=== PATIENT | male | born 1985 | race Caucasian/White ===

== ENCOUNTER 2021-03-20 16:18 | Emergency (ER) | payer BC, SELFPAY ==
[2021-03-20 16:20] VITALS: BP 151/97; PULSE 119; RESP 18; TEMP 36.7; O2SAT 99; BMI 30.1
--- NOTE | 2021-03-20 16:31 | ED_ITS ---
HPI - Back Pain/Injury General Chief Complaint: Back Pain/Injury Stated Complaint: BACK PAIN Time Seen by Provider: 03/20/21 16:25 Source: patient Mode of arrival: ambulatory Limitations: no limitations History of Present Illness HPI Narrative: 35-year-old male with a past medical history of chronic back pain presenting to the ED with complaints of acute on chronic back pain for the past few days worse today. Reports that he has has a scheduled cortisone shot in March 31 although he cannot wait that longer. Reports that he is getting 15 mg oxycodone from his doctor and that is not providing any symptomatic relief. Reports this is similar when compared to his prior back pains denies any other symptoms complaints or concerns at this time. He is requesting a Toradol shot IM. he reports he is currently prescribed 15 mg oxycodone and is not providing any symptomatic relief. Really want to Toradol IM shot. MD elicited complaint: back pain Pertinent past history: prior back pain Onset (ago): day(s) ( acute on chronic has been painful for a few days worse today) Timing: constant and progressively worsening Severity: similar to previous episodes Pain scale (0-10): 10 Similar Symptoms Previously: Yes Quality: aching and throbbing Location: lumbar spine Radiation: none Exacerbating factors: movement Relieving factors: walking Associated symptoms: denies other symptoms Work related injury: No Related Data Previous Rx's Medication Instructions Recorded acetaminophen [Tylenol Extra 1,000 mg PO QID PRN #14 tab 03/20/21 Strength] diazepam [Valium] 10 mg PO TID PRN #15 tab 03/20/21 ketorolac 10 mg PO Q8H PRN #15 tab 03/20/21 lidocaine HCl [Aspercreme 1 appl TOPICAL BID PRN #120 g 03/20/21 (lidocaine HCl)] ondansetron HCl [Zofran] 4 mg PO Q8H PRN #14 tab 03/20/21 oxycodone 15 mg PO BID PRN #14 tab 03/20/21 prednisone 40 mg PO DAILY 5 Days #10 tab 03/20/21 Allergies Allergy/AdvReac Type Severity Reaction Status Date / Time No Known Allergies Allergy Unverified 06/11/20 17:30 [No Known Allergies*] Review of Systems Review of Systems: Constitutional : No trauma, No Weight loss, No Fever, No Chills, ENT/Mouth : No Hearing loss, No Ear Pain, No Nasal Congestion, No Sinus Pain, No Hoarseness, No sore throat, No Rhinorrhea, No Swallowing Difficulty Cardiovascular : No Chest Pain, No SOB Respiratory : No Cough, No Dyspnea Gastrointestinal : No Nausea, No Vomiting, No Diarrhea, No abdominal Pain, No Hematochezia, No Melena Genitourinary : No Dysuria, No Urinary Frequency, No Hematuria, No Urinary or Bowel Incontinence/retention Musculoskeletal : + Back pain, No neck pain, No joint stiffness, No joint swelling Skin : No Skin Lesions, No rash or signs of infection Neuro : No Weakness, No radiation, No Numbness, No Paresthesias, No headache, no loss of bowel or bladder incontinence, no saddle anesthesia, Focal weakness, No radiation Denies history of IV drug usage. Yes all other systems are reviewed and are negative ON LICENSE OF [facility] Past Medical History Attestation statement: The following information was validated with the patient. Medical History Glaucoma Rheumatoid arthritis Social History Social History Advance Directives: No Advance Directives Information Provided: No Physical Exam Vital Signs: Vital Signs: Last Vital Signs Temp 98.0 F 03/20/21 16:20 Pulse 119 H 03/20/21 16:20 Resp 18 03/20/21 16:20 BP 151/97 H 03/20/21 16:20 Pulse Ox 99 03/20/21 16:20 Body Mass Index 30.1 vital signs have been reviewed as normal and appeared to be correct. Blood pressure normal. Heart rate normal. Respiration rate normal. Temperature normal. Oxygen saturation normal. Appearance: Alert. Oriented X3. No acute distress. Head: Normal external exam. Normocephalic. Atraumatic. No Lyons signs noted. No raccoon eyes noted Eyes: PERRLA. EOMI. Conjunctiva and sclera normal. Eyelids normal. ENT: EAC normal. TM's Normal. Pharynx normal. Uvula midline. Moist mucous membranes. No trismus noted. No drooling noted. No muffled voice noted. Neck: Normal inspection. Neck supple. FROM. No adenopathy. Thyroid Normal. No meningeal signs. No neck mass noted. CVS: Normal heart rate and rhythm. Heart sound normal. No murmurs noted. Pulses normal throughout. Respiratory: No respiratory distress. Painless inspiration. Breath sounds normal. No wheezes/rales/rhonchi noted. Chest nontender. No accessory muscle usage noted or decreased air movement noted. Abdomen: Soft and nontender. Bowel sounds normal in all 4 quadrants. No distention noted. No organomegaly noted. No visible injury noted. Back: No CVA tenderness. Full range of motion noted. No obvious deformities, or edema. Mild para-spinal muscular tenderness from lumbar region to coccyx. Full ROM in back and lower extremities. 5/5 strength hip extension/flexion, abduction, adduction. Mild Lumbar pain with hip flexion against resistance. Straight leg raise test negative on right; Straight leg raise test negative on left; Reflexes normal ankle and knee bilaterally; EHL motor strength normal bilaterally. No rashes/lesion/induration/fluctuance or signs infection noted. Skin: Skin warm and dry. Normal skin color. Normal skin turgor. No rashes/lesions/lacerations noted. Extremities: No lower extremity edema. Extremities exhibit normal range of motion. Extremities nontender. Neuro: Oriented X 3. No motor deficit. No sensory deficit. Reflexes normal. Patient has a normal steady gait. Course Course Course Narrative: Pt c likely muscular pain, but could be herniated disc. Neuro exam shows no deficits. Not c/w AAA/epidural abscess/dissection.No high risk Hx (Incont, fever, immunosupp, recent surgery/LP, coag, signif trauma, wt loss, puls mass, hx/o Ca, TB, or IVDU) to warrant MRI/CT today. Not c/w P yelo/UTI/kidney stone/spinal fx. Not cauda equina syndrome. Imaging not currently indicated. DC c meds and f/u. MDM - Back Pain/Injury Medical Records Attestation: I reviewed the patient's medical records. Discharge Plan Discharge Clinical Impression: Back pain Patient Disposition: Home, Self-Care Instructions: Chronic Back Pain (DC), Lower Back Exercises (ED) Prescriptions: New ondansetron HCl [Zofran] 4 mg tablet 4 mg PO Q8H PRN (Reason: nausea and vomiting) Qty: 14 RF: 0 diazepam [Valium] 10 mg tablet 10 mg PO TID PRN (Reason: muscle spasm) Qty: 15 RF: 0 lidocaine HCl [Aspercreme (lidocaine HCl)] 4 % cream 1 appl topical BID PRN (Reason: pain) Qty: 120 RF: 0 ketorolac 10 mg tablet 10 mg PO Q8H PRN (Reason: pain) Qty: 15 RF: 0 prednisone 20 mg tablet 40 mg PO DAILY 5 Days Qty: 10 RF: 0 acetaminophen [Tylenol Extra Strength] 500 mg tablet 1,000 mg PO QID PRN (Reason: fever or pain) Qty: 14 RF: 0 oxycodone 15 mg tablet 15 mg PO BID PRN (Reason: pain) Qty: 14 RF: 0 Referrals: Ba Zuñiga PA [Primary Care Provider] - 2 days Print Language: Mongolian
[2021-03-20] MEDS: Ketorolac Tromethamine 30 MG/ML VIAL IM (16:32)
--- NOTE | 2021-03-20 16:36 | PC.NURSE ---
NO BLADDER OR BOWEL ISSUES.
== END 2021-03-20 16:45 | disposition home or self-care (01) ==
PROVIDERS: Emergency Provider Emergency Medicine; PCP Physician Assistant Medical
DX: M54.9 Dorsalgia, unspecified (principal); Z79.891 Long term (current) use of opiate analgesic
CPT/HCPCS: 96372; 99284; J1885

== ENCOUNTER 2021-09-15 15:16 | Outpatient (REF) | payer BC, SELFPAY | END 2021-09-15 15:17 | disposition home or self-care (01) | LOC: HO.BBR 15:16 | PROVIDERS: PCP Physician Assistant Medical; Visit Provider Internal Medicine Hematology & Oncology | DX: E83.110 Hereditary hemochromatosis (principal); D75.1 Secondary polycythemia | CPT/HCPCS: 85018; 99195 ==

== ENCOUNTER 2021-09-29 11:35 | Outpatient (REF) | payer BC, SELFPAY | END 2021-09-29 11:36 | disposition home or self-care (01) | LOC: HO.BBR 11:35 | PROVIDERS: Visit Provider Internal Medicine Hematology & Oncology | DX: E83.110 Hereditary hemochromatosis (principal) | CPT/HCPCS: 85014; 85018; 99195 ==

== ENCOUNTER 2021-10-14 13:52 | Outpatient (REF) | payer BC, SELFPAY | END 2021-10-14 13:53 | disposition home or self-care (01) | LOC: HO.BBR 13:52 | PROVIDERS: Visit Provider Internal Medicine Hematology & Oncology | DX: D75.1 Secondary polycythemia (principal) | CPT/HCPCS: 85018; 99195 ==

== ENCOUNTER 2021-10-27 12:53 | Outpatient (REF) | payer BC, SELFPAY | END 2021-10-27 12:54 | disposition home or self-care (01) | LOC: HO.BBR 12:53 | PROVIDERS: Visit Provider Internal Medicine Hematology & Oncology | DX: E83.110 Hereditary hemochromatosis (principal); D75.1 Secondary polycythemia | CPT/HCPCS: 85014; 85018; 99195 ==

== ENCOUNTER 2021-11-12 09:44 | Outpatient (REF) | payer BC, SELFPAY | END 2021-11-12 09:45 | disposition home or self-care (01) | LOC: HO.BBR 09:44 | PROVIDERS: Visit Provider Internal Medicine Hematology & Oncology | DX: D75.1 Secondary polycythemia (principal) | CPT/HCPCS: 85018; 99195 ==

== ENCOUNTER 2021-11-30 14:51 | Outpatient (REF) | payer BC, SELFPAY | END 2021-11-30 14:52 | disposition home or self-care (01) | LOC: HO.BBR 14:51 | PROVIDERS: Visit Provider Internal Medicine Hematology & Oncology | DX: E83.110 Hereditary hemochromatosis (principal); D75.1 Secondary polycythemia | CPT/HCPCS: 85014; 85018; 99195 ==

== ENCOUNTER 2022-02-08 14:02 | Emergency (ER) | payer BC, SELFPAY | END 2022-02-08 17:53 | disposition left against medical advice (07) | PROVIDERS: Emergency Provider Emergency Medicine; PCP Physician Assistant Medical | DX: R05.9 Cough, unspecified (principal) ==

== ENCOUNTER 2022-02-08 15:27 | Outpatient (REF) | payer BC, SELFPAY ==
[2022-02-08 16:16] LABS: COVID-19 Test Negative (Negative); IDNOW Serial# 9DB6401D
== END 2022-02-08 15:28 | disposition home or self-care (01) ==
LOC: HO.LAB 15:27
PROVIDERS: PCP Physician Assistant Medical; Visit Provider Internal Medicine
DX: Z20.822 Contact with and (suspected) exposure to COVID-19 (principal)
CPT/HCPCS: 87635; C9803

== ENCOUNTER 2022-02-15 01:45 | Inpatient (IN) | payer BC, SELFPAY ==
[2022-02-15] VITALS (7 sets, daily range): BP systolic 105–161; BP diastolic 59–109; PULSE 74–115; RESP 12–22; TEMP 36.4–37.6; O2SAT 92–98; BMI 27.9
--- NOTE | ~2022-02-15 | XR_ITS ---
EXAMINATION: XR CHEST CLINICAL INFORMATION: Fevers COMPARISON: 01/12/2020 TECHNIQUE: Frontal view of the chest was obtained. FINDINGS: Lung volumes are symmetric. No focal consolidation is seen. Linear atelectasis at the left base. No evidence of pneumothorax, pleural effusion, or pulmonary edema. The cardiomediastinal contour is unremarkable. No acute osseous findings are seen. Redemonstrated small round metallic densities overlying the lower chest wall. XR/XR chest 1V IMPRESSION: No acute cardiopulmonary findings.
--- NOTE | ~2022-02-15 | US_ITS ---
EXAMINATION: US ABDOMEN LIMITED CLINICAL INFORMATION: Fever, elevated liver enzymes.. COMPARISON: CT abdomen and pelvis noncontrast 02/15/2022. TECHNIQUE: Real-time imaging of the right upper quadrant abdominal viscera. FINDINGS: PANCREAS: Normal in size and contour and echogenicity. No pancreatic ductal distention or retroperitoneal effusion. LIVER: The liver is enlarged measuring 26 cm in length. The liver surface is smooth. The parenchymal echogenicity is within normal. There is no focal hepatic parenchymal lesion or intrahepatic ductal dilatation. Color Doppler shows portal flow towards the liver. GALLBLADDER: The gallbladder wall is mildly thickened measuring 4-5 mm. There is no pericholecystic fluid. There is no calculus or sludge seen in the lumen. COMMON BILE DUCT: Normal in caliber measuring 0.3 cm in diameter. No visible ductal calculus. RIGHT KIDNEY: Right kidney measures 14.4 cm in length. There is inhomogeneous mildly increased renal parenchymal echogenicity. There is no hydronephrosis. Punctate renal sinus calculi noted on CT are not appreciated by ultrasound. There is no perinephric fluid. FREE FLUID: None. US/US abdomen limited IMPRESSION: -Hepatomegaly, 26 cm. Parenchyma normal in echogenicity. No focal parenchymal lesion. -Mild gallbladder wall thickening, 4-5 mm. No stone or sludge. No ductal dilatation. -Nonspecific heterogeneous increased renal parenchymal echogenicity. Finding could be related to medical renal disease or pyelonephritis. No hydronephrosis. No perinephric fluid.
--- NOTE | ~2022-02-15 | MR_ITS ---
EXAMINATION: MR LUMBAR SPINE WITHOUT AND WITH CONTRAST CLINICAL INFORMATION: Back pain. Sepsis. COMPARISON: CT abdomen and pelvis from 02/15/2022. TECHNIQUE: MRI of the lumbar spine was obtained using routine sequences without and following the administration of 9 mL of Gadavist intravenous contrast. FINDINGS: Mild reversal the normal lumbar lordosis. Mild degenerative retrolisthesis of L5 on S1. Otherwise, normal anatomic alignment. Diffuse mildly decreased marrow signal throughout. Moderate degenerative disc disease at T11-T12, L1-L2, L2-L3, and L5-S1. Mild degenerative disc disease at all additional levels. Mild mixed Modic type discogenic endplate changes. No demonstrated suspicious marrow edema or enhancement. Small Schmorl's nodes from L1-L4. Otherwise, the vertebral body heights are largely maintained. No epidural collection. The conus medullaris terminates at the level of L1. The distal spinal cord is normal in appearance. No abnormal contrast enhancement. Moderate subcutaneous edema within the soft tissues of the back from L1-S1. No demonstrated discrete drainable fluid collection. No additional significant abnormalities of the paraspinal musculature. Multiple wedge-shaped enhancement defects throughout the visualized portions of the bilateral kidneys. Mild perinephric fat stranding without demonstrated discrete collection. Otherwise, limited evaluation of the intra-abdominal structures without significant abnormalities. The abdominal aorta is of normal contour and caliber. AXIAL SPINAL LEVELS: L1-L2: Shallow diffuse disc bulge. There is no facet joint arthropathy. There is no neural foraminal stenosis. There is no spinal canal stenosis. L2-L3: Mild diffuse disc bulge. There is mild right and no left facet joint arthropathy. There is no neural foraminal stenosis. There is no spinal canal stenosis. L3-L4: Shallow diffuse disc bulge. There is mild bilateral facet joint arthropathy. There is no neural foraminal stenosis. There is no spinal canal stenosis. L4-L5: Shallow diffuse disc bulge. There is moderate bilateral facet joint arthropathy. There is mild bilateral neural foraminal stenosis. There is no spinal canal stenosis. L5-S1: Moderate diffuse disc bulge with superimposed central disc extrusion with slight inferior migration. There is moderate bilateral facet joint arthropathy. There is moderate to severe bilateral neural foraminal stenosis. There is stenosis of the subarticular zones with mild spinal canal stenosis centrally. MR/MR lumbar spine wo/w con IMPRESSION: 1. Moderate multilevel degenerative spondyloarthropathy of the lumbar spine as described in detail above. Most notably, there are stenoses of the subarticular zones with mild spinal canal stenosis centrally at L5-S1. Moderate to severe neural foraminal stenoses at L5-S1.. 2. Nonspecific diffuse mildly decreased marrow signal throughout the osseous structures. This may be seen with nonspecific underlying metabolic derangement or hematopoietic/lymphoproliferative disorders (including anemia or marrow activation in the setting of systemic infectious/inflammatory processes). No demonstrated suspicious focal regions of enhancement. 3. Bilateral striated nephrograms suggestive of underlying nonspecific nephritis.
--- NOTE | ~2022-02-15 | CT_ITS ---
EXAMINATION: CT ABDOMEN AND PELVIS WITHOUT CONTRAST CLINICAL INFORMATION: Fevers COMPARISON: None TECHNIQUE: Multidetector volumetric imaging was performed from the superior aspect of the liver through the pubic symphysis. Sagittal and coronal reformatted images were obtained on the technologist's workstation. This CT examination was performed using dose optimization techniques as appropriate, variously including the following: *Automated exposure control *Adjustment of mA and/or kV according to patient size (this includes techniques or standardized protocols for targeted exams where dose is matched to indication/reason for exam; i.e. extremities or head) *Use of iterative reconstruction technique DLP: 642 mGy-cm FINDINGS: LUNG BASES: Subsegmental bibasilar atelectasis. LIVER, GALLBLADDER, AND BILIARY TREE: The liver is enlarged, measuring approximately 27 cm in length. No biliary ductal dilatation is present. The gallbladder is unremarkable with no evidence of radiopaque gallstones, gallbladder wall thickening, or obvious pericholecystic inflammatory changes. PANCREAS: Unremarkable. SPLEEN: Unremarkable. ADRENAL GLANDS: Unremarkable. KIDNEYS AND URETERS: No hydronephrosis or obstructing calculus identified. Punctate bilateral renal calculi are noted. Nonspecific bilateral perinephric stranding is noted. BLADDER: Partially distended without significant wall thickening. GASTROINTESTINAL TRACT: No evidence of bowel obstruction or significant wall thickening. Mild diverticulosis is noted. The appendix is unremarkable. No free fluid or free air is seen. ABDOMINAL WALL: No significant hernia is appreciated. LYMPH NODES: Normal. VASCULAR: Unremarkable. PELVIC VISCERA: Unremarkable. OSSEOUS STRUCTURES: Unremarkable. CT/CT abdomen pelvis wo con IMPRESSION: 1. Nonspecific bilateral perinephric stranding, of uncertain clinical significance without intravenous contrast. Pyelonephritis is a possibility in the proper clinical setting, and correlation with urinalysis is recommended. 2. Tiny bilateral renal calculi. No hydronephrosis bilaterally. 3. Hepatomegaly.
[2022-02-15 02:19] LABS: Influenza A Negative (Negative); Influenza B2 Negative (Negative)
[2022-02-15 02:20] LABS: COVID-19 Test Negative (Negative); IDNOW Serial# 08D9AD1C
--- NOTE | 2022-02-15 04:00 | ED.FEVER ---
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 and never noticed a rash no IVDA< no hardwarde, this has never happened before, no sick contacts, taking tylenol, motrin and theraflu around the clock without improvement MD elicited complaint: fever, malaise and weakness Pertinent past history: immunosuppression (on enbrel and leflunomide for RA) Onset (ago): day(s) (11) Context: on immunosuppressant(s) and other (PCP via phone call started on tamiflu but no confirmed testing completed course does not feel better) Exacerbating factors: nothing Relieving factors: acetaminophen, ibuprofen, aspirin and cold medicine Associated symptoms: chills, myalgias, headache, abdominal pain, nausea, night sweats and extremity pain Treatments prior to arrival fever: acetaminophen and ibuprofen Related Data Previous Rx's Medication Instructions Recorded acetaminophen 500 mg tablet 1,000 mg PO QID PRN #14 tab 03/20/21 (Tylenol Extra Strength) diazepam 10 mg tablet (Valium) 10 mg PO TID PRN #15 tab 03/20/21 ketorolac 10 mg tablet 10 mg PO Q8H PRN #15 tab 03/20/21 lidocaine HCl 4 % topical cream 1 appl TOPICAL BID PRN #120 g 03/20/21 (Aspercreme (lidocaine HCl)) ondansetron HCl 4 mg tablet 4 mg PO Q8H PRN #14 tab 03/20/21 (Zofran) oxycodone 15 mg tablet 15 mg PO BID PRN #14 tab 03/20/21 prednisone 20 mg tablet 40 mg PO DAILY 5 Days #10 tab 03/20/21 Allergies Allergy/AdvReac Type Severity Reaction Status Date / Time No Known Allergies Allergy Unverified 06/11/20 17:30 [No Known Allergies*] Review of Systems Review of Systems: Constitutional : pos Fever, pos Chills, pos Fatigue, pos Malaise ENT/Mouth : No sore throat, No Rhinorrhea Eyes: No Eye Pain, No Swelling, No Redness Cardiovascular : No Chest Pain, No SOB Respiratory : No Cough, No Sputum, No Wheezing Gastrointestinal : pos Nausea, No Vomiting, No Diarrhea, No Constipation, No abdominal Pain Genitourinary : No Dysuria, No Urinary Frequency, No Hematuria, Musculoskeletal : No joint pain, pos Myalgias, No Joint Swelling Skin : No Skin Lesions, No rash Neuro : pos Weakness, No Numbness, No Dizziness, pos Headache Psych : No Anxiety/Panic, No Depression Heme/Lymph: No Bruising, No Bleeding,No Lymphadenopathy Endocrine : No Polyuria, No Polydipsia All other systems reviewed and are negative [facility] Past Medical History Attestation statement: The following information was validated with the patient. Medical History Glaucoma Rheumatoid arthritis Social History Social History Alcohol intake: current Alcohol intake frequency: a few times a week Alcohol type: beer and hard liquor Patient Tobacco Use Status: Former Tobacco user Smoked in Last 30 Days: No Use of substances other than those prescribed or required for medical reasons: No Advance Directives: No Physical Exam Vital Signs: Vital Signs: Last Vital Signs Temp 98.0 F 02/15/22 04:21 Pulse 85 02/15/22 04:21 Resp 12 02/15/22 04:21 BP 105/59 L 02/15/22 04:21 Pulse Ox 95 02/15/22 04:21 BMI result Body Mass Index 27.9 Appearance: Alert. Oriented X3. No acute distress. Eyes: Pupils equal, round and reactive to light. ENT: Pharynx normal. Neck: Normal inspection. Neck supple. no meningeal signs - neg kernig's neg brudzinksi's CVS: Normal heart rate and rhythm. Pulses normal. Respiratory: No respiratory distress. Breath sounds normal. Abdomen: Soft and nontender. Skin: Skin warm and diaphoretic on forehad. Normal skin color. Normal skin turgor. Extremities: No lower extremity edema. No calf ttp Neuro: Oriented X 3. No motor deficit. No sensory deficit. Course Course Course Narrative: given bandemia and immunosuppression will start on antibiotics - infections suspected 520am IV ceftriaxone 2G and IV doxy possible lyme plan to get US of liver though suspect this is related to illness has no RUQ pain on exam day team hospitalist to be notified by overnight covering doctor US pending antibiotics infusing MDM - Fever MDM Narrative Medical decision making narrative: 36 yo male with hx of RA on immunosuppressants comes in with c/o 11 days of viral like illness no travel hx no sick contacts unknown tick bite but does have risk factors - he completed a tamiflu course but it did not improve his symptoms and he never had a confirmed test. At this time labs, cultures, CXR, IVF, tick panel sent off. no IVDA no hardware in body has no meningeal signs - dispo per results and findings. Lab Data Result diagrams: 02/15/22 04:21 02/15/22 04:45 Labs: Lab Results 02/15/22 02/15/22 02/15/22 Range/Units 01:55 01:55 04:21 WBC 12.8 H (4.8-10.8) X10*3/uL RBC 4.04 L (4.60-5.80) X10*6/uL Hgb 12.1 L (14.0-18.0) g/dl Hct 35.1 L (42.0-52.0) % MCV 86.9 (80.0-98.0) fL MCH 30.0 (27.0-33.0) pg MCHC 34.5 (31.0-36.0) g/dl RDW 15.0 (11.0-16.0) % Plt Count 290 (160-400) X10*3/uL MPV 12.9 H (9.4-12.4) fL Immature Gran % (Auto) Cancelled Neut % (Auto) Cancelled Lymph % (Auto) Cancelled Washburn % (Auto) Cancelled Eos % (Auto) Cancelled Baso % (Auto) Cancelled Lymph # (Auto) Cancelled [place] # (Auto) Cancelled Eos # (Auto) Cancelled Baso # (Auto) Cancelled Abs Immat Gran (auto) Cancelled Absolute Neuts (auto) Cancelled Absolute Nucleated RBC 0.000 (0.0-0.012) X10*3/uL Nucleated RBC % (auto) 0.0 (0.0-0.2) /100WBC Neutrophils % (Manual) 63 (45-73) % Band Neutrophils % 25 H (3-5) % Lymphocytes % (Manual) 2 L (20-40) % Monocytes % (Manual) 7 (2-11) % Metamyelocytes % 2 % Myelocytes % 1 % Abs Neuts (Manual) 11.3 H (2.0-8.3) X10*3/uL Lymphocytes # (Manual) 0.3 L (1.2-4.9) X10*3/uL Monocytes # (Manual) 0.9 (0.1-1.2) X10*3/uL Metamyelocytes # 0.3 X10*3/uL Myelocytes # 0.1 X10*/uL Toxic Granulation PRESENT Toxic Vacuolation PRESENT Dohle Bodies PRESENT Platelet Estimate NORMAL (NORMAL) Plt Morphology Comment NORMAL RBC Morphology NOTED Macclenny Cells 1+ (0-2) /OIF PT (9.9-13.0) SEC INR (0.9-1.1) Sodium (135-145) mmol/L Potassium (3.3-5.1) mmol/L Chloride (96-108) mmol/L Carbon Dioxide (22-29) mmol/L Anion Gap (12-20) BUN (9-16) mg/dL Creatinine (0.5-1.4) mg/dL Estim Creat Clear Calc Estimated GFR Random Glucose (60-115) mg/dL Lactic Acid (0.5-2.0) mmol/L Calcium (8.4-10.2) mg/dL Magnesium (1.6-2.6) mg/dL Total Bilirubin (0.0-1.0) mg/dL Direct Bilirubin (0.0-0.5) mg/dL AST (5-37) U/L ALT (0-40) U/L Alkaline Phosphatase (39-117) U/L C-Reactive Protein (< or = 0.50) mg/dL Total Protein (6.5-8.0) g/dL Albumin (3.5-5.0) g/dL Lipase (8-78) U/L Procalcitonin ng/mL Urine Color Urine Appearance Urine pH (5.0-8.0) Ur Specific Beaumont (1.005-1.025) Urine Protein (NEG-TRACE) MG/DL Urine Glucose (UA) (NEG) MG/DL Urine Ketones (NEG) MG/DL Urine Blood (NEG) Urine Nitrite (NEG) Ur Leukocyte Esterase (NEG) Urine RBC (0) /HPF Urine WBC (0-4) /HPF Ur Squamous Epith Cells /LPF Urine Bacteria /LPF Urine Mucus /LPF COVID-19 (JOLLY) Negative (Negative) COVID-19 Clin Com See Note Influenza Type A (RONAL) Negative (Negative) Influenza Type B (RONAL) Negative (Negative) Influenza A & B Note See Note 02/15/22 02/15/22 02/15/22 Range/Units 04:21 04:45 04:45 WBC (4.8-10.8) X10*3/uL RBC (4.60-5.80) X10*6/uL Hgb (14.0-18.0) g/dl Hct (42.0-52.0) % MCV (80.0-98.0) fL MCH (27.0-33.0) pg MCHC (31.0-36.0) g/dl RDW (11.0-16.0) % Plt Count (160-400) X10*3/uL MPV (9.4-12.4) fL Immature Gran % (Auto) Neut % (Auto) Lymph % (Auto) Washburn % (Auto) Eos % (Auto) Baso % (Auto) Lymph # (Auto) Washburn # (Auto) Eos # (Auto) Baso # (Auto) Abs Immat Gran (auto) Absolute Neuts (auto) Absolute Nucleated RBC (0.0-0.012) X10*3/uL Nucleated RBC % (auto) (0.0-0.2) /100WBC Neutrophils % (Manual) (45-73) % Band Neutrophils % (3-5) % Lymphocytes % (Manual) (20-40) % Monocytes % (Manual) (2-11) % Metamyelocytes % % Myelocytes % % Abs Neuts (Manual) (2.0-8.3) X10*3/uL Lymphocytes # (Manual) (1.2-4.9) X10*3/uL Monocytes # (Manual) (0.1-1.2) X10*3/uL Metamyelocytes # X10*3/uL Myelocytes # X10*/uL Toxic Granulation Toxic Vacuolation Dohle Bodies Platelet Estimate (NORMAL) Plt Morphology Comment RBC Morphology Macclenny Cells /OIF PT (9.9-13.0) SEC INR (0.9-1.1) Sodium 130 L (135-145) mmol/L Potassium 4.3 (3.3-5.1) mmol/L Chloride 98 (96-108) mmol/L Carbon Dioxide 20 L (22-29) mmol/L Anion Gap 16 (12-20) BUN 33 H (9-16) mg/dL Creatinine 1.60 H (0.5-1.4) mg/dL Estim Creat Clear Calc 71.4 Estimated GFR 49 Random Glucose 102 (60-115) mg/dL Lactic Acid 1.1 (0.5-2.0) mmol/L Calcium 8.3 L (8.4-10.2) mg/dL Magnesium 1.9 (1.6-2.6) mg/dL Total Bilirubin 0.8 (0.0-1.0) mg/dL Direct Bilirubin 0.7 H (0.0-0.5) mg/dL AST 79 H (5-37) U/L ALT 117 H (0-40) U/L Alkaline Phosphatase 240 H (39-117) U/L C-Reactive Protein 30.36 H (< or = 0.50) mg/dL Total Protein 5.1 L (6.5-8.0) g/dL Albumin 2.4 L (3.5-5.0) g/dL Lipase 25 (8-78) U/L Procalcitonin 9.76 ng/mL Urine Color Urine Appearance Urine pH (5.0-8.0) Ur Specific Bea[place] (1.005-1.025) Urine Protein (NEG-TRACE) MG/DL Urine Glucose (UA) (NEG) MG/DL Urine Ketones (NEG) MG/DL Urine Blood (NEG) Urine Nitrite (NEG) Ur Leukocyte Esterase (NEG) Urine RBC (0) /HPF Urine WBC (0-4) /HPF Ur Squamous Epith Cells /LPF Urine Bacteria /LPF Urine Mucus /LPF COVID-19 (JOLLY) (Negative) COVID-19 Clin Com Influenza Type A (RONAL) (Negative) Influenza Type B (RONAL) (Negative) Influenza A & B Note 02/15/22 02/15/22 Range/Units 04:47 05:22 WBC (4.8-10.8) X10*3/uL RBC (4.60-5.80) X10*6/uL Hgb (14.0-18.0) g/dl Hct (42.0-52.0) % MCV (80.0-98.0) fL MCH (27.0-33.0) pg MCHC (31.0-36.0) g/dl RDW (11.0-16.0) % Plt Count (160-400) X10*3/uL MPV (9.4-12.4) fL Immature Gran % (Auto) Neut % (Auto) Lymph % (Auto) [place] % (Auto) Eos % (Auto) Baso % (Auto) Lymph # (Auto) [place] # (Auto) Eos # (Auto) Baso # (Auto) Abs Immat Gran (auto) Absolute Neuts (auto) Absolute Nucleated RBC (0.0-0.012) X10*3/uL Nucleated RBC % (auto) (0.0-0.2) /100WBC Neutrophils % (Manual) (45-73) % Band Neutrophils % (3-5) % Lymphocytes % (Manual) (20-40) % Monocytes % (Manual) (2-11) % Metamyelocytes % % Myelocytes % % Abs Neuts (Manual) (2.0-8.3) X10*3/uL Lymphocytes # (Manual) (1.2-4.9) X10*3/uL Monocytes # (Manual) (0.1-1.2) X10*3/uL Metamyelocytes # X10*3/uL Myelocytes # X10*/uL Toxic Granulation Toxic Vacuolation Dohle Bodies Platelet Estimate (NORMAL) Plt Morphology Comment RBC Morphology Margo Cells /OIF PT 19.6 H (9.9-13.0) SEC INR 1.7 H (0.9-1.1) Sodium (135-145) mmol/L Potassium (3.3-5.1) mmol/L Chloride (96-108) mmol/L Carbon Dioxide (22-29) mmol/L Anion Gap (12-20) BUN (9-16) mg/dL Creatinine (0.5-1.4) mg/dL Estim Creat Clear Calc Estimated GFR Random Glucose (60-115) mg/dL Lactic Acid (0.5-2.0) mmol/L Calcium (8.4-10.2) mg/dL Magnesium (1.6-2.6) mg/dL Total Bilirubin (0.0-1.0) mg/dL Direct Bilirubin (0.0-0.5) mg/dL AST (5-37) U/L ALT (0-40) U/L Alkaline Phosphatase (39-117) U/L C-Reactive Protein (< or = 0.50) mg/dL Total Protein (6.5-8.0) g/dL Albumin (3.5-5.0) g/dL Lipase (8-78) U/L Procalcitonin ng/mL Urine Color YELLOW Urine Appearance HAZY Urine pH 6.0 (5.0-8.0) Ur Specific [place] 1.025 (1.005-1.025) Urine Protein 2+ H (NEG-TRACE) MG/DL Urine Glucose (UA) NEG (NEG) MG/DL Urine Ketones NEG (NEG) MG/DL Urine Blood 3+ H (NEG) Urine Nitrite NEG (NEG) Ur Leukocyte Esterase 1+ H (NEG) Urine RBC 30-49 H (0) /HPF Urine WBC 10-14 H (0-4) /HPF Ur Squamous Epith Cells 1+ /LPF Urine Bacteria 4+ /LPF Urine Mucus 2+ /LPF COVID-19 (JOLLY) (Negative) COVID-19 Clin Com Influenza Type A (RONAL) (Negative) Influenza Type B (RONAL) (Negative) Influenza A & B Note Discharge Plan Discharge Clinical Impression: Bandemia, MICHAELA (acute kidney injury), Elevated LFTs Fever Qualifiers: Fever type: unspecified Qualified Code(s): R50.9 - Fever, unspecified Patient Disposition: Admitted As Inpatient
[2022-02-15 04:34] LABS: Hematocrit 35.1 % (42.0-52.0); Hemoglobin 12.1 g/dl (14.0-18.0); Mean Corpuscular HGB Conc 34.5 g/dl (31.0-36.0); Mean Corpuscular Volume 86.9 fL (80.0-98.0); Mean Platelet Volume 12.9 fL (9.4-12.4); Platelet Count 290 X10*3/uL (160-400); Red Blood Count 4.04 X10*6/uL (4.60-5.80); White Blood Count 12.8 X10*3/uL (4.8-10.8)
[2022-02-15 04:37] LABS: Lactic Acid 1.1 mmol/L (0.5-2.0)
[2022-02-15] MEDS: Lactated Ringers 1,000 ML 999 ML IV (04:50)
[2022-02-15 05:01] LABS: INTERNATIONAL NORM RATIO 1.7 (0.9-1.1); Prothrombin Time 19.6 SEC (9.9-13.0)
[2022-02-15 05:09] LABS: Band Neutrophils Percent 25 % (3-5); Lymphocytes Absolute Manual 0.3 X10*3/uL (1.2-4.9); Lymphocytes Percent Manual 2 % (20-40); Monocytes Absolute Manual 0.9 X10*3/uL (0.1-1.2); Monocytes Percent Manual 7 % (2-11); Neutrophils Absolute Manual 11.3 X10*3/uL (2.0-8.3); Neutrophils Percent Manual 63 % (45-73)
[2022-02-15 05:10] LABS: Metamyelocytes Absolute 0.3 X10*3/uL; Metamyelocytes Percent 2 %; Myelocytes Absolute 0.1 X10*/uL; Myelocytes Percent 1 %
[2022-02-15 05:11] LABS: Platelet Estimate NORMAL (NORMAL); Platelet Morphology Comment NORMAL
[2022-02-15 05:13] LABS: Toxic Granulation PRESENT; Toxic Vacuolation PRESENT
[2022-02-15 05:14] LABS: Dohle Bodies PRESENT
[2022-02-15 05:15] LABS: RBC Morphology NOTED
[2022-02-15 05:16] LABS: Burr Cells 1+ (0-2) /OIF
[2022-02-15 05:23] LABS: Alanine Aminotransferase 117 U/L (0-40); Albumin Level 2.4 g/dL (3.5-5.0); Alkaline Phosphatase 240 U/L (39-117); Anion Gap 16 (12-20); Aspartate Amino Transferase 79 U/L (5-37); Bilirubin Direct 0.7 mg/dL (0.0-0.5); Bilirubin Total 0.8 mg/dL (0.0-1.0); Blood Urea Nitrogen 33 mg/dL (9-16); C Reactive Protein 30.36 mg/dL (< or = 0.50); Calcium 8.3 mg/dL (8.4-10.2); Carbon Dioxide 20 mmol/L (22-29); Chloride 98 mmol/L (96-108); Creatinine Clr Calc Pharmacy 71.4; Estimated Glomerular Filt Rate 49; Glucose Random 102 mg/dL (60-115); Lipase 25 U/L (8-78); Magnesium 1.9 mg/dL (1.6-2.6); Potassium 4.3 mmol/L (3.3-5.1); Sodium 130 mmol/L (135-145); Total Protein 5.1 g/dL (6.5-8.0)
[2022-02-15 05:29] LABS: Appearance Urine HAZY; Color Urine YELLOW; Glucose Urine UA NEG (NEG); Leukocyte Esterase Urine 1+ (NEG); Nitrite Urine NEG (NEG); Specific Gravity - Urine 1.025 (1.005-1.025); UACC Culture Trigger YES; Urine Blood 3+ (NEG); Urine Ketones NEG (NEG); Urine Protein 2+ MG/DL (NEG-TRACE)
[2022-02-15 05:32] LABS: Procalcitonin 9.76 ng/mL
[2022-02-15 05:36] LABS: Bacteria Urine 4+ /LPF; Mucus Urine 2+ /LPF; RBC Urine 30-49 /HPF (0); Squamous Epithelial Cell Urine 1+ /LPF
[2022-02-15] MEDS: cefTRIAXone sodium 2 GM in 0.9 % Sodium Chloride 50 ML IV (05:39)
[2022-02-15] MEDS: 0.9 % Sodium Chloride 1,000 ML 999 ML IV ×2 (06:25→07:48)
[2022-02-15] MEDS: Doxycycline Hyclate 100 MG in 0.9 % Sodium Chloride 250 ML 166.67 MG IV ×2 (06:29→17:32)
--- NOTE | 2022-02-15 08:36 | PHA.MEDREC ---
Pharmacy Consult ? Medication Reconciliation Pharmacy has completed the medication reconciliation. Pt stated that he has been taking tylenol 5 times a day. Also noted that he has skipped his last few Enbrel injections and has not been taking his leflunomide.
[2022-02-15] MEDS: ondansetron HCL 4 MG/2 ML VIAL IVPUSH (09:46)
[2022-02-15] MEDS: Morphine Sulfate 4 MG/ML CARTRIDGE IVPUSH (09:46)
--- NOTE | 2022-02-15 10:14 | P.HPHOSP_ITS ---
History of Present Illness Date of Service: 02/15/22 Chief Complaint: Fever body ache. 36-year-old male with a history of rheumatoid arthritis on Enbrel and leflunomide, history of depression on Wellbutrin. And he presents to the emergency room with a flu-like syndrome that have been ongoing for nearly 2 weeks has been tested for COVID twice negative, and was empirically started on Tamiflu for presume flu but in spite of this has not failure any better. He continued to have diffuse body aches and however no joint aches and has been having fevers subjectively at home. He recalled by 2 weeks ago he was cutting his grass that is very very tall at his house and the next day worse when he started having these aches. [place] [address]. INR is elevated at 1.7 sodium 130, creatinine 1.6, LFTs I elevated with AST 79 and ALT 117 alk-phos 240., C reactive protein is markedly elevated at 30.36 total protein 5.1 urinalysis showed proteinuria and hematuria. Baby CS serology is pending, he is given ceftriaxone and doxycycline for tick-borne illness. Checks x-ray is unremarkable. CT show nonspecific perinephric stranding of unclear significance, hip thyromegaly is noted on the CT scan as well as on ultrasound. Of note he drinks 6 beers a day at time with hard liquor also. He is fully vaccinated with COVID including 1 blister Review of Systems Review of Systems: Gen: + fever Resp: no sob, no cough CV: no chest, no JAMES, no leg edema GI: + n/v, + abd pain Neuro: No confusion Yes all other systems are reviewed and are negative [facility] Medical History Glaucoma Rheumatoid arthritis Social History Alcohol intake: current Alcohol intake frequency: a few times a week Alcohol type: beer and hard liquor Patient Tobacco Use Status: Former Tobacco user Smoked in Last 30 Days: No Use of substances other than those prescribed or required for medical reasons: No Advance Directives: No Meds Allergies Allergy/AdvReac Type Severity Reaction Status Date / Time No Known Allergies Allergy Unverified 06/11/20 17:30 [No Known Allergies*] Active Medications: Current Medications Acetaminophen (Acetaminophen 325 Mg Tablet) 650 mg PO Q6H PRN PRN Reason: Pain, Mild (Pain Scale 1-3) Al Hydroxide/Mg Hydroxide (Magnesium Hydrox/Alum Hydrox 30 Ml Oral.Susp) 30 ml PO Q4H PRN PRN Reason: Heartburn/Nausea Dextrose/Sodium Chloride (D51/2ns) 1,000 mls @ 100 mls/hr IVCONT .Q10H [facility] Melatonin (Melatonin 3 Mg Tablet) 6 mg PO BEDTIME PRN PRN Reason: Insomnia Methylphenidate HCl (Methylphenidate Hcl 5 Mg Tablet) 20 mg PO BID [facility] Morphine Sulfate (Morphine Sulfate 4 Mg/Ml Cartridge) 2 mg IVPUSH Q4H PRN; Protocol PRN Reason: Pain, Severe (Pain Scale 7-10) Multivitamins/Vitamin C (Multivitamin Tablet) 1 tab PO DAILY [facility] Non-Formulary Medication (Bupropion Hcl) 1 tab PO BID [facility] Ondansetron HCl (Ondansetron Hcl 4 Mg/2 Ml Vial) 4 mg IVPUSH Q8H PRN PRN Reason: Nausea and Vomiting Sodium Chloride (0.9 % Sodium Chloride Flush 3 Ml Syringe) 3 ml IVFLUSH QSHIFT [facility] Timolol Maleate (Timolol Maleate 0.5 % Oph Tejal 5 Ml Drbtl) 1 drop EYE-BOTH BID [facility] Home Medications Medication Instructions Recorded Confirmed Last Taken Type bupropion HCl 100 mg tablet,12 hr 1 tab PO BID 02/15/22 02/15/22 Unknown History sustained-release etanercept 50 mg/mL (1 mL) 1 syringe SUBCUT DELEON 02/15/22 02/15/22 Unknown History subcutaneous pen injector (Enbrel Alphonse) leflunomide 10 mg tablet 1 tab PO DAILY 02/15/22 02/15/22 Unknown History methylphenidate HCl 20 mg tablet 1 tab PO BID 02/15/22 02/15/22 02/14/22 History multivitamin 1 tab PO DAILY 02/15/22 02/15/22 02/14/22 History timolol maleate 0.5 % eye drops 1 drp OPHTHALMIC (EYE) BID 02/15/22 02/15/22 History valacyclovir 500 mg tablet 1 tab PO DAILY 02/15/22 02/15/22 02/14/22 History Physical Exam Vital Signs and Narrative: Vital Signs: Last Vital Signs Temp 97.6 F 02/15/22 09:13 Pulse 74 02/15/22 09:13 Resp 14 02/15/22 09:13 BP 140/90 H 02/15/22 09:13 Pulse Ox 97 02/15/22 09:13 BMI result Body Mass Index 27.9 Const: Other: Constitutional: Alert, in no distress, overweight. Mental Status: Oriented to person, place and time. Eyes: Pupils are equal, round and reactive to light. No scleral icterus Ear, Nose and Throat: Oropharynx clear, mucous membranes moist. Ears and nose without eformities. Respiratory: Clear to auscultation. No wheezing, rales or rhonchi. Cardiovascular: S1 S2 regular. No murmurs, rubs or gallops. Gastrointestinal: Abdomen soft, non-tender, non-distended. Normal bowel sounds.? Neurologic: Cranial nerves II-XII grossly intact. No focal neurological deficit s. Moves all extremities spontaneously.? Skin: No rashes or lesions.? Musculoskeletal: No cyanosis or clubbing. Psychiatric: Normal mood and affect? Results Labs CBC and Chem 7: 02/15/22 04:21 02/15/22 04:45 Labs: Laboratory Results - last 24 hr 02/15/22 02/15/22 02/15/22 01:55 01:55 04:21 MCV 86.9 MCH 30.0 MCHC 34.5 RDW 15.0 Plt Count 290 MPV 12.9 H Immature Gran % (Auto) Cancelled Neut % (Auto) Cancelled Lymph % (Auto) Cancelled [place] % (Auto) Cancelled Eos % (Auto) Cancelled Baso % (Auto) Cancelled Lymph # (Auto) Cancelled [place] # (Auto) Cancelled Eos # (Auto) Cancelled Baso # (Auto) Cancelled Abs Immat Gran (auto) Cancelled Absolute Neuts (auto) Cancelled Absolute Nucleated RBC 0.000 Nucleated RBC % (auto) 0.0 Neutrophils % (Manual) 63 Band Neutrophils % 25 H Lymphocytes % (Manual) 2 L Monocytes % (Manual) 7 Metamyelocytes % 2 Myelocytes % 1 Abs Neuts (Manual) 11.3 H Lymphocytes # (Manual) 0.3 L Monocytes # (Manual) 0.9 Metamyelocytes # 0.3 Myelocytes # 0.1 Toxic Granulation PRESENT Toxic Vacuolation PRESENT Dohle Bodies PRESENT Platelet Estimate NORMAL Plt Morphology Comment NORMAL RBC Morphology NOTED Margo Cells 1+ (0-2) PT INR Anion Gap Estim Creat Clear Calc Estimated GFR Random Glucose Lactic Acid Calcium Magnesium Total Bilirubin Direct Bilirubin AST ALT Alkaline Phosphatase C-Reactive Protein Total Protein Albumin Lipase Procalcitonin Urine Color Urine Appearance Urine pH Ur Specific [place] Urine Protein Urine Glucose (UA) Urine Ketones Urine Blood Urine Nitrite Ur Leukocyte Esterase Urine RBC Urine WBC Ur Squamous Epith Cells Urine Bacteria Urine Mucus COVID-19 (JOLLY) Negative COVID-19 Clin Com See Note Influenza Type A (RONAL) Negative Influenza Type B (RONAL) Negative Influenza A & B Note See Note 02/15/22 02/15/22 02/15/22 04:21 04:45 04:45 MCV MCH MCHC RDW Plt Count MPV Immature Gran % (Auto) Neut % (Auto) Lymph % (Auto) [place] % (Auto) Eos % (Auto) Baso % (Auto) Lymph # (Auto) [place] # (Auto) Eos # (Auto) Baso # (Auto) Abs Immat Gran (auto) Absolute Neuts (auto) Absolute Nucleated RBC Nucleated RBC % (auto) Neutrophils % (Manual) Band Neutrophils % Lymphocytes % (Manual) Monocytes % (Manual) Metamyelocytes % Myelocytes % Abs Neuts (Manual) Lymphocytes # (Manual) Monocytes # (Manual) Metamyelocytes # Myelocytes # Toxic Granulation Toxic Vacuolation Dohle Bodies Platelet Estimate Plt Morphology Comment RBC Morphology Margo Cells PT INR Anion Gap 16 Estim Creat Clear Calc 71.4 Estimated GFR 49 Random Glucose 102 Lactic Acid 1.1 Calcium 8.3 L Magnesium 1.9 Total Bilirubin 0.8 Direct Bilirubin 0.7 H AST 79 H ALT 117 H Alkaline Phosphatase 240 H C-Reactive Protein 30.36 H Total Protein 5.1 L Albumin 2.4 L Lipase 25 Procalcitonin 9.76 Urine Color Urine Appearance Urine pH Ur Specific [place] Urine Protein Urine Glucose (UA) Urine Ketones Urine Blood Urine Nitrite Ur Leukocyte Esterase Urine RBC Urine WBC Ur Squamous Epith Cells Urine Bacteria Urine Mucus COVID-19 (JOLLY) COVID-19 Clin Com Influenza Type A (RONAL) Influenza Type B (RONAL) Influenza A & B Note 02/15/22 02/15/22 04:47 05:22 MCV MCH MCHC RDW Plt Count MPV Immature Gran % (Auto) Neut % (Auto) Lymph % (Auto) [place] % (Auto) Eos % (Auto) Baso % (Auto) Lymph # (Auto) [place] # (Auto) Eos # (Auto) Baso # (Auto) Abs Immat Gran (auto) Absolute Neuts (auto) Absolute Nucleated RBC Nucleated RBC % (auto) Neutrophils % (Manual) Band Neutrophils % Lymphocytes % (Manual) Monocytes % (Manual) Metamyelocytes % Myelocytes % Abs Neuts (Manual) Lymphocytes # (Manual) Monocytes # (Manual) Metamyelocytes # Myelocytes # Toxic Granulation Toxic Vacuolation Dohle Bodies Platelet Estimate Plt Morphology Comment RBC Morphology [place] Cells PT 19.6 H INR 1.7 H Anion Gap Estim Creat Clear Calc Estimated GFR Random Glucose Lactic Acid Calcium Magnesium Total Bilirubin Direct Bilirubin AST ALT Alkaline Phosphatase C-Reactive Protein Total Protein Albumin Lipase Procalcitonin Urine Color YELLOW Urine Appearance HAZY Urine pH 6.0 Ur Specific [place] 1.025 Urine Protein 2+ H Urine Glucose (UA) NEG Urine Ketones NEG Urine Blood 3+ H Urine Nitrite NEG Ur Leukocyte Esterase 1+ H Urine RBC 30-49 H Urine WBC 10-14 H Ur Squamous Epith Cells 1+ Urine Bacteria 4+ Urine Mucus 2+ COVID-19 (JOLLY) COVID-19 Clin Com Influenza Type A (RONAL) Influenza Type B (RONAL) Influenza A & B Note Imaging Radiologist's Impressions: Impressions Chest X-Ray 02/15/22 04:35 IMPRESSION: No acute cardiopulmonary findings. Abdomen/Pelvis CT 02/15/22 06:23 IMPRESSION: 1. Nonspecific bilateral perinephric stranding, of uncertain clinical significance without intravenous contrast. Pyelonephritis is a possibility in the proper clinical setting, and correlation with urinalysis is recommended. 2. Tiny bilateral renal calculi. No hydronephrosis bilaterally. 3. Hepatomegaly. Abdomen Ultrasound 02/15/22 08:00 IMPRESSION: -Hepatomegaly, 26 cm. Parenchyma normal in echogenicity. No focal parenchymal lesion. -Mild gallbladder wall thickening, 4-5 mm. No stone or sludge. No ductal dilatation. -Nonspecific heterogeneous increased renal parenchymal echogenicity. Finding could be related to medical renal disease or pyelonephritis. No hydronephrosis. No perinephric fluid. Assessment and Plan (1) MICHAELA (acute kidney injury): Status: Acute (2) Fever: Qualifiers: Fever type: unspecified Qualified Code(s): R50.9 - Fever, unspecified Status: Acute (3) Elevated LFTs: Status: Acute Plan 36 year old male with RA, drinks 6 beer a day here with 2 weeks of viral symptoms of fever, body ache and found to have #Viral syndrome--Tick borne work up in progress, given Doxy and Ceftriaxone, ID consult for more direction #MICHAELA--likely pre renal azotemia -Hydate and reassess tomorrow -Nephrology consult #Hyponatremia--likely beer potomania, fuid restrictiona and recheck lab tomorrow, nephro eval as above #Acute hepatitis, Hepatomegally--likely alcoholic, check virla hepaiti, avoid APAP, GI eval #Rheumatoid arthtitis--Hold embrel and leflunomide #Coagulopathy--likely related to alcoholic liver disease,monitor if worse or sings of bleeding give vitamin K DVT prophy: low risk due to high INR Admission will span at least 2 midnight for tretment of MICHAELA that need IVF, fruther work up for proteinuria and and viral sepsis treatment Quality Stroke Does the patient have a stroke diagnosis?: No VTE Prior VTE?: No VTE Risk Level:: Medical - low VTE Device Contraindication: Treatment Not Indicated VTE Drug Contraindication: Treatment Not Indicated
[2022-02-15] MEDS: HYDROmorphone HCl 1 MG/ML SYRINGE IVPUSH ×4 (10:25→22:47)
[2022-02-15] MEDS: Multivitamin TABLET 1 TAB PO (10:58)
[2022-02-15] MEDS: timoloL maleate 0.5 % Oph Sol 5 ML DRBTL 1 DROP EYE-BOTH ×2 (10:58→20:50)
[2022-02-15] MEDS: buPROPion HCl XL 150 MG TAB.ER.24H PO (10:58)
[2022-02-15] MEDS: Dextrose 5 % and 0.45 % NaCl 1,000 ML 100 ML IVCONT ×3 (10:58→20:46)
[2022-02-15] MEDS: Morphine Sulfate 4 MG/ML CARTRIDGE 2 MG IVPUSH (11:08)
--- NOTE | 2022-02-15 11:43 | P.CNGI_ITS ---
History of Present Illness Data of Consult Service Date: 02/15/22 [facility] Care Provider: SANAZ Goel HPI Reason for consult: abn LFT 36-year-old male with a history of rheumatoid arthritis on Enbrel and leflunomide, depression and daily alcohol use who I am seeing for assessment of abn LFT in setting of flu like sx? Patient has been feeling sick for about 11 days. he noted fevers with chills, and sweats. He has back pain, headaches, and neck stiffness with some mild photophobia. The headaches are episodic and 10/10 in severity. He has some mild diarrhea and nausea with non bloody emessis. he also has 10# weight loss with poor appetite. He had been treated with tamiflu but no better also tested neg for covid x 2. he denies sick contacts, no travel, n herbal drug use, remote hx of cocaine, daily alcohol with several beers for years. [place]: [place] [id number].? INR is elevated at 1.7 sodium 130, creatinine 1.6, LFT: AST 79 and ALT 117 alk-phos 240., CRP- 30.36, total protein 5.1 UA: pos protein and RBC IMAGING: CXR- neg CT perinephric stranding US: medical renal disease, possible pyelonephritis r Review of Systems Review of Systems: Constitutional : + Weight loss, ENT/Mouth : + sore throat, No Rhinorrhea Eyes: No Swelling, No Redness Cardiovascular : No Chest Pain, No SOB, No Edema Respiratory : No Cough, No Sputum, No Wheezing Gastrointestinal : see HPI Genitourinary : NO Dysuria, No Urinary Frequency, No Hematuria, No Urgency Musculoskeletal : No joint pain, No Myalgias, No Joint Swelling Skin : No Skin Lesions, No rash Neuro : +Weakness, No Numbness, No Dizziness, + Headache Psych : No Anxiety/Panic, No Depression Heme/Lymph: No Bruising, No Lymphadenopathy Endocrine : No Polyuria, No Polydipsia All other systems reviewed and are negative. Yes all other systems are reviewed and are negative [facility] Past Medical History Medical History Glaucoma Rheumatoid arthritis Family History Pertinent family history: No FH of liver disease, cancer Social History Social History Alcohol intake: current Alcohol intake frequency: a few times a week Alcohol type: beer and hard liquor Patient Tobacco Use Status: Former Tobacco user Smoked in Last 30 Days: No Use of substances other than those prescribed or required for medical reasons: No Advance Directives: No service: No Current occupational status: employed Meds Allergies Allergy/AdvReac Type Severity Reaction Status Date / Time No Known Allergies Allergy Unverified 06/11/20 17:30 [No Known Allergies*] Active Medications: Current Medications Acetaminophen (Acetaminophen 325 Mg Tablet) 650 mg PO Q6H PRN PRN Reason: Pain, Mild (Pain Scale 1-3) Al Hydroxide/Mg Hydroxide (Magnesium Hydrox/Alum Hydrox 30 Ml Oral.Susp) 30 ml PO Q4H PRN PRN Reason: Heartburn/Nausea Bupropion HCl (Bupropion Hcl Xl 150 Mg Tab.Er.24h) 150 mg PO DAILY [facility] Last Admin: 02/15/22 10:58 Dose: 150 mg Documented by: Dextrose/Sodium Chloride (D51/2ns) 1,000 mls @ 100 mls/hr IVCONT .Q10H [facility] Last Admin: 02/15/22 10:58 Dose: 100 mls/hr Documented by: Melatonin (Melatonin 3 Mg Tablet) 6 mg PO BEDTIME PRN PRN Reason: Insomnia Methylphenidate HCl (Methylphenidate Hcl 10 Mg Tablet) 20 mg PO BID [facility] Last Admin: 02/15/22 10:59 Dose: Not Given Documented by: Morphine Sulfate (Morphine Sulfate 4 Mg/Ml Cartridge) 2 mg IVPUSH Q4H PRN; Protocol PRN Reason: Pain, Severe (Pain Scale 7-10) Last Admin: 02/15/22 11:08 Dose: 2 mg Documented by: Multivitamins/Vitamin C (Multivitamin Tablet) 1 tab PO DAILY [facility] Last Admin: 02/15/22 10:58 Dose: 1 tab Documented by: Ondansetron HCl (Ondansetron Hcl 4 Mg/2 Ml Vial) 4 mg IVPUSH Q8H PRN PRN Reason: Nausea and Vomiting Sodium Chloride (0.9 % Sodium Chloride Flush 3 Ml Syringe) 3 ml IVFLUSH QSHIFT [facility] Timolol Maleate (Timolol Maleate 0.5 % Oph Tejal 5 Ml Drbtl) 1 drop EYE-BOTH BID [facility] Last Admin: 02/15/22 10:58 Dose: 1 drop Documented by: Home Medications Medication Instructions Recorded Confirmed Last Taken Type bupropion HCl 100 mg tablet,12 hr 1 tab PO BID 02/15/22 02/15/22 Unknown History sustained-release etanercept 50 mg/mL (1 mL) 1 syringe SUBCUT DELEON 02/15/22 02/15/22 Unknown History subcutaneous pen injector (Enbrel SureClick) leflunomide 10 mg tablet 1 tab PO DAILY 02/15/22 02/15/22 Unknown History methylphenidate HCl 20 mg tablet 1 tab PO BID 02/15/22 02/15/22 02/14/22 History multivitamin 1 tab PO DAILY 02/15/22 02/15/22 02/14/22 History timolol maleate 0.5 % eye drops 1 drp OPHTHALMIC (EYE) BID 02/15/22 02/15/22 02/14/22 History valacyclovir 500 mg tablet 1 tab PO DAILY 02/15/22 02/15/22 02/14/22 History Physical Exam Vital Signs: Vital Signs: Last Vital Signs Temp 98.2 F 02/15/22 11:41 Pulse 98 02/15/22 11:41 Resp 20 02/15/22 11:41 BP 161/109 H 02/15/22 11:41 Pulse Ox 92 02/15/22 11:41 BMI result Body Mass Index 27.9 EXAM: GENERAL: The patient is ill appearing VITAL SIGNS:see workflow HEENT: Nonicteric sclerae, PERRLA, EOMI. Oropharynx clear. Moist mucous membranes. Conjunctivae appear well perfused. No thyroid mass. CHEST: Chest wall is nontender. HEART: Regular rate and rhythm without murmurs. LUNGS: Clear to auscultation bilaterally. ABDOMEN: Soft, positive bowel sounds, tender lower back and flanks, no organomegaly. SKIN: No rash, no excessive bruising, petechiae, or purpura. NEUROLOGIC: Cranial nerves II-XII intact without motor/sensory deficit. MS; nml range of movtm Const: Other: Constitutional: Alert, in no distress, overweight. Mental Status: Oriented to person, place and time. Eyes: Pupils are equal, round and reactive to light. No scleral icterus Ear, Nose and Throat: Oropharynx clear, mucous membranes moist. Ears and nose without eformities. Respiratory: Clear to auscultation. No wheezing, rales or rhonchi. Cardiovascular: S1 S2 regular. No murmurs, rubs or gallops. Gastrointestinal: Abdomen soft, non-tender, non-distended. Normal bowel sounds.? Neurologic: Cranial nerves II-XII grossly intact. No focal neurological deficits. Moves all extremities spontaneously.? Skin: No rashes or lesions.? Musculoskeletal: No cyanosis or clubbing. Psychiatric: Normal mood and affect? Extrem: General: Yes normal to inspection Psych: Appearance: grossly normal Results Labs CBC & Chem 7: 02/15/22 04:21 02/15/22 04:45 Labs: Short CBC 02/15/22 Range/Units 04:21 WBC 12.8 H (4.8-10.8) X10*3/uL Hgb 12.1 L (14.0-18.0) g/dl Hct 35.1 L (42.0-52.0) % Plt Count 290 (160-400) X10*3/uL BMP 02/15/22 04:45 Sodium 130 L Potassium 4.3 Chloride 98 Carbon Dioxide 20 L BUN 33 H Creatinine 1.60 H Calcium 8.3 L Liver Function 02/15/22 Range/Units 04:45 Total Bilirubin 0.8 (0.0-1.0) mg/dL Direct Bilirubin 0.7 H (0.0-0.5) mg/dL AST 79 H (5-37) U/L ALT 117 H (0-40) U/L Alkaline Phosphatase 240 H (39-117) U/L Albumin 2.4 L (3.5-5.0) g/dL Urine 02/15/22 Range/Units 05:22 Urine Color YELLOW Urine Appearance HAZY Urine pH 6.0 (5.0-8.0) Ur Specific [place] 1.025 (1.005-1.025) Urine Protein 2+ H (NEG-TRACE) MG/DL Urine Glucose (UA) NEG (NEG) MG/DL Assessment and Plan (1) Bandemia: Status: Acute (2) Elevated LFTs: Status: Acute (3) Fever: Qualifiers: Fever type: unspecified Qualified Code(s): R50.9 - Fever, unspecified Status: Acute (4) MICHAELA (acute kidney injury): Status: Acute Plan 1/ 36 yr old m with fevers, chills, headaches, pains, bandemia, abn UA on background of immune suppresion -wide differential incl infectious etiology e.g HIV, other viral syndrome, TB, meningitis, neoplasia e.g lymphoma, drug fever and reaction to enbrel, glomerulonephritis, interstitial nephritis, paraneoplastic syndrome, sarcoid, amyloidosis 2/ mild abn LFT< may be related to underlying process as above vs alcohol related, hepatomegaly may be due to alcohol use or above processes PLAN: 1/ Await urine, blood cultures, might need LP and spinal fluid analysis, cultures for TB 2/ consider renal consult, may need w/u for goodpastures, and other vasculitic conditions, renal bx 3/ viral hep serologies incl HSV, CMV< EBV, Hep A,B,C, LEXI, ANCA, anti GBM, anti hu ab 4/ would hold Enbrel for the meantime 5/ check for strep throat 6/ check dopplers to r/o PVT, renal vein thrombosis Procedures Date of Service Date of Service: 02/15/22
--- NOTE | 2022-02-15 12:55 | P.CNID_ITS ---
History of Present Illness Data of Consult Service Date: 02/15/22 Requesting physician: Jose Nava Primary Care Provider: SANAZ Goel HPI Reason for consult: rigors, fever of unknown origin He presents with weakness and fever for 11 days ,worsening last three days. He mowed lawn day before fell ill and had two foot high grass he says. He is COVID negative and no one around him ill. He was given Tamiflu and didnt help. Flu swab is negative. He has rheumatoid arthritis and stopped enbrel and fluonimide 11 days ago when fell ill. He denies any grafts or implanted material. He has two dogs and a cat which are healthy. He has no foreign travel or exposure to illness or rash. He has no dysuria or hematuria but has LS spine and perineal pain with no scrotal complaints. He has CT scan possible left pyelonephritis. Review of Systems Review of Systems: Yes all other systems are reviewed and are negative [facility] Past Medical History Medical History Glaucoma Rheumatoid arthritis Family History Family history: reviewed and not pertinent Social History Social History Alcohol intake: current Alcohol intake frequency: a few times a week Alcohol type: beer and hard liquor Patient Tobacco Use Status: Former Tobacco user Smoked in Last 30 Days: No Use of substances other than those prescribed or required for medical reasons: No Advance Directives: No Meds Allergies Allergy/AdvReac Type Severity Reaction Status Date / Time No Known Allergies Allergy Unverified 06/11/20 17:30 [No Known Allergies*] Active Medications: Current Medications Acetaminophen (Acetaminophen 325 Mg Tablet) 650 mg PO Q6H PRN PRN Reason: Pain, Mild (Pain Scale 1-3) Al Hydroxide/Mg Hydroxide (Magnesium Hydrox/Alum Hydrox 30 Ml Oral.Susp) 30 ml PO Q4H PRN PRN Reason: Heartburn/Nausea Bupropion HCl (Bupropion Hcl Xl 150 Mg Tab.Er.24h) 150 mg PO DAILY ON LICENSE OF [facility] Last Admin: 02/15/22 10:58 Dose: 150 mg Documented by: Dextrose/Sodium Chloride (D51/2ns) 1,000 mls @ 100 mls/hr IVCONT .Q10H ABHIJIT Last Admin: 02/15/22 10:58 Dose: 100 mls/hr Documented by: Doxycycline Hyclate 100 mg/ (Sodium Chloride) 250 mls @ 166.67 mls/hr IV Q12H ON LICENSE OF [facility] Vancomycin HCl 1,000 mg/ (Sodium Chloride) 270 mls @ 270 mls/hr IV Q12H ON LICENSE OF [facility] Ceftriaxone Sodium 2 gm/ (Sodium Chloride) 50 mls @ 100 mls/hr IV Q24H ON LICENSE OF [facility] Melatonin (Melatonin 3 Mg Tablet) 6 mg PO BEDTIME PRN PRN Reason: Insomnia Methylphenidate HCl (Methylphenidate Hcl 10 Mg Tablet) 20 mg PO BID ON LICENSE OF [facility] Last Admin: 02/15/22 10:59 Dose: Not Given Documented by: Morphine Sulfate (Morphine Sulfate 4 Mg/Ml Cartridge) 2 mg IVPUSH Q4H PRN; Protocol PRN Reason: Pain, Severe (Pain Scale 7-10) Last Admin: 02/15/22 11:08 Dose: 2 mg Documented by: Multivitamins/Vitamin C (Multivitamin Tablet) 1 tab PO DAILY ON LICENSE OF [facility] Last Admin: 02/15/22 10:58 Dose: 1 tab Documented by: Ondansetron HCl (Ondansetron Hcl 4 Mg/2 Ml Vial) 4 mg IVPUSH Q8H PRN PRN Reason: Nausea and Vomiting Pharmacy Consult (Consult Rx Vancomycin Dosing) 1 each MISCELLANE DAILY PRN PRN Reason: Consult order Sodium Chloride (0.9 % Sodium Chloride Flush 3 Ml Syringe) 3 ml IVFLUSH QSHIFT ON LICENSE OF [facility] Last Admin: 02/15/22 11:54 Dose: Not Given Documented by: Timolol Maleate (Timolol Maleate 0.5 % Oph Tejal 5 Ml Drbtl) 1 drop EYE-BOTH BID ON LICENSE OF [facility] Last Admin: 02/15/22 10:58 Dose: 1 drop Documented by: Home Medications Medication Instructions Recorded Confirmed Last Taken Type bupropion HCl 100 mg tablet,12 hr 1 tab PO BID 02/15/22 02/15/22 Unknown History sustained-release etanercept 50 mg/mL (1 mL) 1 syringe SUBCUT DELEON 02/15/22 02/15/22 Unknown History subcutaneous pen injector (Enbrel Aleeick) leflunomide 10 mg tablet 1 tab PO DAILY 02/15/22 02/15/22 Unknown History methylphenidate HCl 20 mg tablet 1 tab PO BID 0502/15/22 02/14/22 History multivitamin 1 tab PO DAILY 02/15/22 02/15/22 02/14/22 History timolol maleate 0.5 % eye drops 1 drp OPHTHALMIC (EYE) BID 02/15/22 02/15/22 02/14/22 History valacyclovir 500 mg tablet 1 tab PO DAILY 02/15/22 02/15/22 02/14/22 History Physical Exam Vital Signs: Vital Signs: Last Vital Signs Temp 98.2 F 02/15/22 11:41 Pulse 98 02/15/22 11:41 Resp 20 02/15/22 11:41 BP 161/109 H 02/15/22 11:41 Pulse Ox 92 02/15/22 11:41 BMI result Body Mass Index 27.9 he has rigors and was shaking uncontrollably when seen Const: General: cooperative HEENT: Head: Yes normal to inspection Mouth: Normal oral and palatal mucosa present Resp: Effort & Inspection: normal respiratory effort Cardio: Rate: regular rate Rhythm: regular rhythm GI: Palpation (GI): Soft to palpation and nontender Skin: General skin exam: no rashes or lesions noted Extrem: General: Yes normal to inspection Results Labs CBC & Chem 7: 02/15/22 04:21 02/15/22 04:45 Labs: Short CBC 02/15/22 Range/Units 04:21 WBC 12.8 H (4.8-10.8) X10*3/uL Hgb 12.1 L (14.0-18.0) g/dl Hct 35.1 L (42.0-52.0) % Plt Count 290 (160-400) X10*3/uL BMP 02/15/22 04:45 Sodium 130 L Potassium 4.3 Chloride 98 Carbon Dioxide 20 L BUN 33 H Creatinine 1.60 H Calcium 8.3 L Liver Function 02/15/22 Range/Units 04:45 Total Bilirubin 0.8 (0.0-1.0) mg/dL Direct Bilirubin 0.7 H (0.0-0.5) mg/dL AST 79 H (5-37) U/L ALT 117 H (0-40) U/L Alkaline Phosphatase 240 H (39-117) U/L Albumin 2.4 L (3.5-5.0) g/dL Urine 02/15/22 Range/Units 05:22 Urine Color YELLOW Urine Appearance HAZY Urine pH 6.0 (5.0-8.0) Ur Specific [place] 1.025 (1.005-1.025) Urine Protein 2+ H (NEG-TRACE) MG/DL Urine Glucose (UA) NEG (NEG) MG/DL Assessment and Plan (1) Fever: Qualifiers: Fever type: unspecified Qualified Code(s): R50.9 - Fever, unspecified Status: Acute He has rigors so concern over gram positive such as MRSA possible idiopathic or through small break in skin. There also is high concern over zoonoses such as anaplasmosis or Lyme disease as had outdoor exposure. He also may have urinary infection with back pain,pyuria and suggestive CT scan of abdomen/pelvis He also may have [place] or other tick borne or viral infection (adenovirus) (2) Elevated LFTs: Status: Acute (3) MICHAELA (acute kidney injury): Status: Acute Plan Ceftriaxone cover likely urinary pathogens such as E coli (particularly common to have shaking chills with this) Daptomycin cover possible idiopathic gram positive bacteremia (creatinine elevated so wont give Vancomycin) and will stop tomorrow if no gram positive bacteremia. Doxycycline IV for now 100 mg bid cover anaplasma and Lyme (so far no babesia seen on blood smear). Agree with patient to continue holding immunosuppressants for now Check Lyme babesia and ehrlichiosis serologies. Erhlichiosis can cause elevated LFTs. Consider MRI of LS spine if back pain continues and no other source evident or have gram positive bacteremia.
[2022-02-15] MEDS: DAPTOmycin 500 MG in 0.9 % Sodium Chloride 50 ML 120 MG IV (13:51)
--- NOTE | 2022-02-15 17:43 | MHC.CM.PN ---
CM met with admitted patient with bed assignment pending. A&Ox4. Declines HCP. Vax/boosted Pfizer (01/08/21, 02/18/21, 10/14/21). Lives w S.O. Willow Brewer ([phone]). No DME/Services. D/C plan: home w/o services. S.O. will transport home. CM to follow for d/c needs.
[2022-02-15] MEDS: Acetaminophen 325 MG TABLET 650 MG PO (20:46)
--- NOTE | 2022-02-15 23:26 | PC.NURSE ---
Addendum entered by Sinai Lacey 02/16/22 02:22: Report given to SASHA Chino aware that pt is c/o pain 07/04 Addendum entered by Sinai Lacey 02/16/22 01:05: per Dr. Chino to given dose of dilaudid early Original Note: report received from SASHA Hdez. pt is alert and oriented. c/o pain, med per nov. no signs of acute distress notice. breathing equally unlabored. resting in bed comfortably
[2022-02-16] VITALS (7 sets, daily range): BP systolic 151–173; BP diastolic 73–93; PULSE 91–113; RESP 18–20; TEMP 36.8–39.4; O2SAT 92–97
[2022-02-16] MEDS: HYDROmorphone HCl 1 MG/ML SYRINGE IVPUSH ×5 (00:48→23:31)
[2022-02-16] MEDS: Dicyclomine HCl 10 MG CAPSULE PO (02:47)
[2022-02-16] MEDS: Morphine Sulfate 2 MG/ML CARTRIDGE IVPUSH (02:47)
[2022-02-16] MEDS: cefTRIAXone sodium 2 GM in 0.9 % Sodium Chloride 50 ML IV (05:42)
[2022-02-16] MEDS: Dextrose 5 % and 0.45 % NaCl 1,000 ML 100 ML IVCONT (06:21)
[2022-02-16] MEDS: Doxycycline Hyclate 100 MG in 0.9 % Sodium Chloride 250 ML 166.67 MG IV ×2 (06:22→17:59)
[2022-02-16 07:28] LABS: HIV AB/AG Nonreactive (Nonreactive); HIV Num 1 0.04 S/CO (0.00-0.99)
[2022-02-16 07:33] LABS: HBS Num1 > 1000.00 mIU/mL (0-7.99); HBc Num1 0.04 S/CO (0.00-0.79); HBsAGNum1 0.17 S/CO (0.00-0.99); Hepatitis A Antibody IgM 0.18 Index (0-0.79); Hepatitis B Core Antibody Nonreactive (Nonreactive); Hepatitis B Surface Antigen Negative (Negative); ~HepC Num1 0.04 S/CO (0.00-0.79); ~Hepatitis A Antibody IgM Nonreactive (Nonreactive); ~Hepatitis B Surface Antibody REACTIVE (Nonreactive); ~Hepatitis C Antibody Nonreactive (Nonreactive)
[2022-02-16] MEDS: Acetaminophen 325 MG TABLET 650 MG PO ×3 (07:38→23:41)
[2022-02-16] MEDS: Multivitamin TABLET 1 TAB PO (07:38)
[2022-02-16] MEDS: buPROPion HCl XL 150 MG TAB.ER.24H PO (07:38)
[2022-02-16 08:13] LABS: Hematocrit 34.8 % (42.0-52.0); Hemoglobin 11.7 g/dl (14.0-18.0); Mean Corpuscular HGB Conc 33.6 g/dl (31.0-36.0); Mean Corpuscular Hemoglobin 29.3 pg (27.0-33.0); Mean Corpuscular Volume 87.2 fL (80.0-98.0); Mean Platelet Volume 12.2 fL (9.4-12.4); Platelet Count 249 X10*3/uL (160-400); Red Blood Count 3.99 X10*6/uL (4.60-5.80); Red Cell Distribution Width 15.2 % (11.0-16.0); White Blood Count 12.9 X10*3/uL (4.8-10.8)
[2022-02-16 12:46] LABS: Alanine Aminotransferase 130 U/L (0-40); Albumin Level 2.2 g/dL (3.5-5.0); Alkaline Phosphatase 268 U/L (39-117); Anion Gap 12 (12-20); Aspartate Amino Transferase 76 U/L (5-37); Bilirubin Direct 0.6 mg/dL (0.0-0.5); Bilirubin Total 0.7 mg/dL (0.0-1.0); Blood Urea Nitrogen 18 mg/dL (9-16); Calcium 7.8 mg/dL (8.4-10.2); Carbon Dioxide 23 mmol/L (22-29); Chloride 98 mmol/L (96-108); Creatinine Clr Calc Pharmacy 87.3; Estimated Glomerular Filt Rate > 60; Glucose Random 93 mg/dL (60-115); Potassium 4.4 mmol/L (3.3-5.1); Sodium 129 mmol/L (135-145); Total Protein 4.7 g/dL (6.5-8.0)
--- NOTE | 2022-02-16 13:30 | P.PNIM_ITS ---
Subjective Subjective Date of Service: 02/16/22 Interval History: cc: fevers, flank pain interval history:unchnaged Cardiovascular Cardiovascular: Reports no additional cardiovascular complaints Respiratory Respiratory: Reports no additional respiratory complaints Physical Exam Vital Signs: Vital Signs: Last Vital Signs Temp 98.9 F 02/16/22 11:11 Pulse 91 02/16/22 11:11 Resp 20 02/16/22 11:11 BP 151/73 H 02/16/22 11:11 Pulse Ox 96 02/16/22 11:11 BMI result Body Mass Index 27.9 General: AO X 3, diaphoretic, in pain Resp: CTA bilateral, no accessory muscles used CVS: S1,S2,RRR GI: soft, non tender, biulateral flank tenderness Neuro: motor grossly intact, alert Psych: appropriate affect, appropriate insight Objective Data Active Medications Acetaminophen (Acetaminophen 325 Mg Tablet) 650 mg PO Q6H PRN PRN Reason: Pain, Mild (Pain Scale 1-3) Last Admin: 02/16/22 07:38 Dose: 650 mg Documented by: MAURA Al Hydroxide/Mg Hydroxide (Magnesium Hydrox/Alum Hydrox 30 Ml Oral.Susp) 30 ml PO Q4H PRN PRN Reason: Heartburn/Nausea Bupropion HCl (Bupropion Hcl Xl 150 Mg Tab.Er.24h) 150 mg PO DAILY [facility] [place] Last Admin: 02/16/22 07:38 Dose: 150 mg Documented by: MAURA Hydromorphone HCl (Hydromorphone Hcl 1 Mg/Ml Syringe) 1 mg IVPUSH Q2H PRN; Protocol PRN Reason: Pain, Severe (Pain Scale 7-10) Last Admin: 02/16/22 13:04 Dose: 1 mg Documented by: MAURA Doxycycline Hyclate 100 mg/ (Sodium Chloride) 250 mls @ 166.67 mls/hr IV Q12H [facility] Last Infusion: 02/16/22 08:13 Dose: 0 mls/hr Documented by: MAURA Ceftriaxone Sodium 2 gm/ (Sodium Chloride) 50 mls @ 100 mls/hr IV Q24H [facility] [place] Last Infusion: 02/16/22 06:36 Dose: 0 mls/hr Documented by: EMILY Methylphenidate HCl (Methylphenidate Hcl 10 Mg Tablet) 20 mg PO BID [facility] Last Admin: 02/16/22 07:38 Dose: Not Given Documented by: MAURA Non-Admin Reason: Patient Refused Multivitamins/Vitamin C (Multivitamin Tablet) 1 tab PO DAILY [facility] Last Admin: 02/16/22 07:38 Dose: 1 tab Documented by: MAURA Ondansetron HCl (Ondansetron Hcl 4 Mg/2 Ml Vial) 4 mg IVPUSH Q8H PRN PRN Reason: Nausea and Vomiting Pharmacy Consult (Consult Rx Vancomycin Dosing) 1 each MISCELLANE DAILY PRN PRN Reason: Consult order Sodium Chloride (0.9 % Sodium Chloride Flush 3 Ml Syringe) 3 ml IVFLUSH QSHIFT [facility] Last Admin: 02/16/22 07:11 Dose: Not Given Documented by: MAURA Non-Admin Reason: IV Running Timolol Maleate (Timolol Maleate 0.5 % Oph Etjal 5 Ml Drbtl) 1 drop EYE-BOTH BID [facility] Last Admin: 02/16/22 10:40 Dose: Not Given Documented by: MAURA Non-Admin Reason: Patient Refused Labs CBC & Chem 7: 02/16/22 06:10 02/16/22 11:52 Labs: Laboratory Results - last 24 hr 02/16/22 02/16/22 02/16/22 06:10 06:10 06:11 MCV 87.2 MCH 29.3 MCHC 33.6 RDW 15.2 Plt Count 249 MPV 12.2 Absolute Nucleated RBC 0.000 Nucleated RBC % (auto) 0.0 Anion Gap Estim Creat Clear Calc Estimated GFR Random Glucose Calcium Total Bilirubin Direct Bilirubin AST ALT Alkaline Phosphatase Total Protein Albumin Hepatitis A IgM Ab Nonreactive Hep Bs Antigen Negative Hep Bs Antibody REACTIVE Hep B Core Total Ab Nonreactive Hepatitis C Ab (EIA) Nonreactive HIV 1&2 Ab/P24 Ag 4thGn Nonreactive 02/16/22 11:52 MCV MCH MCHC RDW Plt Count MPV Absolute Nucleated RBC Nucleated RBC % (auto) Anion Gap 12 Estim Creat Clear Calc 87.3 Estimated GFR > 60 Random Glucose 93 Calcium 7.8 L D Total Bilirubin 0.7 Direct Bilirubin 0.6 H AST 76 H ALT 130 H Alkaline Phosphatase 268 H Total Protein 4.7 L Albumin 2.2 L Hepatitis A IgM Ab Hep Bs Antigen Hep Bs Antibody Hep B Core Total Ab Hepatitis C Ab (EIA) HIV 1&2 Ab/P24 Ag 4thGn Microbiology Microbiology Results: Microbiology 02/15/22 05:21 Urine Culture - Preliminary Urine clean catch - Urine osorio top Gram negative wesley 02/15/22 04:45 Blood Culture - Preliminary Blood - Venous No growth after 24 hours. 02/15/22 04:45 Blood Culture - Preliminary Blood - Venous No growth after 24 hours. Assessment and Plan (1) Fever: Status: Acute Plan 36M presented with fevers fevers in immunocompromised patient differential broad, includes viral sepsis tick borne disease - empiric rocephin, doxy, follow up panel bilateral acute pyelonephritis - GNR in urine, follow up , continue rocephin rule out verterbral OM - MR lumbar spine holding enbrel MICHAELA resolved hyponatremia monitor, likely multifactorial alcoholic fatty liver etoh absitenence outpatient follow up low risk for dvt reason for continued hospitalization: continuing close monitoring and empiric abx while ongoing work up for fever in high risk patient due to immunocompromised state Quality Stroke Does the patient have a stroke diagnosis?: No VTE Prior VTE?: No VTE Risk Level:: Medical - low VTE Device Contraindication: Treatment Not Indicated VTE Drug Contraindication: Treatment Not Indicated
--- NOTE | 2022-02-16 14:40 | PM.IDPN ---
Subjective Subjective Date of Service: 02/16/22 Critical Care Time (minutes): 15 Comment: he has 9/10 LS spine and flank pain,asking for pain meds,getting every 2 hours Objective Data Labs CBC & Chem 7: 02/16/22 06:10 02/16/22 11:52 Labs: Laboratory Results - last 24 hr 02/16/22 02/16/22 02/16/22 06:10 06:10 06:11 WBC 12.9 H RBC 3.99 L Hgb 11.7 L Hct 34.8 L MCV 87.2 MCH 29.3 MCHC 33.6 RDW 15.2 Plt Count 249 MPV 12.2 Absolute Nucleated RBC 0.000 Nucleated RBC % (auto) 0.0 Sodium Potassium Chloride Carbon Dioxide Anion Gap BUN Creatinine Estim Creat Clear Calc Estimated GFR Random Glucose Calcium Total Bilirubin Direct Bilirubin AST ALT Alkaline Phosphatase Total Protein Albumin Hepatitis A IgM Ab Nonreactive Hep Bs Antigen Negative Hep Bs Antibody REACTIVE Hep B Core Total Ab Nonreactive Hepatitis C Ab (EIA) Nonreactive HIV 1&2 Ab/P24 Ag 4thGn Nonreactive 02/16/22 11:52 WBC RBC Hgb Hct MCV MCH MCHC RDW Plt Count MPV Absolute Nucleated RBC Nucleated RBC % (auto) Sodium 129 L Potassium 4.4 Chloride 98 Carbon Dioxide 23 Anion Gap 12 BUN 18 H Creatinine 1.31 Estim Creat Clear Calc 87.3 Estimated GFR > 60 Random Glucose 93 Calcium 7.8 L D Total Bilirubin 0.7 Direct Bilirubin 0.6 H AST 76 H ALT 130 H Alkaline Phosphatase 268 H Total Protein 4.7 L Albumin 2.2 L Hepatitis A IgM Ab Hep Bs Antigen Hep Bs Antibody Hep B Core Total Ab Hepatitis C Ab (EIA) HIV 1&2 Ab/P24 Ag 4thGn Microbiology Microbiology Results: Microbiology 02/15/22 05:21 Urine clean catch - Urine osorio top Urine Culture - Preliminary Gram negative wesley 02/15/22 04:45 Blood - Venous Blood Culture - Preliminary No growth after 24 hours. 02/15/22 04:45 Blood - Venous Blood Culture - Preliminary No growth after 24 hours. Physical Exam Vital Signs: Vital Signs: Last Vital Signs Temp 98.9 F 02/16/22 11:11 Pulse 91 02/16/22 11:11 Resp 20 02/16/22 11:11 BP 151/73 H 02/16/22 11:11 Pulse Ox 96 02/16/22 11:11 BMI result Body Mass Index 27.9 Const: General: cooperative Eyes: General: appearance normal, both eyes and all related structures Pupils: Equal, round and reactive pupils present Resp: Effort & Inspection: normal respiratory effort Cardio: Rate: regular rate Rhythm: regular rhythm GI: Palpation (GI): Soft to palpation and nontender Back/Spine/Pelvis: Other: LS spine and right flank pain Neuro: Cranial nerves: Yes Equal, round and reactive pupils present Assessment and Plan Assessment and plan (1) Fever: Problem details: He has gram negative rods in urine?nephrolithiasis or other abnormality Status: Acute Plan Would continue gram negative coverage Await urine culture. Check MRI evaluate for osteomyelitis LS spine with and without contrast No more Daptomycin Also continue Doxycycline for now ?tickborne,but more likely urinary infection. Time Spent With Patient Time: Total time spent is greater than 50% in coordination of care (as documented) at patient's floor/unit and/or counseling patient:
[2022-02-16] MEDS: 0.9 % Sodium Chloride Flush 3 ML SYRINGE IVFLUSH (16:00)
[2022-02-16 17:22] LABS: Lyme Abs Screen <0.90 index
--- NOTE | 2022-02-16 18:25 | PM.CNNEP ---
History of Present Illness Reason for Consult Consult date: 02/16/22 Reason for consult: MICHAELA Chief Complaint Chief complaint: Viral sepsis, MICHAELA History of Present Illness Narrative: 36-year-old male with a history of rheumatoid arthritis on Enbrel and leflunomide, history of depression on Wellbutrin who presented to ED with flu-like syndrome that have been ongoing for nearly 2 weeks. Tested for COVID twice negative, and was empirically started on Tamiflu for presume flu but in spite of this has not feltany better. [place] [address]. INR is elevated at 1.7 sodium 130, creatinine 1.6, LFTs I elevated with AST 79 and ALT 117 alk-phos 240., C reactive protein is markedly elevated at 30.36 total protein 5.1 urinalysis showed proteinuria and hematuria. He was given ceftriaxone and doxycycline for tick-borne illness. Checks x-ray is unremarkable. Of note he drinks 6 beers a day at time with hard liquor also. He is fully vaccinated with COVID with one booster. CT abdomen with non-obstructing b/l renal calculi as well as b/l perinephric stranding concerning for possible pyelonephritis. He has BL S-Cr ~ 0.7-0.8 mg/dL in 2020 however no new available Cr. Noted MICHAELA on presentation and in speaking with the patient he reports taking ?a lot of ibuprofen? prior to presentation. When asked to quantify, he stated he was taking about 800 mg tablets, sometimes two at a time, three times a day for 11 days straight. Denies dysuria, hematuria. Review of Systems Constitutional: Reports as per [facility] Past Medical History Medical History (Updated 02/16/22 @ 17:01 by Joaquin Lai MD) Glaucoma Hemochromatosis Rheumatoid arthritis Family History Family History (Updated 02/16/22 @ 17:04 by Joaquin Lai MD) Brother Substance abuse Family history: reviewed and not pertinent Social History Social History (Updated 02/16/22 @ 17:04 by Joaquin Lai MD) Household Members: Spouse and Children Housing: House Alcohol intake: current Alcohol intake frequency: a few times a week Alcohol type: beer and hard liquor Patient Tobacco Use Status: Former Tobacco user Second Hand Smoke Exposure: No Substance Use Type: Heroin service: No Current occupational status: employed Meds Allergies Allergy/AdvReac Type Severity Reaction Status Date / Time No Known Allergies Allergy Unverified 06/11/20 17:30 [No Known Allergies*] Active Medications: Current Medications Acetaminophen (Acetaminophen 325 Mg Tablet) 650 mg PO Q6H PRN PRN Reason: Pain, Mild (Pain Scale 1-3) Last Admin: 02/16/22 17:59 Dose: 650 mg Documented by: Al Hydroxide/Mg Hydroxide (Magnesium Hydrox/Alum Hydrox 30 Ml Oral.Susp) 30 ml PO Q4H PRN PRN Reason: Heartburn/Nausea Bupropion HCl (Bupropion Hcl Xl 150 Mg Tab.Er.24h) 150 mg PO DAILY [facility] Last Admin: 02/16/22 07:38 Dose: 150 mg Documented by: Hydromorphone HCl (Hydromorphone Hcl 1 Mg/Ml Syringe) 1 mg IVPUSH Q2H PRN; Protocol PRN Reason: Pain, Severe (Pain Scale 7-10) Last Admin: 02/16/22 16:00 Dose: 1 mg Documented by: Doxycycline Hyclate 100 mg/ (Sodium Chloride) 250 mls @ 166.67 mls/hr IV Q12H [facility] Last Admin: 02/16/22 17:59 Dose: 166.67 mls/hr Documented by: Ceftriaxone Sodium 2 gm/ (Sodium Chloride) 50 mls @ 100 mls/hr IV Q24H [facility] Last Infusion: 02/16/22 06:36 Dose: Infused Documented by: Methylphenidate HCl (Methylphenidate Hcl 10 Mg Tablet) 20 mg PO BID [facility] Last Admin: 02/16/22 07:38 Dose: Not Given Documented by: Multivitamins/Vitamin C (Multivitamin Tablet) 1 tab PO DAILY [facility] Last Admin: 02/16/22 07:38 Dose: 1 tab Documented by: Ondansetron HCl (Ondansetron Hcl 4 Mg/2 Ml Vial) 4 mg IVPUSH Q8H PRN PRN Reason: Nausea and Vomiting Pharmacy Consult (Consult Rx Vancomycin Dosing) 1 each MISCELLANE DAILY PRN PRN Reason: Consult order Sodium Chloride (0.9 % Sodium Chloride Flush 3 Ml Syringe) 3 ml IVFLUSH QSHIFT [facility] Last Admin: 02/16/22 16:00 Dose: 3 ml Documented by: Timolol Maleate (Timolol Maleate 0.5 % Oph Tejal 5 Ml Drbtl) 1 drop EYE-BOTH BID [facility] Last Admin: 02/16/22 10:40 Dose: Not Given Documented by: Home Medications Medication Instructions Recorded Confirmed Last Taken Type bupropion HCl 100 mg tablet,12 hr 1 tab PO BID 02/15/22 02/15/22 Unknown History sustained-release etanercept 50 mg/mL (1 mL) 1 syringe SUBCUT DELEON 02/15/22 02/15/22 Unknown History subcutaneous pen injector (Enbrel SureClick) leflunomide 10 mg tablet 1 tab PO DAILY 02/15/22 02/15/22 Unknown History methylphenidate HCl 20 mg tablet 1 tab PO BID 02/15/22 02/15/22 02/14/22 History multivitamin 1 tab PO DAILY 02/15/22 02/15/22 02/14/22 History timolol maleate 0.5 % eye drops 1 drp OPHTHALMIC (EYE) BID 02/15/22 02/15/22 02/14/22 History valacyclovir 500 mg tablet 1 tab PO DAILY 02/15/22 02/15/22 02/14/22 History Physical Exam Vital Signs: Last Vital Signs Temp 103.0 F H 02/16/22 15:55 Pulse 106 H 02/16/22 15:55 Resp 18 02/16/22 15:55 BP 161/84 H 02/16/22 15:55 Pulse Ox 92 02/16/22 15:55 BMI result Body Mass Index 27.9 Const General: comfortable and no acute distress Orientation/consciousness: patient oriented x3 HEENT Head: Yes normocephalic Neck Neck: Yes no JVD Resp Auscultation: clear to auscultation bilaterally Cardio Jugular venous distension: no JVD Rate: regular rate Rhythm: regular rhythm Heart sounds: S1 normal heart sound present and S2 normal heart sound present GI Auscultation: normal bowel sounds Skin General skin exam: no rashes or lesions noted Neuro General: patient oriented x3 and no focal motor deficits Extrem General: Yes no clubbing, cyanosis or edema Results Lab Results Result Diagrams: 02/16/22 06:10 02/16/22 11:52 Lab results: Chemistry 02/15/22 02/16/22 04:45 11:52 Sodium 130 L 129 L Potassium 4.3 4.4 Carbon Dioxide 20 L 23 BUN 33 H 18 H Creatinine 1.60 H 1.31 Calcium 8.3 L 7.8 L D Hematology 02/15/22 02/16/22 04:21 06:10 WBC 12.8 H 12.9 H Hgb 12.1 L 11.7 L Plt Count 290 249 Urinalysis 02/15/22 05:22 Urine Color YELLOW Urine Appearance HAZY Urine pH 6.0 Ur Specific [place] 1.025 Urine Protein 2+ H Urine Glucose (UA) NEG Urine Ketones NEG Urine Blood 3+ H Urine Nitrite NEG Ur Leukocyte Esterase 1+ H Urine RBC 30-49 H Urine WBC 10-14 H Ur Squamous Epith Cells 1+ Assessment and Plan (1) MICHAELA (acute kidney injury): Status: Acute Plan #) MICHAELA, non-oliguric. -I suspect that patient has michaela secondary to combination of infection (uti), dehydration, and nsaid induced afferent arteriole vasoconstriction. -Patient stated he was taking about 1-2 ibuprofen tablets (800 mg tablets), three times a day for 11 days -Additionally, use of nsaid with valacyclovir will actually up-titrate acyclovir levels which can also lead to renal nephrotoxicity. -We should continue with abx coverage for presumed uti in this IS patient and repeat UA once patient more hemodynamically stable. -He does have hematuria on UA along with wbc?s which could be AIN given nsaid overuse however S-Cr is improving s/p iv abx and ivf?s so we can hold off on in-depth GN workup and renal biopsy. -Continue with supportive care as you are and removal of offending agent such as ibuprofen -Renal panel daily. -Monitor I/O?s -Mg, K levels daily -Lokelma 10 Gm prn K> 5.0 -Rest per primary team Procedures Date of Service Date of Service: 02/16/22
[2022-02-16] MEDS: timoloL maleate 0.5 % Oph Sol 5 ML DRBTL 1 DROP EYE-BOTH (21:45)
[2022-02-16] MEDS: Methylphenidate HCl 10 MG TABLET 20 MG PO (21:45)
[2022-02-17 03:08] VITALS: BP 132/77; PULSE 89; RESP 17; TEMP 36.7; O2SAT 95
[2022-02-17] MEDS: Doxycycline Hyclate 100 MG in 0.9 % Sodium Chloride 250 ML 166.67 MG IV ×2 (05:18→20:04)
[2022-02-17] MEDS: HYDROmorphone HCl 1 MG/ML SYRINGE IVPUSH ×6 (05:24→23:57)
[2022-02-17] MEDS: cefTRIAXone sodium 2 GM in 0.9 % Sodium Chloride 50 ML IV (06:09)
[2022-02-17 07:27] VITALS: BP 168/92; PULSE 109; RESP 22; TEMP 39.7; O2SAT 97
[2022-02-17] MEDS: Multivitamin TABLET 1 TAB PO (07:47)
[2022-02-17] MEDS: Methylphenidate HCl 10 MG TABLET 20 MG PO (07:47)
[2022-02-17] MEDS: Acetaminophen 325 MG TABLET 650 MG PO ×3 (07:48→21:56)
[2022-02-17] MEDS: buPROPion HCl XL 150 MG TAB.ER.24H PO (07:48)
[2022-02-17] MEDS: 0.9 % Sodium Chloride Flush 3 ML SYRINGE IVFLUSH ×5 (07:54→23:57)
[2022-02-17] MEDS: timoloL maleate 0.5 % Oph Sol 5 ML DRBTL 1 DROP EYE-BOTH ×2 (07:59→20:05)
[2022-02-17 08:09] LABS: Hematocrit 36.5 % (42.0-52.0); Hemoglobin 12.7 g/dl (14.0-18.0); Mean Corpuscular HGB Conc 34.8 g/dl (31.0-36.0); Mean Corpuscular Hemoglobin 29.9 pg (27.0-33.0); Mean Corpuscular Volume 85.9 fL (80.0-98.0); Mean Platelet Volume 10.8 fL (9.4-12.4); Platelet Count 277 X10*3/uL (160-400); Red Blood Count 4.25 X10*6/uL (4.60-5.80); Red Cell Distribution Width 14.9 % (11.0-16.0); White Blood Count 12.9 X10*3/uL (4.8-10.8)
[2022-02-17 08:30] LABS: Anion Gap 14 (12-20); Blood Urea Nitrogen 17 mg/dL (9-16); Calcium 8.2 mg/dL (8.4-10.2); Carbon Dioxide 21 mmol/L (22-29); Chloride 96 mmol/L (96-108); Creatinine Clr Calc Pharmacy 106.8; Estimated Glomerular Filt Rate > 60; Glucose Fasting 93 mg/dL (60-99); Potassium 4.4 mmol/L (3.3-5.1); Sodium 127 mmol/L (135-145)
[2022-02-17 11:37] VITALS: BP 148/90; PULSE 80; RESP 18; TEMP 37.1; O2SAT 96
--- NOTE | 2022-02-17 12:11 | HO.PM.IMPN ---
Subjective Subjective Date of Service: 02/17/22 Interval History: cc: fevers interval history:unchanged Cardiovascular Cardiovascular: Reports no additional cardiovascular complaints Respiratory Respiratory: Reports no additional respiratory complaints Physical Exam Vital Signs: Vital Signs: Last Vital Signs Temp 98.7 F 02/17/22 11:37 Pulse 80 02/17/22 11:37 Resp 18 02/17/22 11:37 BP 148/90 H 02/17/22 11:37 Pulse Ox 96 02/17/22 11:37 BMI result Body Mass Index 27.9 General: AO X 3, diaphoretic, in pain Resp:? CTA bilateral, no accessory muscles used CVS: S1,S2,RRR GI: soft, non tender, biulateral flank tenderness Neuro:? motor grossly intact, alert Psych: appropriate affect, appropriate insight? Objective Data Active Medications Acetaminophen (Acetaminophen 325 Mg Tablet) 650 mg PO Q6H PRN PRN Reason: Pain, Mild (Pain Scale 1-3) Last Admin: 02/17/22 07:48 Dose: 650 mg Documented by: DIAZ Al Hydroxide/Mg Hydroxide (Magnesium Hydrox/Alum Hydrox 30 Ml Oral.Susp) 30 ml PO Q4H PRN PRN Reason: Heartburn/Nausea Bupropion HCl (Bupropion Hcl Xl 150 Mg Tab.Er.24h) 150 mg PO DAILY [facility] Last Admin: 02/17/22 07:48 Dose: 150 mg Documented by: DIAZ Hydromorphone HCl (Hydromorphone Hcl 1 Mg/Ml Syringe) 1 mg IVPUSH Q2H PRN; Protocol PRN Reason: Pain, Severe (Pain Scale 7-10) Last Admin: 02/17/22 07:53 Dose: 1 mg Documented by: DIAZ Doxycycline Hyclate 100 mg/ (Sodium Chloride) 250 mls @ 166.67 mls/hr IV Q12H [facility] Last Infusion: 02/17/22 06:40 Dose: 0 mls/hr Documented by: EMILY Ceftriaxone Sodium 2 gm/ (Sodium Chloride) 50 mls @ 100 mls/hr IV Q24H [facility] Last Infusion: 02/17/22 06:40 Dose: 0 mls/hr Documented by: EMILY Methylphenidate HCl (Methylphenidate Hcl 10 Mg Tablet) 20 mg PO BID [facility] Last Admin: 02/17/22 07:47 Dose: 20 mg Documented by: DIAZ Multivitamins/Vitamin C (Multivitamin Tablet) 1 tab PO DAILY [facility] Last Admin: 02/17/22 07:47 Dose: 1 tab Documented by: DIAZ Ondansetron HCl (Ondansetron Hcl 4 Mg/2 Ml Vial) 4 mg IVPUSH Q8H PRN PRN Reason: Nausea and Vomiting Pharmacy Consult (Consult Rx Vancomycin Dosing) 1 each MISCELLANE DAILY PRN PRN Reason: Consult order Sodium Chloride (0.9 % Sodium Chloride Flush 3 Ml Syringe) 3 ml IVFLUSH QSHIFT [facility] Last Admin: 02/17/22 07:54 Dose: 3 ml Documented by: DIAZ Timolol Maleate (Timolol Maleate 0.5 % Oph Tejal 5 Ml Drbtl) 1 drop EYE-BOTH BID [facility] Last Admin: 02/17/22 07:59 Dose: 1 drop Documented by: DIAZ Labs CBC & Chem 7: 02/17/22 08:02 02/17/22 08:02 Labs: Laboratory Results - last 24 hr 02/15/22 02/16/22 02/17/22 04:47 11:52 08:02 MCV 85.9 MCH 29.9 MCHC 34.8 RDW 14.9 Plt Count 277 MPV 10.8 Absolute Nucleated RBC 0.000 Nucleated RBC % (auto) 0.0 Anion Gap 12 Estim Creat Clear Calc 87.3 Estimated GFR > 60 Random Glucose 93 Fasting Glucose Calcium 7.8 L D Total Bilirubin 0.7 Direct Bilirubin 0.6 H AST 76 H ALT 130 H Alkaline Phosphatase 268 H Total Protein 4.7 L Albumin 2.2 L Lyme Screen IgG & IgM <0.90 02/17/22 08:02 MCV MCH MCHC RDW Plt Count MPV Absolute Nucleated RBC Nucleated RBC % (auto) Anion Gap 14 Estim Creat Clear Calc 106.8 Estimated GFR > 60 Random Glucose Fasting Glucose 93 Calcium 8.2 L Total Bilirubin Direct Bilirubin AST ALT Alkaline Phosphatase Total Protein Albumin Lyme Screen IgG & IgM Microbiology Microbiology Results: Microbiology 02/15/22 05:21 Urine Culture - Final Urine clean catch - Urine osorio top Escherichia coli 02/15/22 04:45 Blood Culture - Preliminary Blood - Venous No growth after 48 hours. 02/15/22 04:45 Blood Culture - Preliminary Blood - Venous No growth after 48 hours. Assessment and Plan (1) Fever: Status: Acute Plan 36M presented with fevers fevers in immunocompromised patient differential broad, includes viral sepsis tick borne disease - empiric rocephin, doxy, follow up panel bilateral acute pyelonephritis - ecoli in urine, follow up , continue rocephin MR lumbar spine negative for infection holding enbrel hemochromatosis outpatient follow up MICHAELA resolved hyponatremia check urine studies, fluid restrict, monitor alcoholic fatty liver etoh absitenence outpatient follow up low risk for dvt reason for continued hospitalization: continuing close monitoring and empiric abx while ongoing work up for fever in high risk patient due to immunocompromised state Quality Stroke Does the patient have a stroke diagnosis?: No VTE Prior VTE?: No VTE Risk Level:: Medical - low VTE Device Contraindication: Treatment Not Indicated VTE Drug Contraindication: Treatment Not Indicated
--- NOTE | 2022-02-17 15:00 | MHC.CM.PN ---
nurse corrections caseworker ntoe electronic medical record reviewed along with case discussed with the hosptilsit , staff nurse , met with patient patient was admitted per documentation with viral sepsis and ernesto, (he reported to me that for the last 10 days he has been sick called to pcp reported it was the flu , did not get better called againg and had two covid negative tests admitted on 02/15/22 with fever, flank pain hemochromososis. franco lives at home with girlfriend and henrietta was covid vacinated x2 boosrter ex smoker, etoh a few beers after work denies any problem , denies any street drug usage , he has been seen by gastroenterology, renal and id physicians , he is now complaining of headaches discharge plan home with anticipated no services vna or dme pcp dio lloyd patient to [facility] for follow up post hospitla discharge follow up transportation family care team referraks
[2022-02-17 15:15] VITALS: BP 155/79; PULSE 100; RESP 18; TEMP 39.3; O2SAT 94
--- NOTE | 2022-02-17 15:37 | P.PNNP_ITS ---
Subjective Subjective Date of Service: 02/17/22 Interval history: cc: fevers interval history:unchanged CHart Reviewed. Events noted. Physical Exam Vital Signs: Vital Signs: Last Vital Signs Temp 102.7 F H 02/17/22 15:15 Pulse 100 02/17/22 15:15 Resp 18 02/17/22 15:15 BP 155/79 H 02/17/22 15:15 Pulse Ox 94 02/17/22 15:15 BMI result Body Mass Index 27.9 Const: General: cooperative and no acute distress Orientation/consciousness: patient oriented x3 HEENT: Head: Yes normocephalic Neck: Neck: Yes no JVD Resp: Auscultation: clear to auscultation bilaterally Cardio: Jugular venous distension: no JVD Rate: regular rate Rhythm: regular rhythm Heart sounds: S1 normal heart sound present and S2 normal heart sound present GI: Auscultation: normal bowel sounds Neuro: General: patient oriented x3 and no focal motor deficits Extrem: General: Yes no clubbing, cyanosis or edema Objective Data Labs CBC & Chem 7: 02/17/22 08:02 02/17/22 08:02 Labs: Laboratory Results - last 24 hr 02/15/22 02/17/22 02/17/22 04:47 08:02 08:02 WBC 12.9 H RBC 4.25 L Hgb 12.7 L Hct 36.5 L MCV 85.9 MCH 29.9 MCHC 34.8 RDW 14.9 Plt Count 277 MPV 10.8 Absolute Nucleated RBC 0.000 Nucleated RBC % (auto) 0.0 Sodium 127 L Potassium 4.4 Chloride 96 Carbon Dioxide 21 L Anion Gap 14 BUN 17 H Creatinine 1.07 Estim Creat Clear Calc 106.8 Estimated GFR > 60 Fasting Glucose 93 Calcium 8.2 L Lyme Screen IgG & IgM <0.90 Lyme Progressive Test TNP Microbiology Microbiology Results: Microbiology 02/15/22 05:21 Urine clean catch - Urine osorio top Urine Culture - Final Escherichia coli 02/15/22 04:45 Blood - Venous Blood Culture - Preliminary No growth after 48 hours. 02/15/22 04:45 Blood - Venous Blood Culture - Preliminary No growth after 48 hours. Procedures Date of Service Date of Service: 02/17/22 Assessment & Plan Assessment and plan (1) MICHAELA (acute kidney injury): Status: Acute Plan #) MICHAELA, non-oliguric. -S-Cr improving with ivf?s -I suspect that patient has michaela secondary to combination of infection (uti), dehydration, and nsaid induced afferent arteriole vasoconstriction. -Patient stated he was taking about 1-2 ibuprofen tablets (800 mg tablets), three times a day for 11 days -Additionally, use of nsaid with valacyclovir will actually up-titrate acyclovir levels which can also lead to renal nephrotoxicity. -We should continue with abx coverage for presumed uti in this IS patient and repeat UA once patient more hemodynamically stable. -He does have hematuria on UA along with wbc?s which could be AIN given nsaid overuse however S-Cr is improving s/p iv abx and ivf?s so we can hold off on in- depth GN workup and renal biopsy. -Continue with supportive care as you are and removal of offending agent such as ibuprofen -Renal panel daily. -Monitor I/O?s -Mg, K levels daily -Lokelma 10 Gm prn K> 5.0 #) Hyponatremia: Will add U-Osm, U-Na -Rest per primary team Time Spent With Patient Time: Total time spent is greater than 50% in coordination of care (as documented) at patient's floor/unit and/or counseling patient: Progress Note: Quality Stroke Does the patient have a stroke diagnosis?: No
[2022-02-17 19:15] VITALS: BP 118/58; PULSE 87; RESP 18; TEMP 36.9; O2SAT 94
[2022-02-17 19:21] LABS: Osmolality Urine 327 mosm/kg (373-1093)
[2022-02-17 23:26] VITALS: BP 152/85; PULSE 71; RESP 17; TEMP 38.1; O2SAT 96
[2022-02-18] MEDS: Acetaminophen 325 MG TABLET 650 MG PO ×2 (02:55→09:16)
[2022-02-18 03:35] VITALS: BP 150/89; PULSE 82; RESP 17; TEMP 36.6; O2SAT 98
[2022-02-18] MEDS: HYDROmorphone HCl 1 MG/ML SYRINGE IVPUSH ×7 (03:36→22:15)
[2022-02-18 05:12] LABS: EBV-NA IgG Index <18.00 U/mL; EBV-VCA IgM Ab <36.00 U/mL
[2022-02-18] MEDS: cefTRIAXone sodium 2 GM in 0.9 % Sodium Chloride 50 ML IV (05:47)
[2022-02-18 06:01] LABS: Hematocrit 35.1 % (42.0-52.0); Hemoglobin 11.9 g/dl (14.0-18.0); Mean Corpuscular HGB Conc 33.9 g/dl (31.0-36.0); Mean Corpuscular Hemoglobin 29.2 pg (27.0-33.0); Mean Corpuscular Volume 86.2 fL (80.0-98.0); Mean Platelet Volume 10.9 fL (9.4-12.4); Platelet Count 287 X10*3/uL (160-400); Red Blood Count 4.07 X10*6/uL (4.60-5.80); Red Cell Distribution Width 14.9 % (11.0-16.0)
[2022-02-18 06:34] LABS: Alanine Aminotransferase 110 U/L (0-40); Albumin Level 2.3 g/dL (3.5-5.0); Alkaline Phosphatase 377 U/L (39-117); Anion Gap 13 (12-20); Aspartate Amino Transferase 61 U/L (5-37); Bilirubin Direct 0.6 mg/dL (0.0-0.5); Bilirubin Total 0.8 mg/dL (0.0-1.0); Blood Urea Nitrogen 18 mg/dL (9-16); Calcium 8.3 mg/dL (8.4-10.2); Carbon Dioxide 23 mmol/L (22-29); Chloride 99 mmol/L (96-108); Creatinine Clr Calc Pharmacy 108.9; Estimated Glomerular Filt Rate > 60; Glucose Fasting 94 mg/dL (60-99); Potassium 4.6 mmol/L (3.3-5.1); Sodium 130 mmol/L (135-145); Total Protein 5.1 g/dL (6.5-8.0)
[2022-02-18] MEDS: Doxycycline Hyclate 100 MG in 0.9 % Sodium Chloride 250 ML 166.67 MG IV ×2 (06:38→19:47)
[2022-02-18 07:51] VITALS: BP 156/89; PULSE 92; RESP 18; TEMP 36.9; O2SAT 95
[2022-02-18] MEDS: Multivitamin TABLET 1 TAB PO (08:35)
[2022-02-18] MEDS: buPROPion HCl XL 150 MG TAB.ER.24H PO (08:36)
[2022-02-18] MEDS: timoloL maleate 0.5 % Oph Sol 5 ML DRBTL 1 DROP EYE-BOTH ×2 (08:36→21:39)
[2022-02-18] MEDS: 0.9 % Sodium Chloride Flush 3 ML SYRINGE IVFLUSH ×3 (08:36→19:48)
--- NOTE | 2022-02-18 09:57 | P.PNIM_ITS ---
Subjective Subjective Date of Service: 02/18/22 Interval History: cc: fever, chills interval history:unchanged Cardiovascular Cardiovascular: Reports no additional cardiovascular complaints Respiratory Respiratory: Reports no additional respiratory complaints Physical Exam Vital Signs: Vital Signs: Last Vital Signs Temp 98.5 F 02/18/22 07:51 Pulse 92 02/18/22 07:51 Resp 18 02/18/22 07:51 BP 156/89 H 02/18/22 07:51 Pulse Ox 95 02/18/22 07:51 BMI result Body Mass Index 27.9 General: AO X 3, diaphoretic, in pain Resp:? CTA bilateral, no accessory muscles used CVS: S1,S2,RRR GI: soft, non tender, biulateral flank tenderness Neuro:? motor grossly intact, alert Psych: appropriate affect, appropriate insight? Objective Data Active Medications Acetaminophen (Acetaminophen 325 Mg Tablet) 650 mg PO Q6H PRN PRN Reason: Pain, Mild (Pain Scale 1-3) Last Admin: 02/18/22 09:16 Dose: 650 mg Documented by: CHERIE Al Hydroxide/Mg Hydroxide (Magnesium Hydrox/Alum Hydrox 30 Ml Oral.Susp) 30 ml PO Q4H PRN PRN Reason: Heartburn/Nausea Bupropion HCl (Bupropion Hcl Xl 150 Mg Tab.Er.24h) 150 mg PO DAILY [facility] Last Admin: 02/18/22 08:36 Dose: 150 mg Documented by: CHERIE Hydromorphone HCl (Hydromorphone Hcl 1 Mg/Ml Syringe) 1 mg IVPUSH Q2H PRN; Protocol PRN Reason: Pain, Severe (Pain Scale 7-10) Last Admin: 02/18/22 08:36 Dose: 1 mg Documented by: CHERIE Doxycycline Hyclate 100 mg/ (Sodium Chloride) 250 mls @ 166.67 mls/hr IV Q12H [facility] Last Infusion: 02/18/22 08:37 Dose: 0 mls/hr Documented by: CHERIE Ceftriaxone Sodium 2 gm/ (Sodium Chloride) 50 mls @ 100 mls/hr IV Q24H [facility] Last Infusion: 02/18/22 06:39 Dose: 0 mls/hr Documented by: MARIA FERNANDA Methylphenidate HCl (Methylphenidate Hcl 10 Mg Tablet) 20 mg PO BID [facility] Last Admin: 02/18/22 08:43 Dose: Not Given Documented by: CHERIE Non-Admin Reason: Patient Refused Multivitamins/Vitamin C (Multivitamin Tablet) 1 tab PO DAILY [facility] Last Admin: 02/18/22 08:35 Dose: 1 tab Documented by: CHERIE Ondansetron HCl (Ondansetron Hcl 4 Mg/2 Ml Vial) 4 mg IVPUSH Q8H PRN PRN Reason: Nausea and Vomiting Pharmacy Consult (Consult Rx Vancomycin Dosing) 1 each MISCELLANE DAILY PRN PRN Reason: Consult order Sodium Chloride (0.9 % Sodium Chloride Flush 3 Ml Syringe) 3 ml IVFLUSH QSHIFT [facility] Last Admin: 02/18/22 08:36 Dose: 3 ml Documented by: CHERIE Timolol Maleate (Timolol Maleate 0.5 % Oph Tejal 5 Ml Drbtl) 1 drop EYE-BOTH BID [facility] Last Admin: 02/18/22 08:36 Dose: 1 drop Documented by: CHERIE Labs CBC & Chem 7: 02/18/22 05:54 02/18/22 05:54 Labs: Laboratory Results - last 24 hr 02/15/22 02/16/22 02/17/22 04:47 06:10 18:50 MCV MCH MCHC RDW Plt Count MPV Absolute Nucleated RBC Nucleated RBC % (auto) Anion Gap Estim Creat Clear Calc Estimated GFR Fasting Glucose Calcium Total Bilirubin Direct Bilirubin AST ALT Alkaline Phosphatase Total Protein Albumin Urine Osmolality 327 L Ur Random Sodium Lyme Progressive Test TNP EBV Capsid Ag IgG Ab 58.50 H EBV Capsid Ag IgM Index <36.00 EBV Nuclear Ag IgG Indx <18.00 EBV Antibody Interp SEE NOTE 02/17/22 02/18/22 02/18/22 18:50 05:54 05:54 MCV 86.2 MCH 29.2 MCHC 33.9 RDW 14.9 Plt Count 287 MPV 10.9 Absolute Nucleated RBC 0.000 Nucleated RBC % (auto) 0.0 Anion Gap 13 Estim Creat Clear Calc 108.9 Estimated GFR > 60 Fasting Glucose 94 Calcium 8.3 L Total Bilirubin 0.8 Direct Bilirubin 0.6 H AST 61 H ALT 110 H Alkaline Phosphatase 377 H D Total Protein 5.1 L Albumin 2.3 L Urine Osmolality Ur Random Sodium 89.0 Lyme Progressive Test EBV Capsid Ag IgG Ab EBV Capsid Ag IgM Index EBV Nuclear Ag IgG Indx EBV Antibody Interp Microbiology Microbiology Results: Microbiology 02/15/22 05:21 Urine Culture - Final Urine clean catch - Urine osorio top Escherichia coli 02/15/22 04:45 Blood Culture - Preliminary Blood - Venous No growth after 48 hours. 02/15/22 04:45 Blood Culture - Preliminary Blood - Venous No growth after 48 hours. Assessment and Plan (1) Fever: Status: Acute Plan 36M presented with fevers fevers in immunocompromised patient differential broad, includes viral sepsis tick borne disease - empiric rocephin, doxy, follow up panel (lyme negative) bilateral acute pyelonephritis - ecoli in urine, follow up , continue rocephin MR lumbar spine negative for infection holding enbrel hemochromatosis outpatient follow up MICHAELA resolved hyponatremia urine studies c/w SIADH, fluid restrict, improved to 130 alcoholic fatty liver etoh absitenence outpatient follow up low risk for dvt reason for continued hospitalization: continuing close monitoring and empiric abx while ongoing work up for fever in high risk patient due to immunocompromised state Quality Stroke Does the patient have a stroke diagnosis?: No VTE Prior VTE?: No VTE Risk Level:: Medical - low VTE Device Contraindication: Treatment Not Indicated VTE Drug Contraindication: Treatment Not Indicated
[2022-02-18 12:00] VITALS: BP 129/71; PULSE 73; RESP 18; TEMP 36.1; O2SAT 96
--- NOTE | 2022-02-18 12:32 | MHC.RECOVRN ---
Met with pt in 351 on 02/17 after consult placed to CARE Team for hx of alcohol use and question of opiate use. Upon entering pts room, pt sitting in bed, awake, alert, eating lunch. Introduced self and t/w role to pt. Pt states It honestly upsets me that you're here. I don't know why you would be. Pt hesitant to discuss substances with t/w, very guarded towards engaging in conversation. When asked about alcohol use pt states I have a few beers once in awhile like everybody else. Pt reports hx of chronic pain and states yeah, my doctor has prescribed me a lot of pain meds over the last 10 years. Pt declines to discuss further. Pt provided with t/w contact information if needed.
[2022-02-18 13:36] LABS: Transglutaminase Ab IgG <1.0 U/mL
[2022-02-18 13:48] LABS: Anti Nuclear Antibody Screen NEGATIVE (NEGATIVE)
[2022-02-18 14:21] LABS: IgA 246 mg/dL (47-310); IgG 560 mg/dL (600-1640); IgM 79 mg/dL (50-300)
--- NOTE | 2022-02-18 15:15 | P.CNUR_ITS ---
History of Present Illness Consult details Consult date: 02/18/22 Narrative: Ritchie is a male. Admitted to hospital with flu-like symptoms that have been progressive Baseline takes immunosuppressant with Enbrel Found to have urinary tract infection with pansensitive E coli Enbrel has been associated with urinary tract infections due to his immunosuppressed [place] nature Recommend treatment with antibiotics per sensitivities for minimum of 14 days Addition of alpha-julia to assist with urination Review of Systems Constitutional: Constitutional: Reports as per HPI and Reports no additional constitutional complaints Cardiovascular: Cardiovascular: Reports as per HPI and Reports no additional cardiovascular complaints Respiratory: Respiratory: Reports as per HPI and Reports no additional respiratory complaints Gastrointestinal: Gastrointestinal: Reports as per HPI and Reports no additional gastrointestinal complaints Genitourinary: Genitourinary: Reports as per HPI Musculoskeletal: Musculoskeletal: Reports no additional musculoskeletal complaints and Reports as per HPI Neurologic: Reports system reviewed and no additional complaints, except as documented and Reports as per HPI PMFSH Past Medical History Medical History (Updated 02/18/22 @ 15:19 by Gabe Lion MD) Glaucoma Hemochromatosis Rheumatoid arthritis Family History Family History (Updated 02/16/22 @ 17:04 by Joaquin Lai MD) Brother Substance abuse Family history: reviewed and not pertinent Social History Social History (Updated 02/16/22 @ 17:04 by Joaquin Lai MD) Household Members: Spouse and Children Housing: House Alcohol intake: current Alcohol intake frequency: a few times a week Alcohol type: beer and hard liquor Patient Tobacco Use Status: Former Tobacco user Second Hand Smoke Exposure: No Substance Use Type: Heroin service: No Current occupational status: employed Meds Allergies Allergy/AdvReac Type Severity Reaction Status Date / Time No Known Allergies Allergy Unverified 06/11/20 17:30 [No Known Allergies*] Active Medications: Current Medications Acetaminophen (Acetaminophen 325 Mg Tablet) 650 mg PO Q6H PRN PRN Reason: Pain, Mild (Pain Scale 1-3) Last Admin: 02/18/22 09:16 Dose: 650 mg Documented by: Al Hydroxide/Mg Hydroxide (Magnesium Hydrox/Alum Hydrox 30 Ml Oral.Susp) 30 ml PO Q4H PRN PRN Reason: Heartburn/Nausea Bupropion HCl (Bupropion Hcl Xl 150 Mg Tab.Er.24h) 150 mg PO DAILY ABHIJIT Last Admin: 02/18/22 08:36 Dose: 150 mg Documented by: Hydromorphone HCl (Hydromorphone Hcl 1 Mg/Ml Syringe) 1 mg IVPUSH Q2H PRN; Protocol PRN Reason: Pain, Severe (Pain Scale 7-10) Last Admin: 02/18/22 14:44 Dose: 1 mg Documented by: Doxycycline Hyclate 100 mg/ (Sodium Chloride) 250 mls @ 166.67 mls/hr IV Q12H [facility] Last Infusion: 02/18/22 08:37 Dose: Infused Documented by: Ceftriaxone Sodium 2 gm/ (Sodium Chloride) 50 mls @ 100 mls/hr IV Q24H [facility] Last Infusion: 02/18/22 06:39 Dose: Infused Documented by: Methylphenidate HCl (Methylphenidate Hcl 10 Mg Tablet) 20 mg PO BID [facility] Last Admin: 02/18/22 08:43 Dose: Not Given Documented by: Multivitamins/Vitamin C (Multivitamin Tablet) 1 tab PO DAILY [facility] Last Admin: 02/18/22 08:35 Dose: 1 tab Documented by: Ondansetron HCl (Ondansetron Hcl 4 Mg/2 Ml Vial) 4 mg IVPUSH Q8H PRN PRN Reason: Nausea and Vomiting Pharmacy Consult (Consult Rx Vancomycin Dosing) 1 each MISCELLANE DAILY PRN PRN Reason: Consult order Sodium Chloride (0.9 % Sodium Chloride Flush 3 Ml Syringe) 3 ml IVFLUSH QSHIFT [facility] Last Admin: 02/18/22 08:36 Dose: 3 ml Documented by: Timolol Maleate (Timolol Maleate 0.5 % Oph Tejal 5 Ml Drbtl) 1 drop EYE-BOTH BID [facility] Last Admin: 02/18/22 08:36 Dose: 1 drop Documented by: Home Medications Medication Instructions Recorded Confirmed Last Taken Type bupropion HCl 100 mg tablet,12 hr 1 tab PO BID 02/15/22 02/15/22 Unknown History sustained-release etanercept 50 mg/mL (1 mL) 1 syringe SUBCUT DELEON 02/15/22 02/15/22 Unknown History subcutaneous pen injector (Enbrel Alphonse) leflunomide 10 mg tablet 1 tab PO DAILY 02/15/22 02/15/22 Unknown History methylphenidate HCl 20 mg tablet 1 tab PO BID 02/15/22 02/15/22 02/14/22 History multivitamin 1 tab PO DAILY 02/15/22 02/15/22 02/14/22 History timolol maleate 0.5 % eye drops 1 drp OPHTHALMIC (EYE) BID 02/15/22 02/15/22 02/14/22 History valacyclovir 500 mg tablet 1 tab PO DAILY 02/15/22 02/15/22 02/14/22 History Physical Exam Vital Signs: Vital Signs: Last Vital Signs Temp 96.9 F 02/18/22 12:00 Pulse 73 02/18/22 12:00 Resp 18 02/18/22 12:00 BP 129/71 02/18/22 12:00 Pulse Ox 96 02/18/22 12:00 BMI result Body Mass Index 27.9 Const: General: cooperative, healthy appearing, comfortable and no acute distress Orientation/consciousness: patient oriented x3 HEENT: Face and sinus: Yes normal facial exam Mouth: moist mucous membranes Neck: Neck: Yes normal visual inspection, Yes full ROM and Yes trachea midline Chest: Chest palpation & inspection: normal inspection of the chest Resp: Effort & Inspection: normal respiratory effort, able to speak in complete sentences and no respiratory distress GI: Inspection: Yes normal to inspection Back/Spine/Pelvis: Cervical Spine: normal cervical lordosis Thoracic/Lumbar Spine: thoracic and lumbar spine normal to inspection Skin: General skin exam: no rashes or lesions noted Neuro: General: patient oriented x3, tone normal and moves all extremities Extrem: General: Yes normal to inspection and Yes capillary refill normal Results Labs Result diagrams: 02/18/22 05:54 02/18/22 05:54 Labs: Abnormal lab results 02/16/22 02/16/22 02/17/22 Range/Units 06:10 06:11 18:50 WBC (4.8-10.8) X10*3/uL RBC (4.60-5.80) X10*6/uL Hgb (14.0-18.0) g/dl Hct (42.0-52.0) % Sodium (135-145) mmol/L BUN (9-16) mg/dL Calcium (8.4-10.2) mg/dL Direct Bilirubin (0.0-0.5) mg/dL AST (5-37) U/L ALT (0-40) U/L Alkaline Phosphatase (39-117) U/L Total Protein (6.5-8.0) g/dL Albumin (3.5-5.0) g/dL Urine Osmolality 327 L (373-1093) mosm/kg IgG Total 560 L (600-1640) mg/dL EBV Capsid Ag IgG Ab 58.50 H U/mL 02/18/22 02/18/22 Range/Units 05:54 05:54 WBC 12.0 H (4.8-10.8) X10*3/uL RBC 4.07 L (4.60-5.80) X10*6/uL Hgb 11.9 L (14.0-18.0) g/dl Hct 35.1 L (42.0-52.0) % Sodium 130 L (135-145) mmol/L BUN 18 H (9-16) mg/dL Calcium 8.3 L (8.4-10.2) mg/dL Direct Bilirubin 0.6 H (0.0-0.5) mg/dL AST 61 H (5-37) U/L ALT 110 H (0-40) U/L Alkaline Phosphatase 377 H D (39-117) U/L Total Protein 5.1 L (6.5-8.0) g/dL Albumin 2.3 L (3.5-5.0) g/dL Urine Osmolality (373-1093) mosm/kg IgG Total (600-1640) mg/dL EBV Capsid Ag IgG Ab U/mL Short CBC 02/18/22 Range/Units 05:54 WBC 12.0 H (4.8-10.8) X10*3/uL Hgb 11.9 L (14.0-18.0) g/dl Hct 35.1 L (42.0-52.0) % Plt Count 287 (160-400) X10*3/uL BMP 02/18/22 05:54 Sodium 130 L Potassium 4.6 Chloride 99 Carbon Dioxide 23 BUN 18 H Creatinine 1.05 Calcium 8.3 L Liver Function 02/18/22 Range/Units 05:54 Total Bilirubin 0.8 (0.0-1.0) mg/dL Direct Bilirubin 0.6 H (0.0-0.5) mg/dL AST 61 H (5-37) U/L ALT 110 H (0-40) U/L Alkaline Phosphatase 377 H D (39-117) U/L Albumin 2.3 L (3.5-5.0) g/dL Urine 02/15/22 Range/Units 05:22 Urine Color YELLOW Urine Appearance HAZY Urine pH 6.0 (5.0-8.0) Ur Specific [place] 1.025 (1.005-1.025) Urine Protein 2+ H (NEG-TRACE) MG/DL Urine Glucose (UA) NEG (NEG) MG/DL All other labs normal. Assessment and Plan (1) Pyelonephritis: Status: Acute Plan Pyelonephritis secondary to immunosuppression with Enbrel Follow ID recommendations for therapy Add alpha-julia to encourage bladder emptying Procedures Date of Service Date of Service: 02/18/22
--- NOTE | 2022-02-18 15:16 | MHC.CM.PN ---
N[facility]SE [employer] , PATIENT DENIES ANY USE OF STREET DRUGS AND WAS SEEN BY THE PRIVATE DUTY AIDE AT MY REQUEST HE ONLYU DRINKDS A FEW BEERRS DAILY NAD REPORTED HE HAS NPONLY TAKEN PRESCRIBED MEDICATIONS NBY HIS PHYSICIAN OVER THE PAST YEARS (SEE PRIVATE DUTY AIDE NOTE 02/18/[address] AEROTRIANGULATION SPECIALIST TO CONTINUE TO FOLLWO FOR DISCHARGE NEEDS IF ANY CHANGES
[2022-02-18 15:25] VITALS: BP 142/84; PULSE 80; RESP 18; TEMP 36.9; O2SAT 98
--- NOTE | 2022-02-18 16:01 | P.PNNP_ITS ---
Subjective Subjective Date of Service: 02/18/22 Interval history: Seen and examined, events noted Physical Exam Vital Signs: Vital Signs: Last Vital Signs Temp 98.4 F 02/18/22 15:25 Pulse 80 02/18/22 15:25 Resp 18 02/18/22 15:25 BP 142/84 H 02/18/22 15:25 Pulse Ox 98 02/18/22 15:25 BMI result Body Mass Index 27.9 Const: General: cooperative, comfortable and no acute distress O rientation/consciousness: patient oriented x3 HEENT: Head: Yes normocephalic Neck: Neck: Yes no JVD Resp: Auscultation: clear to auscultation bilaterally Cardio: Jugular venous distension: no JVD Rate: regular rate Rhythm: regular rhythm Heart sounds: S1 normal heart sound present and S2 normal heart sound present GI: Auscultation: normal bowel sounds Skin: General skin exam: no rashes or lesions noted Neuro: General: patient oriented x3 and no focal motor deficits Extrem: General: Yes no clubbing, cyanosis or edema Objective Data Labs CBC & Chem 7: 02/18/22 05:54 02/18/22 05:54 Labs: Laboratory Results - last 24 hr 02/16/22 02/16/22 02/16/22 06:10 06:11 06:11 WBC RBC Hgb Hct MCV MCH MCHC RDW Plt Count MPV Absolute Nucleated RBC Nucleated RBC % (auto) Sodium Potassium Chloride Carbon Dioxide Anion Gap BUN Creatinine Estim Creat Clear Calc Estimated GFR Fasting Glucose Calcium Total Bilirubin Direct Bilirubin AST ALT Alkaline Phosphatase Total Protein Albumin Urine Osmolality Ur Random Sodium IgG Total 560 L IgA Total 246 IgM 79 LEXI Screen Tiss Transglutamin IgG <1.0 EBV Capsid Ag IgG Ab 58.50 H EBV Capsid Ag IgM Index <36.00 EBV Nuclear Ag IgG Indx <18.00 EBV Antibody Interp SEE NOTE 02/16/22 02/17/22 02/17/22 06:16 18:50 18:50 WBC RBC Hgb Hct MCV MCH MCHC RDW Plt Count MPV Absolute Nucleated RBC Nucleated RBC % (auto) Sodium Potassium Chloride Carbon Dioxide Anion Gap BUN Creatinine Estim Creat Clear Calc Estimated GFR Fasting Glucose Calcium Total Bilirubin Direct Bilirubin AST ALT Alkaline Phosphatase Total Protein Albumin Urine Osmolality 327 L Ur Random Sodium 89.0 IgG Total IgA Total IgM LEXI Screen NEGATIVE Tiss Transglutamin IgG EBV Capsid Ag IgG Ab EBV Capsid Ag IgM Index EBV Nuclear Ag IgG Indx EBV Antibody Interp 02/18/22 02/18/22 05:54 05:54 WBC 12.0 H RBC 4.07 L Hgb 11.9 L Hct 35.1 L MCV 86.2 MCH 29.2 MCHC 33.9 RDW 14.9 Plt Count 287 MPV 10.9 Absolute Nucleated RBC 0.000 Nucleated RBC % (auto) 0.0 Sodium 130 L Potassium 4.6 Chloride 99 Carbon Dioxide 23 Anion Gap 13 BUN 18 H Creatinine 1.05 Estim Creat Clear Calc 108.9 Estimated GFR > 60 Fasting Glucose 94 Calcium 8.3 L Total Bilirubin 0.8 Direct Bilirubin 0.6 H AST 61 H ALT 110 H Alkaline Phosphatase 377 H D Total Protein 5.1 L Albumin 2.3 L Urine Osmolality Ur Random Sodium IgG Total IgA Total IgM LEXI Screen Tiss Transglutamin IgG EBV Capsid Ag IgG Ab EBV Capsid Ag IgM Index EBV Nuclear Ag IgG Indx EBV Antibody Interp Microbiology Microbiology Results: Microbiology 02/15/22 05:21 Urine clean catch - Urine osorio top Urine Culture - Final Escherichia coli 02/15/22 04:45 Blood - Venous Blood Culture - Preliminary No growth after 48 hours. 02/15/22 04:45 Blood - Venous Blood Culture - Preliminary No growth after 48 hours. Procedures Date of Service Date of Service: 02/18/22 Assessment & Plan Assessment and plan (1) MICHAELA (acute kidney injury): Status: Acute Plan 1. MICHAELA: resolved 2. Euvolemic HypoNa: w/u c/w SIADH but need to r/o adrenal insuf and hypothy roidism REC: po fluid restriction, am TSH and cortisol, track SNa as may additional w/u for etiol of hypoNa if it persists Time Spent With Patient Time: Total time spent is greater than 50% in coordination of care (as documented) at patient's floor/unit and/or counseling patient: Progress Note: Quality Stroke Does the patient have a stroke diagnosis?: No
[2022-02-18 18:12] LABS: Potassium Urine Random 22.4 mmol/L
[2022-02-18 18:56] LABS: Osmolality Urine 345 mosm/kg (373-1093)
[2022-02-18 19:27] VITALS: BP 137/65; PULSE 93; RESP 18; TEMP 37.4; O2SAT 97
[2022-02-18] MEDS: Doxazosin Mesylate 2 MG TABLET 4 MG PO (19:45)
[2022-02-18 21:32] LABS: Anti Glomerular Basement Memb <1.0 AI; Myeloperoxidase Antibody <1.0 AI; Proteinase 3 PR3 Antibodies <1.0 AI
[2022-02-18 23:27] VITALS: BP 104/58; PULSE 76; RESP 17; TEMP 36.9; O2SAT 96
[2022-02-19 02:57] VITALS: BP 136/73; PULSE 96; RESP 18; TEMP 38.6; O2SAT 94
[2022-02-19] MEDS: Acetaminophen 325 MG TABLET 650 MG PO (03:10)
[2022-02-19] MEDS: HYDROmorphone HCl 1 MG/ML SYRINGE IVPUSH ×8 (03:11→21:45)
[2022-02-19] MEDS: cefTRIAXone sodium 2 GM in 0.9 % Sodium Chloride 50 ML IV (06:24)
[2022-02-19 06:37] LABS: TSH reflex Free T4 0.98 uIU/mL (0.32-4.0)
[2022-02-19 06:42] LABS: Cortisol Random 11.8 ug/dL
[2022-02-19 07:41] LABS: Anion Gap 14 (12-20); Blood Urea Nitrogen 25 mg/dL (9-16); Calcium 8.4 mg/dL (8.4-10.2); Carbon Dioxide 22 mmol/L (22-29); Chloride 98 mmol/L (96-108); Creatinine Clr Calc Pharmacy 87.3; Estimated Glomerular Filt Rate > 60; Glucose Random 84 mg/dL (60-115); Potassium 4.9 mmol/L (3.3-5.1); Sodium 129 mmol/L (135-145)
[2022-02-19 08:00] VITALS: BP 122/57; PULSE 62; RESP 18; TEMP 36.8; O2SAT 97
[2022-02-19] MEDS: Doxycycline Hyclate 100 MG in 0.9 % Sodium Chloride 250 ML 166.67 MG IV ×2 (09:16→20:13)
[2022-02-19] MEDS: 0.9 % Sodium Chloride Flush 3 ML SYRINGE IVFLUSH ×3 (09:16→20:17)
[2022-02-19] MEDS: timoloL maleate 0.5 % Oph Sol 5 ML DRBTL 1 DROP EYE-BOTH ×2 (09:17→20:18)
[2022-02-19] MEDS: Multivitamin TABLET 1 TAB PO (09:17)
[2022-02-19] MEDS: buPROPion HCl XL 150 MG TAB.ER.24H PO (09:17)
[2022-02-19 10:02] LABS: EOS Counted 2 CELLS; EOS QC POS YES; EOS Stain Quality OK YES; WBC, Counted 100 CELLS
[2022-02-19] MEDS: predniSONE 20 MG TABLET 40 MG PO (11:26)
--- NOTE | 2022-02-19 11:31 | HO.PM.IMPN ---
Subjective Subjective Date of Service: 02/19/22 Interval History: cc: fever, chills interval history:unchanged Cardiovascular Cardiovascular: Reports no additional cardiovascular complaints Respiratory Respiratory: Reports no additional respiratory complaints Physical Exam Vital Signs: Vital Signs: Last Vital Signs Temp 98.2 F 02/19/22 08:00 Pulse 62 02/19/22 08:00 Resp 18 02/19/22 08:00 BP 122/57 L 02/19/22 08:00 Pulse Ox 97 02/19/22 08:00 BMI result Body Mass Index 27.9 General: AO X 3, diaphoretic, in pain Resp:? CTA bilateral, no accessory muscles used CVS: S1,S2,RRR GI: soft, non tender, biulateral flank tenderness Neuro:? motor grossly intact, alert Psych: appropriate affect, appropriate insight? Objective Data Active Medications Acetaminophen (Acetaminophen 325 Mg Tablet) 650 mg PO Q6H PRN PRN Reason: Pain, Mild (Pain Scale 1-3) Last Admin: 02/19/22 03:10 Dose: 650 mg Documented by: STEVAN Al Hydroxide/Mg Hydroxide (Magnesium Hydrox/Alum Hydrox 30 Ml Oral.Susp) 30 ml PO Q4H PRN PRN Reason: Heartburn/Nausea Bupropion HCl (Bupropion Hcl Xl 150 Mg Tab.Er.24h) 150 mg PO DAILY [facility] Last Admin: 02/19/22 09:17 Dose: 150 mg Documented by: EUGENE Doxazosin Mesylate (Doxazosin Mesylate 2 Mg Tablet) 4 mg PO BEDTIME [facility]; Protocol Last Admin: 02/18/22 19:45 Dose: 4 mg Documented by: STEVAN Hydromorphone HCl (Hydromorphone Hcl 1 Mg/Ml Syringe) 1 mg IVPUSH Q2H PRN; Protocol PRN Reason: Pain, Severe (Pain Scale 7-10) Last Admin: 02/19/22 11:27 Dose: 1 mg Documented by: EUGENE Ceftriaxone Sodium 2 gm/ (Sodium Chloride) 50 mls @ 100 mls/hr IV Q24H [facility] Last Infusion: 02/19/22 07:00 Dose: 0 mls/hr Documented by: STEVAN Doxycycline Hyclate 100 mg/ (Sodium Chloride) 250 mls @ 166.67 mls/hr IV Q12H [facility] Last Infusion: 02/19/22 11:08 Dose: 0 mls/hr Documented by: EUGENE Methylphenidate HCl (Methylphenidate Hcl 10 Mg Tablet) 20 mg PO BID [facility] Last Admin: 02/19/22 09:17 Dose: Not Given Documented by: EUGENE Non-Admin Reason: Patient Refused Multivitamins/Vitamin C (Multivitamin Tablet) 1 tab PO DAILY [facility] Last Admin: 02/19/22 09:17 Dose: 1 tab Documented by: EUGENE Ondansetron HCl (Ondansetron Hcl 4 Mg/2 Ml Vial) 4 mg IVPUSH Q8H PRN PRN Reason: Nausea and Vomiting Pharmacy Consult (Consult Rx Vancomycin Dosing) 1 each MISCELLANE DAILY PRN PRN Reason: Consult order Prednisone (Prednisone 20 Mg Tablet) 40 mg PO DAILY [facility] Last Admin: 02/19/22 11:26 Dose: 40 mg Documented by: EUGENE Sodium Chloride (0.9 % Sodium Chloride Flush 3 Ml Syringe) 3 ml IVFLUSH QSHIFT [facility] Last Admin: 02/19/22 09:16 Dose: 3 ml Documented by: EUGENE Timolol Maleate (Timolol Maleate 0.5 % Oph Tejal 5 Ml Drbtl) 1 drop EYE-BOTH BID [facility] Last Admin: 02/19/22 09:17 Dose: 1 drop Documented by: EUGENE Labs CBC & Chem 7: 02/18/22 05:54 02/19/22 05:46 Labs: Laboratory Results - last 24 hr 02/16/22 02/16/22 02/16/22 06:11 06:11 06:11 Anion Gap Estim Creat Clear Calc Estimated GFR Random Glucose Uric Acid Calcium TSH Random Cortisol Urine Eosinophils % Urine Osmolality Ur Random Sodium Ur Random Potassium IgG Total 560 L IgA Total 246 IgM 79 LEXI Screen Proteinase 3 (PR3) Ab <1.0 Myeloperoxidase Ab <1.0 Tiss Transglutamin IgG <1.0 Glomerular Base Memb Ab <1.0 02/16/22 02/18/22 02/18/22 06:16 05:54 16:57 Anion Gap Estim Creat Clear Calc Estimated GFR Random Glucose Uric Acid 4.0 Calcium TSH Random Cortisol Urine Eosinophils % Urine Osmolality 345 L Ur Random Sodium Ur Random Potassium IgG Total IgA Total IgM LEXI Screen NEGATIVE Proteinase 3 (PR3) Ab Myeloperoxidase Ab Tiss Transglutamin IgG Glomerular Base Memb Ab 02/18/22 02/18/22 02/18/22 16:57 16:57 16:57 Anion Gap Estim Creat Clear Calc Estimated GFR Random Glucose Uric Acid Calcium TSH Random Cortisol Urine Eosinophils % 2.0 Urine Osmolality Ur Random Sodium 81.0 Ur Random Potassium Cancelled 22.4 IgG Total IgA Total IgM LEXI Screen Proteinase 3 (PR3) Ab Myeloperoxidase Ab Tiss Transglutamin IgG Glomerular Base Memb Ab 02/19/22 02/19/22 05:46 05:46 Anion Gap 14 Estim Creat Clear Calc 87.3 Estimated GFR > 60 Random Glucose 84 Uric Acid Calcium 8.4 TSH 0.98 Random Cortisol 11.8 Urine Eosinophils % Urine Osmolality Ur Random Sodium Ur Random Potassium IgG Total IgA Total IgM LEXI Screen Proteinase 3 (PR3) Ab Myeloperoxidase Ab Tiss Transglutamin IgG Glomerular Base Memb Ab Assessment and Plan (1) Fever: Status: Acute Plan 36M presented with fevers fevers in immunocompromised patient differential broad, includes viral sepsis tick borne disease - empiric rocephin, doxy, follow up panel (lyme negative) bilateral acute pyelonephritis - ecoli in urine, appreciated - started doxazosin, continue rocephin MR lumbar spine negative for infection holding enbrel will empirically start prednisone hemochromatosis outpatient follow up MICHAELA resolved hyponatremia urine studies c/w SIADH, fluid restrict, monitor alcoholic fatty liver etoh abstinence outpatient follow up low risk for dvt reason for continued hospitalization: continuing close monitoring and empiric abx while ongoing work up for fever in high risk patient due to immunocompromised state Quality Stroke Does the patient have a stroke diagnosis?: No VTE Prior VTE?: No VTE Risk Level:: Medical - low VTE Device Contraindication: Treatment Not Indicated VTE Drug Contraindication: Treatment Not Indicated
[2022-02-19 11:56] VITALS: BP 130/57; PULSE 85; RESP 18; TEMP 36.6; O2SAT 95
--- NOTE | 2022-02-19 12:41 | PM.PNNEP ---
Subjective Subjective Date of Service: 02/19/22 Interval history: Seen and examined, events noted Physical Exam Vital Signs: Vital Signs: Last Vital Signs Temp 97.8 F 02/19/22 11:56 Pulse 85 02/19/22 11:56 Resp 18 02/19/22 11:56 BP 130/57 L 02/19/22 11:56 Pulse Ox 95 02/19/22 11:56 BMI result Body Mass Index 27.9 Const: General: cooperative, comfortable and no acute distress Orientation/consciousness: patient oriented x3 HEENT: Head: Yes normocephalic Neck: Neck: Yes no JVD Resp: Auscultation: clear to auscultation bilaterally Cardio: Jugular venous distension: no JVD Rate: regular rate Rhythm: regular rhythm Heart sounds: S1 normal heart sound present and S2 normal heart sound present GI: Auscultation: normal bowel sounds Skin: General skin exam: no rashes or lesions noted Neuro: General: patient oriented x3 and no focal motor deficits Extrem: General: Yes no clubbing, cyanosis or edema Objective Data Labs CBC & Chem 7: 02/18/22 05:54 02/19/22 05:46 Labs: Laboratory Results - last 24 hr 02/16/22 02/16/22 02/16/22 06:11 06:11 06:11 Sodium Potassium Chloride Carbon Dioxide Anion Gap BUN Creatinine Estim Creat Clear Calc Estimated GFR Random Glucose Uric Acid Calcium TSH Random Cortisol Urine Eosinophils % Urine Osmolality Ur Random Sodium Ur Random Potassium IgG Total 560 L IgA Total 246 IgM 79 LEXI Screen Proteinase 3 (PR3) Ab <1.0 Myeloperoxidase Ab <1.0 Tiss Transglutamin IgG <1.0 Glomerular Base Memb Ab <1.0 02/16/22 02/18/22 02/18/22 06:16 05:54 16:57 Sodium Potassium Chloride Carbon Dioxide Anion Gap BUN Creatinine Estim Creat Clear Calc Estimated GFR Random Glucose Uric Acid 4.0 Calcium TSH Random Cortisol Urine Eosinophils % Urine Osmolality 345 L Ur Random Sodium Ur Random Potassium IgG Total IgA Total IgM LEXI Screen NEGATIVE Proteinase 3 (PR3) Ab Myeloperoxidase Ab Tiss Transglutamin IgG Glomerular Base Memb Ab 02/18/22 02/18/22 02/18/22 16:57 16:57 16:57 Sodium Potassium Chloride Carbon Dioxide Anion Gap BUN Creatinine Estim Creat Clear Calc Estimated GFR Random Glucose Uric Acid Calcium TSH Random Cortisol Urine Eosinophils % 2.0 Urine Osmolality Ur Random Sodium 81.0 Ur Random Potassium Cancelled 22.4 IgG Total IgA Total IgM LEXI Screen Proteinase 3 (PR3) Ab Myeloperoxidase Ab Tiss Transglutamin IgG Glomerular Base Memb Ab 02/19/22 02/19/22 05:46 05:46 Sodium 129 L Potassium 4.9 Chloride 98 Carbon Dioxide 22 Anion Gap 14 BUN 25 H Creatinine 1.31 Estim Creat Clear Calc 87.3 Estimated GFR > 60 Random Glucose 84 Uric Acid Calcium 8.4 TSH 0.98 Random Cortisol 11.8 Urine Eosinophils % Urine Osmolality Ur Random Sodium Ur Random Potassium IgG Total IgA Total IgM LEXI Screen Proteinase 3 (PR3) Ab Myeloperoxidase Ab Tiss Transglutamin IgG Glomerular Base Memb Ab Microbiology Microbiology Results: Microbiology 02/15/22 05:21 Urine clean catch - Urine osorio top Urine Culture - Final Escherichia coli 02/15/22 04:45 Blood - Venous Blood Culture - Preliminary No growth after 48 hours. 02/15/22 04:45 Blood - Venous Blood Culture - Preliminary No growth after 48 hours. Procedures Date of Service Date of Service: 02/19/22 Assessment & Plan Assessment and plan (1) MICHAELA (acute kidney injury): Status: Acute Plan 1. MICHAELA: resolved 2. Euvolemic HypoNa: w/u c/w SIADH but need to r/o adrenal insuf and hypothyroidism REC: cont po fluid restriction, cont to track SNa; start urea 15 gm bid Time Spent With Patient Time: Total time spent is greater than 50% in coordination of care (as documented) at patient's floor/unit and/or counseling patient: Progress Note: Quality Stroke Does the patient have a stroke diagnosis?: No
[2022-02-19] MEDS: Urea 15 GM POWDER PO (13:10)
[2022-02-19 15:25] VITALS: BP 130/74; PULSE 81; RESP 16; TEMP 36.8; O2SAT 95
[2022-02-19 19:36] VITALS: BP 128/68; PULSE 66; RESP 17; TEMP 36.3; O2SAT 94
[2022-02-19] MEDS: Doxazosin Mesylate 2 MG TABLET 4 MG PO (21:43)
[2022-02-20] VITALS (7 sets, daily range): BP systolic 108–149; BP diastolic 60–82; PULSE 50–67; RESP 16–18; TEMP 36–36.8; O2SAT 95–97
[2022-02-20] MEDS: cefTRIAXone sodium 2 GM in 0.9 % Sodium Chloride 50 ML IV (04:06)
[2022-02-20] MEDS: HYDROmorphone HCl 1 MG/ML SYRINGE IVPUSH ×4 (04:15→22:54)
[2022-02-20 06:56] LABS: Anion Gap 14 (12-20); Blood Urea Nitrogen 27 mg/dL (9-16); Calcium 8.8 mg/dL (8.4-10.2); Carbon Dioxide 21 mmol/L (22-29); Chloride 102 mmol/L (96-108); Creatinine Clr Calc Pharmacy 132.9; Estimated Glomerular Filt Rate > 60; Glucose Fasting 159 mg/dL (60-99); Sodium 132 mmol/L (135-145)
[2022-02-20 07:03] LABS: Hematocrit 36.1 % (42.0-52.0); Hemoglobin 12.3 g/dl (14.0-18.0); Mean Corpuscular HGB Conc 34.1 g/dl (31.0-36.0); Mean Corpuscular Hemoglobin 29.5 pg (27.0-33.0); Mean Corpuscular Volume 86.6 fL (80.0-98.0); Mean Platelet Volume 11.1 fL (9.4-12.4); Platelet Count 331 X10*3/uL (160-400); Red Blood Count 4.17 X10*6/uL (4.60-5.80); Red Cell Distribution Width 14.9 % (11.0-16.0); White Blood Count 6.9 X10*3/uL (4.8-10.8)
--- NOTE | 2022-02-20 09:12 | HO.PM.IMPN ---
Subjective Subjective Date of Service: 02/20/22 Interval History: cc: fevers, flank pain interval history: finally starting to feel better today, but does have bad headache Respiratory Respiratory: Reports no additional respiratory complaints Gastrointestinal Gastrointestinal: Reports no additional gastrointestinal complaints Physical Exam Vital Signs: Vital Signs: Last Vital Signs Temp 96.8 F 02/20/22 07:33 Pulse 62 02/20/22 07:33 Resp 18 02/20/22 07:33 BP 115/65 02/20/22 07:33 Pulse Ox 96 02/20/22 07:33 BMI result Body Mass Index 27.9 General: AO X 3, no acute distress Resp: CTA bilateral, no accessory muscles used CVS: S1,S2,RRR GI: soft, non tender, non distended Neuro: motor grossly intact, alert Psych: appropriate affect, appropriate insight Objective Data Active Medications Acetaminophen (Acetaminophen 325 Mg Tablet) 650 mg PO Q6H PRN PRN Reason: Pain, Mild (Pain Scale 1-3) Last Admin: 02/19/22 03:10 Dose: 650 mg Documented by: STEVAN Al Hydroxide/Mg Hydroxide (Magnesium Hydrox/Alum Hydrox 30 Ml Oral.Susp) 30 ml PO Q4H PRN PRN Reason: Heartburn/Nausea Bupropion HCl (Bupropion Hcl Xl 150 Mg Tab.Er.24h) 150 mg PO DAILY [facility] Last Admin: 02/19/22 09:17 Dose: 150 mg Documented by: EUGENE Doxazosin Mesylate (Doxazosin Mesylate 2 Mg Tablet) 4 mg PO BEDTIME [facility]; Protocol Last Admin: 02/19/22 21:43 Dose: 4 mg Documented by: STEVAN Hydromorphone HCl (Hydromorphone Hcl 1 Mg/Ml Syringe) 1 mg IVPUSH Q2H PRN; Protocol PRN Reason: Pain, Severe (Pain Scale 7-10) Last Admin: 02/20/22 04:15 Dose: 1 mg Documented by: STEVAN Ceftriaxone Sodium 2 gm/ (Sodium Chloride) 50 mls @ 100 mls/hr IV Q24H [facility] Last Infusion: 02/20/22 04:57 Dose: 0 mls/hr Documented by: STEVAN Doxycycline Hyclate 100 mg/ (Sodium Chloride) 250 mls @ 166.67 mls/hr IV Q12H [facility] Last Infusion: 02/19/22 21:50 Dose: 0 mls/hr Documented by: STEVAN Methylphenidate HCl (Methylphenidate Hcl 10 Mg Tablet) 20 mg PO BID [facility] Last Admin: 02/19/22 21:46 Dose: Not Given Documented by: STEVAN Non-Admin Reason: Patient Refused Multivitamins/Vitamin C (Multivitamin Tablet) 1 tab PO DAILY [facility] Last Admin: 02/19/22 09:17 Dose: 1 tab Documented by: EUGENE Ondansetron HCl (Ondansetron Hcl 4 Mg/2 Ml Vial) 4 mg IVPUSH Q8H PRN PRN Reason: Nausea and Vomiting Pharmacy Consult (Consult Rx Vancomycin Dosing) 1 each MISCELLANE DAILY PRN PRN Reason: Consult order Prednisone (Prednisone 20 Mg Tablet) 40 mg PO DAILY [facility] Last Admin: 02/19/22 11:26 Dose: 40 mg Documented by: EUGENE Sodium Chloride (0.9 % Sodium Chloride Flush 3 Ml Syringe) 3 ml IVFLUSH QSHIFT [facility] Last Admin: 02/19/22 20:17 Dose: 3 ml Documented by: STEVAN Timolol Maleate (Timolol Maleate 0.5 % Oph Tejal 5 Ml Drbtl) 1 drop EYE-BOTH BID [facility] Last Admin: 02/19/22 20:18 Dose: 1 drop Documented by: STEVAN Labs CBC & Chem 7: 02/20/22 05:54 02/20/22 05:54 Labs: Laboratory Results - last 24 hr 02/16/22 02/18/22 02/20/22 06:16 16:57 05:54 MCV 86.6 MCH 29.5 MCHC 34.1 RDW 14.9 Plt Count 331 MPV 11.1 Absolute Nucleated RBC 0.000 Nucleated RBC % (auto) 0.0 Anion Gap Estim Creat Clear Calc Estimated GFR Fasting Glucose Calcium Urine Eosinophils % 2.0 LEXI Titer TNP LEXI Titer 2 TNP LEXI Titer 3 TNP LEXI Pattern TNP LEXI Pattern 2 TNP LEXI Pattern 3 TNP 02/20/22 05:54 MCV MCH MCHC RDW Plt Count MPV Absolute Nucleated RBC Nucleated RBC % (auto) Anion Gap 14 Estim Creat Clear Calc 132.9 Estimated GFR > 60 Fasting Glucose 159 H D Calcium 8.8 Urine Eosinophils % LEXI Titer LEXI Titer 2 LEXI Titer 3 LEXI Pattern LEXI Pattern 2 LEXI Pattern 3 Microbiology Microbiology Results: Microbiology 02/15/22 04:45 Blood Culture - Final Blood - Venous No growth after 5 days. 02/15/22 04:45 Blood Culture - Final Blood - Venous No growth after 5 days. Assessment and Plan (1) Fever: Status: Acute Plan 36M presented with fevers fevers in immunocompromised patient differential broad, includes viral sepsis tick borne disease - empiric rocephin, doxy, follow up panel (lyme negative) sepsis due to bilateral acute pyelonephritis - ecoli in urine, appreciated - started doxazosin, continue rocephin MR lumbar spine negative for infection holding enbrel empirically started prednisone afebrile for about 24hrs now, if continues to be fever free will transition to po tomorrow hemochromatosis outpatient follow up MICHAELA resolved hyponatremia urine studies c/w SIADH, fluid restrict alcoholic fatty liver etoh abstinence outpatient follow up low risk for dvt reason for continued hospitalization: continuing close monitoring and empiric abx while ongoing work up for fever in high risk patient due to immunocompromised state Quality Stroke Does the patient have a stroke diagnosis?: No VTE Prior VTE?: No VTE Risk Level:: Medical - low VTE Device Contraindication: Treatment Not Indicated VTE Drug Contraindication: Treatment Not Indicated
[2022-02-20] MEDS: predniSONE 20 MG TABLET 40 MG PO (09:32)
[2022-02-20] MEDS: Multivitamin TABLET 1 TAB PO (09:32)
[2022-02-20] MEDS: 0.9 % Sodium Chloride Flush 3 ML SYRINGE IVFLUSH ×2 (09:33→20:17)
[2022-02-20] MEDS: Doxycycline Hyclate 100 MG in 0.9 % Sodium Chloride 250 ML 166.67 MG IV (09:33)
[2022-02-20] MEDS: buPROPion HCl XL 150 MG TAB.ER.24H PO (09:33)
[2022-02-20] MEDS: timoloL maleate 0.5 % Oph Sol 5 ML DRBTL 1 DROP EYE-BOTH ×2 (09:34→21:33)
--- NOTE | 2022-02-20 15:07 | P.PNNP_ITS ---
Subjective Subjective Date of Service: 02/20/22 Interval history: Seen and examined, events noted Physical Exam Vital Signs: Vital Signs: Last Vital Signs Temp 96.8 F 02/20/22 11:13 Pulse 55 02/20/22 11:13 Resp 18 02/20/22 11:13 BP 149/75 H 02/20/22 11:13 Pulse Ox 97 02/20/22 11:13 BMI result Body Mass Index 27.9 Const: General: cooperative, comfortable and no acute distress O rientation/consciousness: patient oriented x3 HEENT: Head: Yes normocephalic Neck: Neck: Yes no JVD Resp: Auscultation: clear to auscultation bilaterally Cardio: Jugular venous distension: no JVD Rate: regular rate Rhythm: regular rhythm Heart sounds: S1 normal heart sound present and S2 normal heart sound present GI: Auscultation: normal bowel sounds Skin: General skin exam: no rashes or lesions noted Neuro: General: patient oriented x3 and no focal motor deficits Extrem: General: Yes no clubbing, cyanosis or edema Objective Data Labs CBC & Chem 7: 02/20/22 05:54 02/20/22 05:54 Labs: Laboratory Results - last 24 hr 02/20/22 02/20/22 05:54 05:54 WBC 6.9 RBC 4.17 L Hgb 12.3 L Hct 36.1 L MCV 86.6 MCH 29.5 MCHC 34.1 RDW 14.9 Plt Count 331 MPV 11.1 Absolute Nucleated RBC 0.000 Nucleated RBC % (auto) 0.0 Sodium 132 L Potassium 5.0 Chloride 102 Carbon Dioxide 21 L Anion Gap 14 BUN 27 H Creatinine 0.86 Estim Creat Clear Calc 132.9 Estimated GFR > 60 Fasting Glucose 159 H D Calcium 8.8 Microbiology Microbiology Results: Microbiology 02/15/22 04:45 Blood - Venous Blood Culture - Final No growth after 5 days. 02/15/22 04:45 Blood - Venous Blood Culture - Final No growth after 5 days. 02/15/22 05:21 Urine clean catch - Urine osorio top Urine Culture - Final Escherichia coli Procedures Date of Service Date of Service: 02/20/22 Assessment & Plan Assessment and plan (1) MICHAELA (acute kidney injury): Status: Acute Plan 1. MICHAELA: resolved 2. Euvolemic HypoNa: w/u c/w SIADH REC: cont po fluid restriction, cont to track SNa; cont urea 15 gm bid, goal is to maintain Sna > 130 Time Spent With Patient Time: Total time spent is greater than 50% in coordination of care (as documented) at patient's floor/unit and/or counseling patient: Progress Note: Quality Stroke Does the patient have a stroke diagnosis?: No
[2022-02-20] MEDS: ondansetron HCL 4 MG/2 ML VIAL IVPUSH (18:18)
[2022-02-20] MEDS: Doxycycline Hyclate 100 MG in 0.9 % Sodium Chloride 250 ML 166.6 MG IV (20:16)
[2022-02-20] MEDS: Doxazosin Mesylate 2 MG TABLET 4 MG PO (20:23)
[2022-02-21 03:11] VITALS: BP 111/63; PULSE 91; RESP 17; TEMP 36; O2SAT 96
[2022-02-21] MEDS: cefTRIAXone sodium 2 GM in 0.9 % Sodium Chloride 50 ML IV (05:07)
[2022-02-21] MEDS: ondansetron HCL 4 MG/2 ML VIAL IVPUSH (05:13)
[2022-02-21] MEDS: HYDROmorphone HCl 1 MG/ML SYRINGE IVPUSH ×3 (05:14→12:15)
[2022-02-21 07:31] VITALS: BP 130/74; PULSE 68; RESP 18; TEMP 36.6; O2SAT 99
[2022-02-21] MEDS: Doxycycline Hyclate 100 MG in 0.9 % Sodium Chloride 250 ML 166.67 MG IV (08:52)
[2022-02-21] MEDS: predniSONE 20 MG TABLET 40 MG PO (08:52)
[2022-02-21] MEDS: buPROPion HCl XL 150 MG TAB.ER.24H PO (08:52)
[2022-02-21] MEDS: Multivitamin TABLET 1 TAB PO (08:52)
[2022-02-21] MEDS: timoloL maleate 0.5 % Oph Sol 5 ML DRBTL 1 DROP EYE-BOTH (08:53)
[2022-02-21] MEDS: 0.9 % Sodium Chloride Flush 3 ML SYRINGE IVFLUSH (08:53)
--- NOTE | 2022-02-21 10:35 | P.DS_ITS ---
DS: Providers Provider Date of Service: 02/21/22 Date of admission: 02/15/22 10:11 Primary care physician: SANAZ Goel Consults: 02/15/22 10:23 Consult to Gastroenterology Routine Consulting Provider: Duc Quiñones Reason for consultation: hepatitis Has provider been notified: No Consult to Nephrology Routine Consulting Provider: Austin Alegre Reason for consultation: MICHAELA, hyponatremia, proteinuria Has provider been notified: No 02/15/22 10:46 Consult to Infectious Diseases Routine Consulting Provider: Susana Laughlin Reason for consultation: Viral sepsis Has provider been notified: No 02/15/22 15:38 Consult to Infectious Diseases Routine Consulting Provider: Susana Laughlin Reason for consultation: concern for bacteremia Has provider been notified: Yes 02/16/22 13:03 Consult to Urology Routine Consulting Provider: Gabe Lion Reason for consultation: bilateral pyelo 02/17/22 08:52 Consult to Care Team Routine Comment: Reason for consultation: hx ETOH ( heroin abuse on nsg assessment last use 02/16 no drug screen) 02/18/22 09:55 Consult to Urology Routine Consulting Provider: Gabe Lion Reason for consultation: bilateral pyelonephritis, no obvious obstruction DS: Diagnosis Discharge Diagnosis (1) MICHAELA (acute kidney injury): Status: Acute DS: Summary Hospital Course Hospital Course: from initial hpi: Chief Complaint: Fever body ache. 36-year-old male with a history of rheumatoid arthritis on Enbrel and leflunomide, history of depression on Wellbutrin.? And he presents to the emergency room with a flu-like syndrome that have been ongoing for nearly 2 weeks has been tested for COVID twice negative, and was empirically started on Tamiflu for presume flu but in spite of this has not failure any better.? He continued to have diffuse body aches and however no joint aches and has been having fevers subjectively at home.? He recalled by 2 weeks ago he was cutting his grass that is very very tall at his house and the next day worse when he started having these aches.? [place] [address].? INR is elevated at 1.7 sodium 130, creatinine 1.6, LFTs I elevated with AST 79 and ALT 117 alk-phos 240., C reactive protein is markedly elevated at 30.36 total protein 5.1 urinalysis showed proteinuria and hematuria.? Baby CS serology is pending, he is given ceftriaxone and doxycycline for tick-borne illness.? Checks x-ray is unremarkable.? CT show nonspecific perinephric stranding of unclear significance, hip thyromegaly is noted on the CT scan as well as on ultrasound.? Of note he drinks 6 beers a day at time with hard liquor also.? He is fully vaccinated with COVID including 1 blister hospital course: Patient was admitted for fevers of unknown origin in an immunocompromised patient (due to rheumatoid arthritis, Enbrel, hemochromatosis). Differential was broad including sepsis due to bilateral acute pyelonephritis, patient did have pyelonephritis on imaging. He grew E coli in the urine was treated with ceftriaxone. He was seen by Urology who recommended starting doxazosin for fall emptying (patient did not have hydronephrosis). MRI of lumbar spine was negative for infection. He was given empiric doxycycline for possible tick- borne disease, Lyme was negative, other parasites are pending. Patient took several days to defervesce, eventually prednisone was also started empirically for any inflammatory process. Afterwards patient is fevers began to break and overall felt better. He will be discharged home on 10 more days of cefuroxime and doxycycline, he will be given empiric prednisone taper. He will continue on doxazosin. His pending labs should be followed up outpatient. Course was also complicated by acute kidney injury which resolved, hyponatremia which was found to be secondary to SIADH likely due to ongoing inflammation, this was treated with fluid restriction. Also noted to have a alcoholic fatty liver/hemochromatosis, alcohol abstinence is encouraged. Time Spent with Patient Time attestation: Total time spent providing and/or coordinating discharge services: Discharge coordination time: Greater than 30 minutes Quality: Safe Use of Opioids Does Pt have an Active Cancer Diagnosis on the Problem List?: No Quality: Stroke Does the patient have a stroke diagnosis?: No Physical Exam Vital Signs: Vital Signs: Last Vital Signs Temp 97.8 F 02/21/22 07:31 Pulse 68 02/21/22 07:31 Resp 18 02/21/22 07:31 BP 130/74 02/21/22 07:31 Pulse Ox 99 02/21/22 07:31 BMI result Body Mass Index 27.9 General: AO X 3, no acute distress Resp: CTA bilateral, no accessory muscles used CVS: S1,S2,RRR GI: soft, non tender, non distended Neuro: motor grossly intact, alert Psych: appropriate affect, appropriate insight Discharge Plan Discharge Patient Disposition: Home, Self-Care Discharge Diagnosis: fuo Referrals: Gabe Lion MD [Physician] - 1 Week Ba Zuñiga PA [Primary Care Provider] - 1 Week Discharge Medications: New doxazosin 2 mg Tablet 4 mg PO BEDTIME Qty: 30 0RF Protocol: Hold for SBP< HOLD for SBP < : 90 cefuroxime axetil 500 mg tablet 500 mg PO Q12H Qty: 20 0RF doxycycline hyclate 100 mg capsule 100 mg PO BID Qty: 20 0RF prednisone 20 mg tablet 40 mg PO DAILY Qty: 15 0RF Rx Instructions: 40mg daily for 5 days then 20mg daily for 5 days Continued acetaminophen [Tylenol Extra Strength] 500 mg tablet 1,000 mg PO QID PRN (Reason: fever or pain) Qty: 14 0RF methylphenidate HCl 20 mg tablet 1 tab PO BID 0RF leflunomide 10 mg tablet 1 tab PO DAILY 0RF valacyclovir 500 mg tablet 1 tab PO DAILY 0RF bupropion HCl 100 mg tablet sustained-release 12 hr 1 tab PO BID 0RF timolol maleate 0.5 % drops 1 drp ophthalmic (eye) BID 0RF Enbrel SureClick 50 mg/mL (1 mL) pen injector 1 syringe subcut DELEON 0RF multivitamin Tablet 1 tab PO DAILY 0RF Discharge Orders: Discharge Order (Routine); Ordered 02/21/22 Ordered By: Joaquin Lai Diet: advance to usual diet Activity on Discharge: As tolerated Stand Alone Forms: Patient Portal Discharge page Care Plan Goals: recovery Health Concerns: fever, pyelonephritis Plan of Treatment: 10 more days ceftin and doxy, prednisone taper, start on doxazosin, follow up pending labs, follow up with Assessment: see above
--- NOTE | 2022-02-21 11:49 | MHC.CM.PN ---
PATIENT IS DC HOME - SELF CARE RN AWARE OF PLAN
[2022-02-22 14:46] LABS: A. Phagocytophilum Ab IgG <1:64 (<1:64); A. Phagocytophilum Ab IgM <1:20 (<1:20); E. Chaffeensis Ab IgG <1:64 (<1:64); E. Chaffeensis Ab IgM <1:20 (<1:20)
[2022-02-22 15:21] LABS: Babesia IgG <1:64 titer (<1:64); Babesia IgM <1:20 titer (<1:20)
[2022-02-23 14:41] LABS: Leptospira DNA Source URINE; Leptospira DNA, Qual RT-PCR NOT DETECTED
[2022-02-24 13:12] LABS: HSV 1 IgM IFA Negative (Negative); HSV 2 IgM IFA Negative (Negative)
[2022-02-24 17:37] LABS: Hu Antibody Screen, IFA Serum NEGATIVE (NEGATIVE)
[2022-02-24 22:52] LABS: Soluble Liver Ag Autoantibody <20.1 U (0.0-20.0)
== END 2022-02-21 13:00 | disposition home or self-care (01) | DRG 424 ==
LOC: HO.ED 06:59 → HO.EDOVER 10:20 → HO.S3 02-16 01:27
PROVIDERS: Emergency Medicine; Internal Medicine Gastroenterology; Internal Medicine Nephrology; Admitting Provider Internal Medicine; Emergency Provider Emergency Medicine Emergency Medical Services; PCP Physician Assistant Medical; Visit Provider Internal Medicine
DX: E22.2 Syndrome of inappropriate secretion of antidiuretic hormone (principal); N17.9 Acute kidney failure, unspecified; D84.821 Immunodeficiency due to drugs; N10 Acute pyelonephritis; D68.4 Acquired coagulation factor deficiency; K70.0 Alcoholic fatty liver; B34.9 Viral infection, unspecified; K70.10 Alcoholic hepatitis without ascites; E83.119 Hemochromatosis, unspecified; F32.A Depression, unspecified; M06.9 Rheumatoid arthritis, unspecified; H40.9 Unspecified glaucoma; Z20.822 Contact with and (suspected) exposure to COVID-19; Z87.891 Personal history of nicotine dependence; Z79.52 Long term (current) use of systemic steroids; Z79.899 Other long term (current) drug therapy; B96.20 Unspecified Escherichia coli [E. coli] as the cause of diseases classified elsewhere
CPT/HCPCS: 36415; 71045; 72158; 74176; 76705; 80048; 80076; 81001; 82533; 82784; 83520; 83605; 83690; 83735; 83935; 84133; 84145; 84181; 84300; 84443; 84550; 85007; 85025; 85027; 85610; 86021; 86038; 86039; 86140; 86255; 86256; 86364; 86617; 86618; 86664; 86665; 86666; 86695; 86696; 86704; 86706; 86709; 86753; 86803; 87040; 87086; 87088; 87186; 87340; 87389; 87502; 87635; 87798; 89190; 96361; 96365; 96375; 99284; 99285; A9585; J0696; J0878; J1170; J2270; J2405

== ENCOUNTER 2023-08-15 12:22 | Outpatient (REF) | payer BC, SELFPAY ==
[2023-08-15 13:29] LABS: MANUAL DIFF FLAG NO
[2023-08-15 13:59] LABS: Basophils Absolute Auto 0.1 X10*3/uL (0.0-0.2); Basophils Percent Auto 0.8 % (0-2); Eosinophils Absolute Auto 0.3 X10*3/uL (0.0-0.4); Imm Gran Abs Auto 0.04 X10*3/uL (0.00-0.03); Imm Gran Pct Auto 0.5 % (0.0-0.4); Lymphocytes Absolute Auto 2.3 X10*3/uL (1.2-4.9); Lymphocytes Percent Auto 30.7 % (20-40); Mean Corpuscular HGB Conc 34.1 g/dl (31.0-36.0); Mean Corpuscular Hemoglobin 32.9 pg (27.0-33.0); Mean Corpuscular Volume 96.3 fL (80.0-98.0); Mean Platelet Volume 11.6 fL (9.4-12.4); Monocytes Absolute Auto 1.3 X10*3/uL (0.1-1.2); Monocytes Percent Auto 16.9 % (2-11); Neutrophils Absolute Auto 3.6 x10*3/uL (2.0-8.3); Neutrophils Percent Auto 47.1 % (45-73); Platelet Count 161 X10*3/uL (160-400); Red Blood Count 6.21 X10*6/uL (4.60-5.80); Red Cell Distribution Width 14.2 % (11.0-16.0); White Blood Count 7.6 X10*3/uL (4.8-10.8)
[2023-08-15 14:00] LABS: Hematocrit 59.8 % (42.0-52.0); Hemoglobin 20.4 g/dl (14.0-18.0)
[2023-08-15 14:30] LABS: Alanine Aminotransferase 61 U/L (0-40); Albumin Level 3.7 g/dL (3.5-5.0); Alkaline Phosphatase 81 U/L (39-117); Anion Gap 10 (12-20); Aspartate Amino Transferase 45 U/L (5-37); Bilirubin Total 0.4 mg/dL (0.0-1.0); Blood Urea Nitrogen 18 mg/dL (9-16); C Reactive Protein 0.14 mg/dL (< or = 0.50); Calcium 9.4 mg/dL (8.4-10.2); Carbon Dioxide 25 mmol/L (22-29); Chloride 108 mmol/L (96-108); Estimated Glomerular Filt Rate > 60; Glucose Random 93 mg/dL (60-115); Iron 148 mcg/dL (45-160); Percent Iron Saturation 57 % (15-50); Potassium 3.8 mmol/L (3.3-5.1); Sodium 139 mmol/L (135-145); Total Iron Binding Capacity 259 mcg/dL (228-428); Total Protein 6.9 g/dL (6.5-8.0); Unsaturated Iron Binding 111 ug/dL
[2023-08-15 14:45] LABS: Ferritin 53 ng/mL (20-250); Thyroid Stimulating Hormone 1.28 uIU/mL (0.32-4.0)
[2023-08-15 14:58] LABS: CDiff Gene PCR NEGATIVE (Negative)
[2023-08-15 15:37] LABS: Erythrocyte Sedimentation Rate 1 MM/HR (0-15)
[2023-08-15 16:11] LABS: Adenovirus F 40/41 Not Detected (Not Detect.); Astrovirus Not Detected (Not Detect.); Campylobacter Not Detected (Not Detect.); Cryptosporidium Not Detected (Not Detect.); Cyclospora cayetanensis Not Detected (Not Detect.); E. coli EAEC Not Detected (Not Detect.); E. coli EPEC Not Detected (Not Detect.); E. coli ETEC Not Detected (Not Detect.); E. coli STEC Not Detected (Not Detect.); Entamoeba histolytica Not Detected (Not Detect.); Giardia lamblia Not Detected (Not Detect.); Norovirus GI/GII Not Detected (Not Detect.); Plesiomonas shigelloides Not Detected (Not Detect.); Rotavirus A Not Detected (Not Detect.); Salmonella Not Detected (Not Detect.); Sapovirus Not Detected (Not Detect.); Shigella sp./EIEC Not Detected (Not Detect.); Vibrio Not Detected (Not Detect.); Vibrio Cholerae Not Detected (Not Detect.); Yersinia enterocolitica Not Detected (Not Detect.)
[2023-08-18 12:23] LABS: Endomysial IgA Antibody Negative (Negative); Transglutaminase IgA <1.0 U/mL
[2023-08-21 23:48] LABS: Calprotectin, Fecal 51 mcg/g
== END 2023-08-15 12:23 | disposition home or self-care (01) ==
LOC: HO.LAB 12:22
PROVIDERS: PCP Physician Assistant Medical; Visit Provider Physician Assistant
DX: K52.9 Noninfective gastroenteritis and colitis, unspecified (principal); D64.9 Anemia, unspecified; R19.8 Other specified symptoms and signs involving the digestive system and abdomen; E83.119 Hemochromatosis, unspecified
CPT/HCPCS: 36415; 80053; 82728; 83540; 83993; 84443; 85025; 85652; 86140; 86231; 86364; 87493; 87507

== ENCOUNTER 2023-08-15 12:22 | Outpatient (AMB) | payer BC, SELFPAY ==
--- NOTE | 2023-08-15 12:32 | A.OFFVIS_ITS ---
Intake Vital Signs 08/15/23 12:33 Height 5 ft 10 in Weight 197 lb 1.492 oz BMI 28.3 BP 138/94 H Blood Pressure Location Lt brachial Position Sitting Pulse 83 Intake Visit Reasons: Diarrhea Intake Note: Patient presents to in office visit today as a new patient for chronic diarrhea. CC: Patient reports diarrhea for about a year all the time. He has about 15 bowel movements daily, and reports seeing blood in the stool. Denies other GI symptoms today. Allergies No Known Allergies [No Known Allergies*] Allergy (Verified 08/15/23 12:35) Medication List - Last Reconciled 08/15/23 by Ernestine Rich PA-C acetaminophen (Tylenol Extra Strength) 1,000 mg (2 x 500 mg) PO QID PRN bupropion HCl 1 tab PO BID etanercept (Enbrel SureClick) 1 syringe subcut DELEON leflunomide 1 tab PO DAILY methylphenidate HCl 1 tab PO BID multivitamin 1 tab PO DAILY timolol maleate 0.5% 1 drp ophthalmic (eye) BID valacyclovir 1 tab PO DAILY [zinc gluconate PO DAILY] HPI HPI Comments History of Present Illness Details 37-year-old male hemochromatosis, with c hronic diarrhea- started about 1 year ago-however has increased upto 15-20 liquid small stool QD for the past 3 months. Citrucel and imodium have been helpful Shoulder surgery 3 time this year- multiple antibiotic - Recent uri-however nearly resolved Seen previously by Dr. Quiñones 01/2022 for [id number] liver enzymes He has been reduced his alcohol intake He has been following with his PCP [facility] Medical History Hemochromatosis Glaucoma Rheumatoid arthritis Surgical History H/O shoulder surgery Family History Brother Substance abuse Household Members: Spouse and Children Housing: House Alcohol intake: current Alcohol intake frequency: a few times a week Alcohol type: beer and hard liquor Patient Tobacco Use Status: Former Tobacco user Second Hand Smoke Exposure: No Substance Use Type: Heroin service: No Current occupational status: employed Review of Systems Const All systems reviewed & are unremarkable except as noted in HPI and below Card Denies chest pain and Denies dyspnea Resp Denies dyspnea GI Reports hematochezia, Denies heartburn, Reports diarrhea, Denies nausea and Denies vomiting Psych Reports anxiety Physical Exam Vital Signs: Last Vital Signs Pulse 83 08/15/23 12:33 BP 138/94 H 08/15/23 12:33 BMI result Body Mass Index 28.3 Const General: cooperative, healthy appearing, comfortable, no acute distress, anxious and well groomed Orientation/consciousness: patient oriented x3 Limitations: no limitations Eyes Sclerae: sclerae normal Resp Effort & Inspection: normal respiratory effort and able to speak in complete sentences Auscultation: clear to auscultation bilaterally, no rales, no rhonchi and no wheezes Cardio Rate: regular rate Rhythm: regular rhythm Heart sounds: S1 normal heart sound present and S2 normal heart sound present GI Palpation (GI): Soft to palpation and nontender Auscultation: normal bowel sounds Skin General skin exam: no rashes or lesions noted and other (facial flushing) Neuro General: patient oriented x3 Extrem General: Yes full ROM Assessment & Plan Assessment & Plan (1) Hemochromatosis: Comment: 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 Quiñones-he is established (2) Chronic diarrhea: Comment: past year- increased past 3 months last anti bx 1 month ago Code(s): K52.9 - Noninfective gastroenteritis and colitis, unspecified Plan: Stool studies to include GI panel and C diff Labs Plan EGD/ colon- [facility]- established-please MG prep reviewed, literature given Please give follow up after procedures with Dr. Quiñones or on my schedule a day h e is available in clinic for consult, thank you Orders: Orders CDiff Gene PCR 08/15/23 R19.7 - Diarrhea, unspecified Endomysial IgA rflx Titer 08/15/23 K52.9 - Noninfective gastroenteritis and colitis, unspecified GI Panel 08/15/23 R19.7 - Diarrhea, unspecified EGD/[place] Combo - GI Use Only Today E83.119 - Hemochromatosis, unspecified, K52.9 - Noninfective gastroenteritis and colitis, unspecified C Reactive Protein 08/15/23 K52.9 - Noninfective gastroenteritis and colitis, unspecified Calprotectin, Fecal 08/15/23 R19.7 - Diarrhea, unspecified Complete Blood Count Auto Diff 08/15/23 K52.9 - Noninfective gastroenteritis and colitis, unspecified Comprehensive Met. Panel 08/15/23 K58.9 - Irritable bowel syndrome without diarrhea Erythrocyte Sedimentation Rate 08/15/23 R19.7 - Diarrhea, unspecified Transglutaminase IgA 08/15/23 R19.7 - Diarrhea, unspecified Thyroid Stimulating Hormone 08/15/23 R19.8 - Other specified symptoms and signs involving the digestive system and abdomen IRON PROFILE 08/15/23 K52.9 - Noninfective gastroenteritis and colitis, unspecified Ferritin 08/15/23 D64.9 - Anemia, unspecified Medications: New polyethylene glycol 3350 (Miralax) Take as directed by mouth the day before your procedure. 238 grams PO ONCE PRN 238 grams 0RF laxative effect 1 day bisacodyl (Dulcolax (bisacodyl)) Day before procedure, prep day Take 4 tablets by mouth upon awakening followed by large glass of water 20 mg (4 x 5 mg) PO ONCE 4 tabs 0RF colonoscopy prep 1 day Z12.11 - Encounter for screening for malignant neoplasm of colon Patient Instructions: Labs today and stool studies Plan of care dependent on above He will call for results after submitted. Discussed alcohol risk factor Will schedule EGD colonoscopy with Dr. Quiñones is he has established Coding Level of Care Code New Pt Level 4 (74822) Diagnoses Hemochromatosis E83.119 Chronic diarrhea K52.9 Time Spent (min) 35
[2023-08-15 12:33] VITALS: BP 138/94; PULSE 83; BMI 28.3
== END 2023-08-15 13:13 | disposition home or self-care (01) ==
PROVIDERS: PCP Physician Assistant Medical; Visit Provider Physician Assistant
DX: E83.119 Hemochromatosis, unspecified (principal); K52.9 Noninfective gastroenteritis and colitis, unspecified
CPT/HCPCS: 99204

== ENCOUNTER 2023-08-25 15:18 | Outpatient (REF) | payer BC, SELFPAY | END 2023-08-25 15:19 | disposition home or self-care (01) | LOC: HO.LAB 15:18 | PROVIDERS: PCP Physician Assistant Medical; Visit Provider Physician Assistant | DX: E83.119 Hemochromatosis, unspecified (principal) | CPT/HCPCS: 36415; 81219; 81270; 81279; 81339 ==

== ENCOUNTER → 2023-09-29 13:00 | Outpatient (BNV) | payer BC, SELFPAY | PROVIDERS: PCP Physician Assistant Medical; Referring Provider Internal Medicine Nephrology; Visit Provider Internal Medicine | DX: E83.119 Hemochromatosis, unspecified (principal); D75.1 Secondary polycythemia | CPT/HCPCS: 99204; 99214 ==

== ENCOUNTER 2023-10-06 09:02 | Outpatient (REF) | payer BC, SELFPAY | END 2023-10-06 09:03 | disposition home or self-care (01) | LOC: HO.BBR 09:02 | PROVIDERS: PCP Physician Assistant Medical; Visit Provider Internal Medicine | DX: D75.1 Secondary polycythemia (principal) | CPT/HCPCS: 85018; 99195 ==

== ENCOUNTER 2023-11-03 13:49 | Outpatient (REF) | payer BC, SELFPAY | END 2023-11-03 13:50 | disposition home or self-care (01) | LOC: HO.BBR 13:49 | PROVIDERS: PCP Physician Assistant Medical; Visit Provider Internal Medicine | DX: D75.1 Secondary polycythemia (principal) | CPT/HCPCS: 85018; 99195 ==

== ENCOUNTER 2023-12-01 13:47 | Outpatient (REF) | payer BC, SELFPAY | END 2023-12-01 13:48 | disposition home or self-care (01) | LOC: HO.BBR 13:47 | PROVIDERS: PCP Physician Assistant Medical; Visit Provider Internal Medicine | DX: D75.1 Secondary polycythemia (principal) | CPT/HCPCS: 85018; 99195 ==

== ENCOUNTER 2023-12-29 13:58 | Outpatient (REF) | payer BC, SELFPAY | END 2023-12-29 13:59 | disposition home or self-care (01) | LOC: HO.BBR 13:58 | PROVIDERS: PCP Physician Assistant Medical; Visit Provider Internal Medicine | DX: D75.1 Secondary polycythemia (principal) | CPT/HCPCS: 85014; 85018; 99195 ==

== ENCOUNTER 2024-02-05 15:33 | Outpatient (REF) | payer BC, SELFPAY | END 2024-02-05 15:34 | disposition home or self-care (01) | LOC: HO.BBR 15:33 | PROVIDERS: PCP Physician Assistant Medical; Visit Provider Internal Medicine | DX: D75.1 Secondary polycythemia (principal) | CPT/HCPCS: 85014; 85018; 99195 ==

== ENCOUNTER 2024-03-22 13:51 | Outpatient (REF) | payer BC, SELFPAY | END 2024-03-22 13:52 | disposition home or self-care (01) | LOC: HO.BBR 13:51 | PROVIDERS: PCP Physician Assistant Medical; Visit Provider Internal Medicine | DX: D75.1 Secondary polycythemia (principal) | CPT/HCPCS: 85018; 99195 ==

== ENCOUNTER 2024-10-18 13:59 | Outpatient (REF) | payer BC, SELFPAY ==
--- OUTSIDE RECORDS SUMMARY | 2024-10-18 15:43 | XMS_ITS | Patient Health Record ---
Author Organization [facility] javi Rutland Address [address] [place] [address] Care Team Providers Care Parachute Crown Sewer Name Role Phone Ba Zuñiga PA-C Primary Care Provider Willow Ospina Unavailable [phone] Allergies No Known Allergies Reason For Referral No Information Medications Medication SIG (Take, Route, Frequency, Duration) Notes Start Date End Date Status Leflunomide 20 MG 1 tablet Orally Once a day for 30 day(s) Active valACYclovir HCl 500 MG 1 tablet Orally Once a day for 10 day(s) Not-Taking Timolol Maleate 0.5 % 1 drop into affect ed eye Ophthalmic Once a day Active buPROPion HCl ER (SR) 100 MG 1 tablet in the morning Orally Once a day for 30 day(s) Not-Taking Wellbutrin SR 100 MG 1 tablet in the mor lee Orally Once a day for 30 day(s) Active oxyCODONE HCl 15 MG 1 tablet Orally ever y 6 hrs Not-Taking Enbrel Active rOPINIRole HCl 0.5 MG 1 tablet 1 to 3 ho urs before bedtime Orally Once a day for 30 day(s) Not-Valentin ing Losartan Potassium A ctive Albuterol Sulfate HFA 108 (90 Base) MCG/ACT 1 puff as needed Inhalation every 4 hrs Not-Takin g Naproxen 500 MG 1 tablet with food o r milk as needed Orally every 12 hrs Not-Taking Cialis 10 MG 1 tablet as needed Orally for 30 day(s) Not-Taking Feldene 20 MG 1 capsule with food Orally Once a day for 14 days 10/13/2021 Not-Taking Humira Pen 40 MG/0.4ML as directed Subcutaneous Not-Taking Lamisil 250mg 1 tablet orally Once daily for 30 days Not-Taking Venlafaxine HCl ER 75 MG 1 capsule with food Orally Once a day for 30 day(s) Not-Taking Clobetasol Prop Emollient Base 0.05 % 1 application Externally Twice a day for 10 day(s) Not-Taking Ciclopirox 0.77 % 1 application [facility] ally Twice a day for 365 days Active Immunizations Vaccine Route Administration Date Status Comme nts COVID-19 Pfizer BioNTech Vaccine Unknown 10/14/2021 Administered First Dose:01/2021 Second Dose:01/2021 Social History Tobacco Use: Social History Observation Description Date Details (start date - stop date) Former Smoker NA - NA Tobacco Use/Smoking Question Answer Notes Are you a: former smoker Additional Findings: Tobacco Non-User Current no n-smoker Alcohol Screen Question Answer Notes Did you have a drink contain ing alcohol in the past year? Yes How often did you have a dri nk containing alcohol in the past year? 2 to 3 times a week (3 points) How often did you have 6 or more drinks on one occasion in the past year? Weekly (3 points) Points 6 Interpretation Positive Tobacco use other than smoking: Question Answer Notes Are you an other tobacco user? 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 Vital Signs Blood pressure diastolic 75 mm Hg 11/24/2023 Height 5ft 10in in 11/24/2023 Blood pressure systolic 130 mm Hg 11/24/2023 Weight 205 lbs 11/24/2023 BMI 29.41 kg/m2 11/24/2023 Encounters Encounter Location Date Provider Diagnosis [facility] [address] [address] 10/20/2023 Willow Pericnicholas Fungal infection of nail B35.1 ; Ingrown nail L60.0 and Pain in right toe(s) M79.674 [facility] [address] [address] 11/24/2023 Willow Perica Pain in right foot M79.671 ; Metatarsalgia, right foot M77.41 ; Pain in right ankle and joints of right foot M25.571 ; Bursitis of intermetatarsal bursa of right foot M77.51 and Interdigital neuroma of right foot G57.81 [facility] [address] [address] 11/24/2023 Willow An Assessments Encounter Date Diagnosis (ICD Code) Assessment Notes Treatment Notes Treatment Clinical Notes Section Notes 11/24/2023 Pain in right foot (ICD-10 - M79.671) 10/20/2023 Ingrown nail (ICD-10 - L60.0) 10/20/2023 Fungal infection of nail (ICD-10 - B35.1) 11/24/2023 Metatarsalgia, right foot (ICD-10 - M77.41) 10/20/2023 Pain in right toe(s) (ICD-10 - M79.674) 11/24/2023 Pain in right ankle and joints of right foot (ICD-10 - M25.571) 11/24/2023 Bursitis of intermetatarsal bursa of right foot (ICD-10 - M77.51) Patient Educated with: RICE THERAPY.pdf (RICE THERAPY.pdf) Patient Educated with: INJECTIONTHER APY.pdf (INJECTIONTHE RAPY.pdf) 11/24/2023 Interdigital neuroma of right foot (ICD-10 - G57.81) 11/24/2023 Other Plan Of Treatment Pending Test Test Name Order Date *Liver Function Test (LFT) 10/20/2023 X ray : Foot, right 3V 11/24/2023 X ray : Foot, right 3V 10/13/2021 X ray : Foot, right 3V 01/06/2022 [id number], [id number] Neuroma/Injection 01/07/20 22 Insurance Providers Payer Name Payer Address Payer Phone Subscriber Number Group Number Insured Name Patient Relationship to Insured Coverage Start Date Coverage End Date [facility] [employer] [address] [place] [address] [phone] [id number] Ritchie Abdalla Self - patient is the insured Medical (General) History Medical History History ICD Code Gout hemochromatosis Depression Anxiety Restless leg syndrome Glaucoma Pericarditis Eczema rheumatoid arthritis Spinal stenosis Back pain asthma ADHD Back,Hip,and Knee pain Covid 19 Surgical History Surgery Date(Month/Year) shoulder surgery- right 08/02/2021 shoulder surgery- left 01/15,06/17 Hospitalization History Reason Date(Month/Year) [facility]- Ing toenail 10/2020 - Ing Toenail
--- OUTSIDE RECORDS SUMMARY | 2024-10-18 15:44 | XMS_ITS ---
Author Organization [facility] javi Niobrara Address [address] [place] [address] Care Team Providers Care Line Fixer Name Role Phone Ba Zuñiga PA-C Primary Care Provider Willow Ospina Unavailable [phone] Allergies No Known Allergies REASON FOR VISIT Pcp- 10/18, Foot pain, Foot pain Medications Medication SIG (Take, Route, Frequency, Duration) Notes Start Date End Date Status valACYclovir HCl 500 MG 1 tablet Orally Once a day for 10 day(s) Not-Taking buPROPion HCl ER (SR) 100 MG 1 tablet in the morning Orally Once a day for 30 day(s) Not-Taking oxyCODONE HCl 15 MG 1 tablet Orally ever y 6 hrs Not-Taking Venlafaxine HCl ER 75 MG 1 capsule with food Orally Once a day for 30 day(s) Not-Taking Clobetasol Prop Emollient Base 0.05 % 1 application Externally Twice a day for 10 day(s) Not-Taking rOPINIRole HCl 0.5 MG 1 tablet 1 to 3 ho urs before bedtime Orally Once a day for 30 day(s) Not-Valentin ing Albuterol Sulfate HFA 108 (90 Base) MCG/ACT 1 puff as needed Inhalation every 4 hrs Not-Takin g Naproxen 500 MG 1 tablet with food o r milk as needed Orally every 12 hrs Not-Taking Cialis 10 MG 1 tablet as needed Orally for 30 day(s) Not-Taking Feldene 20 MG 1 capsule with food Orally Once a day for 14 days 10/13/2021 Not-Taking Leflunomide 20 MG 1 tablet Orally Once a day for 30 day(s) Active Timolol Maleate 0.5 % 1 drop into affect ed eye Ophthalmic Once a day Active Humira Pen 40 MG/0.4ML as directed Subcutaneous Not-Taking Lamisil 250mg 1 tablet orally Once daily for 30 days Not-Taking Ciclopirox 0.77 % 1 application Genetic Scientist ally Twice a day for 365 days Active Wellbutrin SR 100 MG 1 tablet in the mor lee Orally Once a day for 30 day(s) Active Enbrel Active Losartan Potassium A ctive Social History Tobacco Use: Social History Observation [...] Are you an other tobacco user? 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 Assessments Encounter Date Diagnosis (ICD Code) Assessment Notes Treatment Notes Treatment Clinical Notes Section Notes 11/24/2023 Pain in right foot (ICD-10 - M79.671) 11/24/2023 Metatarsalgia, right foot (ICD-10 - M77.41) 11/24/2023 Pain in right ankle and joints of right foot (ICD-10 - M25.571) 11/24/2023 Bursitis of intermetatarsal bursa of right foot (ICD-10 - M77.51) Patient Educated with: RICE THERAPY.pdf (RICE THERAPY.pdf) Patient Educated with: INJECTIONTHER APY.pdf (INJECTIONTHE RAPY.pdf) 11/24/2023 Interdigital neuroma of right foot (ICD-10 - G57.81) 11/24/2023 Other Plan Of Treatment Treatment Notes Assessment Notes Bursitis of intermetatarsal bursa of right foot Patient Educated with: RICE THERAPY.pdf (RICE THERAPY.pdf) Patient Educated with: INJECTIONTHERAPY.pdf (INJECTIONTHERAPY.pdf) Pending Test Test Name Order Date X ray : Foot, right 3V 11/24/2023 Next Appt Details Follow Up: prn, Reason: afte r MRI Procedure Notes * Category Sub-Category Detail Notes Injection Sm. Joint, Bursa , J0702 In jection - #1 right sm/med joint bursa/capsule with 1cc of 1 percent Xylo.pl with 3mg Celestone Soluspan utilizing aseptic technique. The patient tolerated the procedure well. A dry sterile dressing was applied. Post injection instructions were dispensed, verbally discussed, and confirmed understood by the patient. I explained that a steroid and local anesthetic injection usually decreases pain and inflammation in order to restore proper function. I explained the possible complications including but not limited to signs/symptoms of steroid flare, change/deviation in toe position, infection, bruising, atrophy, discoloration of skin, and that additional injections may be necessary. Patient relates post-procedural pain assessment improved at ( 0-1) out of 10 Progress Notes * Kiki ABDALLAOB:1985 (37 yo M)Acc No.[id number]:11/24/2023 Progress Notes Patient:?LianneDhruvn Provider:?Willow An DPM :1985???Age:37 Y???Sex:Male Jeremiah e:11/24/2023 Address:[address] [place] [id number] Pcp:Ba Zuñiga PA-C Subjective: * Chief Complaints: * ???Pcp- 10/18Foot painFoot p ain * HPI: ???Foot Pain:?Nature:?aching tenderness.?Location:?Bottom, Forefoot, RIGHT.?Duration:?several years.?Onset:?gradual unknown denies trauma.?Course:?worse.?Aggrevated:?any pressure standing walking.?Treatments:?rest/alter normal daily activity change in shoes innersoles.?Severity/Quality:?Pre-injection procedure pain assessment - ( ___ ) out of 10.?Misc:?Patient states previous conservative therapy has not provided acceptable relief. Despite previous treatments/efforts, patient continues to relate substantial pain and significant functional disability during activity.? * ROS:?General/Constitutional:?Nausea?denies.?Vomiting?denies.?Hunger Thirst?denies.?Loss appetite?denies.?Chills?denies.?Fatigue?denies.?Fever?denies.?Night Sweats?denies.?Unexplained weight loss?denies.?Unexplained weight gain?denies.?HEENTM:?Dentures?denies.?Dizziness?denies.?Glasses/contacts?admits.?Retinopathy?de nies.?Blurred/double vision?denies.?TMJ?denies.?Discharge/drainage?denies.?Implants?denies.?Sore throat?denies.?Dental implants?denies.?Hard of hearing ?denies.?Difficulty chewing/swallowing/speaking?denies.?Nose bleeds?denies.?Sore mouth?denies.?Respiratory:?On Oxygen?denies.?Pneumonia/pleurisy?admits.?Bronchitis?admits.?Emphysema?denies.?C oughing?denies.?Cough blood?denies.?Shortness of breath?denies.?Wheezing?denies.?Cardiovascular:?Pacemaker?denies.?MVP?denies.?WPW?denies.?CHF?denies.?Heart attack?denies.?Septal defect?denies.?Rapid beat?denies.?Chest pain ?denies.?Atrial Fib.?denies.?Murmur/Palpitations?denies.?Gastrointestinal:?Hemorrhoids?denies.?Stomach/Abdominal pain?denies.?Dark blood stool?denies.?Irritable bowel ?denies.?Constipation?denies.?Diarrhea?denies.?Hematology:?Swelling?admits.?Clots?denies.?Varicose Veins?denies.?Bruising?denies.?Bleeding problem?denies.?Genitourinary:?Blood urine?denies.?Frequent/Painfu/urination/bladder control?denies.?Kidney stones?denies.?Infection (UTI)?denies.?Nephropathy?denies.?sex trans dis (STD)?denies.?Prostate?denies.?Musculoskeletal:?Hammertoes?denies.?Bunions?denies.?Back Pain?denies.?Muscle Cramps/ Resting?denies.?Muscle cramps / walking?denies.?Generalized aches and pains?admits.?Weakness?denies.?Integ.:?Mcgill?denies.?Scars?denies.?Corns/calluses?admits.?Ingrown nails?denies.?Painful nails?denies.?Open Sores?denies.?Rashes?denies.?Neurologic:?Difficulty sleeping?denies.?Brain disorder?denies.?Numbness?admits.?Balance trouble?denies.?Confusion?denies.?Fainting/blackouts?denies.?Tingling?admits.?Tr emors?denies.? * Medical History:? * Surgical History:?shoulder s urgery- right 08/02/2021[place] surgery- left 01/15,06/17 * Hospitalization/Major Diagno stic [facility]:? [facility] * Family History:?Mother: shaunna macias.?Father: alive, glaucoma.? * Social History:?Tobacco Use:?Tobacco Use/Smoking?Are you a:?former smoker ?Additional Findings: Tobacco Non-User?Current non-smoker ?Tobacco use other than smoking?Are you an other tobacco user??No ???Drugs/Alcohol:?Drugs?Have you used drugs other than those for medical reasons in the past 12 months??No ?Alcohol Screen?Did you have a drink containing alcohol in the past year??Yes ?How often did you have a drink containing alcohol in the past year??2 to 3 times a week (3 points) ?How often did you have 6 or more drinks on one occasion in the past year??Weekly (3 points) ?Points?6 ?Interpretation?Positive ???Miscellaneous:?Caffeine: yes, 1-2 cups per day. ?Children: yes. ?Exercise: yes, walking, gym. ?Marital status: single. ?Occupation: [employer]. * Medications:?TakingLosartan Potassium Enbrel Wellbutrin SR 100 MG Tablet Extended Release 12 Hour 1 tablet in the morning Orally Once a dayTimolol Maleate 0.5 % Solution 1 drop into affected eye Ophthalmic Once a dayLeflunomide 20 MG Tablet 1 tablet Orally Once a dayCiclopirox 0.77 % Gel 1 application Externally Twice a dayTaking Losartan Potassium Taking Enbrel Taking Wellbutrin SR 100 MG Tablet Extended Release 12 Hour 1 tablet in the morning Orally Once a dayTaking Timolol Maleate 0.5 % Solution 1 drop into affected eye Ophthalmic Once a dayTaking Leflunomide 20 MG Tablet 1 tablet Orally Once a dayTaking Ciclopirox 0.77 % Gel 1 application Externally Twice a dayNot-Taking/PRNLamisil 250mg tablet 1 tablet orally Once dailyHumira Pen 40 MG/0.4ML Pen-injector Kit as directed Subcutaneous Feldene 20 MG Capsule 1 capsule with food Orally Once a dayCialis 10 MG Tablet 1 tablet as needed Orally Naproxen 500 MG Tablet 1 tablet with food or milk as needed Orally every 12 hrsAlbuterol Sulfate HFA 108 (90 Base) MCG/ACT Aerosol Solution 1 puff as needed Inhalation every 4 hrsrOPINIRole HCl 0.5 MG Tablet 1 tablet 1 to 3 hours before bedtime Orally Once a dayoxyCODONE HCl 15 MG Tablet 1 tablet Orally every 6 hrsbuPROPion HCl ER (SR) 100 MG Tablet Extended Release 12 Hour 1 tablet in the morning Orally Once a dayvalACYclovir HCl 500 MG Tablet 1 tablet Orally Once a dayClobetasol Prop Emollient Base 0.05 % Cream 1 application Externally Twice a dayVenlafaxine HCl ER 75 MG Capsule Extended Release 24 Hour 1 capsule with food Orally Once a dayMedication List reviewed and reconciled with the patientNot-Taking/PRN Lamisil 250mg tablet 1 tablet orally Once dailyNot- Taking/PRN Humira Pen 40 MG/0.4ML Pen-injector Kit as directed Subcutaneous Not-Taking/PRN Feldene 20 MG Capsule 1 capsule with food Orally Once a dayNot-Taking/PRN Cialis 10 MG Tablet 1 tablet as needed Orally Not-Taking/PRN Naproxen 500 MG Tablet 1 tablet with food or milk as needed Orally every 12 hrsNot-Taking/PRN Albuterol Sulfate HFA 108 (90 Base) MCG/ACT Aerosol Solution 1 puff as needed Inhalation every 4 hrsNot-Taking/PRN rOPINIRole HCl 0.5 MG Tablet 1 tablet 1 to 3 hours before bedtime Orally Once a dayNot-Taking/PRN oxyCODONE HCl 15 MG Tablet 1 tablet Orally every 6 hrsNot-Taking/PRN buPROPion HCl ER (SR) 100 MG Tablet Extended Release 12 Hour 1 tablet in the morning Orally Once a dayNot-Taking/PRN valACYclovir HCl 500 MG Tablet 1 tablet Orally Once a dayNot-Taking/PRN Clobetasol Prop Emollient Base 0.05 % Cream 1 application Externally Twice a dayNot-Taking/PRN Venlafaxine HCl ER 75 MG Capsule Extended Release 24 Hour 1 capsule with food Orally Once a dayMedication List reviewed and reconciled with the patient * Allergies:?N.K.D.A.yes[Aller gies Verified] Objective: * Vitals:?Ht: 5ft 10in, Wt:205 , BMI:29.41, Shoe size: 13, BP:130/75 mm Hg, Ht-cm: 177.8 cm, Wt-k.99 kg. * Examination: ???General Examination: ?GENERAL APPEARANCE:?Reveals a pleasant, alert, well-nourished, well- developed, well hydrated individual, who demonstrates proper attention to hygiene/body habitus, and is in no acute distress, Pt serves as own?historian for office visit today.?ORIENTED:?person, place, and time.?Neurological: ?SENSORY:?Neurological exam reveals intact sensorium, pain sensation normal, vibration sensation intact, pinprick sensation is normal in the lower extremities, Pt denies, anesthesia, burning, paresthesia, tingling, B/L.?TINEL'S COMPRESSION:? Negative tarsal tunnel, owen pedis, and medial calcaneal nerves, Right.?DEEP TENDON REFLEXES:?Achilles, 2/4, B/L.?Vascular: ?DP PULSES:?3/4, B/L.?PT PULSES:?3/4, B/L.?CAPILLARY FILL TIME:?immediate, all digits, B/L.?SKIN TEMPERTURE GRADIENT OF THE LOWER EXTERMITIES:?warm to cool, proximal to distal, B/L.?HAIR GROWTH/TEXTURE/ELASTICITY/TURGOR:?normal, B/L.?PIGMENTATION:?normal, B/L.?EDEMA:?absent, B/L.?Dermatologic: ?SKIN FINDINGS:?Skin exam reveals normal texture, elasticity, and turgor. There are no masses. The interspaces are clear.?Orthopedic: ?MUSCLE STRENGTH:?5/5 all groups in a symmetrical fashion , B/L.?MPJ PATHOLOGY:? Pain, swelling, and inflammation to plantar MPJ(s), 3rd 4th RIGHT, No MPJ pain with ROM, [ - ] Ecchymosis.?X-Rays - IMAGING REPORT: ?Clinical Indication(s):? Evaluate for Fracture.?Views:? 3 views of Foot, AP, LAT, LO, RIGHT.?Findings:?normal bone and soft tissue density consistent for patients age and sex .?Fracture:?Negative fractures identified.?Neuroma Pain: ?PALPATION:? Pain with direct palpation of the intermetatarsal space Pain with lateral compression of metatarsals 3rd interspace 4th interspace RIGHT.? Assessment: * Assessment: 1.?Metatarsalgia, right foot - M77.41 (Primary), Chronic problem, Worse (4)?2.?Pain in right foot - M79.671?3.?Pain in right ankle and joints of right foot - M25.571?4. 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 Plan: * Treatment: 2.?Bursitis of intermetatars al bursa of right foot? Notes: Patient Educated with: RICE THERAPY.pdf (RICE THERAPY.pdf) Patient Educated with: INJECTIONTHERAPY.pdf (INJECTIONTHERAPY.pdf)?? * Procedures:?Injection:?Sm. Joint, Bursa?63002, J0702 Injection - #1 right?sm/med joint bursa/capsule with 1cc of 1 percent?Xylo.pl?with 3mg Celestone Soluspan utilizing aseptic technique. The patient tolerated the procedure well. A dry sterile dressing was applied. Post injection instructions were dispensed, verbally discussed, and confirmed understood by the patient. I explained that a steroid and local anesthetic injection usually decreases pain and inflammation in order to restore proper function. I explained the possible complications including but not limited to signs/symptoms of steroid flare, change/deviation in toe position, infection, bruising, atrophy, discoloration of skin, and that additional injections may be necessary. Patient relates post-procedural pain assessment improved at ( 0-1) out of 10.? * Procedure Codes:?37715 DRAIN /INJECT, JOINT/[id number] X-RAY EXAM OF RIGHT FOOT 3V, Modifiers: 26 , [id number] INJ BETAMETHSN ACTAT&SOD PHOSPH-3MG * Preventive Medicine:? ??Counseling:?Discussion:?-14: Office or other outpatient visit for the evaluation and management of an established patient, which required a medically appropriate history and/or examination and MODERATE level of DECISION MAKING for: 1 OR MORE CHRONIC PROBLEM(S) THATS WORSENING, 2 STABLE CHRONIC PROBLEMS, A NEWLY DIAGNOSED PROBLEM WITH UNCERTAIN PROGNOSIS, AN ACUTE COMPLICATED INJURY WITH MULTIPLE TREATMENT OPTIONS, OR AN ACUTE PROBLEM WITH ACCOMPANYING SYSTEMIC SYMPTOMS, THAT POSE(S) A MODERATE RISK OF MORBIDITY. THIS CONDITION MAY ALSO INCLUDE RX DRUG MANAGEMENT, OR A DECISON FOR MINOR SURGERY. The visit on the day of the encounter encompassed interpreting the data and educating the patient as to the nature of their condition, treatment options available according to their individual PMH, meds, allergies, and overall health/living conditions, as well as any potential risks or complications that may occur from a failure to adhere to, and participate in, the recommended course of therapy. The discussion included a complete verbal, and/or written explanation of the examination results, any x-rays taken, the proposed diagnosis, and outline of the treatment plan. A schedule for future care needs was also explained. The patient verbalized an understanding of the instructions at this time and agreed to be an active participant in their treatment. If the patient should think of any questions or concerns after the visit, I have encouraged the patient to call the office.?Consult:?The Pt. was counseled on the diagnosis, treatment options, and the need for a, MRI.?Metatarsalgea:?I explained to the patient the possible etiologies of their Metatarsalgea Foot pain, including foot type/shoegear/activity level/exercise routine and the risks/benefits of all the different treatment options for pain including: No treatment at all, Rest, Ice, NSAIDs(only if well tolerated after meals), New/supportive Shoegear, Strappings and Tapings, Foot/Ankle AFO Bracing, Stretching exercises, Deep Tissue Massage, Arch support/shoe inserts, Custom orthoses, Topical analgesics including Aspercream/Voltaren gel, Physical Therapy, Cortisone injection therapy, EPAT/ESWT. Advantages and disadvantages of each option were discussed and the patients questions re: shoegear, custom vs prefabricated inserts, activity level, PO vs Topical medications (and their respective potential complications/drug interactions/side effects), and consistency in home treatment regimens for optimal success were answered to their verbally confirmed satisfaction.?Orthotics:?I explained to the patient the benefits of OT use. I explained that orthoses are medically necessary to decrease the foot pain through proper mechanical control, support of their foot, decrease pain under the painful metatarsal by supplementing the soft tissue, cushion the forefoot by supplementing the soft tissue .?P.R.I.C.E.:?The patient was counseled on the use of P.R.I.C.E. and NSAIDS (if well tolerated) to aid in the recovery from their painful condition, The patient was counseled on the use of P.R.I.C.E. and NSAIDS (if well tolerated) to aid in the recovery from their painful condition.?Podiatric Surgery Counseling:?Surgical procedures to treat the patients foot problem were discussed. We reviewed the risks of the procedure (described below) vs not having the procedure (persistent pain, deformity, risk for skin ulceration/infection, loss of toe). We discussed the potential procedure complications including, but not limited to: pain, swelling, bleeding, scarring, numbness, infection, delayed/non healing, floppy/unstable/shorthened toe, recurrence, failure of the procedure, overcorrection leading to plantarflexed/downward positioned toe, recurrence, need for further surgery, as well as the possibility for loss of the toe itself. We discussed the use of IV/Local anesthesia, and the usual post-op course for healing. No guarentees were given. The patient verbally indicated a full understanding of the above conversation, and any other of their questions were answered to their satisfaction.?Shoe Gear Counseling:?The patient and I reviewed the types of shoes they should be wearing. My recommendation included obtaining a well-fitted shoe with a good supportive, non-foldable nor twistable sole, plenty of toe/room for the forefoot, and proper arch support. Based on todays examination, I recommended the patient look for new shoes, by having their feet professionally measured. We discussed that generally the best time of the day for a shoe fitting is the afternoon. Different shoes types and brands to best match the patients occupation and vocation were discussed. Specific brand selection will be up to the patient, their individual foot condition/deformities, and fit. The patient and I reviewed the standard new shoe break in period by wearing them for a few hours a day while checking for redness or sores as wear time is increased. The patient verbally confirmed to understanding the information discussed.?Steriod Injection:?I explained that a steroid and local anesthetic injections are administered to relieve pain and inflammation and thereby meant to improve function. I explained the possible complications including but not limited to signs/symptoms of steroid flare, infection, bruising, atrophy, discoloration of skin, change/deviation in toe position, and that additional injections may be necessary, cortisone post-injection informative educational handout was dispensed to and reviewed with the patient.?X-rays:?Discussed and reviewed the X-rays with the patient. We discussed how the findings relate to the patients symptoms/complaints. Answered any and all questions..? * Follow Up:?prn (Reason: afte r MRI) * Images: * Sign off status: Completed true * Provider:?Willow An DPM Date:?09/2023 Generated for Lissett snyder/Mervin/Joe on:?10/18/2024 03:44 PM EST History and Physical Notes * HPI (History of Present Illness) Category Sub-Category Detail Notes Category Not es Foot Pain Nature: aching tenderness Location: Bottom, Forefoot, RI GHT Duration: several years Onset: gradual unknown cali es trauma Course: worse Aggravated: any pressure standin g walking Treatments: rest/alter normal da annika activity change in shoes innersoles Severity/Quality: Pre-injection proced ure pain assessment - ( ___ ) out of 10 Misc: Patient states previ ous conservative therapy has not provided acceptable relief. Despite previous treatments/efforts, patient continues to relate substantial pain and significant functional disability during activity Examination Category Sub-Category Detail Notes Category Not es Neuroma Pain PALPATION: Pain with direct palpation of the intermetatarsal space Pain with lateral compression of metatarsals 3rd interspace 4th interspace RIGHT Neurological SENSORY: Neurological exa m reveals intact sensorium, pain sensation normal, vibration sensation intact, pinprick sensation is normal in the lower extremities, Pt denies, anesthesia, burning, paresthesia, tingling, B/L TINEL'S COMPRESSION: Negative tarsal melissa olesya, owen pedis, and medial calcaneal nerves, Right DEEP TENDON REFLEXES: Achilles, 2/4, B/L Dermatologic SKIN FINDINGS: Skin exam reveal s normal texture, elasticity, and turgor. There are no masses. The interspaces are clear Orthopedic MPJ PATHOLOGY: Pain, swelling, and inflammation to plantar MPJ(s), 3rd 4th RIGHT, No MPJ pain with ROM, [ - ] Ecchymosis MUSCLE STRENGTH: 5/5 all groups in a symmetrical fashion , B/L General Examination GENERAL APPEARANCE: Reveals a pleasant, alert, well- nourished, well-developed, well hydrated individual, who demonstrates proper attention to hygiene/body habitus, and is in no acute distress, Pt serves as own historian for office visit today ORIENTED: person, place, and t savita Vascular DP PULSES (B): 3/4, B/L PT PULSES (B): 3/4, B/L CAPILLARY FILL TIME: immediate, all digi ts, B/L TEMPERTURE GRADIENT (C): warm to cool, p roximal to distal, B/L TROPHIC CONDITION-TEXTURE/ELASTICITY/TURGOR/HAIR GROWTH (B): normal, B/L EDEMA (C): absent, B/L PIGMENTATION: normal, B/L X-Rays - IMAGING REPORT Findings: normal b one and soft tissue density consistent for patients age and sex Fracture: Negative fractures i dentified Views: 3 views of Foot, AP, LAT, LO, RIGHT Clinical Indication(s): Evaluate for Fra cture
--- OUTSIDE RECORDS SUMMARY | 2024-10-18 15:44 | XMS_ITS | Continuity of Care Document ---
Author Organization [facility]flow Address [address] [place] [address]- [facility] [phone] Care Team Providers Care Wellness Rn Name Role Phone Ba Quinteros Primary Care Physician [phone] [id number]): [facility] - 10/02/24 Pre Op [facility]flow [address] [place], [place] [address] Attending Physician: Alen Miller MD Referring Physician: Teetee Delgado MD Encounter Type: Pre Office Visit Allergies, Adverse Reactions, Alerts No Known Allergies Immunizations Given and Recorded Vaccine Date Status Refusal Reason tetanus/diphtheria/pertussis, acel(Tdap) 12/23/22 Given tetanus/diphtheria/pertussis, acel(Tdap) 06/15/14 Given Medications Enbrel Sure Click 50 mg/mL subcutaneous solution See Instructions, INJECT 50 MG (1 ML) UNDER THE SKIN EVERY WEEK, # 12 mL, 0 Refills, Maintenance, 06/28/24 9:39:00 AM EDT, [facility], 178, cm, 03/20/24 8:33:00 EDT, Height, 91, kg, 03/20/24 8:33:00 EDT,Dry Weight Start Date: 06/28/24 Status: Ordered Quantity: 12.0 Unit: mL Repeat number: 1 leflunomide 20 mg oral tablet 1 tablet, By Mouth, Daily, # 90 tablet, 1 Refills, Maintenance, 05/29/24 9:44:00 AM EDT, [id number], 178, cm, 03/20/24 8:33:00 EDT, Height, 91, kg, 03/20/24 8:33:00 EDT, Dry Weight Start Date: 05/29/24 Status: Ordered Quantity: 90.0 Unit: tablet Repeat number: 1 Losartan By Mouth, Daily, 0 Refills, Maintenance, 12/02/23 9:43:00 AM EST, Partial fill upon patient request if the prescription is for a schedule II opioid drug. Start Date: 12/02/23 Status: Ordered Repeat number: 1 oxyCODONE 15 mg oral tablet 0 Refills, Maintenance, 12/28/23 2:14:00 PM EDT, Partial fill upon patient request if the prescription is for a schedule II opioid drug. Start Date: 12/28/23 Status: Ordered Repeat number: 1 Ritalin 20 mg oral tablet 1 tablet = 20 mg, By Mouth, 2 times a day, 0 Refills, Maintenance, 12/02/23 9:42:00 AM EST, Tablet, Partial fill upon patient request if the prescription is for a schedule II opioid drug. Start Date: 12/02/23 Status: Ordered Repeat number: 1 Rosuvastatin By Mouth, Daily, 0 Refills, Maintenance, 12/02/23 9:48:00 AM EST, Partial fill upon patient request if the prescription is for a schedule II opioid drug. Start Date: 12/02/23 Status: Ordered Repeat number: 1 Timolol 0.5% Ophth 2 times a day, Refills 0, Maintenance, 08/02/21 6:55:00 AM EST, Partial fill upon patient request ifthe prescription is for a schedule II opioid drug. Start Date: 08/02/21 Status: Ordered Repeat number: 1 Wellbutrin 100 mg oral tablet 1 tablet, By Mouth, 2 times a day, # 180 tablet, 0 Refills, Maintenance, 01/10/20 9:08:00 AM EDT, Tablet Start Date: 01/10/20 Status: Ordered Quantity: 180.0 Unit: tablet Repeat number: 1 Problem List Condition Confirmation Course Effective Dates Status Health St atus Informant Hemorrhoids Confirmed Active Social History Social History Type Response Smoking Status Former smoker, quit more than 30 days ago entered on: 01/10/20 Sex Sex Representation Male (finding) Patient Care team information Care Team Personnel Name: Geni Robins RN Position: S Onco RN Member Role: Primary Care Nurse Name: Ba Quinteros Position: Reference Physician Member Role: PCP Address: [address] [facility] [place] [address]- [place] [employer]: Name: Levi Soriano MD Position: Bhumi Renal MD Member Role: Lifetime Consulting Physician Address: [address] [facility] [facility] [address] [facility] [place] [address]- [employer]: Care Team Related Persons Name: IRINA FINLEY Name: BRENT FLAHERTY Name: IRINA FRY Insurance Providers Guarantor name: AUDREY FLAHERTY Health Plan Information #: 1 Payer: [employer] C[employer]LECT Member Number: [id number] Policy Number: NA Group Number: [id number] Health Plan Information #: 2 Payer: [employer] C[employer] ELECT Member Number: [id number] Policy Number: NA Group Number: [id number]
--- OUTSIDE RECORDS SUMMARY | 2024-10-18 15:44 | XMS_ITS | Data Portability ---
Author Organization [facility]aya [facility]ie [address] Address [address] [place] [address] Assessment No assessment recorded. Plan of Treatment Reminders Order Date Submit Date Provider Last Modified By Organization Details Last Modified Time Details Appointments None recorded. Lab None recorded. Referral None recorded. Procedures None recorded. Surgeries None recorded. Imaging None recorded. Medication Orders cephalexin 500 mg capsule 2023 024 [facility]acy #[id number], [address] [facility], [address], 18:59:56 Patient TargetsNo targets recorded. Patient Instructions Encounter Date Encounter Id Patient Instructions Last Modified By Organization Details Last Modified Time 01/05/2024 [id number] You can take ove r the counter tylenol or ibuprofen per package instructions for the pain. See printed instructions. Follow-up with your doctor if no improvement in 1 week. Seek Emergency Medical evaluation for any worsening symptoms. [email or web address] Not available 01/11/2024 14:43:03 Reason for Referral None Reported. Problems Name Problem SNOMED Code Status Onset Date Resolution Date Notes Provider Name and Address Organization Details Recorded Time Rheumatoid arthritis 70799279 Active 024 Hoa Jose Antonio null, [place] - [facility] 4 18:20:47 Anxiety 35640781 Active 024 Hoa Jose Antonio null, [place] - [facility] 4 18:20:53 Depressive disorder 71555102 Active 024 Hoa Jose Antonio null, [place] - [facility] 4 18:21:00 Problem Notes None recorded. Medical Equipment None Reported. Allergies No known drug allergies Medications Name Sig Start Date Stop Date Status Note LastModified by Organization Details LastModified Time losartan 50 mg tablet Take 1 tablet every day by oral route. active Not Available Not Available No t Available Ritalin 20 mg tablet Take 1 tablet twice a day by oral route. active Not Available Not Available No t Available leflunomide 20 mg tablet Take 1 tablet every day by oral route. active Not Available Not Available No t Available cephalexin 500 mg capsule Take 2 capsules every 12 hours by oral route for 10 days, for skin infection. 2023 active Not Available Not Available Not Avai lable timolol 0.25 % eye drops INSTILL 1 DROP INTO AFFECTED EYE(S) BY OPHTHALMIC ROUTE 2 TIMES PER DAY active Not Available Not Available No t Available rosuvastatin 10 mg tablet Take 1 tablet every day by oral route. active Not Available Not Available No t Available Enbrel 25 mg/0.5 mL (0.5 mL) subcutaneous syringe Inject 1 mL every week by subcutaneou s route. active Not Available Not Available No t Available bupropion HBr active Not Available Not Available Not Available Vitals Date Recorded Body height Provider Name an d Address Organization Details Last Updated DateTime 01/05/2024 177.8 cm Hoa Jose Antonio PA - [facility] 01/05/2024 18:17:16 Date Recorded Body mass index (BMI) Body weight Provider Name and Address Organization Details Last Updated DateTime 01/05/2024 29.4 kg/m2 47748.44 g Hoa Jose Antonio PA - [facility] 01/05/2024 18:17:46 Date Recorded Oxygen saturation Oxygen saturation in Arterial blood by Pulse oximetry Provider Name and Address Organization Details Last Updated DateTime 01/05/2024 96 % 96 % Hoa Jose Antonio PA - [facility] 01/05/2024 18:17:56 Date Recorded Heart rate Provider Name an d Address Organization Details Last Updated DateTime 01/05/2024 86 /min Hoa Jose Antonio PA - [facility] 01/05/2024 18:17:59 Date Recorded Body temperature Provider Name a nd Address Organization Details Last Updated DateTime 01/05/2024 98.8 [degF] Hoa Jose Antonio PA - [facility] 01/05/2024 18:18:03 Date Recorded Respiratory rate Provider Name a nd Address Organization Details Last Updated DateTime 01/05/2024 18 /min Hoa Brady PA - [facility] 01/05/2024 18:18:05 Date Recorded Systolic blood pressure Diastolic blood pressure Provider Name and Address Organization Details Last Updated DateTime 01/05/2024 152 mm[Hg] 89 mm[Hg] Hoa Brady PA - [facility] 01/05/2024 18:22:45 Social History Question Answer Notes LastModified by Organizat ion Details LastModified Time Tobacco Smoking Status Current Some Day Smoker Hoa espinoza PA - [facility] 01/05/2024 18:21:23 What Is Your Level Of Alcohol Consumption? Occasional Information not available 01/05/2024 What Was The Date Of Your Most Recent Tobacco Screening? 01/05/2024 Information not available 01/05/2024 Do You Use Any Illicit Or Recreational Drugs? No Information not available 01/05/2024 Have You Recently Traveled Abroad? No Information not available 01/05/2024 Sex: Unknown Functional Status None recorded. Mental Status None recorded. Family History Relationship Description Onset Age of this Age Resolved Age Notes LastModified by Organization Details LastModified Time Father No current problems or disability Not available 01/04 18:21:03 Mother No current problems or disability Not available 01/04 18:21:03 Medical History No medical history recorded. Past Encounters Encounter ID Performer Location Encounter Start Date Encounter Closed Date Diagnosis/Indication Diagnosis SNOMED-CT Code Diagnosis ICD10 Code Diagnosis Note [id number] [address] [place] [address] 01/11/2018 11:19:34 01/11/2018 11:51:31 [id number] [address] [place] [address] 10/19/2019 11:25:39 10/19/2019 12:28:38 [id number] [place] [address] 05/01/2020 08:34:22 05/01/2020 09:45:32 [id number] [address] [place] [facility] [place] avendaño [address] 03/01/2020 15:23:06 03/01/2020 15:47:12 [id number] [address] [facility] [place]o [address] 05/16/2018 09:53:39 05/16/2018 10:57:59 [id number] [place]IO LYNN MD [address] [facility] [place]ime [address] 01/05/2024 18:09:09 01/05/2024 19:01:45 Cellulitis of skin 295625362 L03.90 Health Concerns Section Related Observation LastModified by Organization Detai ls LastModified Time None Recorded Concern Status LastModified by Organization Details LastModified Time None Recorded Advance Directives Directive None Recorded Payers Encounter Date Sequence Insurance Name Policy Number Policy Ash Covered Member ID Ash Member ID Guarantor Name 01/05/2024 1 [place] [id number] Ritchie Abdalla [id number] Ritchie Abdalla Notes Date Note Type Note Provider Name and Address Organization Details Recorded Time 01/05/2024 text/html 38 yo male here with a tender lump in the right buttock. He states he gives himself testosterone shots and has gotten infections before. He is worried about his left leg pain he is having MINISTERIO LYNN MD [facility] [place], [address], [place] - [facility] 01/11/2024 14:43:54
--- OUTSIDE RECORDS SUMMARY | 2024-10-18 15:45 | XMS_ITS | Clinical Summary ---
Author Organization [facility] Address [address] [place] [address] Phone Care Team Providers Care Securities Dealer Name Role Phone Ba Zuñiga PA-C Primary Care Provider [phone] Allergies No known active allergies Medications valACYclovir (VALTREX) 500 MG tablet Take 500 mg by mouth 1 (one) time each day 3 Active timolol (TIMOPTIC) 0.5 % ophthalmic solution Administer 1 drop into both eyes 3 Active methylphenidate (RITALIN) 20 MG tablet Take 20 mg by mouth 3 Active leflunomide (ARAVA) 20 MG tablet Take 20 mg by mouth 1 (one) time each day 3 Active Enbrel SureClick 50 MG/ML solution auto-injector 3 Active buPROPion SR (WELLBUTRIN SR) 100 MG 12 hr tablet Take 100 mg by mouth 3 Active albuterol HFA (PROVENTIL HFA;VENTOLIN HFA) 108 (90 Base) MCG/ACT inhaler 3 Active rosuvastatin (CRESTOR) 10 MG tablet Take 10 mg by mouth 1 (one) time each day in the evening 4 Active losartan (COZAAR) 50 MG tablet TAKE 1 TABLET BY MOUTH 1 TIME EACH DAY. 90 tablet 3 4 Active Active Problems Problem Noted Date Diagnosed Date IgA nephropathy 06/19/2024 Chronic kidney disease, stage 2 (mild) 4 Proteinuria 11/07/2023 Hemorrhoid 09/12/2023 09/12/2023 Eczema 08/03/2023 08/03/2023 Elevated blood-pressure read ing without diagnosis of hypertension 08/03/2023 08/03/2023 Epidermoid cyst 08/03/2023 08/03/2023 Low back pain 08/03/2023 08/03/2023 Proteinuria 08/03/2023 Alcohol dependence 02/22/2022 08/03/2023 Pyelonephritis 02/22/2022 08/03/2023 Influenza-like illness 02/09/2022 Attention-deficit hyperactiv ity disorder predominantly inattentive type 01/26/2022 08/03/2023 Cervical radiculopathy 01/26/2022 Liver enzymes level above reference range 2021 Hematochezia 11/30/2021 08/03/2023 Long-term current use of immunosuppressive drug 09/30/2021 08/03/2023 Premature ejaculation 07/20/2021 08/03/2023 Pain of right shoulder joint 06/08/202105/2023 Right side sciatica 02/23/2021 08/03/2023 Primary erectile dysfunction 09/08/202005/2023 Injury of finger 08/27/2020 08/03/2023 Hereditary hemochromatosis 04/02/202008/03 Pericarditis 12/25/2019 08/03/2023 Ex-smoker 09/25/2019 08/03/2023 Moderate major depression 07/22/20192022 Testosterone level below reference range 019 Glaucoma 10/10/2018 08/03/2023 Anxiety 07/12/2018 08/03/2023 Restless legs 07/12/2018 08/03/2023 Rheumatoid arthritis of multiple joints 07/11/20 18 08/03/2023 Gout 12/13/2017 08/03/2023 Encounters Date Type Department Care Team Description 08/27/2024 Refill [facility] [address] [place] [address] Levi Soriano MD 08/12/2024 Office Communication [facility] [address] [address] Levi Soriano MD from Last 3 Months Immunizations Name Administration Dates Next Due Influenza, MDCK, PF, Quadrivalent 08/02/2020,04/2020 Influenza, Unspecified 01/23/2021 Pfizer SARS-COV-2 10/14/2021,01/29/2021,01/09/20 Pneumococcal Polysaccharide 09/26/2020 Td, Not Adsorbed 03/25/2014 Tdap 12/23/2022,06/15/2014 Family History Relation Status Comments Father Alive Mother Alive Social History Tobacco Use Types Packs/Day Years Used Date Smoking Tobacco: Never Smokeless Tobacco: Never Tobacco Cessation:Counseling Given: Not Answered Alcohol Use Standard Drinks/Week Comments Yes 0 (1 standard drink = 0.6 oz pur e alcohol) Sex and Gender Information Value Date Recorded Sex Assigned at Not on file Legal Sex Male 8:52 AM EDT Gender Identity Not on file Sexual Orientation Not on file Last Filed Vital Signs Vital Sign Reading Time Taken Comments Blood Pressure 140/84 06/18/2024 4:28 PM EDT Pulse 115 06/18/2024 4:28 PM EDT Temperature - - Respiratory Rate - - Oxygen Saturation 97% 06/18/2024 4:28 PM EDT Inhaled Oxygen Concentration - - Weight 94.5 kg (208 lb 6.4 oz) 06/18/2024 4:28 P M EDT Height - - Body Mass Index - - Plan of Treatment Upcoming Encounters Date Type Department Care Team (Late st Contact Info) Description 12/17/2024 4:00 PM EDT Office Visit [facility] [address] [phone] Levi Soriano MD [address] [address] Health Maintenance Due Date Last Done Comments Hepatitis B Vaccine (1 of 3 - 19+ 3-dose series) 2004 Pneumococcal Vaccine: Pediat rics (0 to 5 Years) and At-Risk Patients (6 to 64 Years) (2 of 2 - PCV) 09/26/2021 09/26/2020 Influenza Vaccine (#1) 2024 3, 01/23/2021, 08/02/2020, Additional history exists Insurance [facility] Care Teams Securities Dealer Relationship Specialty Start Date End Date Ba Zuñiga PA-C [address] [facility] [address] [place], [place] PCP - General Physician Circuit Design 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
--- OUTSIDE RECORDS SUMMARY | 2024-10-18 15:45 | XMS_ITS | Data Portability ---
Author Organization [facility], Main Office Address [address] [place] [address] Care Team Providers Care New Car Sales Manager Name Role Phone JUSTINO JACKSON Primary Care Provider ADELINE ZAVALETA Registered Respiratory Therapist JAZMINE LAZO Neurosurgeon FRANCI NEWBY Corporate Legal Secretary [facility] (RAZIA BOAT[facility]) Orthopedic Surgeon LUZ SORIANO Portfolio Assistant CRYSTAL DOUGHERTY Hematology/Oncology Assessment Encounter Date Assessment Date Assessment LastModified by Organization Details LastModified Time 05/28/2024 05/28/2024 This service was provided using telemedicine. Patient consented to video & audio visit Patient was located in the [facility]. Provider was located in the office. No other persons participated in the telemedicine visit except for the patient unless otherwise indicated here. {{}} Total time of visit was 26 minutes. pmadden Not available 05/28/2024 15:33:08 08/06/2024 08/06/2024 This service was provided using telemedicine. Patient consented to video & audio visit Patient was located in the [facility]. Provider was located in the office. No other persons participated in the telemedicine visit except for the patient unless otherwise indicated here. {{}} Total time of visit was 22 minutes. pmadden Not available 08/06/2024 14:52:57 08/27/2024 08/27/2024 This service was provided using telemedicine. Patient consented to video & audio visit Patient was located in the [facility]. Provider was located in the office. No other persons participated in the telemedicine visit except for the patient unless otherwise indicated here. {{}} Total time of visit was 18 minutes. pmadden Not available 08/27/2024 15:38:14 Plan of Treatment Reminders Order Date Submit Date Provider Last Modified By Organization Details Last Modified Time Details Appointments telehe alth20 2024 03:00P M Justino Jackson PA-C Not available Not available Not available Lab microa lbumin /creat inine, mass ratio, urine 2023 024 MARIZOL [facility], [address], [place], [address], 08/10/2024 16:06:14 HbA1c (hemog lobin A1c), blood 2024 025 MARIZOL [facility], [address], [address], [place], [address], 10/02/2024 18:05:43 lipid panel, serum 2024 025 MARIZOL [facility], [address], [address], [place], [address], 10/02/2024 18:05:41 CMP, serum or plasma 2024 025 MARIZOL [facility], [address], [place], [address], 10/02/2024 18:05:40 CK (creat ine kinase ), total, serum 2024 025 LODI [facility], [address], [address], [place], [address], 10/02/2024 18:05:43 microa lbumin /creat inine, mass ratio, urine 2024 025 MARIZOL [facility], [address], [address], [place], [address], 10/02/2024 18:05:41 CBC w/ auto diff 2024 025 MARIZOL [facility], [address] [facility] [address], [place], [address], 10/02/2024 18:05:39 testos terone , free + total, serum 2024 025 MARIZOL [facility], [address], [address], [place], [address], 10/02/2024 18:05:42 Referral None record ed. Procedures None record ed. Surgeries None record ed. Imaging None record ed. Medication Orders oxycod one 15 mg tablet 2023 024 [facility], [address] [place], [address], 07/06/2024 11:13:38 methyl phenid ate 20 mg tablet 2023 024 [id number] [facility], [address] [place] [address], [address], 08/24/2024 07:21:48 methyl phenid ate 20 mg tablet 2023 024 [id number] [facility], [address] [place], [address], 08/24/2024 07:21:48 methyl phenid ate 20 mg tablet 2023 024 [id number] [facility], [address] [place], [address], 08/24/2024 07:21:48 amoxic illin 875 mg-pot assium clavul anate 125 mg tablet 2023 024 [email or web address] [facility], [address] [place], [address], 09/30/2024 14:34:58 silden afil 100 mg tablet 2023 024 [id number] [facility], [address] [place], [address], 08/24/2024 07:21:48 oxycod one 15 mg tablet 2023 [facility] [address] [place], [address], 08/06/2024 14:54:40 dextro amphet amine- amphet amine ER 20 mg 24hr capsul e,exte nd releas e 2023 024 [facility] [address] [place], [address], 08/20/2024 10:10:10 Augmen tin 875 mg-125 mg tablet 2023 025 [facility] [address] [place], [address], 09/30/2024 14:35:01 methyl phenid ate 20 mg tablet 2023 024 [facility], [address] [place], [address], 08/27/2024 15:40:23 oxycod one 15 mg tablet 2024 025 [facility] [address] [place], [address], 09/30/2024 15:27:28 methyl phenid ate 20 mg tablet 2024 025 [facility], [address] [place], [address], 09/30/2024 15:27:29 Patient Targets Encounter Date Encounter Id Patient Goals Patient Target Last Modified By Organization Details Last Modified Time 09/30/2024 [id number] 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 goal of Blood Pressure 140 / 90 Not available Not available Not available intermediate goal of Exercise level Not available Not available Not available intermediate goal of Tobacco Smoking Status Not available Not available Not available intermediate goal of Excess Body Weight Loss % 5 Not available Not available Not available Ongoing of LDL Direct <100 Not available Not available Not available Ongoing of LDL Direct yearly Not available Not available Not available Pt agrees to follow low fat diet, avoid saturated fats , decrease carbohydrate intake to 45 - 50 gm per meal , pt agrees to develop a regular pattern of exercise such as walking 30 minutes a day 3 times a week, Pt will keep a record of exercise and activity level Patient preferences and goals incorporated in plan and updated/modified as needed to reflect progress toward goal.Pt advised and agrees to eat a low salt low fat diet; to do moderate exercise (such as walking) 150 minutes per week; to limit alcohol intake (goal of 2 drinks per day or less for men or 1 for woman). and to monitor dietary sodium. Will monitor home blood pressures and bring readings to appointments. Patient preferences and goals incorporated in plan and updated/modified as needed to reflect progress toward goal.Pt advised and agrees to work on self-monitoring behaviors; begin an appropriate diet for weight loss (such as a low carbohydrate diet), to do moderate exercise (such as walking) for approximately 150 minutes per week; and to identify desirable and timely rewards that will reinforce achievement of specific weight loss goals. pmadden Not available 09/30/2024 19:41:54 Patient Instructions Encounter Date Encounter Id Patient Instructions Last Modified By Organization Details Last Modified Time 05/28/2024 [id number] Medications (OTC , herbal therapies, supplements) reviewed and reconciled with patient and or caregiver, including potential side effects, drug interactions, instructions, and the consequences of not taking medication. Reviewed potential barriers to medication adherence, such as side effects from medication or cost of medication. pmadden Not available 05/28/2024 15:37:50 08/06/2024 [id number] Medications (OTC , herbal therapies, supplements) reviewed and reconciled with patient and or caregiver, including potential side effects, drug interactions, instructions, and the consequences of not taking medication. Reviewed potential barriers to medication adherence, such as side effects from medication or cost of medication. pmadden Not available 08/06/2024 14:55:20 08/27/2024 [id number] Medications (OTC , herbal therapies, supplements) reviewed and reconciled with patient and or caregiver, including potential side effects, drug interactions, instructions, and the consequences of not taking medication. Reviewed potential barriers to medication adherence, such as side effects from medication or cost of medication. pmadden Not available 08/27/2024 15:41:42 09/30/2024 [id number] Well Visit, Ages 18 to 65: Care Instructions pmadden Not available 09/30/2024 15:27:24 A healthy lifestyle: care instructions pmadden Not available 09/30/2024 15:27:23 Medications (OTC , herbal therapies, supplements) reviewed and reconciled with patient and or caregiver, including potential side effects, drug interactions, instructions, and the consequences of not taking medication. Reviewed potential barriers to medication adherence, such as side effects from medication or cost of medication. pmadden Not available 09/30/2024 14:48:14 Reason for Referral None Reported. Results Created Date Observation Date Name Description Value Unit Range Abnormal Flag Note LastModifiedBy Organization Detail LastModifiedTime 08/09/20 24 08/10/2024 ALBUM IN/CR EAT RATIO , RANDO M UR creatinine, urine 128.0 mg/dL not estab. normal Not Available [facility] ([facility]) [address], [place], [address], 08/10/2024 16:06:13 08/09/20 24 08/10/2024 ALBUM IN/CR EAT RATIO , RANDO M UR albumin, urine 1454.4 ug/mL not estab. Resul ts confi rmed on dilut ion. Not Available [facility] ([facility]) [address] [facility], [place], [address], 08/10/2024 16:06:13 08/09/20 24 08/10/2024 ALBUM IN/CR EAT RATIO , RANDO M UR alb/creat ratio 1136 mg/g_ creat 0-29 above high normal Ellen l: 0 - 29 Moder ately incre ased: 30 - 300 Sever una incre ased: >300 Not Available [facility] ([facility]) [address], [place], [address], 08/10/2024 16:06:13 10/01/19 25 10/02/2024 CBC WITH DIFFE RENTI AL/PL ATELE T WBC 10.3 x10e3 /uL 3.4-10 .8 normal Not Available [facility] ([facility]) [address] [place], [address], 10/02/2024 18:05:39 10/01/19 25 10/02/2024 CBC WITH DIFFE RENTI AL/PL ATELE T RBC 6.20 x10e6 /uL 4.14-5 .80 above high normal Not Available [facility] ([facility]) [address] [place], [address], 10/02/2024 18:05:39 10/01/19 25 10/02/2024 CBC WITH DIFFE RENTI AL/PL ATELE T hemoglobin 17.4 g/dL 13.0-1 7.7 normal Not Available [facility] ([facility]) [address] [place], [address], 10/02/2024 18:05:39 10/01/19 25 10/02/2024 CBC WITH DIFFE RENTI AL/PL ATELE T hematocrit 56.4 % 37.5-5 1.0 above high normal Not Available [facility] ([facility]) [address] [place], [address], 10/02/2024 18:05:39 10/01/19 25 10/02/2024 CBC WITH DIFFE RENTI AL/PL ATELE T MCV 91 fL 79-97 normal Not Available [facility] ([facility]) [address] [place], [address], 10/02/2024 18:05:39 10/01/19 25 10/02/2024 CBC WITH DIFFE RENTI AL/PL ATELE T MCH 28.1 pg 26.6-3 3.0 normal Not Available [facility] ([facility]) [address] [place], [address], 10/02/2024 18:05:39 10/01/19 25 10/02/2024 CBC WITH DIFFE RENTI AL/PL ATELE T MCHC 30.9 g/dL 31.5-3 5.7 below low normal Not Available [facility] ([facility]) [address] [place], [address], 10/02/2024 18:05:39 10/01/19 25 10/02/2024 CBC WITH DIFFE RENTI AL/PL ATELE T RDW 17.0 % 11.6-1 5.4 above high normal Not Available [facility] ([facility]) [address] [facility], [place], [address], 10/02/2024 18:05:39 10/01/19 25 10/02/2024 CBC WITH DIFFE RENTI AL/PL ATELE T platelets 205 x10e3 /uL 150-45 0 normal Not Available [facility] ([facility]) [address] [place], [address], 10/02/2024 18:05:39 10/01/19 25 10/02/2024 CBC WITH DIFFE RENTI AL/PL ATELE T neutrophils 70 % not estab. normal Not Available [facility] ([facility]) [address] [place], [address], 10/02/2024 18:05:39 10/01/19 25 10/02/2024 CBC WITH DIFFE RENTI AL/PL ATELE T lymphs 17 % not estab. normal Not Available [facility] ([facility]) [address] [place], [address], 10/02/2024 18:05:39 10/01/19 25 10/02/2024 CBC WITH DIFFE RENTI AL/PL ATELE T monocytes 11 % not estab. normal Not Available [facility] ([facility]) [address] [place], [address], 10/02/2024 18:05:39 10/01/19 25 10/02/2024 CBC WITH DIFFE RENTI AL/PL ATELE T eos 1 % not estab. normal Not Available [facility] ([facility]) [address] [facility], [place], [address], 10/02/2024 18:05:39 10/01/19 25 10/02/2024 CBC WITH DIFFE RENTI AL/PL ATELE T basos 0 % not estab. normal Not Available [facility] ([facility]) [address] [facility], [place], [address], 10/02/2024 18:05:39 10/01/19 25 10/02/2024 CBC WITH DIFFE RENTI AL/PL ATELE T immature cells SURVEY CAD TECHNICIAN Not Available [facility] ([facility]) [address] [facility], [place], [address], 10/02/2024 18:05:39 10/01/19 25 10/02/2024 CBC WITH DIFFE RENTI AL/PL ATELE T neutrophils (absolute) 7.2 x10e3 /uL 1.4-7. 0 above high normal Not Available [facility] ([facility]) [address] [place], [address], 10/02/2024 18:05:39 10/01/19 25 10/02/2024 CBC WITH DIFFE RENTI AL/PL ATELE T lymphs (absolute) 1.8 x10e3 /uL 0.7-3. 1 normal Not Available [facility] ([facility]) [address] [place], [address], 10/02/2024 18:05:39 10/01/19 25 10/02/2024 CBC WITH DIFFE RENTI AL/PL ATELE T monocytes(ab solute) 1.1 x10e3 /uL 0.1-0. 9 above high normal Not Available [facility] ([facility]) [address] [place], [address], 10/02/2024 18:05:39 10/01/19 25 10/02/2024 CBC WITH DIFFE RENTI AL/PL ATELE T eos (absolute) 0.1 x10e3 /uL 0.0-0. 4 normal Not Available [facility] ([facility]) [address] [place], [address], 10/02/2024 18:05:39 10/01/19 25 10/02/2024 CBC WITH DIFFE RENTI AL/PL ATELE T baso (absolute) 0.0 x10e3 /uL 0.0-0. 2 normal Not Available [facility] ([facility]) [address] [facility], [place], [address], 10/02/2024 18:05:39 10/01/19 25 10/02/2024 CBC WITH DIFFE RENTI AL/PL ATELE T immature granulocytes 1 % not estab. Not Available [facility] ([facility]) [address] [facility], [place], [address], 10/02/2024 18:05:39 10/01/19 25 10/02/2024 CBC WITH DIFFE RENTI AL/PL ATELE T immature grans (abs) 0.1 x10e3 /uL 0.0-0. 1 Not Available [facility] ([facility]) [address] [place], [address], 10/02/2024 18:05:39 10/01/19 25 10/02/2024 CBC WITH DIFFE RENTI AL/PL ATELE T NRBC SURVEY CAD TECHNICIAN Not Available [facility] ([facility]) [address] [place], [address], 10/02/2024 18:05:39 10/01/19 25 10/02/2024 CBC WITH DIFFE RENTI AL/PL ATELE T hematology comments: SURVEY CAD TECHNICIAN Not Available [facility] ([facility]) [address] [place], [address], 10/02/2024 18:05:39 10/01/19 25 10/02/2024 COMP. METAB OLIC PANEL (14) glucose 64 mg/dL 70-99 below low normal Not Available [facility] ([facility]) [address] [place], [address], 10/02/2024 18:05:40 10/01/19 25 10/02/2024 COMP. METAB OLIC PANEL (14) BUN 20 mg/dL 6-20 normal Not Available [facility] ([facility]) [address] [place], [address], 10/02/2024 18:05:40 10/01/19 25 10/02/2024 COMP. METAB OLIC PANEL (14) creatinine 1.12 mg/dL 0.76-1 .27 normal Not Available [facility] ([facility]) [address] [place], [address], 10/02/2024 18:05:40 10/01/19 25 10/02/2024 COMP. METAB OLIC PANEL (14) eGFR 86 mL/mi n/1.7 3 >59 normal Not Available [facility] ([facility]) [address] [place], [address], 10/02/2024 18:05:40 10/01/19 25 10/02/2024 COMP. METAB OLIC PANEL (14) BUN/creatini ne ratio 18 9-20 normal Not Available [facility] ([facility]) [address] [facility] [place], [address], 10/02/2024 18:05:40 10/01/19 25 10/02/2024 COMP. METAB OLIC PANEL (14) sodium 141 mmol/ L 134-14 4 normal Not Available [facility] ([facility]) [address] [facility] [place], [address], 10/02/2024 18:05:40 10/01/19 25 10/02/2024 COMP. METAB OLIC PANEL (14) potassium 5.0 mmol/ L 3.5-5. 2 normal Not Available [facility] ([facility]) [address] [facility] [place], [address], 10/02/2024 18:05:40 10/01/19 25 10/02/2024 COMP. METAB OLIC PANEL (14) chloride 97 mmol/ L 96-106 normal Not Available [facility] ([facility]) [address] [place], [address], 10/02/2024 18:05:40 10/01/19 25 10/02/2024 COMP. METAB OLIC PANEL (14) carbon dioxide, total 24 mmol/ L 20-29 normal Not Available [facility] ([facility]) [address] [place], [address], 10/02/2024 18:05:40 10/01/19 25 10/02/2024 COMP. METAB OLIC PANEL (14) calcium 9.8 mg/dL 8.7-10 .2 normal Not Available [facility] ([facility]) [address] [place], [address], 10/02/2024 18:05:40 10/01/19 25 10/02/2024 COMP. METAB OLIC PANEL (14) protein, total 6.8 g/dL 6.0-8. 5 normal Not Available [facility] ([facility]) [address] [place], [address], 10/02/2024 18:05:40 10/01/19 25 10/02/2024 COMP. METAB OLIC PANEL (14) albumin 4.0 g/dL 4.1-5. 1 below low normal Not Available [facility] ([facility]) [address] [place], [address], 10/02/2024 18:05:40 10/01/19 25 10/02/2024 COMP. METAB OLIC PANEL (14) globulin, total 2.8 g/dL 1.5-4. 5 Not Available [facility] ([facility]) [address] [place], [address], 10/02/2024 18:05:40 10/01/19 25 10/02/2024 COMP. METAB OLIC PANEL (14) bilirubin, total 0.7 mg/dL 0.0-1. 2 normal Not Available [facility] ([facility]) [address] [facility] [place], [address], 10/02/2024 18:05:40 10/01/19 25 10/02/2024 COMP. METAB OLIC PANEL (14) alkaline phosphatase 82 IU/L 44-121 normal Not Available [facility] ([facility]) [address] [facility] [place], [address], 10/02/2024 18:05:40 10/01/19 25 10/02/2024 COMP. METAB OLIC PANEL (14) AST (SGOT) 51 IU/L 0-40 above high normal Not Available [facility] ([facility]) [address] [place], [address], 10/02/2024 18:05:40 10/01/19 25 10/02/2024 COMP. METAB OLIC PANEL (14) ALT (SGPT) 58 IU/L 0-44 above high normal Not Available [facility] ([facility]) [address] [place], [address], 10/02/2024 18:05:40 10/01/19 25 10/02/2024 LIPID PANEL cholesterol, total 228 mg/dL 100-19 9 above high normal Not Available [facility] ([facility]) [address] [place], [address], 10/02/2024 18:05:41 10/01/19 25 10/02/2024 LIPID PANEL triglyceride s 190 mg/dL 0-149 above high normal Not Available [facility] ([facility]) [address] [place], [address], 10/02/2024 18:05:41 10/01/19 25 10/02/2024 LIPID PANEL HDL cholesterol 61 mg/dL >39 normal Not Available [facility] ([facility]) [address] [place], [address], 10/02/2024 18:05:41 10/01/19 25 10/02/2024 LIPID PANEL VLDL cholesterol rafael 34 mg/dL 5-40 Not Available [facility] ([facility]) [address] [place], [address], 10/02/2024 18:05:41 10/01/19 25 10/02/2024 LIPID PANEL LDL chol calc ([facility]) 133 mg/dL 0-99 above high normal Not Available [facility] ([facility]) [address] [place], [address], 10/02/2024 18:05:41 10/01/19 25 10/02/2024 LIPID PANEL LDL calc comment: SURVEY CAD TECHNICIAN Not Available [facility] ([facility]) [address] [place], [address], 10/02/2024 18:05:41 10/01/19 25 10/02/2024 ALBUM IN/CR EAT RATIO , RANDO M UR creatinine, urine 147.3 mg/dL not estab. normal Not Available [facility] ([facility]) [address] [place], [address], 10/02/2024 18:05:41 10/01/19 25 10/02/2024 ALBUM IN/CR EAT RATIO , RANDO M UR albumin, urine 1487.5 ug/mL not estab. Resul ts confi rmed on dilut ion. Not Available [facility] ([facility]) [address] [place], [address], 10/02/2024 18:05:41 10/01/19 25 10/02/2024 ALBUM IN/CR EAT RATIO , RANDO M UR alb/creat ratio 1010 mg/g_ creat 0-29 above high normal Ellen l: 0 - 29 Moder ately incre ased: 30 - 300 Sever una incre ased: >300 Not Available [facility] ([facility]) [address] [place], [address], 10/02/2024 18:05:41 10/01/19 25 10/02/2024 TESTO STERO NE,FR EE AND TOTAL testosterone >1500 NG/dL 264-91 6 above high normal Adult male refer ence inter deepika is based on a popul ation of healt hy nonob barbra males (BMI <30) betwe en 19 and 39 years old. Corry goetz et.al . JCEM 2017, 102;1 161-1 173. PMID: 09477 103. Not Available [facility] ([facility]) [address] [place], [address], 10/02/2024 18:05:42 10/01/19 25 10/02/2024 TESTO STERO NE,FR EE AND TOTAL free testosterone (direct) >50.0 pg/mL 8.7-25 .1 above high normal Not Available [facility] ([facility]) [address] [place], [address], 10/02/2024 18:05:42 10/01/19 25 10/02/2024 CK, TOTAL creatine kinase,total 449 U/L 49-439 above high normal Not Available [facility] ([facility]) [address] [place], [address], 10/02/2024 18:05:42 10/01/1910/02/2024 HEMOG LOBIN A1C hemoglobin A1C 5.7 % 4.8-5. 6 above high normal Predi abete s: 5.7 - 6.4 Diabe alex: >6.4 Glyce ladonna contr ol for adult s with diabe alex: <7.0 Not Available [facility] ([facility]) [address] [place], [address], 10/02/2024 18:05:43 Result Notes None recorded. Problems Name Problem SNOMED Code Status Onset Date Resolution Date Notes Provider Name and Address Organization Details Recorded Time Eczema 45862784 Completed 06/13/2023 Justino Jackson PA-C [address], [place], [address] , [facility] 3 20:20:51 Low back pain [id number] Active Beatriz Neves OUSMANE Lamar, [facility] 4 11:08:12 Epidermo id cyst [id number] Completed 06/13/2023 Justino Jackson PA-C [address], [place], [address] , [facility] 3 20:21:12 Tobacco dependen ce syndrome [id number] Completed 09/25/2019 Removal Reason: quit OUSMANE Lowe, [facility] 0 12:56:27 Radicula r pain [id number] Completed 12/19/2023 Justino Jackson PA-C [address], [place], [address] , [facility] 4 11:27:55 Elevated blood-pr essure reading without diagnosi s of hyperten cinthya [id number] Completed 09/30/2024 Justino Jackson PA-C [address], [place], [address] , [facility] 5 15:01:56 Pharyngi tis [id number] Completed 10/10/2018 OUSMANE Lowe, [facility] 9 15:26:41 Anticipa tory grief [id number] Completed 01/26/2022 Justino Jackson PA-C [address], [place], [address] , [facility] 2 17:34:41 Foreign body [id number] Completed 01/26/2022 Justino Jackson PA-C [address], [place], [address] , [facility] 2 17:35:43 Gout [id number] Completed 201709/30/2024 Justino Jackson PA-C [address], [place], [address] , [facility] 5 15:08:53 Rheumato id arthriti s of multiple joints 541869961 Active 2017 Not Available [facility] 2 19:29:47 Anxiety 33404885 Active 2017 Not Available [facility] 2 19:29:47 Restless legs 17627611 Active 2017 Not Available [facility] 2 19:29:46 Glaucoma 24214785 Active 2018 Not Available [facility] 2 19:29:46 Moderate major depressi on 352306 Completed 201802/07/2023 Justino Jackson PA-C [address], [place], [address] , [facility] 3 15:17:04 Spinal stenosis in cervical region 85373574 Completed 201909/30/2024 Justino Jackson PA-C [address], [place], [address] , [facility] 5 19:35:41 Pericard itis 8752460 Completed 201909/30/2024 Justino Jackson PA-C [address], [place], [address] , [facility] 5 19:34:52 Ex-smoke r 1331816 Active 2019 Not Available [facility] 2 19:29:46 Hemochro matosis 554522089 Completed 201911/30/[address] Trivedi - no need for phleboto my at this time (6.20) Justino Jackson PA-C [address], [place], [address] , [facility] 2 16:14:48 Heredita ry hemochro matosis 59588792 Active 2019 Not Available [facility] 2 19:29:46 Injury of finger 94696901 Completed 201906/13/2023 Justino Jackson PA-C [address] [facility] [address], [place], [address] , [facility] 3 20:21:30 Testoste namrata level below referenc e range 214409561 Active 2018 Not Available [facility] 2 19:29:47 Primary erectile dysfunct ion 363556540 Active 2019 Not Available [facility] 2 19:29:47 Right side sciatica [id number] 9101 Completed 202009/30/2024 Justino Jackson PA-C [address], [place], [address] , [facility] 5 19:35:36 Pain of right shoulder joint 55592042717 997269 Completed 202009/30/2024 Justino Jackson PA-C [address] [facility] [address], [place], [address] , [facility] 5 19:34:43 Prematur e ejaculat ion 43650219 Completed 202009/30/2024 Justino Jackson PA-C [address], [place], [address] , [facility] 5 19:35:04 Long-ter m current use of immunosu ppressiv e drug 887573723 Active 2021 Not Available [facility] 2 19:29:47 COVID-19 376390391 Completed 202101/26/2022 Justino Jackson PA-C [address] [facility] [address], [place], [address] , [facility] 2 17:34:50 Diarrhea 08486022 Completed 202101/26/2022 Justino Jackson PA-C [address] [facility] [address], [place], [address] , [facility] 2 17:35:02 Hematoch ezia 279225576 Completed 202109/30/2024 Justino Jackson PA-C [address] [facility] [address], [place], [address] , [facility] 5 19:34:15 Cervical radiculo loren 91202670 Completed 202109/30/2024 Justino Jackson PA-C [address] [facility] [address], [place], [address] , [facility] 5 19:34:38 Attentio n deficit hyperact ivity disorder , predomin antly inattent shadi type 90667368 Active 2021 Not Available [facility] 2 19:29:46 Liver enzymes level above referenc e range 435303137 Active 2021 Not Available [facility] 2 19:29:46 Major depressi ve disorder 370625776 Active 2021 Not Available [facility] 2 19:29:47 Influenz a-like symptoms 882829367 Completed 202106/13/2023 Justino Jackson PA-C [address] [facility] [address], [place], [address] , [facility] 3 20:21:19 Pyelonep hritis 19100674 Completed 202109/30/2024 Justino Jackson PA-C [address] [facility] [address], [place], [address] , [facility] 5 19:35:21 Alcohol dependen ce 47231327 Completed 202109/30/2024 Justino Jackson PA-C [address] [facility] [address], [place], [address] , [facility] 5 19:33:47 Mixed hyperlip idemia 112648219 Active 2021 Justino Jackson PA-C [address] [facility] [address], [place], [address] , [facility] 2 14:36:53 Pneumoni tis 057901258 Completed 202206/13/2023 Justino Jakcson PA-C [address] [facility] [address], [place], [address] , [facility] 3 20:21:53 Pain of left shoulder joint 94563399756 746388 Completed 202209/30/2024 Justino Jackson PA-C [address] [facility] [address], [place], [address] , [facility] 5 19:34:29 Chronic kidney disease stage 2 737071619 Active 2022 Beatriz Lamar MA null, [facility] 4 11:08:12 Substanc e abuse 54810778 Completed 202205/14/2024 Justino Jackson PA-C [address] [address], [place], [address] , [facility] 4 15:57:10 Hemorrho ids 81226519 Active 2022 Beatriz Lamar MA null, [facility] 4 11:08:12 Microalb uminuria 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 2022 Justino Jackson PA-C [address] [address], [place], [address] , [facility] 3 11:32:26 Thrombos ed external hemorrho ids 42354161 Completed 202309/30/2024 Justino Jackson PA-C [address] [address], [place], [address] , [facility] 5 19:36:13 Erectile dysfunct ion 148871568 Completed 202309/30/2024 Justino Jackson PA-C [address] [facility] [address], [place], [address] , [facility] 5 19:35:09 Essentia l hyperten cinthya 28067464 Active 2024 Justino Jackson PA-C [address] [facility] [address], [place], [address] , [facility] 5 19:41:00 Problem Notes None recorded. Procedures Surgical History Date Name Laterality Status Provider Name and Address Organization Details Recorded Time 4 Colonoscopy completed Ny Zelaya [facility] 03/20/2024 13:17:34 3 kidney biopsy completed Ny Zelaya [facility] 08/14/2023 11:13:51 1 Unlisted procedure shoulder completed [place] Ma [place] [facility] 12/30/2021 16:21:40 6 Chronic Pain Assessment completed Lisa lima MA [facility] 03/17/2016 15:47:41 No surg proc w/in 30 days completed Lisa lima MA [facility] 10/10/2018 15:26:53 Imaging Results None recorded. Procedure Notes None recorded. Medical Equipment None Reported. Allergies No known drug allergies Medications Name Sig Start Date Stop Date Status Note LastModified by Organization Details LastModified Time losartan 50 mg tablet TAKE 1 TABLET BY MOUTH 1 TIME EACH DAY. active Not Available Not Available No t Available cyclobenz aprine 10 mg tablet Take 1 tablet every day by oral route for 7 days. 06/30 completed Not Available Not Available Not Available amoxicill in 500 mg capsule 03/16 completed Not Available Not Available Not Available prednison e 10 mg tablet TAKE 2 TABLETS BY MOUTH EVERY DAY FOR 10 DAYS 04/19 completed Not Available Not Available Not Available venlafaxi ne ER 75 mg capsule,e xtended release 24 hr Take 1 capsule every day by oral route. active patient requeste d this medicati on to try prior to Lyrica being approved by [facility] (per [place] denial of the Lyrica) Not Available Not Available Not Available doxycycli ne hyclate 100 mg capsule TAKE 1 CAPSULE BY MOUTH TWICE A DAY DIRECTED FOR 10 DAYS 02/07 completed Not Available Not Available Not Available sulfasala zine 500 mg tablet 12/24 completed Not Available Not Available Not Available clindamyc in HCl 300 mg capsule TAKE 2 CAPSULES BY MOUTH TWICE A DAY 07/11 completed Not Available Not Available Not Available sildenafi l 50 mg tablet 1 tab po qd prn 02/07 completed Not Available Not Available Not Available ibuprofen 800 mg tablet Take 1 tablet as needed by oral route for 10 days. 11/30 completed Not Available Not Available Not Available methylphe nidate 10 mg tablet TAKE 1 TABLET BY MOUTH TWICE A DAY 02/07 completed Not Available Not Available Not Available methylphe nidate 20 mg tablet Take 3 tablets every day by oral route for 90 days. 2024 active 2 tabs in am, 1 tab at lunch Not Available Not Available Not Available ondansetr on HCl 4 mg tablet 05/11 completed Not Available Not Available Not Available prednison e 20 mg tablet TAKE 1 TABLET BY MOUTH EVERY DAY X5 DAYS 05/14 completed Not Available Not Available Not Available sertralin e 100 mg tablet 09/30 completed Not Available Not Available Not Available prednison e 5 mg tablet Take 1 tablet as needed by oral route for 30 days. 07/29 completed Not Available Not Available Not Available clobetaso l 0.05 % topical cream APPLY A THIN LAYER TO THE AFFECTED AREA(S) BY TOPICAL ROUTE 2 TIMES PER DAY active Not Available Not Available No t Available thiamine HCl (vitamin B1) 100 mg tablet Take 1 tablet every day by oral route as directed . 01/14 completed Not Available Not Available Not Available leflunomi de 10 mg tablet TAKE 1 TABLET BY MOUTH EVERY DAY 07/19 completed Not Available Not Available Not Available allopurin ol 100 mg tablet Take 3 tablets every day by oral route for 30 days. 05/17 completed Not Available Not Available Not Available valacyclo vir 500 mg tablet TAKE 1 TABLET BY MOUTH EVERY DAY active Not Available Not Available No t Available clindamyc in 1 %-benzoyl peroxide 5 % topical gel APPLY TO THE AFFECTED AREA(S) BY TOPICAL ROUTE 1-2 TIMES PER DAY IN THEMORNI NG AND EVENING until better 08/23 completed Not Available Not Available Not Available leflunomi de 20 mg tablet TAKE 1 TABLET BY MOUTH EVERY DAY active Not Available Not Available No t Available acetamino phen 500 mg tablet 09/30 completed Not Available Not Available Not Available sildenafi l 100 mg tablet Take 1 tablet every day by oral route as needed for 90 days. 2023 active max allowed 6 tabs per month; must be written as 18 per 90 days Not Available Not Available Not Available bupropion HCl SR 100 mg tablet,12 hr sustained -release TAKE 1 TABLET BY MOUTH TWICE A DAY active Not Available Not Available No t Available oxycodone 15 mg tablet TAKE 1 TABLET BY MOUTH THREE TIMES A DAY NEEDED FOR 7 DAYS active Not Available Not Available No t Available hydrocort isone acetate 25 mg rectal supposito ry INSERT 1 SUPPOSIT ORY RECTALLY 2 TIMES A DAY 02/07 completed Not Available Not Available Not Available ketorolac 10 mg tablet 05/11 completed Not Available Not Available Not Available ketorolac 0.5 % eye drops INSTILL 1 DROP INTO AFFECTED EYE 4 TIMES A DAY 02/26 completed Not Available Not Available Not Available hydrocort isone 2.5 % topical cream with perineal applicato r APPLY TOPICALL Y A THIN LAYER TO AFFECTED AREA TWICE A DAY TO 4 TIMES A DAY NEEDED active Not Available Not Available No t Available rifampin 300 mg capsule TAKE 1 CAPSULE BY MOUTH TWICE A DAY 09/13 completed from ortho for L shoulder infxn Not Available Not Available Not Available lorazepam 0.5 mg tablet Take 1 tablet twice a day by oral route as needed for 10 days. 05/19 completed Not Available Not Available Not Available Klonopin 0.5 mg tablet Take 1 tablet twice a day by oral route as needed for 14 days. 10/18 completed Not Available Not Available Not Available Percocet 10 mg-325 mg tablet Take 1 tablet twice a day by oral route as needed for 10 days. 11/10 completed Not Available Not Available Not Available dextroamp hetamine- amphetami ne ER 20 mg 24hr capsule,e xtend release TAKE 1 CAPSULE BY MOUTH EVERY DAY 08/20 completed Not Available Not Available Not Available Celexa 20 mg tablet Take 1 tablet(s ) every day by oral route for 30 days. 08/23 completed Not Available Not Available Not Available cephalexi n 500 mg capsule Take 1 capsule every 6 hours by oral route for 5 days. 02/14 completed Not Available Not Available Not Available paroxetin e 20 mg tablet TAKE 1 TABLET BY MOUTH EVERY DAY NEEDED active Not Available Not Available No t Available oseltamiv ir 75 mg capsule TAKE 1 CAPSULE BY MOUTH TWICE A DAY DIRECTED FOR 5 DAYS 02/22 completed Not Available Not Available Not Available ropinirol e 0.5 mg tablet Take 1 tablet as needed by oral route at bedtime for 30 days. 11/30 completed Not Available Not Available Not Available Guaifenes in AC 10 mg-100 mg/5 mL oral liquid Take 10 mL every day by oral route at bedtime for 10 days. 11/29 completed Not Available Not Available Not Available prednison e 50 mg tablet 03/25 completed Not Available Not Available Not Available polymyxin B sulfate 10,000 unit-trim ethoprim 1 mg/mL eye drops INSTILL 1 DROP INTO AFFECTED EYE(S) 4 TIMES A DAY FOR 7 DAYS 09/30 completed Not Available Not Available Not Available gabapenti n 300 mg capsule Take 1 capsule 4 times a day by oral route for 30 days. 05/19 completed Not Available Not Available Not Available omeprazol e 20 mg capsule,d elayed release Take 1 capsule every day by oral route before meals. 03/25 completed Not Available Not Available Not Available folic acid 1 mg tablet Take 1 tablet every day by oral route. 01/14 completed Not Available Not Available Not Available dorzolami de 22.3 mg-timolo l 6.8 mg/mL eye drops INSTILL 1 DROP INTO BOTH EYES TWICE A DAY active Not Available Not Available No t Available bisacodyl 5 mg tablet,de layed release PLEASE SEE ATTACHED FOR DETAILED DIRECTIO NS 09/13 completed Not Available Not Available Not Available mupirocin 2 % topical ointment 06/30 completed Not Available Not Available Not Available gabapenti n 100 mg capsule Take 1 capsule 3 times a day by oral route for 30 days. 07/20 completed Not Available Not Available Not Available lorazepam 1 mg tablet 05/11 completed Not Available Not Available Not Available diazepam 10 mg tablet 05/11 completed Not Available Not Available Not Available cefuroxim e axetil 500 mg tablet 03/22 completed Not Available Not Available Not Available levofloxa andre 750 mg tablet TAKE 1 TABLET BY MOUTH EVERY DAY 09/13 completed Not Available Not Available Not Available methylpre dnisolone 4 mg tablets in a dose pack 09/30 completed Not Available Not Available Not Available albuterol sulfate HFA 90 mcg/actua tion aerosol inhaler INHALE 2 PUFFS INTO THE LUNGS EVERY 4 TO 6 HOURS NEEDED active Not Available Not Available No t Available timolol maleate 0.5 % eye drops INSTILL 1 DROP INTO BOTH EYES TWICE A DAY active Not Available Not Available No t Available colchicin e 0.6 mg tablet Take 2 tablets every day by oral route as needed for 7 days. 03/25 completed Not Available Not Available Not Available hydromorp caleb 4 mg tablet 03/22 completed Not Available Not Available Not Available morphine 15 mg immediate release tablet TAKE 1 TABLET EVERY 6 HOURS NEEDED FOR PAIN. DO NOT DRIVE WHILE TAKING THIS MEDICATI ON 04/24 completed Not Available Not Available Not Available brompheni ramine-ps eudoephed rine-DM 2 mg-30 mg-10 mg/5 mL oral syrup Take 10 mL every 4 hours by oral route as directed for 5 days. 02/07 completed Not Available Not Available Not Available piroxicam 20 mg capsule TAKE 1 CAPSULE BY MOUTH EVERY DAY WITH FOOD DIRECTED 01/26 completed Not Available Not Available Not Available sertralin e 50 mg tablet TAKE ONE TABLET BY MOUTH EVERY DAY 12/30 completed Not Available Not Available Not Available doxycycli ne hyclate 100 mg tablet TAKE 1 TABLET BY MOUTH TWICE A DAY FOR 7 DAYS 04/30 completed Not Available Not Available Not Available naproxen 500 mg tablet TAKE 1 TABLET BY MOUTH TWICE A DAY WITH FOOD 09/13 completed Not Available Not Available Not Available doxazosin 2 mg tablet Take 2 tablets every day by oral route at bedtime. 04/11 completed from uro Not Available Not Available Not Available amoxicill in 875 mg-potass ium clavulana te 125 mg tablet Take 1 tablet every 12 hours by oral route for 7 days. 09/30 completed Not Available Not Available Not Available oxycodone 5 mg tablet TAKE 1 TO 2 TABLETS BY MOUTH EVERY 4 TO 6 HOURS NEEDED FOR PAIN. DO NOT DRIVE WHILE TAKING 07/11 completed Not Available Not Available Not Available neomycin- polymyxin -hydrocor t 3.5 mg-10,000 unit/mL-1 % ear drops,paul p 12/24 completed Not Available Not Available Not Available Bactrim DS 800 mg-160 mg tablet Take 1 tablet every 12 hours by oral route for 5 days. 07/18 completed Not Available Not Available Not Available cyclobenz aprine 5 mg tablet TAKE 1 TABLET BY MOUTH EVERY DAY AT BEDTIME NEEDED FOR 10 DAYS active Not Available Not Available No t Available rosuvasta tin 10 mg tablet TAKE 1 TABLET BY MOUTH EVERYDAY AT BEDTIME active Not Available Not Available No t Available Cialis 10 mg tablet Take 1 tablet every day by oral route as directed . 01/19 completed Not Available Not Available Not Available duloxetin e 30 mg capsule,d elayed release Take 1 capsule( s) every day by oral route for 90 days. 10/18 completed Not Available Not Available Not Available duloxetin e 60 mg capsule,d elayed release Take 1 capsule every day by oral route. 11/29 completed Not Available Not Available Not Available Lyrica 75 mg capsule twice a day 11/10 completed Not Available Not Available Not Available methotrex ate 3pills po qd 07/18 completed Not Available Not Available Not Available Wellbutri n 04/02 completed Not Available Not Available Not Available Enbrel SureClick 50 mg/mL (1 mL) subcutane ous pen injector Inject 50 mg every week by sub-q route for 28 days. active Not Available Not Available No t Available Gavilax 17 gram/dose oral powder PLEASE SEE ATTACHED FOR DETAILED DIRECTIO NS 09/13 completed Not Available Not Available Not Available Horizant ER 300 mg tablet,ex tended release 05/11 completed Not Available Not Available Not Available Flonase Allergy Relief 50 mcg/actua tion nasal spray,paul pension [place] 1 spray every day by intranas al route. 11/29 completed Not Available Not Available Not Available Humira(CF ) Pen 40 mg/0.4 mL subcutane ous kit Inject 1 dose pk every 2 weeks by sub-q route for 28 days. 11/30 completed changed to enbrel Not Available Not Available Not Available Flowflex COVID-19 Antigen Home Test kit USE ACCORDIN G TO MANUFACT URER'S DIRECTIO N 10/18 completed Not Available Not Available Not Available Paxlovid 300 mg (150 mg x 2)-100 mg tablets in a dose pack TAKE 3 TABLETS BY MOUTH TWICE A DAY DIRECTED FOR 5 DAYS 10/18 completed Not Available Not Available Not Available Tarpeyo 4 mg capsule,d elayed release Take 4 capsules every day by oral route. active Not Available Not Available No t Available Vitals Date Recorded Body height Provider Name an d Address Organization Details Last Updated DateTime 05/28/2024 177.8 cm Christi Meier MA [facility] 05/28/2024 14:23:45 Date Recorded Body height Body mass index (BMI) Body weight Heart rate Oxygen saturation Oxygen saturation in Arterial blood by Pulse oximetry Body temperature Systolic blood pressure Diastolic blood pressure Provider Name and Address Organization Details Last Updated DateTime 4 177.8 cm 28.2 kg/m2 70727.2 g 81 /min 97 % 97 % 97.6 [degF] 153 mm[Hg] 101 mm[Hg] Beatriz Lamar MA [facility] 11:13:56 Date Recorded Body height Provider Name an d Address Organization Details Last Updated DateTime 09/19/2024 177.8 cm Savanna Rosario MA [facility] 09/19/2024 13:48:32 Date Recorded Body height Body mass index (BMI) Body weight Heart rate Oxygen saturation Oxygen saturation in Arterial blood by Pulse oximetry Body temperature Systolic blood pressure Diastolic blood pressure Provider Name and Address Organization Details Last Updated DateTime 5 177.8 cm 28.7 kg/m2 84580.4 7 g 105 /min 97 % 97 % 98 [degF] 152 mm[Hg] 108 mm[Hg] Savanna Rosario MA [facility] 5 14:34:39 Date Recorded Systolic blood pressure Diastolic blood pressure Systolic blood pressure Diastolic blood pressure Provider Name and Address Organization Details Last Updated DateTime 09/30/2024 150 mm[Hg] 94 mm[Hg] 140 mm[Hg] 86 mm[Hg] Justino Jackson PA-C [address] [facility] [address], [place], [address] , [facility] 5 15:23:11 Social History Question Answer Notes LastModified by Organizat ion Details LastModified Time Tobacco Smoking Status Former Smoker quit 09/25/2019 Lisa Clark MA null, [facility] 01/15/2020 12:54:47 Do You Have An Advance Directive? Yes Information not available 07/06/2022 What Is Your Level Of Alcohol Consumption? Moderate 09/13/23 Beers- 24 Beers Weekly Information not available 09/13/2023 Is Blood Transfusion Acceptable In An Emergency? Yes Information not available 04/09/2015 What Is Your Level Of Caffeine Consumption? Moderate Coffee1 Cup Daily Information not available 01/26/2022 How Much Tobacco Do You Chew? None Information not available 04/09/2015 Are You Currently Employed? Yes Information not available 04/09/2015 What Type Of Diet Are You Following? REGULAR Information not available 04/09/2015 Which Illicit Or Recreational Drugs Have You Used? Hx Of Opiate Abuse Information not available 09/30/2021 Do You Or Have You Ever Used E-cigarettes Or Vape? Never Used Electronic Cigarettes Information not available 07/06/2022 What Is Your Occupation? [employer] Information not available 01/26/2022 Have There Been Any Changes To Your Family Or Social Situation? Yes Information not available 07/06/2022 When Did You Quit Smoking? 1-5yearssince lastcimiquel Information not available 11/19/2020 Are There Any Guns Present In Your Home? No Information not available 07/06/2022 Do You Take Precautions To Prevent Distracted Driving? Yes Information not available 03/17/2016 How Often Do You Need To Have Someone Help You When You Read Instructions, Pamphlets, Or Other Written Material From Your Doctor Or Pharmacy? Never Information not available 03/17/2016 Have You Served In The ? No Information not available 12/13/2017 Have You Or Anyone In Your Household Had Any Of The Following Symptoms In The Last 14 Days: Sore Throat, Cough, Chills, Body Aches For Unknown Reasons, Shortness Of Breath For Unknown Reasons, Loss Of Smell, Loss Of Taste, Fever At Or Greater Than 100 Degrees Fahrenheit? No Information not available 09/08/2020 Are You Or Anyone In Your Household A Health Care Provider Or Emergency Responder? No Information not available 03/25/2020 To The Best Of Your Knowledge Have You Been In Close Proximity To Any Individual Who Tested Positive For COVID-19? No Information not available 03/25/2020 *AWV ONLY* Are You Presently Prescribed Opioid Medication By PCP Or Specialist? If YES -Provider Assess The Benefit For Other, Non-opioid Pain Therapies Instead, Even If The Patient Does Not Have OUD But Is Possibly At Risk. No Information not available 06/30/2020 Have You Recently Traveled To A COVID-19 High Risk Area Or Gathering In The Last 10 Days? No Information not available 11/19/2020 What Was The Date Of Your Most Recent Tobacco Screening? 09/30/2024 [email or web address] Information not available 09/30/2024 How Many Children Do You Have? 2 Son And Daughter Information not available 10/10/2018 What Is Your Current Pack Years? 10-19packyear s Information not available 07/06/2022 Do You Use Protection During Sex? No Information not available 09/30/2021 What Is Your Relationship Status? Single Information not available 07/06/2022 Do You Use Your Seat Belt Or Car Seat Routinely? Yes Information not available 09/30/2021 Are You Sexually Active? Yes Information not available 04/09/2015 Do You Have Smoke And Carbon Monoxide Detectors In Your Home? Yes Information not available 09/30/2021 At What Age Did You Start Smoking Tobacco? 16 Information not available 04/09/2015 Are You Passively Exposed To Smoke? No Information not available 09/30/2021 Do You Or Have You Ever Used Smokeless Tobacco? [id number] Information not available 09/30/2021 How Much Tobacco Do You Smoke? 1 PPD Information not available 04/09/2015 Do You Use Any Illicit Or Recreational Drugs? No Information not available 07/06/2022 Do You Use Sunscreen Routinely? No Information not available 04/09/2015 How Many Years Have You Smoked Tobacco? 18 Information not available 01/15/2020 Do You Or Have You Ever Used Any Other Forms Of Tobacco Or Nicotine? No Information not available 07/06/2022 Sex: Unknown Functional Status Question Answer Note LastModified by Organizat ion Details LastModified Time Do you have difficulty walking or climbing stairs? No Information not available 07/06/2022 Are you able to walk? YESWOREST Information not available 07/06/2022 Are you able to care for yourself? Yes Information not available 04/09/2015 Do you have difficulty dressing or bathing? No Information not available 07/06/2022 What is your exercise level? Moderate Information not available 09/13/2023 Mental Status Question Answer Note LastModified by Organization D etails LastModified Time Do you have difficulty concentrating, remembering or making decisions? No Information no t available 07/06/2022 Family History Relationship Description Onset Age of this Age Resolved Age Notes LastModified by Organization Details LastModified Time Mother General health good Not available 06/25 13:34:00 Father Glaucoma Not available 1 13:34:00 Unspecified Relation Arthritis abolcun Not available 022 12:43:36 Notes:no fh crc or p ca Medical History Condition Response Gout N Other N Kidney Stones N Blood Diseases N Hyperthyroidism N Breast Cancer N Hypothyroidism N Lung Disease N Depression N COPD N Defects or Inherited Disease N Anesthesia Complications N Headaches/Migraines N Anxiety Disorder N Varicose Veins N Obesity N Vision or Eye Problems Y Arthritis Y Head Injury/Concussion N Infertility N Polyps N Congenital Anomalies N Acid Reflux (GERD) N Cancer N Stroke N ADHD Y Endometriosis N High Cholesterol N Liver Disease N Fibromyalgia N Kidney Disease N Heart Problems N Ear or Hearing Problems N Hospitalizations N Thyroid Problems N GI Problems N Acne N Eating Disorder N Skin Problems Y Anemia N Constipation N Bladder Problems N Mental Illness N Diabetes N Ovarian Cancer N Blood Transfusions N Seizures/Epilepsy N Tuberculosis N AIDS/HIV N Congestive Heart Failure (CHF) N Eczema N Abuse/Domestic Violence N Diverticulitis N Asthma Y Allergies N Reflux/GERD N Hepatitis N Pulmonary Embolism N Hypertension N Chicken Pox N Autism Spectrum Disorder (ASD) N Osteoporosis N Immunizations Vaccine Type Date Status Note Provider Nam e and Address Organization Details Recorded Time Td (adult) 4 completed Not Available [facility] 04/28/2022 19:29:47 Tdap 4 completed OUSMANE Rodgers [facility] 07/06/2024 11:08:19 COVID-19, mRNA, LNP-S, PF, 30 mcg/0.3 mL dose 1 completed OUSMANE Rodgers [facility] 07/06/2024 11:08:19 COVID-19, mRNA, LNP-S, PF, 30 mcg/0.3 mL dose 1 completed OUSMANE Rodgers [facility] 07/06/2024 11:08:19 Influenza, MDCK, quadrivalent, PF 0 completed OUSMANE Rodgers [facility] 07/06/2024 11:08:19 Influenza, MDCK, quadrivalent, PF 0 completed Mala Gage MA null, [facility] 06/13/2023 09:54:26 pneumococcal polysaccharide PPV23 1 completed Not Available [facility] 04/28/2022 19:29:47 Influenza, MDCK, quadrivalent, PF 0 completed Florencio Peralta MA null, [facility] 07/11/2023 10:11:31 Influenza, MDCK, quadrivalent, PF 0 completed Keesha Sanchez MA null, [facility] 01/25/2023 14:06:47 COVID-19, mRNA, LNP-S, PF, 30 mcg/0.3 mL dose, terrence-sucrose 2 completed OUSMANE Rodgers, [facility] 07/06/2024 11:08:19 Influenza, split virus, trivalent, preservative 1 completed OUSMANE Rodgers, [facility] 07/06/2024 11:08:19 Tdap 3 completed OUSMANE Rodgers, [facility] 07/06/2024 11:08:19 Influenza, MDCK, trivalent, PF 4 completed BERTO Kong, [facility] 08/27/2024 14:52:09 Influenza, split virus, quadrivalent, PF 3 completed Justino Jackson PA-C [address] [facility] [address], [place], [address], [facility] 09/15/2023 12:54:39 Past Encounters Encounter ID Performer Location Encounter Start Date Encounter Closed Date Diagnosis/Indication Diagnosis SNOMED-CT Code Diagnosis ICD10 Code Diagnosis Note [id number] Main Office [address] [facility] [address] [facility] [place] [address] 04/09/2015 15:44:35 04/09/2015 16:34:32 Adult health examination [id number] UTD, patient UTD on tetanus vaccine, feeling well, declines blood work at this time. Eczema 05560434 States h e would like to try an oral steroid for this, I explained to patient that is is only short term treatment and his eczema will likely flair again. Clobetasol BID, may use eucerin cream/ coconut oil to keep hands moisturize d, refrain from picking at hands or scratching , follow up with dermatolog y. Low back pain [id number] C/O low back x last 2-3 months, he does work in [employer] on. States it resolved on it's own 2 weeks ago and he has been feeling well, will call if any worsening. Epidermoid cyst 601307460 Cyst vs lipoma to right side of face, it has become larger over the past year and is tender, bothersome to patient as he can see it in photos and people comment about it. Will refer to gen surgery for further eval. Tobacco de pendence syndrome [id number] Assessed present motivation s for smoking cessation. Patient remains precontemp lative and is aware of cessation assistance means. Patient will call when ready. [id number] Florencio cole Main Office [address] [place] [address] 02/09/2016 15:51:49 02/09/2016 16:47:45 Low back pain 422645555 M54.5 [id number] Austin Cosby MD Main Office [address] [place] [address] 02/23/2016 15:49:01 02/23/2016 17:19:00 Low back pain 793941415 M54.5 [id number] Priyanka liu Main Office [address] [place] [address] 03/17/2016 15:28:23 03/17/2016 16:54:17 Low back pain 643294303 M54.5 cont to f/u c PSS - will start PT, ? MRI in near future. entered into pain contract. Radicular pain 53945544 M54.10 Elevated blood-pressure reading without diagnosis of hypertension 115995270 R03.0 Pharyngitis 577588748 J0 2.9 [id number] Gini Ruiz MA Main Office [address] [facility] 207 [facility] [place] [address] 04/18/2016 15:57:21 04/19/2016 08:35:02 Low back pain 888720917 M54.5 will cont. percocet - pt had signed pain contract - but pt contracts that he will use less often will increase gabapentin and check MRI - pt has not been to PT but wonders if he needs surgery -- PSS won't do crescencio. injxn. unless pt has MRI as well advised pt to call his ins. co. to find out cost of MRI Radicular pain 90411202 M54.10 Anticipatory grief 40301 004 F43.21 twin brother of overdose of fentanyl recently -- ? benefit from counselreji camilo [id number] Jay Contreras MD Main Office [address] [facility] 207 [facility] [place] [address] 05/19/2016 15:22:01 05/19/2016 16:52:40 Low back pain 230036995 M54.5 no help c gabapentin d/t sedation - trial c lyrica, requests to cont. percocet to be used on a prn basis - will not take more than twice/day prn will attempt to have pt get crescencio. injxn [id number] Jay Contreras MD Main Office [address] [facility] 207 [facility] [place] [address] 07/18/2016 15:24:24 07/18/2016 16:47:20 Low back pain 033812207 M54.5 25 minute office visit with greater than 50% of the visit face-to-fa ce with the patient and/or family providing counseling and/or coordinati on of care. Lumbosacra l radiculitis 17089646 M54.17 failed gabapentin and then failed venlafaxin e - will attempt lyrica again Exposure t o sexually transmissible disorder 395414371 Z20.2 [id number] Priyanka liu Main Office [address] [facility] [address] T[address]a Paula [place] [address] 11/10/2016 12:59:52 11/10/2016 14:00:56 Low back pain 733637152 M54.5 resolved 25 minute office visit with greater than 50% of the visit face-to-fa ce with the patient and/or family providing counseling and/or coordinati on of care. 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 = advised pt to take bid x few days until lesions resolve, then continue qd for suppressiv e rx - reviewed risks/bene fits of current approach, pt desires suppressiv e rx Acne [id number] L70.9 [id number] Lyle Trent MD Main Office [address] [facility] [address] [facility] [place] [address] 08/23/2017 10:36:12 08/23/2017 11:42:03 Low back pain 212977872 M54.5 pain returned, but on R SI joint (had L sciatica last year c prolonged use of narcotics) encouraged pt to call [facility] since seen by them back in .16 for crescencio injxn 25 minute office visit with greater than 50% of the visit face-to-fa ce with the patient and/or family providing counseling and/or coordinati on of care. pt requests oxycodone - 5 mg tabs didn't help in past - he took 3 of them at one time to help c pain - will give x 1 wk c no refills - advised to cont c m. relax[place] will refer to pain management as well - anticipate /afraid pt may need prolonged course of narcotics again, ? if they can do crescencio injxn Herpes sim plex type 1 infection 709790216 B00.9 has used successful ly over past yr - only one minor outbreak Gout 48515934 M10.9 has been on turmeric and celery seed - no flare x 3 months p took 2 courses of pred. admits to eating a lot of cheese - rec. decrease intake, provided purine restricted diet worksheet [id number] Lyle Trent MD Main Office [address] [facility] [address] [facility] [place] [address] 11/02/2017 15:57:12 11/02/2017 17:00:15 Mixed anxiety and depressive disorder 758822092 F41.8 doubt bipolar (no h/o lulu) but pt has mild ocd/anx/de p - encouraged pt to see N for formal eval of this, but he politely declined --- more importantl y, pt requests marriage counsellor referral Restless legs 98166433 G 25.81 trial c quinine -- if no help, then trial c low dose requip -- check cbc to r/o anemia --- see below, ? sleep apnea c periodic limb movements Snoring 42498528 R06.83 ? sleep apnea c periodic limb movements Reduced libido 6111277 R 68.82 rare ED - pt requests test. level to be checked [id number] Priyanka liu Main Office [address] [facility] [place] [address] 12/13/2017 15:52:44 12/13/2017 17:13:22 Leukocytosis 816110284 D72.829 likely d/t steroid use but ? d/t acute illness - will recheck next week Relative polycythemia 38 1576553 D75.1 looked up on various websites - not clearly d/t steroids but ? if it is (secondary polycythem ia vera) - see above - will recheck cbc next week - if worse/high er consider heme eval Multiple joint pain 3567 8005 M25.50 ? hx suggestive of gout (? lyme vs other), but last uric acid level nl - pt admits to high purine diet since eats a lot of protein / restricts carbs - recheck uric acid level and get rheum eval - pt declines at this time but states he would rather do a trial of allopurino l (start c 100mg qd x 1st wk, can uptitrate slowly from there) to see if sxs stop Upper resp iratory infection 30733073 J06.9 Allergic rhinitis 073762 04 J30.9 has used flonase in past - try to get thru ins - if can't, then is otc Vasectomy requested 8515 44772 Z30.2 [id number] Lyle Trent MD Main Office [address] [place] [address] 01/04/2018 13:44:46 01/04/2018 15:23:26 Pneumonia 512128568 J18.9 finished doxy bid x 1 wk, then acutely worse - ? d/t sinuses - see below - lungs clear today Multiple joint pain 3567 8005 M25.50 *on 12.13.17* - ? hx suggestive of gout (? lyme vs other), but last uric acid level nl - pt admits to high purine diet since eats a lot of protein / restricts carbs - recheck uric acid level and get rheum eval - pt declines at this time but states he would rather do a trial of allopurino l (start c 100mg qd x 1st wk, can uptitrate slowly from there) to see if sxs stop *update 01.04.18* -- will get rheum eval, recheck lyme titer next week and check other tests as well. 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 if contributi ng to current sxs - pt refuses to quit Gouty arth ritis of the ankle and/or foot 533940045 M10.9 cont f/u c rheum - has prn pred for flares Paresthesia 88375610 R20 .2 of LUE - curr resolved - unlikely d/t ACS - ? d/t stress (high stress levels lately) or possibly myofascial (lifts a lot of wt) - no obvious m. knots in trap/rhomb oid area, but could use heating pad prn and cont hep/flexib ility/stre tch Electrocar diogram abnormal 746218836 R94.31 Neck pain 07195759 M54.2 he did have neck pain recently c limited movement - better c pred from gout - ? radicular - check cspine [id number] Lyle Trent MD Main Office [address] [facility] [address] [place] [address] 07/11/2018 15:33:14 07/11/2018 16:44:18 Restless legs 23319781 G25.81 helpful, pt requested refill Anxiety 41895498 F41.9 pt states family life is good, no time for counsellin g - but would like to try meds first - will consider therapy in late fall / winter p constructi on season over Rheumatoid arthritis of multiple joints 283745577 M06.9 new dx - cont med, f/u c rheum [id number] Justino Jackson PA-C Main Office [address] [address] [place] [address] 10/10/2018 15:10:56 10/10/2018 16:15:07 Anxiety 56032530 F41.9 pt states family life is good, no time for counsellin g -- will increase med as pt requests Rheumatoid arthritis of multiple joints 653238994 M06.9 cont med, f/u c rheum Glaucoma 29567393 H40.9 new dx - cont drops as dir Cough 40842413 R05 check cxr to r/o walking pna Herpes sim plex type 1 infection 609691085 B00.9 has used successful ly over past yr - only one minor outbreak [id number] Jay Contreras MD Main Office [address] [facility] [address] [place] [address] 10/18/2018 10:37:07 10/18/2018 11:50:42 Cough 50494352 R05 check cxr to r/o walking pna rec otc tussin by day, use ying ac hs Pneumonia 848094484 J18. 9 suspect early pna - cont alb, add abx / probiotic while on abx, cont tussin by day and see above - ying ac hs add pred pulse Dyspnea 923007826 R06.00 [id number] Justino Jackson PA-C Main Office [address] [facility] [address] [place] [address] 11/29/2018 08:46:12 11/29/2018 09:41:08 Rheumatoid arthritis of multiple joints 568731011 M06.9 cont med and labs as per rheum, advised pt to ask MD to fax us his notes Reduced libido 1376908 R 68.82 pt requests test. level to be checked Primary er ectile dysfunction 777995771 N52.9 pt requests trial of viagra [id number] Justino Jackson PA-C Main Office [address] [facility] [address] [place] [address] 07/18/2019 15:38:49 07/23/2019 11:09:29 Fatigue 86513319 R53.83 Major depr essive disorder 917387618 F32.9 pt declines counsellin g mother takes wellbutrin - will give trial of this reviewed genaro gaxiola pt. 25 minute office visit with greater than 50% of the visit face-to-fa ce with the patient and/or family providing counseling and/or coordinati on of care. Moderate m ajor depression 899344 F32.1 see above [id number] Justino Jackson PA-C Main Office [address] [place] [address] 09/04/2019 15:14:20 09/04/2019 16:13:57 Moderate major depression 621703 F32.1 feels better on med - cont as dir Dizziness 922949009 R42 seen at ER - rev note - negative w/u - pt did his own research - sxs c/w prednisone withdrawal - he will be more careful to taper appropriat una in future Rheumatoid arthritis of multiple joints 130071595 M06.9 f/u c rheum tomorrow Testostero ne level below reference range 149750186 R79.89 Fatigue 09809552 R53.83 ? d/t low T -- had nl tsh last wk c slightly elevated h/h - no anemia -- if fatigue worse despite above, then consider sleep med eval Relative polycythemia 38 9473878 D75.1 ? could be d/t tobacco or recent steroids - ? likely d/t smoking - but check epo if worse/high er consider heme eval [id number] Justino Jackson PA-C Main Office [address] [facility] [address] [facility] [place] [address] 12/24/2019 13:43:28 12/25/2019 11:23:23 [id number] Justino Jackson PA-C Main Office [address] [facility] [address] [place] [address] 12/25/2019 08:34:19 12/25/2019 13:22:48 Pericarditis 6840333 I31.9 seen at ER - begin pred 60mg as dir, and stop motrin - pending see card as outpt -- later today see below re: gi prophylaxi s Rheumatoid arthritis of multiple joints 235136248 M06.9 cont meds, f/u c rheum -- pending second opinion c new rheum in [place] Spinal amilcar nosis in cervical region 83014606 M48.02 cont w/u, f/u c neurosurge on Gastroesop hageal reflux disease 019203250 K21.9 see above 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 if this can partially explain his health problems over the past few years - he is searching for answers, renetta in light of did not like care c his former rheum - pt is frustrated , wants to feel better to go back to work [id number] Gayle Jackson PA-C Main Office [address] [facility] [address] [place] [address] 01/03/2020 12:35:03 01/06/2020 09:29:18 Pericarditis 8631294 I31.9 Pt. is advised to continue Prednisone at 60 mg and recommend to be seen or at least contacted by cardiologi st early next week to advise on further med titration and addition of colchicine . I asked Gini to connect with [facility] and request to have joss moved to next week. If not, we will try [facility] cardiology instead. Rheumatoid arthritis of multiple joints 736407130 M06.89 F/u with rheumatolo gy as scheduled , new provider next week. [id number] Justino Jackson PA-C Main Office [address] [facility] [address] [place] [address] 01/15/2020 10:14:39 01/16/2020 12:29:14 [id number] Priyanka liu Main Office [address] [facility] [address] [place] [address] 01/15/2020 11:52:10 01/15/2020 13:49:40 Pneumonia 232153203 J18.9 see HPI, seems much improved, no cough or fever, Covid negative, ? could pt have aspirated the night he went to ER, in any event he is much improved, will finish out amoxicilli n and come in for a PE in 02/2020 pt denies drinking daily and denies any hxof alcohol wdl states ER thought he was withdrawin g but he does not agree Rheumatoid arthritis of multiple joints 768641038 M06.89 on prednisone so immune suppressed see above [id number] Gayle Jackson PA-C [employer] [facility] [address] [facility] [address] [place] Paula [place] [address] 03/25/2020 14:30:56 03/25/2020 16:00:54 Acute cervical sprain 281297309 S13.4XXA due to trauma we will re xray the neck. Start Prednisone taper as pt. has cervical disc disease as well and and trauma seemed to cause impingemen t. Muscle relaxer at HS only for 5-7 days. F/u in office if pain persists or worsens. Might need MRI. Abrasion of face 0093369 08 S00.81XA improving on it's own. [id number] Gini Ruiz MA [employer] [facility] [address] [facility] 207 [facility] [place] [address] 04/02/2020 13:24:17 04/03/2020 08:24:50 Spinal stenosis in cervical region 53028438 M48.02 c cervical radiculiti s LUE - pt requests pain pill, will give short term supply - will also rx c gbn and get pssp or pain eval to expedite crescencio injxn Hereditary hemochromatosis 49376613 E83.110 cont f/u c hem, next lab (ferritin) next month Rheumatoid arthritis of multiple joints 841719852 M06.9 cont meds, f/u c rheum Pericarditis 2392580 I31 .9 cont f/u c card [id number] Justino Jackson PA-C [employer] [facility] [address] [facility] [address] [place] Paula [place] [address] 06/30/2020 12:58:35 07/02/2020 08:07:51 Low back pain 694337885 M54.5 curr no sciatica, states all other jts doing much better on current meds from rheum encouraged pt to call [facility] if no sig help khalida reagan relaxer -- seen by them for neck & low back issues [id number] [facility] [address] [facility] [address] [place] [address] 07/29/2020 12:46:02 07/29/2020 15:42:08 Acute sinusitis 33781887 J01.90 already on abx thought he is unsure of the name. will add prednisone burst x 5 days, hydration, rest, meds as directed. f/u in 2 weeks for recheck of sx and flu vaccine. [id number] Justino Jackson PA-C [facility] [address] [address] [place] [address] 08/27/2020 12:18:01 08/27/2020 15:48:18 Injury of finger 00878600 S69.91XA sig edema and pain and limited ROM of R 3rd digit on videocall - strongly advised pt to call [facility] (gave him phone #) to get in to see their ucc later this afternoon for xrays, evaluation , etc [id number] Justino Jackson PA-C [facility] [address] [address] [place] [address] 09/08/2020 14:09:56 09/09/2020 14:46:46 Testosterone level below reference range 598767237 R79.89 pt requests re-test his T level - advised him to check in am, and to f/u c endo if levels are low again Primary er ectile dysfunction 873245658 N52.9 no sig help khalida viagra - advised to avoid etoh, and will give trial of cialis [id number] Andra [facility]es [facility] [address] [address] [place] [place] [address] 11/19/2020 08:41:01 11/19/2020 12:08:06 Ingrowing toenail 886854759 L60.0 Paronychia of toe 081001 002 L03.031 recommend probiotics while on abx Pain in toe 515865794 M7 9.674 see above - pt requested a few days of pain pills to help [id number] Justino Jackson PA-C [employer] [facility] [address] [facility] [address] [facility] [place] [address] 02/23/2021 09:28:26 02/24/2021 09:26:51 Right side sciatica 2142842741 14619 M54.31 urged pt to call pssp for re-eval (? needs another crescencio injxn vs other), will re-try horizant again and give a few days of prn narcotic at pt request meanwhile, cont nsaids, moist heat, HEP [id number] Justino Jackson PA-C [facility] [address] [facility] [address] [place] [place] [address] 03/16/2021 11:05:32 03/17/2021 09:03:08 Right side sciatica 8528366008 56928 M54.31 pending crescencio injxn c pssp on 03.31 - encouraged pt to try 2 tabs of horizant ~ dinner time (has samples from pssp), and give refill of prn narcotic at pt request meanwhile, cont nsaids, alt ice/moist heat, HEP [id number] [facility] [address] [place] [address] 05/11/2021 08:23:13 05/11/2021 13:15:30 Premature ejaculation 58172799 F52.4 start c 50mg qd - cut 100mg in half, advance to 75mg or 100mg slowly as needed Strain of calf muscle 28 4000084 S86.111A likely R soleus strain by hx - rec wall stretch [id number] Justino Jackson PA-C [facility] [address] [place] [address] 06/08/2021 08:04:52 06/08/2021 12:48:12 Pain of right shoulder joint [id number] 6760493 M25.511 seen by neos - no note to review, will attempt to get - apparently had mri, ? need sx in 07.15 Rheumatoid arthritis of multiple joints 776496281 M06.9 cont meds, f/u c rheum Premature ejaculation 44 846035 F52.4 no help c sert - in fact was worse SE - so stopped med Right side sciatica 3202 916024 41684 M54.31 aggravated lately, pending see pssp 9.28 meanwhile, trial c uptitratin g gbn, and pt requested short term script of oxycodone [id number] Justino Jackson PA-C [facility] [address] [place] [address] 07/20/2021 08:11:43 07/20/2021 16:10:52 Anxiety 53150761 F41.9 pt states family life is good, no time for counsellin g, work is good - cont bup as dir Premature ejaculation 44 689901 F52.4 no help c sert 100mg - had SE so stopped med - it was too strong - so advised pt to try 25mg qd x few wks, and increase to 50mg if need to / tolerated [id number] Demetrice Prieto MD [facility] [address] [address] 08/19/2021 13:34:22 08/25/2021 13:10:13 Rheumatoid arthritis of multiple joints 691453054 M06.9 Ritchie understand s and I reiterated the risk of long-term steroid use, however with the acute flare we will go ahead and prescribe him a steroid tapering dose till he can follow-up with his rheumatolo gist. [id number] Lyle Trent MD Main Office [address] [address] 09/30/2021 11:44:45 09/30/2021 13:28:56 Cough 40556668 R05.1 Symptomati c treatment advised as well as above. Pneumonia 705278581 J18. 9 With chest pain and immunosupr ession will cover for bacterial process. Going for COVID 19 testing this afternoon. Consider CXR if COVID neg and symptoms persist/wo rsen. Monoclonal antibody therapy an option if COVID positive. Common/ser ious potential antibiotic side effects discussed. Call with any problems. Long-term current use of immunosuppressive drug 231500829 Z79.899 [id number] Lyle Trent MD [facility] [address] [address] 10/08/2021 17:39:49 10/12/2021 08:38:59 Rheumatoid arthritis of multiple joints 724328869 M06.9 Having RA flare in context of recent medication adjustment s. Will cover with short course of prednisone while waiting for response from rheum. [id number] Justino Jackson PA-C [facility]40 [facility] 207 [facility] [place] [address] 11/30/2021 08:36:25 12/01/2021 10:21:07 Rheumatoid arthritis of multiple joints 619400905 M06.9 Having RA flare in context of recent medication adjustment s. Will cover with short course of prednisone while waiting for response from rheum. -- pt requested add'l pred for a pulse - reminded pt to take H2B (pepcid) or omeprazole when use pred. Diarrhea 79239519 R19.7 ? SE of meds - advised pt to ask his pharmacist - trial c citrucel qd, rec brat diet, consider prn imodium, also check for celiac dz Hereditary hemochromatosis 72656896 E83.110 cont f/u c hem, gets phlebotomy q 1-2 wks Hematochezia 924715901 K 92.1 likely d/t hemorrhoid from diarrhea above - if no better c citrucel and prn prep-H / sitz bath, then consider gi eval Reduced libido 9546401 R 68.82 pt requests test. level to be re-checked [id number] Justino Jackson PA-C Main Office 3640 [facility] [address] [facility] [address] 01/26/2022 13:24:33 01/26/2022 14:35:14 Adult health examination 723099448 Z00.00 Rheumatoid arthritis of multiple joints 034443108 M06.9 sig better p switched to enbrel - cont as dir, cont f/u c rheum Hereditary hemochromatosis 32340534 E83.110 cont f/u c hem, gets phlebotomy q 1-2 wks 5.22 - resolved, no phlebotomy x few months - reviewed dc letter - rec check melonie/hct q 3 months Mixed hyperlipidemia 267 267288 E78.2 rec low carb diet to lower trigs, increase aerobic exercise to raise HDL, and decrease your red meat intake to lower your LDL (bad chol) Use of anabolic steroids significan tly decreases HDL-C (> 90%) and increases LDL-C (~50%). Lipid effects from anabolic steroid use are reversible . HDL-C and LDL-C were normalized 2.5 to 4 months after discontinu ation of their usage. 02.13 - rec recheck lipids p off cycle x ~ 3 months Pain of ri ght shoulder joint 2150667593 3942980 M25.511 seen by neos - no note to review, will attempt to get - apparently had mri, ? need sx in 07.15 - ? has scar tissue vs other - enc pt to f/u c neos Cervical radiculopathy 86209855 M54.12 ~ stable, cont pred taper as per pssp, cont f/u c them - ? may need crescencio injxn in future Anxiety 16438726 F41.9 pt states family life is good, no time for counsellin g, work is good - cont bup as dir Major depr essive disorder 384931814 F32.0 pt declines counsellin g mother takes wellbutrin - will give trial of this reviewed genaro c pt. 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 Anabolic steroid use causes decreased levels of HDL or ? g ood? cholestero l, increased levels of LDL or ? b ad? cholestero l, and serious liver toxicity within 12 weeks Body mass index 30+ - obesity 798095702 E66.9 Z68.30 [id number] Gayle Jackson PA-C [facility] 3640 [facility] 207 [facility] [place] [address] 02/07/2022 10:40:55 02/07/2022 13:34:19 Exposure to viral disease 9512873453 06884 Z20.828 Likely COVID 19 but could be influenza , as pt. is immunocomp romised without flu vaccine. I advised pt. to go to the urgent care clinic today for PCR rapid COVID test and rapid flu test and if positive , be treated immediatel y with antiviral . Pt. agreed with the plan and will proceed to the urgent care. [id number] ADRI Farr [facility] 3640 [facility] [address] [place] [address] 02/09/2022 08:32:37 02/09/2022 15:16:29 Influenza-like symptoms 783405408 R68.89 hx RA on immunosupp ressants, he has stopped them for now but will tx for flu, covid negative. at home test and PCR negative. No resp sx but severe body aches, chills, fever 103.7 [id number] Priyanka liu [facility] 3640 [facility] [address] [place] [address] 02/12/2022 10:37:58 02/16/2022 11:32:20 Hematemesis 2608953 K92.0 sent pt to ER, needs fluids by hx and GI protection and evaluation of abdominal exam Fever 262895794 R50.9 negative covid, Dehydration 37375142 E86 .0 needs fluids [id number] Justino Jackson PA-C [facility] 3640 [facility] [address] [place] [address] 02/22/2022 12:39:59 02/23/2022 13:10:12 Pyelonephritis 78575891 N12 s/p 1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 [address] 10/24/2023 15:13:18 10/25/2023 09:13:39 Hereditary hemochromatosis 64307795 E83.110 cont f/u c hem, gets phlebotomy q 1-2 wks 5.22 - resolved, no phlebotomy x few months - reviewed dc letter - rec check melonie/hct q 3 months 5.23 - ferritin ~ stable, H/H trending down ---- I don't think your hematologi st would recommend another therapeuti c phlebotomy - I found this from Dr. Trivedi's last note - If ferritin >100 and hct >55 then refer back to hematology - so we will continue to monitor these. 09.16 - pending see hem at [place] 10.18 - seen by hem, resumed therapeuti c phlebotomy Mixed hyperlipidemia 267 501602 E78.2 Ritchie - I found this online --- Steroids are known to cause lipid profile abnormalit ies, such as increases in total cholestero l, triglyceri de and LDL and a decrease in HDL levels. I believe they are affecting your blood counts too - see your cbc results - hard to tell if they are due to steroids or hemochroma tosis - suspect ferritin is being reduced by the steroids. Bottom line, I believe the steroids are harming your health, and you should strongly consider stopping them. I don't think your hematologi st would recommend another therapeuti c phlebotomy with the normal ferritin - I found this from Dr. Trivedi's last note - If ferritin >100 and hct >55 then refer back to hematology - so we will continue to monitor these. - Pat . - rec low carb diet to lower trigs, increase aerobic exercise to raise HDL (good chol), and decrease your red meat intake to lower your LDL (bad chol) . -Ritchie - your trigs skyrockete d up - I found this online... It is concluded that anabolic steroids do produce a rapid increase in hepatic triglyceri de mobilizati on through accelerate d lipoprotei n release and/or synthesis. So - if you've been using steroids lately, this is your answer - and I'd encourage you to stop. If you haven't been using steroids lately - please make a telehealth appointmen t with me to discuss further. Meanwhile, best of luck with your shoulder surgery!! - Pat 09.16 - recheck lipids 10.18 - card turned down referral, will see if hem/onc can get him in (both are docs)desean alejo, tolerating crestor - cont as dir, recheck lipids in a few months (pt also lowered his T dose) Low back pain 342172208 M54.50 R SI jt better lately p crescencio injxn, but now has L sciatica - cont f/u c pssp as dir, rec taper oxycodone as dir - pending mri, cont alt ice/heat, prn nsaids/tyl . - cont f/u c pssp - had mri, ? needs surgery 1.24 - better p crescencio injxn Cervical radiculopathy 01451928 M54.12 ~ stable, cont pred taper as per pssp, cont f/u c them - ? may need crescencio injxn in future . - pain/radic ular sxs aggravated lately - seen by pssp - arranging PT and epiduralme anwhile, pt requested pain pill for hs - see above Rheumatoid arthritis of multiple joints 145706861 M06.9 stable - cont as dir, cont f/u c rheum Hemorrhoids 24935669 K64 .9 seen by colorectal sx - rec hydrocort supp prn, f/u prn 1.24 - [facility] - ? why defer banding, may consider surgery Testostero ne level below reference range 515684401 R79.89 pt requests re-test his T level - advised him to check in am, and to f/u c endo if levels are low again 5. - T level wnl - less frequent use of anabolic steroids d/t recent sx above 1.24 - recheck T - level very high, pt cut dose in 09/26 - pt does T injxn on Monday, advised pt to check T level in early a.m. on Mon. [id number] Justino Jackson PA-C [facility] [address] [facility] [address] [place] [address] 12/05/2023 15:21:31 12/05/2023 16:28:54 Attention deficit hyperactivity disorder, predominantly inattentive type 36829783 F90.0 tolerating med, no palp or insomnia - but wonder if affecting bp - cont as dir for now, see below 10..23 - rec cut methylphen idate in 09/26 to see if helps lower bp at home 12. - bp better lately - wnl - resume full tab bid as prior 3.24 - stable, last filled 2.14.24 Mixed hyperlipidemia 267 337221 E78.2 Ritchie - I found this online --- Steroids are known to cause lipid profile abnormalit ies, such as increases in total cholestero l, triglyceri de and LDL and a decrease in HDL levels. I believe they are affecting your blood counts too - see your cbc results - hard to tell if they are due to steroids or hemochroma tosis - suspect ferritin is being reduced by the steroids. Bottom line, I believe the steroids are harming your health, and you should strongly consider stopping them. I don't think your hematologi st would recommend another therapeuti c phlebotomy with the normal ferritin - I found this from Dr. Trivedi's last note - If ferritin >100 and hct >55 then refer back to hematology - so we will continue to monitor these. - Pat 5.23 - rec low carb diet to lower trigs, increase aerobic exercise to raise HDL (good chol), and decrease your red meat intake to lower your LDL (bad chol) 9. -Ritchie - your trigs skyrockete d up - I found this online... It is concluded that anabolic steroids do produce a rapid increase in hepatic triglyceri de mobilizati on through accelerate d lipoprotei n release and/or synthesis. So - if you've been using steroids lately, this is your answer - and I'd encourage you to stop. If you haven't been using steroids lately - please make a telehealth appointmen t with me to discuss further. Meanwhile, best of luck with your shoulder surgery!! - Pat 09.16 - recheck lipids 1.24 - card turned down referral, will see if hem/onc can get him in (both are HH docs)desean alejo, tolerating crestor - cont as dir, recheck lipids in a few months (pt also lowered his T dose) 3.24 - sig improvemen t on crestor and lower T dos Microalbuminuria 2737973 06 R80.9 significan tly elevated - urged pt to call renal - he called yesterday but intake person was not in - advised him to call later this morning 07.13.23 - pending see renal in 1-2 wks . - seen by renal, had kidney bx - 1 bx result pending, pending begin losartan as per renal 3.24 - stable/res olved, cont arb as dir, cont f/u c renal Cervical radiculopathy 47874544 M54.12 ~ stable, cont pred taper as per pssp, cont f/u c them - ? may need crescencio injxn in future 1.24 - pain/radic ular sxs aggravated lately - seen by pssp - arranging PT and epiduralme anwhile, pt requested pain pill for hs - see above 3.24 - stable p crescencio injxn, cont f/u c pssp [id number] Justino Jackson PA-C Main Office [address] [facility] [address] [place] [address] 12/18/2023 14:45:03 12/18/2023 15:48:10 Thrombosed external hemorrhoids 01187408 K64.5 seen by colorectal sx - rec hydrocort supp prn, f/u prn 1.24 - encouraged pt to call colorectal sx - ? why defer banding, may consider surgery 3.24 - cannot get in to see colorectal sx until 5.14.24 - encouraged pt to call wkly for cancellati onsmeanwhi le, rec cont stool softeners, stop prep-H - rather use stronger steroid cream --- and do sitz bath often - soak/sit in tub c minimum of 3 inches of warm water Low back pain 598026051 M54.50 R SI jt better lately p crescencio injxn, but now has L sciatica - cont f/u c pssp as dir, rec taper oxycodone as dir - pending mri, cont alt ice/heat, prn nsaids/tyl 12.23 - cont f/u c pssp - had mri, ? needs surgery 1.24 - better p crescencio injxn 3.24 - pt requested refill [id number] Jay Contreras MD Tele[facility] [address] [facility] [address] [place] [address] 02/15/2024 15:12:48 02/28/2024 14:01:29 Abscess of skin of right shoulder [id number] 9367763 L02.413 Pain at swelling at injection site. Will treat with abx. He understand s to go to the ER if he develops f/c or increasing or persistent pain. [id number] Justino Jackson PA-C Tele[facility] [address] [facility] [address] [facility] [place] [address] 02/27/2024 14:22:45 02/27/2024 15:41:39 Hemorrhoids 81364274 K64.9 seen by colorectal sx - rec hydrocort supp prn, f/u prn 1.24 - encouraged pt to call diana kerrie sx - ? why defer banding, may consider surgery 6.24 - pending see sx 03.11.24, requests refill steroid cream Abscess of skin of right shoulder 2340881049 8021008 L02.413 resolved p abx Attention deficit hyperactivity disorder, predominantly inattentive type 83500455 F90.0 tolerating med, no palp or insomnia - but wonder if affecting bp - cont as dir for now, see below 10.18.23 - rec cut methylphen idate in 1 to see if helps lower bp at home 12.23 - bp better lately - wnl - resume full tab bid as prior 6.24 - stable, last filled 5.9.24 Glaucoma 90040655 H40.9 new dx - cont drops as dirhad laser procedure done Hereditary hemochromatosis 98204737 E83.110 cont f/u c hem, gets phlebotomy q 1-2 wks 5.22 - resolved, no phlebotomy x few months - reviewed dc letter - rec check melonie/hct q 3 months 5.23 - ferritin ~ stable, H/H trending down ---- I don't think your hematologi st would recommend another therapeuti c phlebotomy - I found this from Dr. Trivedi's last note - If ferritin >100 and hct >55 then refer back to hematology - so we will continue to monitor these. 12.23 - pending see hem at [place] 10.18 1.24 - seen by hem, resumed therapeuti c phlebotomy 6.24 - better lately, phleb down to q 6 wks, cont f/u c hem [id number] NAEEM HERNANDES MD Main Office [address] [facility] [address] [place] [address] 04/04/2024 12:52:55 04/04/2024 13:30:04 Upper respiratory infection 62684991 J06.9 Community acquired pneumonia 811677652 J18.9 - high suspicion for pneumonia due to decreased breath sounds on lung exam and patient does appear acutely ill- pt tested negative for flu- to help with SOB and cough ordered albuterol as needed- x-ray of the chest ordered- will treat empiricall y, pt provided with doxycyline 100mg BID for 7 days- Tylenol OTC, not to exceed package insert for pain or fever q4-6h advised prn. 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 needs surgery 1.24 - better p crescencio injxn 3.24 - pt requested refill 8.24 - pt seen by SB ~ 2 wks ago - benefited from prn m relaxer - requests add'l - see belowd/w pt that he will be forwarding fmla paperwork to me likely next week - see hpi for details Spasm of back muscles 20 0153345 M62.830 [id number] Justino Jackson PA-C [facility] [address] [facility] [address] [facility] [place] [address] 05/28/2024 14:20:46 05/28/2024 15:42:39 Attention deficit hyperactivity disorder, predominantly inattentive type 10110222 F90.0 tolerating med, no palp or insomnia - but wonder if affecting bp - cont as dir for now, see below 10.18.23 - rec cut methylphen idate in 1/2 to see if helps lower bp at home 12.23 - bp better lately - wnl - resume full tab bid as prior 9.24 - pt requests increase dose a little, last filled 8.3.24 - so increase to 2 tabs in am, 1 tab at lunch Low back pain 226374102 M54.50 R SI jt better lately p crescencio injxn, but now has L sciatica - cont f/u c pssp as dir, rec taper oxycodone as dir - pending mri, cont alt ice/heat, prn nsaids/tyl 12.23 - cont f/u c pssp - had mri, ? needs surgery 1.24 - better p crescencio injxn 3.24 - pt requested refill 8.24 - pt seen by SB ~ 2 wks ago - benefited from prn m relaxer - requests add'l - see belowd/w pt that he will be forwarding up health system paperwork to me likely next week - see hpi for details 9.24 - filled out [place] paperwork c pt assistance pt requested refill of prn oxycodone - last filled 6.24 Hemorrhoids 94081102 K64 .9 seen by colorectal sx - rec hydrocort supp prn, f/u prn 1.24 - encouraged pt to call [facility] sx - ? why defer banding, may consider surgery 6.24 - pending see sx 6.17.24, requests refill steroid cream 9.24 - seen by colorectal sx - pending sx 1.25 [id number] Lyle Trent MD Main Office [address] [facility] [address] [facility] [place] [address] 07/06/2024 11:05:43 07/06/2024 11:26:12 Cellulitis and abscess of buttock 771258111 L03.317 Secondary to T injection. Some concern for deeper possibly muscular abscess/in fection. Will cover with Augmentin but patient advised that if pain and swelling worsen or fever develops he needs to call or go to ER if office isn't open for imaging, labs and possibly IV abx. Intramuscu lar testosterone adverse reaction 760302957 T38.7X5A Pt understand s/accepts risks associated with this. [id number] Justino Jackson PA-C [facility] [address] [facility] [address] [facility] [place] [address] 08/06/2024 13:21:41 08/06/2024 15:04:29 Chronic kidney disease stage 2 459680985 N18.2 rec drink more water, recheck next lab draw 11.24 - pt seen by renal 2 months ago - results pending (cannot reach him for results), will attempt to get, see below Microalbuminuria 6949755 06 R80.9 significan tly elevated - urged pt to call renal - he called yesterday but intake person was not in - advised him to call later this morning 10..23 - pending see renal in 1-2 wks 12. - seen by renal, had kidney bx - 1 bx result pending, pending begin losartan as per renal 3.24 - stable/res olved, cont arb as dir, cont f/u c renal 11.24 - get microalb c cc: renal Erectile dysfunction 860 768051 F52.21 pt requests refill Low back pain 929235899 M54.50 R SI jt better lately p crescencio injxn, but now has L sciatica - cont f/u c pssp as dir, rec taper oxycodone as dir - pending mri, cont alt ice/heat, prn nsaids/tyl 12. - cont f/u c pssp - had mri, ? needs surgery 1.24 - better p crescencio injxn 3.24 - pt requested refill 8.24 - pt seen by SB ~ 2 wks ago - benefited from prn m relaxer - requests add'l - see belowd/w pt that he will be forwarding fmla paperwork to me likely next week - see hpi for details 9.24 - filled out fmla paperwork c pt assistance pt requested refill of prn oxycodone - last filled 6. 11.24 - pt requested refill of prn oxycodone - last filled 9.24 Attention deficit hyperactivity disorder, predominantly inattentive type 46093885 F90.0 tolerating med, no palp or insomnia - but wonder if affecting bp - cont as dir for now, see below 10.18.23 - rec cut methylphen idate in 1/2 to see if helps lower bp at home 12.23 - bp better lately - wnl - resume full tab bid as prior 9.24 - pt requests increase dose a little, last filled 8.3.24 - so increase to 2 tabs in am, 1 tab at lunch 11.24 - pt requests change to ER formulatio n - would like to try generic adderall [id number] Justino Jackson PA-C [facility] [address] [facility] [address] [place] [address] 08/27/2024 14:20:09 08/27/2024 15:52:57 Attention deficit hyperactivity disorder, predominantly inattentive type 10619917 F90.0 tolerating med, no palp or insomnia - but wonder if affecting bp - cont as dir for now, see below 10.18.23 - rec cut methylphen idate in 1/2 to see if helps lower bp at home 12.23 - bp better lately - wnl - resume full tab bid as prior 9.24 - pt requests increase dose a little, last filled 8.3.24 - so increase to 2 tabs in am, 1 tab at lunch 11.24 - pt requests change to ER formulatio n - would like to try generic adderall 12.24 - no tolerate adderall, so went back on methylphen idate Anxiety [id number] F41.9 pt states family life is good, no time for counsellin g, work is good - cont bup as dir Chronic ki dney disease stage 2 [id number] N18.2 rec drink more water, recheck next lab draw 11.24 - pt seen by renal 2 months ago - results pending (cannot reach him for results), will attempt to get, see below 12.24 - renal started tarpeyo to help c microalbum inuria Hemorrhoids 11072596 K64 .9 seen by colorectal sx - rec hydrocort supp prn, f/u prn 1.24 - encouraged pt to call diana sy sx - ? why defer banding, may consider surgery 6.24 - pending see sx 03.11.24, requests refill steroid cream .24 - seen by colorectal sx - pending sx . 12.24 - stable lately, pending sx 1. Abscess of buttock 64998 003 L02.31 from steroid injxn - has had this perhaps 8-10 times over the past 10 years - has had success c augmentin, last rx'd by AW on 07.06.24 - no SEsrec better sterile technique to help prevent thisrecomm end probiotics while on abx [id number] Justino Jackson PA-C Main Office [address] [place] [address] 09/30/2024 14:28:30 09/30/2024 15:28:55 Adult health examination [id number] Z00.00 Anxiety 71858529 F41.9 pt states family life is good, no time for counsellin g, work is good - cont bup as dir Attention deficit hyperactivity disorder, predominantly inattentive type 13241012 F90.0 tolerating med, no palp or insomnia - but wonder if affecting bp - cont as dir for now, see below 10.18.23 - rec cut methylphen idate in 1/2 to see if helps lower bp at home 12.23 - bp better lately - wnl - resume full tab bid as prior 9.24 - pt requests increase dose a little, last filled 8.3.24 - so increase to 2 tabs in am, 1 tab at lunch 11.24 - pt requests change to ER formulatio n - would like to try generic adderall 12.24 - no tolerate adderall, so went back on methylphen idate 1.25 - stable on methyl - cont as dir Rheumatoid arthritis of multiple joints [id number] M06.9 stable - cont as dir, cont f/u c rheum q 6 months Hereditary hemochromatosis 70377857 E83.110 cont f/u c hem, gets phlebotomy q 1-2 wks 5.22 - resolved, no phlebotomy x few months - reviewed dc letter - rec check melonie/hct q 3 months 5.23 - ferritin ~ stable, H/H trending down ---- I don't think your hematologi st would recommend another therapeuti c phlebotomy - I found this from Dr. Trivedi's last note - If ferritin >100 and hct >55 then refer back to hematology - so we will continue to monitor these. 09.16 - pending see hem at [place] 10.18. - seen by hem, resumed therapeuti c phlebotomy . - better lately, phleb down to q 6 wks, cont f/u c hem . - stable lately off phlebotomy , cont f/u c hem q 6 months Microalbuminuria 6783347 06 R80.9 significan tly elevated - urged pt to call renal - he called yesterday but intake person was not in - advised him to call later this morning 07.13. - pending see renal in 1-2 wks 09.16 - seen by renal, had kidney bx - 1 bx result pending, pending begin losartan as per renal . - stable/res olved, cont arb as dir, cont f/u c renal 08.18 - get microalb c cc: renal . - cont meds, f/u c renal q 6 months - next in 12.17 Pericarditis 3529445 I31 .9 stable on rheum meds, f/u c card prn Mixed hyperlipidemia 267 673959 E78.2 Ritchie - I found this online --- Steroids are known to cause lipid profile abnormalit ies, such as increases in total cholestero l, triglyceri de and LDL and a decrease in HDL levels. I believe they are affecting your blood counts too - see your cbc results - hard to tell if they are due to steroids or hemochroma tosis - suspect ferritin is being reduced by the steroids. Bottom line, I believe the steroids are harming your health, and you should strongly consider stopping them. I don't think your hematologi st would recommend another therapeuti c phlebotomy with the normal ferritin - I found this from Dr. Trivedi's last note - If ferritin >100 and hct >55 then refer back to hematology - so we will continue to monitor these. - Pat 5.23 - rec low carb diet to lower trigs, increase aerobic exercise to raise HDL (good chol), and decrease your red meat intake to lower your LDL (bad chol) 9.23 -Ritchie - your trigs skyrockete d up - I found this online... It is concluded that anabolic steroids do produce a rapid increase in hepatic triglyceri de mobilizati on through accelerate d lipoprotei n release and/or synthesis. So - if you've been using steroids lately, this is your answer - and I'd encourage you to stop. If you haven't been using steroids lately - please make a telehealth appointmen t with me to discuss further. Meanwhile, best of luck with your shoulder surgery!! - Pat 12. - recheck lipids 1.24 - card turned down referral, will see if hem/onc can get him in (both are docs)desean alejo, tolerating crestor - cont as dir, recheck lipids in a few months (pt also lowered his T dose) 3.24 - sig improvemen t on crestor and lower T dos 1.25 - recheck, cont statin as dir Chronic ki dney disease stage 2 [id number] N18.2 rec drink more water, recheck next lab draw 11.24 - pt seen by renal 2 months ago - results pending (cannot reach him for results), will attempt to get, see below 12.24 - renal started tarpeyo to help c microalbum inuria Essential hypertension 97058987 I10 pt exceptiona lly nervous about above rmv paperwork - anxious to get his license back - no h/o htn, will recheck bp in a few weeks . - bp running high at ortho lately, has not been back in the office in several months to recheck bp - will have him rtc in 2 days for bp check 07.13.23 - initial bp sig elevated, but recheck in exam room twice is wnl ---- rec mindfulnes s, deep breathing ex to relax ac check bp in future 1.25 - bp ~ stable, cont med as dirif bp persists elevated, consider decrease adhd medication Gout 73670964 M10.9 has been on turmeric and celery seed - no flare x 3 months p took 2 courses of pred. admits to eating a lot of cheese - rec. decrease intake, provided purine restricted diet worksheet 7.22 - see above, check uric acid level in a few weeks 1.25 - believe do not have gout - rather RA Hemorrhoids 35251085 K64 .9 seen by colorectal sx - rec hydrocort supp prn, f/u prn 1.24 - encouraged pt to call diana sy sx - ? why defer banding, may consider surgery 6. - pending see sx ., requests refill steroid cream . - seen by colorectal sx - pending sx 1.25 12. - stable lately, pending sx 1.25 Long-term current use of immunosuppressive drug 333557552 Z79.899 Testostero ne level below reference range 260771329 R79.89 pt requests re-test his T level - advised him to check in am, and to f/u c endo if levels are low again 5.23 - T level wnl - less frequent use of anabolic steroids d/t recent sx above 1.25 - recheck T - level very high, pt cut dose in 1/2 - pt does T injxn on Monday, advised pt to check T level in early a.m. on Mon. Impaired f asting glycemia 207225734 R73.01 no evidence of predm Low back pain 954238253 M54.50 R SI jt better lately p crescencio injxn, but now has L sciatica - cont f/u c pssp as dir, rec taper oxycodone as dir - pending mri, cont alt ice/heat, prn nsaids/tyl . - cont f/u c pssp - had mri, ? needs surgery 1.24 - better p crescencio injxn 3.24 - pt requested refill 8.24 - pt seen by SB ~ 2 wks ago - benefited from prn m relaxer - requests add'l - see belowd/w pt that he will be forwarding la paperwork to me likely next week - see hpi for details . - filled out fmla paperwork c pt assistance pt requested refill of prn oxycodone - last filled 03.18 11. - pt requested refill of prn oxycodone - last filled 06.18 1.25 - pt requested refill of prn oxycodone - last filled 08.18 Health Concerns Section Related Observation LastModified by Organization Detai ls LastModified Time None Recorded Concern Status LastModified by Organization Details LastModified Time None Recorded Advance Directives Directive Y: Payers Encounter Date Sequence Insurance Name Policy Number Policy Ash Covered Member ID Ash Member ID Guarantor Name 05/28/2024 1 [place] [id number] Ritchie L Lianne [id number] Ritchie Lianne 07/06/2024 1 [place] [id number] Ritchie L Lianne [id number] Ritchie Lianne 08/06/2024 1 [place] [id number] Ritchie L Lianne [id number] Ritchie Lianne 08/27/2024 1 [place] [id number] Ritchie L Lianne [id number] Ritchie Lianne 09/30/2024 1 [place] [id number] Ritchie L Lianne [id number] Ritchie Lianne Notes Date Note Type Note Provider Name and Address Organization Details Recorded Time 05/28/2024 text/html ADHDReported bypatient.Organization :good organization Appetite:normal appetite; no binge eating Mood:stable Sleep:good Friends:well connected with peers Family:no new stressors Self Esteem:high Attention:able to focus Hyperactivity:is not hyperactive Impulsivity:is not impulsive Tasking:able to initiate tasks; able to complete tasks; able to move on to the next task; multi-tasking TH for f/u = stable on add med, but requests going up on dose a little d/t late afternoon / early evening fatigueable to sleep fine Justino Jackson PA-C [address] [address], [place], [address], [facility] 05/28/2024 15:38:14 07/06/2024 text/html Skin LesionRepor edenilson bypatient.Location:[facility] Quality:painful; tender; sore Severity:mild Duration:3 days ago Onset/Timing:gradual Context:trauma (injection) Associated Symptoms:no fever; no nausea; no vomitingNotes:38 y/o with RA on immunosuppressive therapy who injects testosterone periodically. States that he rotates sites and uses clean needles but occ gets infection. Last in right shoulder back in January that responded well to Augmentin. Injected most recently on 07/01 and then started to develop pain/swelling the following day. Lyle Trent MD [address] [address], [place], [address], [facility] 07/06/2024 11:42:04 08/06/2024 text/html pt states he saw Dr Soriano 2 months ago, but has had difficulty getting his resultshas other concerns - plz see a/p Justino Jackson PA-C [address] [address], [place], [address], [facility] 08/06/2024 14:55:41 08/27/2024 text/html ADHDReported bypatient.Organization :good organization Appetite:normal appetite; no binge eating Mood:stable Sleep:good Friends:well connected with peers Family:no new stressors Self Esteem:high Attention:able to focus Hyperactivity:is not hyperactive Impulsivity:is not impulsive Tasking:able to initiate tasks; able to complete tasks; able to move on to the next task; multi-tasking TH for f/u = stable on add med, but requests going up on dose a little d/t late afternoon / early evening fatigueable to sleep fine 12.24 - no tolerate adderall, back on methyl. - doing well Justino Jackson PA-C [address] [address], [place], [address], [facility] 08/27/2024 15:42:07 09/30/2024 text/html here for annual pe. Justino Jackson PA-C [address] [address], [place], [address], [facility] 09/30/2024 19:42:37
--- OUTSIDE RECORDS SUMMARY | 2024-10-18 15:45 | XMS_ITS | Clinical Summary ---
Author Organization [facility] ity Address [address] [place] [address] Care Team Providers Care Sas Architect Name Role Phone Unavailable Primary Care Provider Unavailabl e Medical History Medical History Date Comments Arthritis DX:Arthritis Social History Tobacco Use Types Packs/Day Years Used Date Smoking Tobacco: Never Smokeless Tobacco: Never Alcohol Use Standard Drinks/Week Comments Yes 0 (1 standard drink = 0.6 oz pur e alcohol) Sex and Gender Information Value Date Recorded Sex Assigned at Not on file Gender Identity Not on file Sexual Orientation Not on file Obstetrics History Plan of Treatment Health Maintenance Due Date Last Done Comments DTaP,Tdap,and Td Vaccines (1 - Tdap) 2004 Hepatitis B Vaccines (1 of 3 - 19+ 3-dose series) 2004 COVID-19 Vaccine (2023-2 5 season) 2024 Influenza Vaccine (#1) 2024 HIB Vaccines Aged Out No longer eligi ble based on patient's age to complete this topic HPV Vaccines Aged Out No longer eligi ble based on patient's age to complete this topic Hepatitis A Vaccines Aged Out No long er eligible based on patient's age to complete this topic IPV Vaccines Aged Out No longer eligi ble based on patient's age to complete this topic MMR Vaccines Aged Out No longer eligi ble based on patient's age to complete this topic Meningococcal ACWY Vaccine Aged Out N o longer eligible based on patient's age to complete this topic Pneumococcal Vaccine: Pediat rics (0 to 5 Years) and At-Risk Patients (6 to 64 Years) Aged Out No longer eligible b ased on patient's age to complete this topic RSV Immunization Patients Un archana 20 months Aged Out No longer eligible b ased on patient's age to complete this topic Varicella Vaccines Aged Out No longer eligible based on patient's age to complete this topic
--- OUTSIDE RECORDS SUMMARY | 2024-10-18 15:45 | XMS_ITS | Encounter Summary ---
Author Organization [facility] Address [address] [place] [address] Phone Care Team Providers Care Water Jet Loom Fixer Name Role Phone Yogesh Ba Ana Paula LUO Primary Care Provider [phone]- [phone] Encounter Details Date Type Department Care Team (Late st Contact Info) Description 10/03/2023 Office Communication [facility] [address] [facility] [address] [place] [phone] Levi Soriano MD [address] [place] [address] Social History Tobacco Use Types Packs/Day Years Used Date Smoking Tobacco: Never Smokeless Tobacco: Never Alcohol Use Standard Drinks/Week Comments Yes 0 (1 standard drink = 0.6 oz pur e alcohol) Sex and Gender Information Value Date Recorded Sex Assigned at Not on file Legal Sex Male 8:52 AM EDT Gender Identity Not on file Sexual Orientation Not on file documented as of this encounter Miscellaneous Notes * Telephone Encounter - Levi Soriano MD - 10/03/2023 5:28 AM EST Reschedule Ritchie Abdalla to see me in Oct--u can overbook if needed documented in this encounter Plan of Treatment Upcoming Encounters Date Type Department Care Team (Late Contact Info) Description 12/17/2024 4:00 PM EDT Office [facility] [address] [place] [address] Levi Soriano MD [address] [place] [address] documented as of this encounter Visit Diagnoses Not on filedocumented in this encounter Care Teams Water Jet Loom Fixer Relationship Specialty Start Date End Date Ba Zuñiga PA-C [address] [facility] [address] [place], [place] PCP - General Physician Boathouse Keeper 02/17/22 documented as of this encounter
--- OUTSIDE RECORDS SUMMARY | 2024-10-18 15:45 | XMS_ITS | Encounter Summary ---
Author Organization [facility] Address [address] [facility] [address] [place] [address] Phone Care Team Providers Care Retail Coverage Merchandiser Lead Name Role Phone Ba Zuñiga PA-C Primary Care Provider [phone]- [phone] Reason for Referral * Imaging (Routine) - Closed Specialty Diagnoses / Procedures Referred By Contac t Referred To Contact Diagnoses Persistent proteinuria Procedures US Guided Renal Biopsy Levi Soriano MD Phone: tel: fax: Referral ID Status Reason Start Date Expiration Date Visits Re quested Visits Authorized [id number] Closed 08/04/2023 08/03/2024 1 1 Encounter Details Date Type Department Care Team (Latest Contact Info) Description 08/04/2023 Office Communication [facility] [address] [facility] [address] [place] [address] Levi Soriano MD [address] [facility] [address] [place] [phone] Persistent proteinuria (Primary Dx) Social History Tobacco Use Types Packs/Day Years [...] Telephone Encounter - Levi Soriano MD - 08/04/2023 2:50 AM EST [facility] Plan of Treatment Upcoming Encounters Date Type Department Care Team (Late st Contact Info) Description 12/17/2024 4:00 PM EDT Office Visit [facility] [address] [facility] [address] [place] [phone] Levi Soriano MD [address] [facility] [address] [place] [address] Scheduled Orders Name Type Priority Associated Diagnoses Orde r Schedule US Guided Renal Biopsy Imaging Routine Persistent proteinuria Expected: 08/11/2023, Expires: 08/04/2024 documented as of this encounter Visit Diagnoses Diagnosis Persistent proteinuria- Primary documented in this encounter Care Teams Retail Coverage Merchandiser Lead Relationship Specialty Start Date End Date Ba Zuñiga PA-C [address] [facility] [address] [place], [place] PCP - General Physician Pre Billing Clinician 02/17/22 documented as of this encounter
--- OUTSIDE RECORDS SUMMARY | 2024-10-18 15:45 | XMS_ITS ---
Author Organization [facility] javi Dayton Address [address] [place] [address] Care Team Providers Care Film Masker Name Role Phone Ba Zuñiga PA-C Primary Care Provider Willow Ospina Unavailable [phone] Allergies No Known Allergies REASON FOR VISIT Pcp- 09/16, Fungal Nails, Ingrown nail Medications Medication SIG (Take, Route, Frequency, Duration) Notes Start Date End Date Status Venlafaxine HCl ER 75 MG 1 capsule with food Orally Once a day for 30 day(s) Not-Taking buPROPion HCl ER (SR) 100 MG 1 tablet in the morning Orally Once a day for 30 day(s) Not-Taking oxyCODONE HCl 15 MG 1 tablet Orally ever y 6 hrs Not-Taking Clobetasol Prop Emollient Base 0.05 % 1 application Externally Twice a day for 10 day(s) Not-Taking valACYclovir HCl 500 MG 1 tablet Orally Once a day for 10 day(s) Not-Taking Feldene 20 MG 1 capsule with food Orally Once a day for 14 days 10/13/2021 Not-Taking Naproxen 500 MG 1 tablet with food o r milk as needed Orally every 12 hrs Not-Taking Cialis 10 MG 1 tablet as needed Orally for 30 day(s) Not-Taking rOPINIRole HCl 0.5 MG 1 tablet 1 to 3 ho urs before bedtime Orally Once a day for 30 day(s) Not-Valentin ing Albuterol Sulfate HFA 108 (90 Base) MCG/ACT 1 puff as needed Inhalation every 4 hrs Not-Takin g Ciclopirox 0.77 % 1 application Gas Engine Operator ally Twice a day for 365 days Active Humira Pen 40 MG/0.4ML as directed Subcutaneous Not-Taking Leflunomide 20 MG 1 tablet Orally Once a day for 30 day(s) Active Timolol Maleate 0.5 % 1 drop into affect ed eye Ophthalmic Once a day Active Lamisil 250mg 1 tablet orally Once daily for 30 days Active Enbrel Active Losartan Potassium A ctive Wellbutrin SR 100 MG 1 tablet in the mor lee Orally Once a day for 30 day(s) Active Social History Tobacco Use: Social History Observation [...] No Vital Signs Height 5ft 10in in 10/20/2023 Weight 205 lbs 10/20/2023 BMI 29.41 kg/m2 10/20/2023 Blood pressure systolic 120 mm Hg 10/20/19 24 Blood pressure diastolic 70 mm Hg 024 Encounters Encounter Location Date Provider Diagnosis [facility] [place] [address] [place] [address] 10/20/2023 Willow An Fungal infection of nail B35.1 ; Ingrown nail L60.0 and Pain in right toe(s) M79.674 Assessments Encounter Date Diagnosis (ICD Code) Assessment Notes Treatment Notes Treatment Clinical Notes Section Notes 10/20/2023 Fungal infection of nail (ICD-10 - B35.1) 10/20/2023 Ingrown nail (ICD-10 - L60.0) 10/20/2023 Pain in right toe(s) (ICD-10 - M79.674) Plan Of Treatment Medication Medication Name Sig Start Date Stop Date Notes Ciclopirox 0.77 % 1 application Gas Engine Operator ally Twice a day for 365 days Lamisil 250mg 1 tablet orally Once daily for 30 days Pending Test Test Name Order Date *Liver Function Test (LFT) 10/20/2023 Next Appt Details Follow Up: 2-4 Weeks, Reason : Procedure Notes * Category Sub-Category Detail Notes Matricectomy (OP NOTE) Consent The patie nt was brought to the examination room and placed on the table in a supine position. The pre/fan/postoperative course, risks, complications and alternatives were discussed, understood and accepted by the patient. No guarantees were given regarding the surgical outcome Procedure A digital prep with alcohol or betadine was performed. 3cc of 1 percent Xylocaine Plain local anesthetic was administered to the toe via digital block utilizing aseptic technique. A digital touriquet was applied. The affected toenail portion was undermined, incised and resected to the eponychium and matrix. It was noted to be significantly incurvated and hypertrophied. The nailbed and matrix were curetted and the nail groove, bed and matrix were cauterized with Phenol, 3 applications of 30 seconds each from a cotton tip applicator, no underling bone was identified. The surrounding skin was protected from the Phenol with Bacitracin ointment. The tourniquet was released and capillary fill time was intact to the digit. A sterile Bacitracin dressing was applied Disposition Disposition: The pat ient tolerated the procedure and anesthesia well and left in good condition, alert, oriented and stable in no acute distress. Local wound care instructions were discussed and dispensed. There were no complications and the prognosis is favorable, Recommended alternating/staggering Tylenol XS 2 tabs and Motrin 600mg q 6 hrs ea for discomfort, Rx narcotic postop pain meds were deferred Location Total nail , T5 Progress Notes * Dhruv ABDALLASamuelOB:1985 (37 yo M)Acc No.[id number]:10/20/2023 Progress Note Patient:?Ritchie Abdalla Provider:?Willow An DPM :1985???Age:37 Y???Sex:Male Jeremiah e:10/20/2023 Address:[address] [place] [id number] Pcp:Ba Zuñiga PA-C Subjective: * Chief Complaints: * ???Pcp- 09/16Fungal NailsIng rown nail * HPI: ???Painful Nails:?Nature:?aching, tender, discolored, thick.?Course:?worse.?Aggrevated by:?shoegear causing difficulty standing/walking.?Treatments:?Topical Antifungal.? * ROS:?General/Constitutional:?Nausea?denies.?Vomiting?denies.?Hunger Thirst?denies.?Loss appetite?denies.?Chills?denies.?Fatigue?denies.?Fever?denies.?Night Sweats?denies.?Unexplained weight loss?denies.?Unexplained weight gain?denies.?HEENTM:?Dentures?denies.?Dizziness?denies.?Glasses/contacts?admits.?Retinopathy?de nies.?Blurred/double vision?denies.?TMJ?denies.?Discharge/drainage?denies.?Implants?denies.?Sore throat?denies.?Dental implants?denies.?Hard of hearing ?denies.?Difficulty chewing/swallowing/speaking?denies.?Nose bleeds?denies.?Sore mouth?denies.?Respiratory:?On Oxygen?denies.?Pneumonia/pleurisy?admits.?Bronchitis?admits.?Emphysema?denies.?C oughing?denies.?Cough blood?denies.?Shortness of breath?denies.?Wheezing?denies.?Cardiovascular:?Pacemaker?denies.?MVP?denies.?WPW?denies.?CHF?denies.?Heart attack?denies.?Septal defect?denies.?Rapid beat?denies.?Chest pain ?denies.?Atrial Fib.?denies.?Murmur/Palpitations?denies.?Gastrointestinal:?Hemorrhoids?denies.?Stomach/Abdominal pain?denies.?Dark blood stool?denies.?Irritable bowel ?denies.?Constipation?denies.?Diarrhea?denies.?Hematology:?Swelling?admits.?Clots?denies.?Varicose Veins?denies.?Bruising?denies.?Bleeding problem?denies.?Genitourinary:?Blood urine?denies.?Frequent/Painfu/urination/bladder control?denies.?Kidney stones?denies.?Infection (UTI)?denies.?Nephropathy?denies.?sex trans dis (STD)?denies.?Prostate?denies.?Musculoskeletal:?Hammertoes?denies.?Bunions?denies.?Back Pain?denies.?Muscle Cramps/ Resting?denies.?Muscle cramps / walking?denies.?Generalized aches and pains?admits.?Weakness?denies.?Integ.:?Mcgill?denies.?Scars?denies.?Corns/calluses?admits.?Ingrown nails?admits.?Painful nails?admits.?Open Sores?denies.?Rashes?denies.?Neurologic:?Difficulty sleeping?denies.?Brain disorder?denies.?Numbness?admits.?Balance trouble?denies.?Confusion?denies.?Fainting/blackouts?denies.?Tingling?admits.?Tr emors?denies.? * Medical History:? * Surgical History:?shoulder s urgery- right 08/02/2021[place] surgery- left 01/15,06/17 * Hospitalization/Major Diagno stic Procedure:?[facility] - Ing Toenail [facility]- Ing toenai 10/2020 * Family History:?Mother: shaunna macias.?Father: alive, [...] Tablet 1 tablet Orally Once a dayTaking Losartan Potassium Taking Enbrel Taking Wellbutrin SR 100 MG Tablet Extended Release 12 Hour 1 tablet in the morning Orally Once a dayTaking Timolol Maleate 0.5 % Solution 1 drop into affected eye Ophthalmic Once a dayTaking Leflunomide 20 MG Tablet 1 tablet Orally Once a dayNot- Taking/PRNHumira Pen 40 MG/0.4ML Pen-injector Kit as directed [...] List reviewed and reconciled with the patientNot-Taking/PRN Humira Pen 40 MG/0.4ML Pen-injector Kit as directed Subcutaneous Not-Taking/PRN Feldene 20 MG Capsule 1 capsule with food Orally Once a dayNot-Taking/PRN Cialis 10 MG Tablet 1 tablet as needed Orally Not- Taking/PRN Naproxen 500 MG Tablet 1 tablet with [...] % Cream 1 application Externally Twice a dayNot- Taking/PRN Venlafaxine HCl ER 75 MG Capsule Extended Release 24 Hour 1 capsule with food Orally Once a dayMedication List reviewed and reconciled with the patient * Allergies:?N.K.D.A.yes[Aller gies Verified] Objective: * Vitals:?Ht: 5ft 10in, Wt:205 , BMI:29.41, Shoe size: 13, BP:120/70 mm Hg, Ht-cm: 177.8 cm, Wt-k.99 kg. [...] extremities, Pt denies, anesthesia, burning, paresthesia, tingling, B/L.?DEEP TENDON REFLEXES:?Achilles, 2/4, B/L.?Vascular: ?DP PULSES:?3/4, B/L.?PT PULSES:?/4, B/L.?CAPILLARY FILL TIME:?immediate, all digits, B/L.?SKIN TEMPERTURE GRADIENT OF THE LOWER EXTERMITIES:?warm to cool, proximal to distal, B/L.?HAIR GROWTH/TEXTURE/ELASTICITY/TURGOR:?normal, B/L.?PIGMENTATION:?normal, B/L.?EDEMA:?absent, B/L.?Dermatologic: ?SKIN FINDINGS:?Skin exam reveals normal texture, elasticity, and turgor. There are no masses. The interspaces are clear.?Orthopedic: ?MUSCLE STRENGTH:?5/5 all groups in a symmetrical fashion , B/L.?Nails: ?NAILS are:?Elongated, overgrown, dystrophic, lytic, greater than 3mm thick, discolored and friable with crumbly malodorous subungual debris, with pain on palpation , 1-5 Right foot , 2-5 Left foot.?Ingrown Nail: ?INSPECTION:?Reveals incurvation, pain on palpation, groove hypertrophy , T5 , There is evidence of surrounding periungual tissue erythema.? Assessment: * Assessment: 1.?Ingrown nail - L60.0?2.?F ungal infection of nail - B35.1 (Primary), Chronic problem, Worse (4)?3.?Pain in right toe(s) - M79.674? Plan: * Treatment: * Procedures:?Matricectomy (OP NOTE):?Location?Total nail , T5.?Consent?The patient was brought to the examination room and placed on the table in a supine position. The pre/fan/postoperative course, risks, complications and alternatives were discussed, understood and accepted by the patient. No guarantees were given regarding the surgical outcome.?Procedure?A digital prep with alcohol or betadine was performed. 3cc of 1 percent ?Xylocaine Plain local anesthetic was administered to the toe via digital block utilizing aseptic technique. A digital touriquet was applied. The affected toenail portion was undermined, incised and resected to the eponychium and matrix. It was noted to be significantly incurvated and hypertrophied. The nailbed and matrix were curetted and the nail groove, bed and matrix were cauterized with Phenol, 3 applications of 30 seconds each from a cotton tip applicator, no underling bone was identified. The surrounding skin was protected from the Phenol with Bacitracin ointment. The tourniquet was released and capillary fill time was intact to the digit. A sterile Bacitracin dressing was applied .?Disposition?Disposition: The patient tolerated the procedure and anesthesia well and left in good condition, alert, oriented and stable in no acute distress. Local wound care instructions were discussed and dispensed. There were no complications and the prognosis is favorable, Recommended alternating/staggering Tylenol XS 2 tabs and Motrin 600mg q 6 hrs ea for discomfort, Rx narcotic postop pain meds were deferred.? * Procedure Codes:?47953 REMOV AL OF NAIL BED * Preventive Medicine:? ??Counseling:?Discussion:?-14: Office or other [...] have encouraged the patient to call the office.?Abscess/Paraonychia/Ingrown Nails:?We discussed the possible etiologies (genetic, improper nail care, shoe gear, nail trauma) which may lead to ingrown nails and/or paronychial infections. We discussed and reviewed palliative/nonsurgical/deferring definitive treatment (vs) undergoing the treatment procedures of nail avulsion(s) or PNA, which may prevent recurrence and give more lasting results. The possible risks/complications such as worsened condition/delayed healing/nonhealing/failure/recurrence/infection, the potential benefits/advantages of decreased pain/deformity, as well as alterative treatment options including applying nail softening agents/nail groove packing were discussed. No guarantees were given regarding any outcome for any procedure. The patient was educated in the length of time for the affected nail to regrow once completely healed from a nail avulsion procedure. Once the condition has completely healed, the patient was consulted on proper nail care. Patient questions such as details of each procedure, varying time to heal, activity post procedure, and shoe gear were discussed and the answers were verbally confirmed fully understood.?Fungal Nail Counseling:?The patient was counseled on the diagnosis, potential etiologies (including, but not limited to, environmental factors, genetic, immune deficiency), and the multiple treatment options for Onychomycosis. We discussed the risks and benefits of each option from performing no treatment, to ultraviolet light shoe treatment, to laser nail treatment, to applying topical antifungals, to taking oral antifungal medication, to surgical removal of the involved nail(s) with or without performing a matricectomy, or any combination thereof. We discussed the advantages and disadvantages of each of possible treatment and importance for adherence to all the recommended therapies for optimum success. This includes the necessity for weekly emery board self nail home debridements, and control the nail and skin environment as much as possible by only using a fresh, dry pair of shoes/socks each day, as well as keeping the skin as dry as possible through the use of sprays/powders if necessary. The patient was instructed to discard the emery board after use to prevent reinfection of the involved nail(s). We discussed the mycological and visual clinical effectiveness of topical vs oral antifungal treatments as well as each ones potential side effects and/or any patient- specific medication interactions. We discussed the reasons behind the important requirement of regular liver function testing with oral antifungal therapy for safety. Patient questions regarding use, dosage, successful outcomes, blood tests, and possible pharmaceutical interactions were reviewed and the patient verbalized that all answers were clearly understood. Pt thinking about oral medication.? * Follow Up:?2-4 Weeks * Images: * Sign off status: Completed true * Provider:?Willow An DPM Date:? Generated for Lissett snyder/Mervin/Joe on:?10/18/2024 03:44 PM EST History and Physical Notes * HPI (History of Present Illness) Category Sub-Category Detail Notes Category Not es Painful Nails Aggravated by: shoegear causing difficulty standing/walking Course: worse Nature: aching, tender, disc olored, thick Treatments: Topical Antifungal Examination Category Sub-Category Detail Notes Category Not es Ingrown Nail INSPECTION: Reveals incurvat ion, pain on palpation, groove hypertrophy , T5 , There is evidence of surrounding periungual tissue erythema Neurological SENSORY: Neurological exa m reveals intact sensorium, pain sensation normal, vibration sensation intact, pinprick sensation is normal in the lower extremities, Pt denies, anesthesia, burning, paresthesia, tingling, B/L DEEP TENDON REFLEXES: Achilles, 2/4, B/L Dermatologic SKIN FINDINGS: Skin exam reveal s normal texture, elasticity, and turgor. There are no masses. The interspaces are clear Orthopedic MUSCLE STRENGTH: 5/5 all groups in a symm etrical fashion , B/L General Examination GENERAL APPEARANCE: [...] EDEMA (C): absent, B/L PIGMENTATION: normal, B/L Nails NAILS are: Elongated, overg rown, dystrophic, lytic, greater than 3mm thick, discolored and friable with crumbly malodorous subungual debris, with pain on palpation , 1-5 Right foot , 2-5 Left foot
--- OUTSIDE RECORDS SUMMARY | 2024-10-18 15:45 | XMS_ITS ---
Author Organization [facility] Address [address] [place] [address] Care Team Providers Care Roller Mill Operator Name Role Phone Ba Zuñiga PA-C Primary Care Provider Unava ilWillow Rowland Unavailable [phone] REASON FOR VISIT MRI Encounters Encounter Location Date Provider Diagnosis [facility] [address] [place] [address] 11/24/2023 Willow An Plan Of Treatment No Information Progress Notes * Kiki ABDALLAOB:1985 (37 yo M)Acc No.[id number]:11/24/2023 Patient:?Ritchie Abdalla :1985???Age:37 Y???Sex:Male Address:[address] [place] [address], [phone] * true * Date:? Generated for Lissett snyder/Mervin/eTransmitting on:?10/18/2024 03:44 PM EST
== END 2024-10-18 14:00 | disposition home or self-care (01) ==
LOC: HO.BBR 13:59
PROVIDERS: PCP Physician Assistant Medical; Visit Provider Internal Medicine
DX: D75.1 Secondary polycythemia (principal)
CPT/HCPCS: 85018; 99195

== ENCOUNTER 2024-12-20 14:13 | Outpatient (REF) | payer BC, SELFPAY | END 2024-12-20 14:14 | disposition home or self-care (01) | LOC: HO.BBR 14:13 | PROVIDERS: PCP Physician Assistant Medical; Visit Provider Internal Medicine | DX: D75.9 Disease of blood and blood-forming organs, unspecified (principal) | CPT/HCPCS: 85014; 85018; 99195 ==

== ENCOUNTER 2025-02-19 13:05 | Outpatient (REF) | payer BC, SELFPAY ==
--- OUTSIDE RECORDS SUMMARY | 2025-02-19 13:53 | XMS_ITS | Patient Health Record ---
Author Organization 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 Plan Of Treatment Pending Test Test Name Order Date *Liver Function Test (LFT) 10/20/2023 X ray : Foot, right 3V 11/24/2023 X ray : Foot, right 3V 10/13/2021 X ray : Foot, right 3V 01/06/2022 [id number], J0702- Neuroma/Injection 01/07/20 22 Insurance Providers Payer Name Payer Address Payer Phone Subscriber Number Group Number Insured Name Patient Relationship to Insured Coverage Start Date Coverage End Date [facility] All Others [address] [place] [address] [phone] [id number] Ritchie Abdalla Self - patient is the insured Medical (General) History Medical History History ICD Code Gout hemochromatosis Depression Anxiety Restless leg syndrome Glaucoma Pericarditis Eczema rheumatoid arthritis Spinal stenosis Back pain asthma ADHD Back,Hip,and Knee pain Covid 19 Surgical History Surgery Date(Month/Year) shoulder surgery- right 08/02/2021 shoulder surgery- left 01/15,06/17 Hospitalization History Reason Date(Month/Year) [facility]- Ing toenail 10/2020 - Ing Toenail
== END 2025-02-19 13:06 | disposition home or self-care (01) ==
LOC: HO.BBR 13:05
PROVIDERS: PCP Physician Assistant Medical; Visit Provider Internal Medicine
DX: D75.1 Secondary polycythemia (principal)
CPT/HCPCS: 85014; 85018; 99195

== ENCOUNTER 2025-04-18 15:37 | Outpatient (REF) | payer BC, SELFPAY | END 2025-04-18 15:38 | disposition home or self-care (01) | LOC: HO.BBR 15:37 | PROVIDERS: PCP Physician Assistant Medical; Visit Provider Internal Medicine | DX: D75.1 Secondary polycythemia (principal) | CPT/HCPCS: 85014; 85018; 99195 ==

== ENCOUNTER 2025-07-18 14:27 | Outpatient (REF) | payer BC, SELFPAY ==
--- OUTSIDE RECORDS SUMMARY | 2025-07-18 16:19 | XMS_ITS | Patient Health Record ---
Author [facility] Address [address] [place] [address] Care Team Providers Care Procurement Professional Name Role Phone Ba Zuñiga PA-C Primary Care Provider Willow Ospina Unavailable [phone] Allergies No Known Allergies Reason For Referral No Information Medications Medication SIG (Take, Route, Frequency, Duration) Notes Start Date End Date Status Leflunomide 20 MG 1 tablet Orally Once a day; Duration: 30 day(s) Active valACYclovir HCl 500 MG 1 tablet Orally Once a day; Duration: 10 day(s) Not-Valentin ing Timolol Maleate 0.5 % 1 drop into affect ed eye Ophthalmic Once a day Active buPROPion HCl ER (SR) 100 MG 1 tablet in the morning Orally Once a day; Duration: 30 day(s) Not-Taking Wellbutrin SR 100 MG 1 tablet in the mor lee Orally Once a day; Duration: 30 day(s) Active oxyCODONE HCl 15 MG 1 tablet Orally ever y 6 hrs Not-Taking Enbrel Active rOPINIRole HCl 0.5 MG 1 tablet 1 to 3 ho urs before bedtime Orally Once a day; Duration: 30 day(s) Not-Taking Losartan Potassium A ctive Albuterol Sulfate HFA 108 (90 Base) MCG/ACT 1 puff as needed Inhalation every 4 hrs Not-Takin g Naproxen 500 MG 1 tablet with food o r milk as needed Orally every 12 hrs Not-Taking Cialis 10 MG 1 tablet as needed Orally; Duration: 30 day(s) Not-Taking Feldene 20 MG 1 capsule with food Orally Once a day; Duration: 14 days 10/13/2021 Not-Taking Humira Pen 40 MG/0.4ML as directed Subcutaneous Not-Taking Lamisil 250mg 1 tablet orally Once daily; Duration: 30 days Not-Valentin ing Venlafaxine HCl ER 75 MG 1 capsule with food Orally Once a day; Duration: 30 day(s) Not-Taking Clobetasol Prop Emollient Base 0.05 % 1 application Externally Twice a day; Duration: 10 day(s) Not-Taking Ciclopirox 0.77 % 1 application Position Clerk ally Twice a day; Duration: 365 days Active Immunizations Vaccine Route Administration [...] Problem Status W/U Status Risk Notes Problem Khan's metatarsalgia (disorder) ([id number]) 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 Plan Of Treatment Pending Test Test Name Order Date *Liver Function Test (LFT) 10/20/2023 X ray : Foot, right 3V 11/24/2023 X ray : Foot, right 3V 10/13/2021 X ray : Foot, right 3V 01/06/2022 [id number], J0702- Neuroma/Injection 01/07/20 22 Insurance Providers Payer Name Payer Address Payer Phone Subscriber Number Group Number Insured Name Patient Relationship to Insured Coverage Start Date Coverage End Date [facility] [address] [place] [address] [phone] [id number] Ritchie Abdalla Self - patient is the insured Medical (General) History Medical History History ICD Code Gout hemochromatosis Depression Anxiety Restless leg syndrome Glaucoma Pericarditis Eczema rheumatoid arthritis Spinal stenosis Back pain asthma ADHD Back,Hip,and Knee pain Covid 19 Surgical History Surgery Date(Month/Year) shoulder surgery- right 08/02/2021 shoulder surgery- left 01/15,06/17 Hospitalization History Reason Date(Month/Year) [facility]- Ing toenail 10/2020 [facility] - Ing Toenail
--- OUTSIDE RECORDS SUMMARY | 2025-07-18 16:19 | XMS_ITS | Clinical Summary ---
Author Organization [facility] Address [address] [place] [address] Care Team Providers Care Electric Frying Pan Repairer Name Role Phone Unavailable Primary Care Provider [...] at Not on file Legal Sex Male 12:41 PM EST Gender Identity Not on file Sexual Orientation Not on file Obstetrics History Plan of Treatment Health Maintenance Due Date Last Done Comments DTaP,Tdap,and Td Vaccines (1 - Tdap) 2004 Hepatitis B Vaccines (1 of 3 - 19+ 3-dose series) 2004 HPV Vaccines (1 - 3-dose SCD M series) 2012 Depression Screening 09/25/2024 COVID-19 Vaccine ( - 2023-2 5 season) 2025 Influenza Vaccine (#1) 2025 RSV Immunization Adult Patie nts (1 - 1-dose 75+ series) 2060 HIB Vaccines Aged Out No longer eligi [...] patient's age to complete this topic Meningococcal B Vaccine Aged Out No l onger eligible based on patient's age to complete this topic Pneumococcal Vaccine: Pediat rics (0 to 5 Years) and At-Risk Patients (6 to 49 Years) Aged Out No longer eligible b ased on patient's age to complete this topic RSV Immunization Patients Un archana 20 months Aged Out No longer eligible b ased on patient's age to complete this topic Varicella Vaccines Aged Out No longer eligible based on patient's age to complete this topic
--- OUTSIDE RECORDS SUMMARY | 2025-07-18 16:20 | XMS_ITS | Data Portability ---
Author Organization [facility], Main Office Address [address] [facility] [address] [place] [address] Care Team Providers Care Regional Engineer Name Role Phone JACKSONJUSTINO DHALIWAL Primary Care Provider ADELINE ZAVALETA Blow Off Worker JAZMINE LAZO Neurosurgeon FRANCI NEWBY Billet Recorder [phone] [facility] (RAZIA BOATENG) Orthopedic Surgeon LUZ SORIANO Loan Specialist CRYSTAL DOUGHERTY Hematology/Oncology Assessment Encounter Date Assessment Date Assessment LastModified by Organization Details LastModified Time 08/06/2024 08/06/2024 This service was provided using telemedicine. Patient consented to video & audio visit Patient was located in the [facility]. Provider was located in the office. No other persons participated in the telemedicine visit except for the patient unless otherwise indicated here. Total time of visit was 22 minutes. pmadden Not available 08/06/2024 14:52:57 08/27/2024 08/27/2024 This service was provided using telemedicine. Patient consented to video & audio visit Patient was located in the [facility]. Provider was located in the office. No other persons participated in the telemedicine visit except for the patient unless otherwise indicated here. Total time of visit was 18 minutes. pmadden Not available 08/27/2024 15:38:14 12/31/2024 12/31/2024 This service was provided using telemedicine. Patient consented to video & audio visit Patient was located at home in the [facility]. Provider was located in the office. No other persons participated in the telemedicine visit except for the patient unless otherwise indicated here. Total time of visit was 20 minutes. pmadden Not available 12/31/2024 15:35:02 06/03/2025 06/03/2025 This service was provided using telemedicine. Patient consented to telephone visit Patient was located at home in the [facility]. Provider was located in the office. No other persons participated in the telemedicine visit except for the patient unless otherwise indicated here. Total time of visit was 23 minutes. pmadden Not available 06/03/2025 16:28:25 Plan of Treatment Reminders Order Date Submit Date Provider Last Modified By Organization Details Last Modified Time Details Appointments None recorded. Lab lipid panel, serum 2024 025 [facility] (Centralized Electronic Ordering - All Locations), Patient Can Go To The Location Of Their Choice, 10:11:40 CK (creatine kinase), total, serum 2024 025 [facility] (Centralized Electronic Ordering - All Locations), Patient Can Go To The Location Of Their Choice, 10:11:41 HbA1c (hemoglobin A1c), blood 2024 025 [facility], [address] [place] [address] [place], [place], [address], 10:11:42 CMP, serum or plasma 2024 025 [facility] (Centralized Electronic Ordering - All Locations), Patient Can Go To The Location Of Their Choice, 10:11:39 testosteron e, free + total, serum 2024 025 [facility] (Centralized Electronic Ordering - All Locations), Patient Can Go To The Location Of Their Choice, 10:11:41 HbA1c (hemoglobin A1c), blood 2024 025 [facility] (Centralized Electronic Ordering - All Locations), Patient Can Go To The Location Of Their Choice, 18:05:43 lipid panel, serum 2024 025 [facility] (Centralized Electronic Ordering - All Locations), Patient Can Go To The Location Of Their Choice, 18:05:41 CMP, serum or plasma 2024 025 [facility] (Centralized Electronic Ordering - All Locations), Patient Can Go To The Location Of Their Choice, 18:05:40 CK (creatine kinase), total, serum 2024 025 [facility] (Centralized [facility] Ordering - All Locations), Patient Can Go To The Location Of Their Choice, 18:05:43 microalbumi n/creatinin e, mass ratio, urine 2024 025 [facility]), Patient Can Go To The Location Of Their Choice, 18:05:41 CBC w/ auto diff 2024 025 [facility]), Patient Can Go To The Location Of Their Choice, 18:05:39 testosteron e, free + total, serum 2024 025 [facility]ations), Patient Can Go To The Location Of Their Choice, [id number] 18:05:42 microalbumi n/creatinin e, mass ratio, urine 2023 024 [facility]), Patient Can Go To The Location Of Their Choice, [id number] 4 16:06:14 Referral None recorded. Procedures None recorded. Surgeries None recorded. Imaging None recorded. Medication Orders methylpheni date 20 mg tablet 2024 025 [facility]/Pharmacy #[id number], [address] [place], [address], 16:29:33 methylpheni date 20 mg tablet 2024 025 [facility], [address] [place], [address], 5 15:34:08 methylpheni date 20 mg tablet 2024 025 [facility] [address] [place], [address], 5 15:34:09 oxycodone 15 mg tablet 2024 025 [facility] [address] [place], [address], 5 05:01:15 methylpheni date 20 mg tablet 2024 025 [facility] [address] [place], [address], 5 15:27:29 Augmentin 875 mg-125 mg tablet 2023 025 [facility] [address] [place] [address], [address], 5 14:35:01 methylpheni date 20 mg tablet 2023 024 [facility] [address] [place], [address], 4 15:40:23 sildenafil 100 mg tablet 2023 024 [id number] [facility]/Pharmacy #7111, [address] [place] [address], [address], 4 07:21:48 oxycodone 15 mg tablet 2023 024 [facility] [address] [place] [address], [address], 5 05:01:15 dextroamphe tamine-amph etamine ER 20 mg 24hr capsule,ext end release 2023 024 [facility] #[facility], [address] [facility], [place], [address], 10:10:10 Patient Targets Encounter Date Encounter Id Patient Goals Patient Target Last Modified By Organization Details Last Modified Time 09/30/2024 [id number] manager long term care goal of Blood Pressure 140 / 90 Not available Not available Not available manager long term care goal of Exercise level Not available Not available Not available shelter goal of Tobacco Smoking Status Not available Not available Not available manager long term care goal of Excess Body Weight Loss % 5 Not available Not available Not available Ongoing of LDL Direct <100 Not available Not available Not available Ongoing of LDL Direct yearly Not available Not available Not available 09/30/2024 [id number] Pt agrees to follow low fat diet, [...] updated/modified as needed to reflect progress toward goal. Pt advised and agrees to eat a low [...] updated/modified as needed to reflect progress toward goal. Pt advised and agrees to work on self-monitoring [...] Modified By Organization Details Last Modified Time 08/06/2024 [id number] Medications (OTC , herbal therapies, supplements) reviewed and reconciled with patient and or caregiver, including potential side effects, drug interactions, instructions, and the consequences of not taking medication. Reviewed potential barriers to medication adherence, such as side effects from medication or cost of medication. pmadden Not available 08/06/2024 14:55:20 08/27/2024 [id number] Medications (OTC , herbal therapies, supplements) reviewed and reconciled with patient and or caregiver, including potential side effects, drug interactions, instructions, and the consequences of not taking medication. Reviewed potential barriers to medication adherence, such as side effects from medication or cost of medication. pmadden Not available 08/27/2024 15:41:42 09/30/2024 [id number] Well Visit, Ages 18 to 65: Care [...] of medication. pmadden Not available 09/30/2024 14:48:14 12/31/2024 [id number] Medications (OTC , herbal therapies, supplements) reviewed and reconciled with patient and or caregiver, including potential side effects, drug interactions, instructions, and the consequences of not taking medication. Reviewed potential barriers to medication adherence, such as side effects from medication or cost of medication. pmadden Not available 12/31/2024 15:33:24 06/03/2025 [id number] Medications (OTC , herbal therapies, supplements) reviewed and reconciled with patient and or caregiver, including potential side effects, drug interactions, instructions, and the consequences of not taking medication. Reviewed potential barriers to medication adherence, such as side effects from medication or cost of medication. pmadden Not available 06/03/2025 16:24:00 Reason for Referral None Reported. Results Created Date Observation Date Name Description Value Unit Range Abnormal Flag Note LastModifiedBy Organization Detail LastModifiedTime 08/09/20 24 08/10/2024 ALBUM IN/CR EAT RATIO , RANDO M UR creatinine, urine 128.0 mg/dL not estab. normal Not Available [facility] ([facility]) [address] [facility], [place], [address], 08/10/2024 16:06:13 08/09/20 24 08/10/2024 ALBUM IN/CR EAT RATIO , RANDO M UR albumin, urine 1454.4 ug/mL not estab. Resul ts confi rmed on dilut ion. Not Available [facility] ([facility]) [address] [facility], [place], [address], 08/10/2024 16:06:13 08/09/20 24 08/10/2024 ALBUM IN/CR EAT RATIO , RANDO M UR alb/creat ratio 1136 mg/g_ creat 0-29 above high normal Ellen l: 0 - 29 Moder ately incre ased: 30 - 300 Sever una incre ased: >300 Not Available [facility] ([facility]) [address] [facility], [place], [address], 08/10/2024 16:06:13 10/01/19 25 10/02/2024 CBC WITH DIFFE RENTI AL/PL ATELE T WBC 10.3 x10e3 /uL 3.4-10 .8 normal Not Available [facility] ([facility]) [address] [facility], [place], [address], 10/02/2024 18:05:39 10/01/19 25 10/02/2024 CBC WITH DIFFE RENTI AL/PL ATELE T RBC 6.20 x10e6 /uL 4.14-5 .80 above high normal Not Available [facility] ([facility]) [address] [place], [address], 10/02/2024 18:05:39 10/01/19 25 10/02/2024 CBC WITH DIFFE RENTI AL/PL ATELE T hemoglobin 17.4 g/dL 13.0-1 7.7 normal Not Available [facility] ([facility]) [address] [place], [address], 10/02/2024 18:05:39 10/01/19 25 10/02/2024 CBC WITH DIFFE RENTI AL/PL ATELE T hematocrit 56.4 % 37.5-5 1.0 above high normal Not Available [facility] ([facility]) [address] [facility], [place], [address], 10/02/2024 18:05:39 10/01/19 25 10/02/2024 CBC WITH DIFFE RENTI AL/PL ATELE T MCV 91 fL 79-97 normal Not Available [facility] ([facility]) [address] [facility], [place], [address], 10/02/2024 18:05:39 10/01/19 25 10/02/2024 CBC WITH DIFFE RENTI AL/PL ATELE T MCH 28.1 pg 26.6-3 3.0 normal Not Available [facility] ([facility]) [address] [place], [address], 10/02/2024 18:05:39 10/01/19 25 10/02/2024 CBC WITH DIFFE RENTI AL/PL ATELE T MCHC 30.9 g/dL 31.5-3 5.7 below low normal Not Available [facility] ([facility]) [address] [facility], [place], [address], 10/02/2024 18:05:39 10/01/19 25 10/02/2024 CBC WITH DIFFE RENTI AL/PL ATELE T RDW 17.0 % 11.6-1 5.4 above high normal Not Available [facility] ([facility]) [address] [place], [address], 10/02/2024 18:05:39 10/01/19 25 10/02/2024 CBC WITH DIFFE RENTI AL/PL ATELE T platelets 205 x10e3 /uL 150-45 0 normal Not Available [facility] ([facility]) [address] [place], [address], 10/02/2024 18:05:39 10/01/19 25 10/02/2024 CBC WITH DIFFE RENTI AL/PL ATELE T neutrophils 70 % not estab. normal Not Available [facility] ([facility]) [address] [place], [address], 10/02/2024 18:05:39 10/01/19 25 10/02/2024 CBC WITH DIFFE RENTI AL/PL ATELE T lymphs 17 % not estab. normal Not Available [facility] ([facility]) [address] [facility], [place], [address], 10/02/2024 18:05:39 10/01/19 25 10/02/2024 CBC WITH DIFFE RENTI AL/PL ATELE T monocytes 11 % not estab. normal Not Available [facility] ([facility]) [address] [facility], [place], [address], 10/02/2024 18:05:39 10/01/19 25 10/02/2024 CBC WITH DIFFE RENTI AL/PL ATELE T eos 1 % not estab. normal Not Available [facility] ([facility]) [address] [facility], [place], [address], 10/02/2024 18:05:39 10/01/19 25 10/02/2024 CBC WITH DIFFE RENTI AL/PL ATELE T basos 0 % not estab. normal Not Available [facility] ([facility]) [address] [facility], [place], [address], 10/02/2024 18:05:39 10/01/19 25 10/02/2024 CBC WITH DIFFE RENTI AL/PL ATELE T immature cells LIEUTENANT BALLISTICS Not Available [facility] ([facility]) [address] [place], [address], 10/02/2024 18:05:39 10/01/19 25 10/02/2024 CBC WITH DIFFE RENTI AL/PL ATELE T neutrophils (absolute) 7.2 x10e3 /uL 1.4-7. 0 above high normal Not Available [facility] ([facility]) [address] [place], [address], 10/02/2024 18:05:39 10/01/19 25 10/02/2024 CBC WITH DIFFE RENTI AL/PL ATELE T lymphs (absolute) 1.8 x10e3 /uL 0.7-3. 1 normal Not Available [facility] ([facility]) [address] [facility], [place], [address], 10/02/2024 18:05:39 10/01/19 25 10/02/2024 CBC WITH DIFFE RENTI AL/PL ATELE T monocytes(ab solute) 1.1 x10e3 /uL 0.1-0. 9 above high normal Not Available [facility] ([facility]) [address] [facility], [place], [address], 10/02/2024 18:05:39 10/01/19 25 10/02/2024 CBC WITH DIFFE RENTI AL/PL ATELE T eos (absolute) 0.1 x10e3 /uL 0.0-0. 4 normal Not Available [facility] ([facility]) [address] [facility], [place], [address], 10/02/2024 18:05:39 10/01/19 25 10/02/2024 CBC WITH DIFFE RENTI AL/PL ATELE T baso (absolute) 0.0 x10e3 /uL 0.0-0. 2 normal Not Available [facility] ([facility]) [address] [facility], [place], [address], 10/02/2024 18:05:39 10/01/1910/02/2024 CBC WITH DIFFE RENTI AL/PL ATELE T immature granulocytes 1 % not estab. Not Available [facility] ([facility]) [address] [place], [address], 10/02/2024 18:05:39 10/01/19 25 10/02/2024 CBC WITH DIFFE RENTI AL/PL ATELE T immature grans (abs) 0.1 x10e3 /uL 0.0-0. 1 Not Available [facility] ([facility]) [address], [place], [address], 10/02/2024 18:05:39 10/01/19 25 10/02/2024 CBC WITH DIFFE RENTI AL/PL ATELE T NRBC LIEUTENANT BALLISTICS Not Available [facility] ([facility]) [address], [place], [address], 10/02/2024 18:05:39 10/01/19 25 10/02/2024 CBC WITH DIFFE RENTI AL/PL ATELE T hematology comments: LIEUTENANT BALLISTICS Not Available [facility] ([facility]) [address], [place], [address], 10/02/2024 18:05:39 10/01/19 25 10/02/2024 COMP. METAB OLIC PANEL (14) glucose 64 mg/dL 70-99 below low normal Not Available [facility] ([facility]) [address], [place], [address], 10/02/2024 18:05:40 10/01/19 25 10/02/2024 COMP. METAB OLIC PANEL (14) BUN 20 mg/dL 6-20 normal Not Available [facility] ([facility]) [address], [place], [address], 10/02/2024 18:05:40 10/01/19 25 10/02/2024 COMP. METAB OLIC PANEL (14) creatinine 1.12 mg/dL 0.76-1 .27 normal Not Available [facility] ([facility]) [address] [place], [address], 10/02/2024 18:05:40 10/01/19 25 10/02/2024 COMP. METAB OLIC PANEL (14) eGFR 86 mL/mi n/1.7 3 >59 normal Not Available [facility] ([facility]) [address] [place], [address], 10/02/2024 18:05:40 01/07/20 25 10/02/2024 COMP. METAB OLIC PANEL (14) BUN/creatini ne ratio 18 9-20 normal Not Available [facility] ([facility]) [address] [facility] [place], [address], 10/02/2024 18:05:40 10/01/19 25 10/02/2024 COMP. METAB OLIC PANEL (14) sodium 141 mmol/ L 134-14 4 normal Not Available [facility] ([facility]) [address] [facility] [place], [address], 10/02/2024 18:05:40 10/01/19 25 10/02/2024 COMP. METAB OLIC PANEL (14) potassium 5.0 mmol/ L 3.5-5. 2 normal Not Available [facility] ([facility]) [address] [facility] [place], [address], 10/02/2024 18:05:40 10/01/19 25 10/02/2024 COMP. METAB OLIC PANEL (14) chloride 97 mmol/ L 96-106 normal Not Available [facility] ([facility]) [address] [facility] [place], [address], 10/02/2024 18:05:40 10/01/19 25 10/02/2024 COMP. METAB OLIC PANEL (14) carbon dioxide, total 24 mmol/ L 20-29 normal Not Available [facility] ([facility]) [address] [facility] [place], [address], 10/02/2024 18:05:40 10/01/19 25 10/02/2024 COMP. METAB OLIC PANEL (14) calcium 9.8 mg/dL 8.7-10 .2 normal Not Available [facility] ([facility]) [address] [facility] [place], [address], 10/02/2024 18:05:40 10/01/19 25 10/02/2024 COMP. METAB OLIC PANEL (14) protein, total 6.8 g/dL 6.0-8. 5 normal Not Available [facility] ([facility]) [address] [facility] [place], [address], 10/02/2024 18:05:40 10/01/19 25 10/02/2024 COMP. METAB OLIC PANEL (14) albumin 4.0 g/dL 4.1-5. 1 below low normal Not Available [facility] ([facility]) [address] [place], [address], 10/02/2024 18:05:40 10/01/19 25 10/02/2024 COMP. METAB OLIC PANEL (14) globulin, total 2.8 g/dL 1.5-4. 5 Not Available [facility] ([facility]) [address] [facility] [place], [address], 10/02/2024 18:05:40 10/01/19 25 10/02/2024 COMP. METAB OLIC PANEL (14) bilirubin, total 0.7 mg/dL 0.0-1. 2 normal Not Available [facility] ([facility]) [address] [facility] [place], [address], 10/02/2024 18:05:40 10/01/19 25 10/02/2024 COMP. METAB OLIC PANEL (14) alkaline phosphatase 82 IU/L 44-121 normal Not Available [facility] ([facility]) [address] [facility] [place], [address], 10/02/2024 18:05:40 10/01/19 25 10/02/2024 COMP. METAB OLIC PANEL (14) AST (SGOT) 51 IU/L 0-40 above high normal Not Available [facility] ([facility]) [address] [facility] [place], [address], 10/02/2024 18:05:40 10/01/19 25 10/02/2024 COMP. METAB OLIC PANEL (14) ALT (SGPT) 58 IU/L 0-44 above high normal Not Available [facility] ([facility]) [address] [facility] [place], [address], 10/02/2024 18:05:40 10/01/19 25 10/02/2024 LIPID PANEL cholesterol, total 228 mg/dL 100-19 9 above high normal Not Available [facility] ([facility]) [address] [place], [address], 10/02/2024 18:05:41 10/01/19 25 10/02/2024 LIPID PANEL triglyceride s 190 mg/dL 0-149 above high normal Not Available [facility] ([facility]) [address] [place], [address], 10/02/2024 18:05:41 10/01/19 25 10/02/2024 LIPID PANEL HDL cholesterol 61 mg/dL >39 normal Not Available [facility] ([facility]) [address] [place], [address], 10/02/2024 18:05:41 10/01/19 25 10/02/2024 LIPID PANEL VLDL cholesterol rafael 34 mg/dL 5-40 Not Available [facility] ([facility]) [address] [place], [address], 10/02/2024 18:05:41 10/01/19 25 10/02/2024 LIPID PANEL LDL chol calc ([facility]) 133 mg/dL 0-99 above high normal Not Available [facility] ([facility]) [address] [place], [address], 10/02/2024 18:05:41 10/01/19 25 10/02/2024 LIPID PANEL LDL calc comment: LIEUTENANT BALLISTICS Not Available [facility] ([facility]) [address] [place], [address], 10/02/2024 18:05:41 10/01/19 25 10/02/2024 ALBUM IN/CR EAT RATIO , RANDO M UR creatinine, urine 147.3 mg/dL not estab. normal Not Available [facility] ([facility]) [address] [place], [address], 10/02/2024 18:05:41 10/01/19 25 10/02/2024 ALBUM IN/CR EAT RATIO , RANDO M UR albumin, urine 1487.5 ug/mL not estab. Resul ts confi rmed on dilut ion. Not Available [facility] ([facility]) [address] [place], [address], 10/02/2024 18:05:41 10/01/1910/02/2024 ALBUM IN/CR EAT RATIO , RANDO M UR alb/creat ratio 1010 mg/g_ creat 0-29 above high normal Ellen l: 0 - 29 Moder ately incre ased: 30 - 300 Sever una incre ased: >300 Not Available [facility] ([facility]) [address] [facility], [place], [address], 10/02/2024 18:05:41 10/01/19 25 10/02/2024 TESTO STERO NE,FR EE AND TOTAL testosterone >1500 NG/dL 264-91 6 above high normal Adult male refer ence inter deepika is based on a popul ation of healt hy nonob barbra males (BMI <30) betwe en 19 and 39 years old. Corry goetz et.al . JCEM 2017, 102;1 161-1 173. PMID: 16855 103. Not Available [facility] ([facility]) [address] [place], [address], 10/02/2024 18:05:42 10/01/1910/02/2024 TESTO STERO NE,FR EE AND TOTAL free testosterone (direct) >50.0 pg/mL 8.7-25 .1 above high normal Not Available [facility] ([facility]) [address] [place], [address], 10/02/2024 18:05:42 10/01/19 25 10/02/2024 CK, TOTAL creatine kinase,total 449 U/L 49-439 above high normal Not Available [facility] ([facility]) [address] [place], [address], 10/02/2024 18:05:42 10/01/19 25 10/02/2024 HEMOG LOBIN A1C hemoglobin A1C 5.7 % 4.8-5. 6 above high normal Predi abete s: 5.7 - 6.4 Diabe alex: >6.4 Glyce ladonna contr ol for adult s with diabe alex: <7.0 Not Available [facility] ([facility]) [address] [place], [address], 10/02/2024 18:05:43 01/09/20 25 01/08/2025 COMP. METAB OLIC PANEL (14) glucose 85 mg/dL 70-99 normal Not Available [facility] ([facility]) [address] [place], [address], 01/09/2025 10:11:39 01/09/20 25 01/08/2025 COMP. METAB OLIC PANEL (14) BUN 25 mg/dL 6-20 above high normal Not Available [facility] ([facility]) [address] [place], [address], 01/09/2025 10:11:39 01/09/20 25 01/08/2025 COMP. METAB OLIC PANEL (14) creatinine 1.05 mg/dL 0.76-1 .27 normal Not Available [facility] ([facility]) [address] [place], [address], 01/09/2025 10:11:39 01/09/20 25 01/08/2025 COMP. METAB OLIC PANEL (14) eGFR 93 mL/mi n/1.7 3 >59 normal Not Available [facility] ([facility]) [address] [place], [address], 01/09/2025 10:11:39 01/09/20 25 01/08/2025 COMP. METAB OLIC PANEL (14) BUN/creatini ne ratio 24 9-20 above high normal Not Available [facility] ([facility]) [address] [facility] [place], [address], 01/09/2025 10:11:39 01/09/20 25 01/08/2025 COMP. METAB OLIC PANEL (14) sodium 141 mmol/ L 134-14 4 normal Not Available [facility] ([facility]) [address] [facility] [place], [address], 01/09/2025 10:11:39 01/09/20 25 01/08/2025 COMP. METAB OLIC PANEL (14) potassium 4.3 mmol/ L 3.5-5. 2 normal Not Available [facility] ([facility]) [address] [facility] [place], [address], 01/09/2025 10:11:39 01/09/20 25 01/08/2025 COMP. METAB OLIC PANEL (14) chloride 106 mmol/ L 96-106 normal Not Available [facility] ([facility]) [address] [facility], [place], [address], 01/09/2025 10:11:39 01/09/20 25 01/08/2025 COMP. METAB OLIC PANEL (14) carbon dioxide, total 22 mmol/ L 20-29 normal Not Available [facility] ([facility]) [address] [facility] [place], [address], 01/09/2025 10:11:39 01/09/20 25 01/08/2025 COMP. METAB OLIC PANEL (14) calcium 9.7 mg/dL 8.7-10 .2 normal Not Available [facility] ([facility]) [address] [facility] [place], [address], 01/09/2025 10:11:39 01/09/20 25 01/08/2025 COMP. METAB OLIC PANEL (14) protein, total 5.9 g/dL 6.0-8. 5 below low normal Not Available [facility] ([facility]) [address] [place], [address], 01/09/2025 10:11:39 01/09/20 25 01/08/2025 COMP. METAB OLIC PANEL (14) albumin 3.9 g/dL 4.1-5. 1 below low normal Not Available [facility] ([facility]) [address] [place], [address], 01/09/2025 10:11:39 01/09/20 25 01/08/2025 COMP. METAB OLIC PANEL (14) globulin, total 2.0 g/dL 1.5-4. 5 Not Available [facility] ([facility]) [address] [facility] [place], [address], 01/09/2025 10:11:39 01/09/20 25 01/08/2025 COMP. METAB OLIC PANEL (14) bilirubin, total <0.2 mg/dL 0.0-1. 2 Not Available [facility] ([facility]) [address] [facility] [place], [address], 01/09/2025 10:11:39 01/09/20 25 01/08/2025 COMP. METAB OLIC PANEL (14) alkaline phosphatase 52 IU/L 44-121 normal Not Available [facility] ([facility]) [address] [facility] [place], [address], 01/09/2025 10:11:39 01/09/20 25 01/08/2025 COMP. METAB OLIC PANEL (14) AST (SGOT) 41 IU/L 0-40 above high normal Not Available [facility] ([facility]) [address] [facility] [place], [address], 01/09/2025 10:11:39 01/09/20 25 01/08/2025 COMP. METAB OLIC PANEL (14) ALT (SGPT) 54 IU/L 0-44 above high normal Not Available [facility] ([facility]) [address] [facility] [place], [address], 01/09/2025 10:11:39 01/09/20 25 01/08/2025 LIPID PANEL cholesterol, total 194 mg/dL 100-19 9 normal Not Available [facility] ([facility]) [address] [facility] [place], [address], 01/09/2025 10:11:40 01/09/20 25 01/08/2025 LIPID PANEL triglyceride s 125 mg/dL 0-149 normal Not Available [facility] ([facility]) [address] [facility], [place], [address], 01/09/2025 10:11:40 01/09/20 25 01/08/2025 LIPID PANEL HDL cholesterol 48 mg/dL >39 normal Not Available [facility] ([facility]) [address] [facility] [place], [address], 01/09/2025 10:11:40 01/09/20 25 01/08/2025 LIPID PANEL VLDL cholesterol rafael 22 mg/dL 5-40 Not Available [facility] ([facility]) [address] [facility] [place], [address], 01/09/2025 10:11:40 01/09/20 25 01/08/2025 LIPID PANEL LDL chol calc ([facility]) 124 mg/dL 0-99 above high normal Not Available [facility] ([facility]) [address] [facility] [place], [address], 01/09/2025 10:11:40 01/09/20 25 01/08/2025 LIPID PANEL LDL calc comment: [employer] Not Available [facility] ([facility]) [address] [facility] [place], [address], 01/09/2025 10:11:40 04/16/20 25 01/08/2025 TESTO STERO NE,FR EE AND TOTAL testosterone >1500 NG/dL 264-91 6 above high normal Adult male refer ence inter deepika is based on a popul ation of healt hy nonob barbra males (BMI <30) betwe en 19 and 39 years old. Corry goetz et.al . JCEM 2017, 102;1 161-1 173. PMID: 52862 103. Not Available [facility] ([facility]) [address] [facility], [place], [address], 01/09/2025 10:11:41 01/09/20 25 01/09/2025 TESTO STERO NE,FR EE AND TOTAL free testosterone (direct) >50.0 pg/mL 8.7-25 .1 above high normal Not Available [facility] ([facility]) [address] [facility], [place], [address], 01/09/2025 10:11:41 01/09/20 25 01/09/2025 CK, TOTAL creatine kinase,total 425 U/L 49-439 normal Not Available [facility] ([facility]) [address] [facility], [place], [address], 01/09/2025 10:11:41 01/09/20 25 01/08/2025 HEMOG LOBIN A1C hemoglobin A1C 5.5 % 4.8-5. 6 normal Predi abete s: 5.7 - 6.4 Diabe alex: >6.4 Glyce ladonna contr ol for adult s with diabe alex: <7.0 Not Available [facility] ([facility]) [address] [facility], [place], [address], 01/09/2025 10:11:42 Result Notes None recorded. Problems Name Problem SNOMED Code Status Onset Date Resolution Date Notes Provider Name and Address Organization Details Recorded Time Eczema 32048447 Completed 06/13/2023 Justino Jackson PA-C [address] [facility] [address], [place], [address] , [facility] 3 20:20:51 Low back pain 015675608 Active Beatriz Neves OUSMANE Lamar, [facility] 4 11:08:12 Epidermo id cyst 781838734 Completed 06/13/2023 Justino Jackson PA-C [address], [place], [address] , [facility] 3 20:21:12 Tobacco dependen ce syndrome 09570526 Completed 09/25/2019 Removal Reason: quit OUSMANE Lowe, [facility] 0 12:56:27 Radicula r pain 21342569 Completed 12/19/2023 Justino Jackson PA-C [address], [place], [address] , [facility] 4 11:27:55 Elevated blood-pr essure reading without diagnosi s of hyperten cinthya 870643494 Completed 09/30/2024 Justino Jackson PA-C [address], [place], [address] , [facility] 5 15:01:56 Pharyngi tis 708226137 Completed 10/10/2018 OUSMANE Lowe, [facility] 9 15:26:41 Anticipa tory grief 42180272 Completed 01/26/2022 Justino Jackson PA-C [address], [place], [address] , [facility] 2 17:34:41 Foreign body 746105768 Completed 01/26/2022 Justino Jackson PA-C [address], [place], [address] , [facility] 2 17:35:43 Gout 15773781 Completed 201709/30/2024 Justino Jackson PA-C [address], [place], [address] , [facility] 5 15:08:53 Rheumato id arthriti s of multiple joints 444629668 Active 2017 Not Available [facility] 2 19:29:47 Anxiety 00026479 Active 2017 Not Available [facility] 2 19:29:47 Restless legs syndrome 53593894 Active 2017 Not Available [facility] 2 19:29:46 Glaucoma 74289896 Active 2018 Not Available [facility] 2 19:29:46 Testoste namrata level below referenc e range 047116324 Active 2018 Not Available [facility] 2 19:29:47 Moderate major depressi on 596741 Completed 201802/07/2023 Justino Jackson PA-C [address], [place], [address] , [facility] 3 15:17:04 Ex-smoke r 6765932 Active 2019 Not Available [facility] 2 19:29:46 Spinal stenosis in cervical region 03147115 Completed 201909/30/2024 Justino Jackson PA-C [address], [place], [address] , [facility] 5 19:35:41 Pericard itis 7457249 Completed 201909/30/2024 Justino Jackson PA-C [address], [place], [address] , [facility] 5 19:34:52 Hemochro matosis 161137472 Completed 201911/30/[address] Trivedi - no need for phleboto my at this time (6.20) Justino Jackson PA-C [address], [place], [address] , [facility] 2 16:14:48 Heredita ry hemochro matosis 40894459 Active 2019 Not Available [facility] 2 19:29:46 Injury of finger 19661489 Completed 201906/13/2023 Justino Jackson PA-C [address], [place], [address] , [facility] 3 20:21:30 Primary erectile dysfunct ion 482353225 Active 2019 Not Available [facility] 2 19:29:47 Right side sciatica 47705041317 9101 Completed 202009/30/2024 Justino Jackson PA-C [address] [facility] [address], [place], [address] , [facility] 5 19:35:36 Pain of right shoulder joint 37014673988 893164 Completed 202009/30/2024 Justino Jackson PA-C [address] [facility] [address], [place], [address] , [facility] 5 19:34:43 Prematur e ejaculat ion 37792076 Completed 202009/30/2024 Justino Jackson PA-C [address] [facility] [address], [place], [address] , [facility] 5 19:35:04 Long-ter m current use of immunosu ppressiv e drug 513215010 Active 2021 Not Available [facility] 2 19:29:47 COVID-19 886779425 Completed 202101/26/2022 Justino Jackson PA-C [address] [facility] [address], [place], [address] , [facility] 2 17:34:50 Diarrhea 02864310 Completed 202101/26/2022 Justino Jackson PA-C [address] [facility] [address], [place], [address] , [facility] 2 17:35:02 Hematoch ezia 429314693 Completed 202109/30/2024 Justino Jackson PA-C [address] [facility] [address], [place], [address] , [facility] 5 19:34:15 Cervical radiculo loren 77194719 Completed 202109/30/2024 Justino Jackson PA-C [address] [facility] [address], [place], [address] , [facility] 5 19:34:38 Attentio n deficit hyperact ivity disorder , predomin antly inattent shadi type 95449889 Active 2021 Not Available [facility] 2 19:29:46 Liver enzymes level above referenc e range 852674219 Active 2021 Not Available [facility] 2 19:29:46 Major depressi ve disorder 108311263 Active 2021 Not Available [facility] 2 19:29:47 Influenz a-like symptoms 926923159 Completed 202106/13/2023 Justino Jackson PA-C [address] [facility] [address], [place], [address] , [facility] 3 20:21:19 Pyelonep hritis 43130789 Completed 202109/30/2024 Justino Jackson PA-C [address] [facility] [address], [place], [address] , [facility] 5 19:35:21 Alcohol dependen ce 62257125 Completed 202109/30/2024 Justino Jackson PA-C [address] [facility] [address], [place], [address] , [facility] 5 19:33:47 Mixed hyperlip idemia 927653935 Active 2021 Justino Jackson PA-C [address] [facility] [address], [place], [address] , [facility] 2 14:36:53 Pneumoni tis 989288070 Completed 202206/13/2023 Justino Jackson PA-C [address], [place], [address] , [facility] 3 20:21:53 Pain of left shoulder joint 71670529246 718356 Completed 202209/30/2024 Justino Jackson PA-C [address], [place], [address] , [facility] 5 19:34:29 Chronic kidney disease stage 2 278511104 Active 2022 OUSMANE Rodgers, [facility] 4 11:08:12 Substanc e abuse 48110700 Completed 202205/14/2024 Justino Jackson PA-C [address], [place], [address] , [facility] 4 15:57:10 Hemorrho ids 88774949 Active 2022 OUSMANE Rodgers, [facility] 4 11:08:12 Microalb uminuria 840929566 Active 2022 Justino Jackson PA-C [address], [place], [address] , [facility] 3 11:32:26 Thrombos ed external hemorrho ids 82580760 Completed 202309/30/2024 Justino Jackson PA-C [address], [place], [address] , [facility] 5 19:36:13 Erectile dysfunct ion 166304498 Completed 202309/30/2024 Justino Jackson PA-C [address], [place], [address] , [facility] 5 19:35:09 Skinny mendes 71920832 Active 2024 Justino Jackson PA-C [address] [facility] [address], [place], [address] , [facility] 5 19:41:00 Problem Notes None recorded. Procedures Surgical History Date Name Laterality Status Provider Name and Address Organization Details Recorded Time 4 Colonoscopy completed Ny Zelaya [facility] 03/20/2024 13:17:34 3 kidney biopsy completed Ny Zelaya [facility] 08/14/2023 11:13:51 1 Unlisted procedure shoulder completed [place] [facility] 12/30/2021 16:21:40 6 Chronic Pain Assessment completed Lisa lima [facility] 03/17/2016 15:47:41 No surg proc w/in 30 days completed [address] [facility] 10/10/2018 15:26:53 Imaging Results None recorded. [...] try prior to Lyrica being approved by insuranc e (per [place] denial of the Lyrica) [...] Not Available Not Available Not Available hydrocort isone-pra moxine 2.5 %-1 % rectal cream [apply tid-qid] Info: apply after bowel movement ; for external use 09/30 completed Not Available Not Available Not [...] oral route for 90 days. 2024 active Not Available Not Available Not Avai lable ondansetr on HCl 4 mg tablet 05/11 [...] Not Available sildenafi l 100 mg tablet TAKE 1 TABLET BY MOUTH EVERY DAY NEEDED active Not Available Not Available No t Available bupropion HCl SR 100 mg tablet,12 hr sustained -release TAKE 1 TABLET BY MOUTH TWICE A DAY active Not Available Not Available No t Available oxycodone 15 mg tablet Take 1 tablet every 6 hours by oral route as needed for 7 days. 07/17 completed Not Available Not Available Not Available hydrocort isone acetate 25 mg rectal [...] DROP INTO BOTH EYES TWICE A DAY 06/03 completed Not Available Not Available Not Available colchicin e 0.6 mg tablet Take [...] MOUTH TWICE A DAY FOR 7 DAYS 06/03 completed Not Available Not Available Not Available naproxen 500 mg tablet TAKE 1 TABLET BY MOUTH TWICE A DAY WITH FOOD 09/13 completed Not Available Not Available Not Available diazepam 5 mg tablet TAKE 1 TABLET BY MOUTH THREE TIMES DAILY FOR 7 DAYS NEEDED FOR SPASM 03/27 completed Not Available Not Available Not Available [...] Available oxycodone 5 mg tablet TAKE 1 OR 2 TABLETS BY MOUTH EVERY 6 HOURS FOR 7 DAYS NEEDED FOR PAIN 03/27 completed Not Available Not Available Not Available neomycin- polymyxin -hydrocor t 3.5 mg-10,000 unit/mL-1 % ear drops,palu p 12/24 completed Not Available Not Available Not Available Bactrim DS 800 mg-160 mg tablet Take 1 tablet every 12 hours by oral route for 5 days. 07/18 completed Not Available Not Available Not Available cyclobenz aprine 5 mg tablet TAKE 1 TABLET BY MOUTH THREE TIMES A DAY NEEDED active Not Available [...] Relief 50 mcg/actua tion nasal spray,paul pension Morganza 1 spray every day by intranas al [...] Available No t Available Vitals Date Recorded Systolic And Diastolic Systolic And Diastolic Provider Name and Address Organization Details Last Updated DateTime 09/30/2024 150/94 mm[Hg] 140/86 mm[Hg] Justino Jackson PA-C [address] [address], [place], [address], [facility] 09/30/2024 15:23:11 Date Recorded Body height Body mass index (BMI) Body weight Heart rate Oxygen saturation Oxygen saturation in Arterial blood by Pulse oximetry Body temperature Systolic And Diastolic Provider Name and Address Organization Details Last Updated DateTime 177.8 cm 28.7 kg/m2 01124.4 7 g 105 /min 97 % 97 % 98 [degF] 152/108 mm[Hg] Savanna Rosario MA [facility] 14:34:39 Date Recorded Body height Provider Name an d Address Organization Details Last Updated DateTime 12/31/2024 177.8 cm OUSMANE Olson [facility] 12/31/2024 14:04:01 Date Recorded Body height Provider Name an d Address Organization Details Last Updated DateTime 09/19/2024 177.8 cm OUMSANE Olson MA [facility] 09/19/2024 13:48:32 Social History Question Answer Notes LastModified by Organizat ion Details LastModified Time Tobacco Smoking Status Former Smoker quit 09/25/2019 OUSMANE Martin MA [facility] 01/15/2020 12:54:47 Do You Have An Advance Directive? Yes Information not available 07/06/2022 Is Blood Transfusion Acceptable In An Emergency? Yes Information not available 04/09/2015 What Is Your Level Of Caffeine Consumption? Moderate Coffee1 Cup Daily Information not available 01/26/2022 How Much Tobacco Do You Chew? None Information not available 04/09/2015 What Type Of Diet Are You Following? REGULAR Information not available 04/09/2015 Which Illicit Or Recreational Drugs Have You Used? Hx Of Opiate Abuse Information not available 09/30/2021 Have There Been Any Changes To Your Family Or Social Situation? Yes Information not available 07/06/2022 When Did You Quit Smoking? 1-5yearssin celastcigar ette Information not available 11/19/2020 Are There Any [...] 10/10/2018 What Is Your Current Pack Years? 10-19packye ars Information not available 07/06/2022 Do You Use [...] To Smoke? No Information not available 09/30/2021 How Much Tobacco Do You Smoke? 1 PPD Information not available 04/09/2015 Do You Use Sunscreen Routinely? No Information not available 04/09/2015 How Many Years Have You Smoked Tobacco? 18 Information not available 01/15/2020 Do You Have Difficulty Walking Or Climbing Stairs? No Information not available 07/06/2022 Sex: Unknown Functional Status Question Answer Note LastModified by Organizat ion Details LastModified Time Do you use any illicit or recreational drugs? No Information not available 07/06/2022 Do you or have you ever used any other forms of tobacco or nicotine? No Information not available 07/06/2022 What is your level of alcohol consumption? Moderate 09/13/23 Beers- 24 beers weekly Information not available 09/13/2023 Do you or have you ever used smokeless tobacco? [id number] Information not available 09/30/2021 Are you currently employed? Yes Information not available 04/09/2015 Are you able to walk independently without assistance or assistive devices? YESWOREST Information not available 07/06/2022 Are you able to care for yourself independently? Yes Information not available 04/09/2015 What is your occupation? [employer] Information not available 01/26/2022 Do you have difficulty dressing, bathing, grooming, or toileting? No Information not available 07/06/2022 Do you or have you ever used e-cigarettes or vape? Never used electronic cigarettes Information not available 07/06/2022 What is your [...] or p ca Medical History Condition Response Other N Gout N Kidney Stones N Blood Diseases N Hyperthyroidism N Breast Cancer N COPD N Depression N Hypothyroidism N Lung Disease N Defects or Inherited Disease N Anesthesia Complications N Headaches/Migraines N Varicose Veins N Anxiety Disorder N Obesity N Vision or Eye Problems Y Arthritis Y Head Injury/Concussion N Infertility N Polyps N Congenital Anomalies N Acid Reflux (GERD) N Cancer N Stroke N ADHD Y Endometriosis N High Cholesterol N Liver Disease N Fibromyalgia N Kidney Disease N Heart Problems N Ear or Hearing Problems N Hospitalizations N Thyroid Problems N GI Problems N Acne N Skin Problems Y Eating Disorder N Anemia N Constipation N Bladder Problems N Mental Illness N Ovarian Cancer N Diabetes N Blood Transfusions N Seizures/Epilepsy N Tuberculosis N AIDS/HIV N Congestive Heart Failure (CHF) N Eczema N Diverticulitis N Abuse/Domestic Violence N Asthma Y Allergies N Reflux/GERD N Hepatitis N Pulmonary Embolism N Hypertension N Osteoporosis N Chicken Pox N Autism Spectrum Disorder (ASD) N Immunizations Vaccine Type Date Status Note Provider Nam e and Address Organization Details Recorded Time Td (adult) 4 completed Not Available [facility] 04/28/2022 19:29:47 [facility] 11:08:19 COVID-19, mRNA, LNP-S, PF, 30 mcg/0.3 mL dose 1 [facility] 11:08:19 COVID-19, mRNA, LNP-S, PF, 30 mcg/0.3 mL dose 1 [facility] 11:08:19 Influenza, MDCK, quadrivalent, PF 0 [facility] 11:08:19 Influenza, MDCK, quadrivalent, PF 0 [facility]/13/2023 09:54:26 pneumococcal polysaccharide PPV23 1 completed Not Available [facility] 04/28/2022 19:29:47 Influenza, MDCK, quadrivalent, PF 0 [facility] 10:11:31 Influenza, MDCK, quadrivalent, PF 0 completed Keesha Sanchez [facility] null, [facility] 01/25/2023 14:06:47 COVID-19, mRNA, LNP-S, PF, 30 mcg/0.3 mL dose, terrence-sucrose 2 completed OUSMANE Rodgers, [facility] 07/06/2024 11:08:19 Influenza, split virus, trivalent, preservative 1 completed Beatriz Lamar MA null, [facility] 07/06/2024 11:08:19 Tdap 3 completed OUSMANE Rodgers, [facility] 07/06/2024 11:08:19 Influenza, MDCK, trivalent, PF 4 completed BERTO Kong, [facility] 08/27/2024 14:52:09 Influenza, split virus, quadrivalent, PF 3 completed Justino Jackson PA-C [address], [address], [facility] 09/15/2023 12:54:39 Past Encounters Encounter ID Performer Location Encounter Start Date Encounter Closed Date Diagnosis/Indication Diagnosis SNOMED-CT Code Diagnosis ICD10 Code Diagnosis IMO Codes Diagnosis Note [id number] ADRI Farr Main Office [address] [address] 04/09/2015 15:44:35 04/09/2015 16:34:32 Adult health examination [id number] UTD, patient UTD on tetanus vaccine, feeling well, declines blood work at this time. Eczema 27830462 States he would like to try an oral steroid for this, I explained to patient that is is only short term treatment and his eczema will likely flair again. Clobetasol BID, may use eucerin cream/ coconut oil to keep hands moisturize d, refrain from picking at hands or scratching , follow up with dermatolog y. Low back pain [id number] C/ O low back x last 2-3 months, he does work in [employer]. States it resolved on it's own 2 weeks ago and he has been feeling well, will call if any worsening. Epidermoid cyst [id number] Cyst vs lipoma to right side of face, it has become larger over the past year and is tender, bothersome to patient as he can see it in photos and people comment about it. Will refer to gen surgery for further eval. Tobacco de pendence syndrome 31659678 Assessed present motivation s for smoking cessation. Patient remains precontemp lative and is aware of cessation assistance means. Patient will call when ready. [id number] Justino Jackson PA-C Main Office [address] [place]EEPALIAna Paula [place] [id number] 02/09/2016 15:51:49 02/09/2016 16:47:45 Low back pain 726435760 M54.5 [id number] Justino Jackson PA-C Main Office [address] [place]Ana Paula [place] [id number] 02/23/2016 15:49:01 02/23/2016 17:19:00 Low back pain 035895713 M54.5 [id number] Justino Jackson PA-C Main Office [address] [facility] [place] [id number] 03/17/2016 15:28:23 03/17/2016 16:54:17 Low back pain [id number] M54.5 cont to f/u c PSS - will start PT, ? MRI in near future. entered into pain contract. Radicular pain 81852589 M54.10 Elevated blood-pressure reading without diagnosis of hypertension 101667931 R03.0 Pharyngitis 369225826 J0 2.9 [id number] Justino Jackson PA-C Main Office [address] [facility] [place] [address] 04/18/2016 15:57:21 04/19/2016 08:35:02 Low back pain 790755843 M54.5 will cont. percocet - pt had [...] find out cost of MRI Radicular pain 18208363 M54.10 Anticipatory grief 51730 004 F43.21 twin brother of overdose of fentanyl recently -- ? benefit from counselreji camilo [id number] Justino Jackson PA-C Main Office [address] [address] 05/19/2016 15:22:01 05/19/2016 16:52:40 Low back pain 259403321 M54.5 no help c gabapentin d/t sedation - trial c lyrica, requests to cont. percocet to be used on a prn basis - will not take more than twice/day prn will attempt to have pt get crescencio. injxn [id number] Justino Jackson PA-C Main Office [address] [address] 07/18/2016 15:24:24 07/18/2016 16:47:20 Low back pain 514467758 M54.5 25 minute office visit with greater than 50% of the visit face-to-fa ce with the patient and/or family providing counseling and/or coordinati on of care. Lumbosacra l radiculitis 00301600 M54.17 failed gabapentin and then failed venlafaxin e - will attempt lyrica again Exposure t o sexually transmissible disorder 687270925 Z20.2 [id number] Justino Jackson PA-C Main Office [address] [address] 11/10/2016 12:59:52 11/10/2016 14:00:56 Low back pain 542360507 M54.5 resolved 25 minute office visit with greater than 50% of the visit face-to-fa ce with the patient and/or family providing counseling and/or coordinati on of care. 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 [address] [place] [address] 08/23/2017 10:36:12 08/23/2017 11:42:03 Low back pain 849575117 M54.5 pain returned, but on R SI [...] injxn Herpes sim plex type 1 infection 684355080 B00.9 has used successful ly over past yr - only one minor outbreak Gout 32931626 M10.9 has been on turmeric and celery seed - no flare x 3 months p took 2 courses of pred. admits to eating a lot of cheese - rec. decrease intake, provided purine restricted diet worksheet [id number] Justino Jackson PA-C Main Office [address] [facility] [address] [place] [address] 11/02/2017 15:57:12 11/02/2017 17:00:15 Mixed anxiety and depressive disorder 284701881 F41.8 doubt bipolar (no h/o lulu) but pt has mild ocd/anx/de p - encouraged pt to see [facility] for formal eval of this, but he politely declined --- more importantl y, pt requests marriage counsellor referral Restless l egs syndrome 84476157 G25.81 trial c quinine -- if no help, then trial c low dose requip -- check cbc to r/o anemia --- see below, ? sleep apnea c periodic limb movements Snoring 36573257 R06.83 ? sleep apnea c periodic limb movements Reduced libido 3991952 R 68.82 rare ED - pt requests test. level to be checked [id number] Justino Jackson PA-C Main Office [address] [facility] [address] [place] [address] 12/13/2017 15:52:44 12/13/2017 17:13:22 Leukocytosis 970513792 D72.829 likely d/t steroid use but ? d/t acute illness - will recheck next week Relative polycythemia 38 6061543 D75.1 looked up on various websites - not clearly d/t steroids but ? if it is (secondary polycythem ia vera) - see above - will recheck cbc next week - if worse/high er consider heme eval Pain of mu ltiple joints 71372701 M25.50 ? hx suggestive of gout (? [...] if sxs stop Upper resp iratory infection 12252408 J06.9 Allergic rhinitis 329336 04 J30.9 has used flonase in past - try to get thru ins - if can't, then is otc Vasectomy requested 183 13626 Z30.2 [id number] Justino Jackson PA-C Main Office [address] [facility] [address] [place] [address] 01/04/2018 13:44:46 01/04/2018 15:23:26 Pneumonia 766285977 J18.9 finished doxy bid x 1 wk, then acutely worse - ? d/t sinuses - see below - lungs clear today Pain of mu ltiple joints 57100155 M25.50 *on 12.13.17* - ? 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 [address] [place] [address] 05/17/2018 10:28:44 05/17/2018 12:36:50 Near syncope 479096494 R55 ? 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 if contributi ng to current sxs - pt refuses to quit Gouty arth ritis of ankle and/or foot 319049761 M10.9 cont f/u c rheum - has prn pred for flares Paresthesia 20443571 R20 .2 of LUE - curr resolved - unlikely d/t ACS - ? d/t stress (high stress levels lately) or possibly myofascial (lifts a lot of wt) - no obvious m. knots in trap/rhomb oid area, but could use heating pad prn and cont hep/flexib ility/stre tch Electrocar diogram abnormal 007338844 R94.31 Neck pain 97829961 M54.2 he did have neck pain recently c limited movement - better c pred from gout - ? radicular - check cspine [id number] Justino Jackson PA-C Main Office [address] [facility] [address] [place] [address] 07/11/2018 15:33:14 07/11/2018 16:44:18 Restless legs syndrome 28579918 G25.81 helpful, pt requested refill Anxiety 24916403 F41.9 pt states family life is good, no time for counsellin g - but would like to try meds first - will consider therapy in late fall / winter p constructi on season over Rheumatoid arthritis of multiple joints 376687227 M06.9 new dx - cont med, f/u c rheum [id number] Justino Jackson PA-C Main Office [address] [facility] [address] [place] [address] 10/10/2018 15:10:56 10/10/2018 16:15:07 Anxiety 26707521 F41.9 pt states family life is good, no time for counsellin g -- will increase med as pt requests Rheumatoid arthritis of multiple joints 721914993 M06.9 cont med, f/u c rheum Glaucoma 45332189 H40.9 new dx - cont drops as dir Cough 88784746 R05 check cxr to r/o walking pna Herpes sim plex type 1 infection 718705027 B00.9 has used successful ly over past yr - only one minor outbreak [id number] Lyle Trent MD Main Office [address] [address] [place] [address] 10/18/2018 10:37:07 10/18/2018 11:50:42 Cough 11799479 R05 check cxr to r/o walking pna rec otc tussin by day, use ying ac hs Pneumonia 408587754 J18. 9 suspect early pna - cont alb, add abx / probiotic while on abx, cont tussin by day and see above - ying ac hs add pred pulse Dyspnea 934476154 R06.00 [id number] Lyle Trent MD Main Office [address] [address] [place] [place] [address] 11/29/2018 08:46:12 11/29/2018 09:41:08 Rheumatoid arthritis of multiple joints 739704857 M06.9 cont med and labs as per rheum, advised pt to ask MD to fax us his notes Reduced libido 4513317 R 68.82 pt requests test. level to be checked Primary er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 anabolic steroids (which again rec. that he cease/quit ), but will further evaluate c urine testing Mixed hyperlipidemia 267 844416 E78.2 Ritchie - I found this online [...] Liver enzy mes level above reference range 901834112 R74.01 Ritchie --- liver enzymes elevated - could be due to alcohol, or from meds, or from underlying hemochroma tosis, or from anabolic steroid use - I found this online... Anabolic steroid use causes decreased levels of HDL or g ood cholestero l, increased levels of LDL or b ad cholestero l, and serious liver toxicity within [...] e vs steroids - will recheck Macrocytosis 230353896 D 75.89 and Erythrocyt osis --- ? d/t steroids, doubt d/t hemochroma tosis since had normal ferritin - will recheck Pain of le ft shoulder joint 6879240060 9191871 M25.512 s/p recent surgery - cont pain meds as per ortho, begin PT soon as dir, f/u c ortho Hemorrhoids 64092363 K64 .9 seen by colorectal sx - rec hydrocort supp prn, f/u prn [id number] Lyle Trent MD [facility] [address] [facility] [address] [facility] [place] [address] 07/11/2023 10:04:13 07/11/2023 11:34:51 Attention deficit hyperactivity disorder, predominantly inattentive type 55440860 F90.0 tolerating med, no palp or insomnia - but wonder if affecting bp - cont as dir for now, see below Microalbuminuria 4864231 06 R80.9 significan tly elevated - urged pt to call renal - he called yesterday but intake person was not in - advised him to call later this morning *will fwd copy of this ov note to renal* Elevated blood-pressure reading without diagnosis of hypertension 426292482 R03.0 pt exceptionnicholas soto nervous about above rmv paperwork - anxious to get his license back - no h/o htn, will recheck bp in a few weeks 10.23 - bp running high at ortho lately, has not been back in the office in several months to recheck bp - will have him rtc in 2 days for bp check [id number] Lyle Trent MD Main Office [address] [facility] [address] [place] [address] 07/13/2023 11:34:35 07/13/2023 13:15:21 Essential hypertension 72166772 I10 pt exceptionnicholas lly nervous about above rmv paperwork - anxious to get his license back - no h/o htn, will recheck bp in a few weeks 10.23 - bp running high at ortho lately, has not been back in the office in several months to recheck bp - will have him rtc in 2 days for bp check 10.19.23 - initial bp sig elevated, but recheck in exam room twice is wnl ---- rec mindfulnes s, deep breathing ex to relax ac check bp in future Attention deficit hyperactivity disorder, predominantly inattentive type 85576967 F90.0 tolerating med, no palp or insomnia - but wonder if affecting bp - cont as dir for now, see below 10.18.23 - rec cut methylphen idate in 1/2 to see if helps lower bp at home Diarrhea 98866037 R19.7 ? SE of meds - advised [...] these results back, stay well hydrated Microalbuminuria 8714995 06 R80.9 significan tly elevated - urged pt to call renal - he called yesterday but intake person was not in - advised him to call later this morning 10..23 - pending see renal in 1-2 wks *will fwd copy of this note to renal* [id number] Lyle Trent MD Main Office [address] [facility] [address] [place] [address] 09/13/2023 13:54:32 09/13/2023 15:14:30 Adult health examination 948278902 Z00.00 Needs infl uenza immunization 585955844 Z23 Low back pain 882178970 M54.50 R SI jt better lately p crescencio injxn, but now has L sciatica - cont f/u c pssp as dir, rec taper oxycodone as dir - pending mri, cont alt ice/heat, prn nsaids/tyl 12.23 - cont f/u c pssp - had mri, ? needs surgery Diarrhea 66199675 R19.7 ? SE of meds - advised [...] stool studies nl - no tmt Microalbuminuria 0998687 06 R80.9 significan tly elevated - urged pt to call renal - he called yesterday but intake person was not in - advised him to call later this morning 10.19.23 - pending see renal in 1-2 wks . - seen by renal, had kidney bx - 1 bx result pending, pending begin losartan as per renal Hereditary hemochromatosis 96410506 E83.110 cont f/u c hem, gets phlebotomy q 1-2 wks . - resolved, no phlebotomy x few months - reviewed dc letter - rec check melonie/hct q 3 months . - ferritin ~ stable, H/H trending down ---- I don't think your hematologi st would recommend another therapeuti c phlebotomy - I found this from Dr. Trivedi's last note - If ferritin >100 and hct >55 then refer back to hematology - so we will continue to monitor these. 09.16 - pending see hem at [facility] 10.18 Mixed hyperlipidemia 267 786757 E78.2 Ritchie - I found this online [...] surgery!! - Pat 09.16 - recheck lipids Major depr essive disorder 504813328 F32.0 pt declines counselreji camilo mother takes wellbutrin - will give trial of this reviewed genaro gaxiola pt. 09.16 - stable, cont med as dir Attention deficit hyperactivity disorder, predominantly inattentive type 64739489 F90.0 tolerating med, no palp or insomnia - but wonder if affecting bp - cont as dir for now, see below ..23 - rec cut methylphen idate in 12 to see if helps lower bp at home . - bp better lately - wnl - resume full tab bid as prior Testostero ne level below reference range 543997986 R79.89 pt requests re-test his T level - advised him to check in am, and to f/u c endo if levels are low again . - T level wnl - less frequent use of anabolic steroids d/t recent sx above 09.16 - recheck T Nocturia 616862336 R35.1 [id number] Lyle Trent MD [facility] [address] [facility] [address] [place] [address] 10/24/2023 15:13:18 10/25/2023 09:13:39 Hereditary hemochromatosis 36775164 E83.110 cont f/u c hem, gets phlebotomy [...] these. 09.16 - pending see hem at [facility] 10.1824 - seen by hem, resumed therapeuti c phlebotomy Mixed hyperlipidemia 267 167357 E78.2 Ritchie - I found this online [...] surgery!! - Pat 09.16 - recheck lipids 1. - card turned down referral, will see if hem/onc can get him in (both are docs)desean alejo, tolerating crestor - cont as dir, recheck lipids in a few months (pt also lowered his T dose) Low back pain 652546346 M54.50 R SI jt better lately p crescencio injxn, but now has L sciatica - cont f/u c pssp as dir, rec taper oxycodone as dir - pending mri, cont alt ice/heat, prn nsaids/tyl . - cont f/u c pssp - had mri, ? needs surgery 1.24 - better p crescencio injxn Cervical radiculopathy 36299427 M54.12 ~ stable, cont pred taper as per pssp, cont f/u c them - ? may need crescencio injxn in future 1.24 - pain/radic ular sxs aggravated lately - seen by pssp - arranging PT and epiduralme anwhile, pt requested pain pill for hs - see above Rheumatoid arthritis of multiple joints 715546557 M06.9 stable - cont as dir, cont f/u c rheum Hemorrhoids 97062776 K64 .9 seen by colorectal sx - rec hydrocort supp prn, f/u prn 1.24 - encouraged pt to call colorercta l sx - ? why defer banding, may consider surgery Testostero ne level below reference range 332837549 R79.89 pt requests re-test his T level [...] T level in early a.m. on Mon. [id number] Lyle Trent MD [facility] [address] [facility] [address] [place] [address] 12/05/2023 15:21:31 12/05/2023 16:28:54 Attention deficit hyperactivity disorder, predominantly inattentive type 89553216 F90.0 tolerating med, no palp or insomnia - but wonder if affecting bp - cont as dir for now, see below 10.18.23 - rec cut methylphen idate in 09/26 to see if helps lower bp at home 12.23 - bp better lately - wnl - resume full tab bid as prior 3.24 - stable, last filled 2.14.24 Mixed hyperlipidemia 267 650978 E78.2 Ritchie - I found this online [...] on crestor and lower T dos Microalbuminuria 7100617 06 R80.9 significan tly elevated - urged [...] dir, cont f/u c renal Cervical radiculopathy 98093207 M54.12 ~ stable, cont pred taper as per pssp, cont f/u c them - ? may need crescencio injxn in future 1.24 - pain/radic ular sxs aggravated lately - seen by pssp - arranging PT and epiduralme anwhile, pt requested pain pill for hs - see above 3.24 - stable p crescencio injxn, cont f/u c pssp [id number] Lyle Trent MD Main Office [address] [place] [address] 12/18/2023 14:45:03 12/18/2023 15:48:10 Thrombosed external hemorrhoids 05885195 K64.5 seen by colorectal sx - rec hydrocort supp prn, f/u prn 1.24 - encouraged pt to call colorectal sx - ? why defer banding, may consider surgery 12.16 - cannot get in to see colorectal sx until 02.06.24 - encouraged pt to call wkly for cancellati onsmeanwhi le, rec cont stool softeners, stop prep-H - rather use stronger steroid cream --- and do sitz bath often - soak/sit in tub c minimum of 3 inches of warm water Low back pain 663026929 M54.50 R SI jt better lately p crescencio injxn, but now has L sciatica - cont f/u c pssp as dir, rec taper oxycodone as dir - pending mri, cont alt ice/heat, prn nsaids/tyl 09.16 - cont f/u c pssp - had mri, ? needs surgery 1. - better p crescencio injxn 3. - pt requested refill [id number] Jay Contreras MD [facility] [address] [place] [address] 02/15/2024 15:12:48 02/28/2024 14:01:29 Abscess of skin of right shoulder 7470777708 5363607 L02.413 Pain at swelling at injection site. Will treat with abx. He understand s to go to the ER if he develops f/c or increasing or persistent pain. [id number] Lyle Trent MD [facility] [address] [place] [address] 02/27/2024 14:22:45 02/27/2024 15:41:39 Hemorrhoids 99230833 K64.9 seen by colorectal sx - rec hydrocort supp prn, f/u prn 1.24 - encouraged pt to call [facility] l sx - ? why defer banding, may consider surgery 03.18 - pending see sx 03.11.24, requests refill steroid cream Abscess of skin of right shoulder 8878791740 0452900 L02.413 resolved p abx Attention deficit hyperactivity disorder, predominantly inattentive type 99043307 F90.0 tolerating med, no palp or insomnia - but wonder if affecting bp - cont as dir for now, see below 07.12. - rec cut methylphen idate in 12 to see if helps lower bp at home . - bp better lately - wnl - resume full tab bid as prior 6.24 - stable, last filled 5.9.24 Glaucoma 38488251 H40.9 new dx - cont drops as dirhad laser procedure done Hereditary hemochromatosis 10653983 E83.110 cont f/u c hem, gets phlebotomy [...] these. 09.16 - pending see hem at [facility] 10.1824 - seen by hem, resumed therapeuti c phlebotomy 6.24 - better lately, phleb down to q 6 wks, cont f/u c hem [id number] NAEEM HERNANDES MD Main Office [address] [facility] [address] [place] [address] 04/04/2024 12:52:55 04/04/2024 13:30:04 Upper respiratory infection 05585377 J06.9 Community acquired pneumonia 736508130 J18.9 - high suspicion for pneumonia due [...] s given- ED precaution s given Wheezing 08156383 R06.2 [id number] NAEEM HERNANDES MD Main Office [address] [facility] [address] [place] [address] 04/30/2024 14:45:44 04/30/2024 15:15:40 Low back pain 921351848 M54.50 - pain located in the mid-thorac ic and lumbar region- pt started on cyclobenza sridevi 5mg to be taken at night> pt advised that he cannot drive or operate heavy machinary while taking this medication - started patient on prednisone - work note provided- return precaution s given [id number] Lyle [facility] [address] [facility] [address] [place] [address] 05/14/2024 14:56:50 05/14/2024 16:29:48 Low back pain 982410553 M54.50 R SI jt better lately p [...] for details Spasm of back muscles 20 3250583 M62.830 [id number] Lyle Trent MD [facility] [address] [facility] [address] [place] [address] 05/28/2024 14:20:46 05/28/2024 15:42:39 Attention deficit hyperactivity disorder, predominantly inattentive type 84686468 F90.0 tolerating med, no palp or insomnia [...] 1 tab at lunch Low back pain 056442079 M54.50 R SI jt better lately p [...] prn oxycodone - last filled 6.24 Hemorrhoids 75642922 K64 .9 seen by colorectal sx - rec hydrocort supp prn, f/u prn 1.24 - encouraged pt to call [facility] sx - ? why defer banding, may consider surgery 6.24 - pending see sx 6..24, requests refill steroid cream 9.24 - seen by colorectal sx - pending sx 1.25 [id number] Lyle Trent MD Main Office [address] [facility] [address] [facility] [place] [address] 07/06/2024 11:05:43 07/06/2024 11:26:12 Cellulitis and abscess of buttock 826218024 L03.317 Secondary to T injection. Some concern for deeper possibly muscular abscess/in fection. Will cover with Augmentin but patient advised that if pain and swelling worsen or fever develops he needs to call or go to ER if office isn't open for imaging, labs and possibly IV abx. Intramuscu lar testosterone adverse reaction 557433663 T38.7X5A Pt understand s/accepts risks associated with this. [id number] Lyle Trent MD [facility] [address] [facility] [address] [facility] [place] [address] 08/06/2024 13:21:41 08/06/2024 15:04:29 Chronic kidney disease stage 2 867780761 N18.2 rec drink more water, recheck next lab draw 11.24 - pt seen by renal 2 months ago - results pending (cannot reach him for results), will attempt to get, see below Microalbuminuria 7571705 06 R80.9 significan tly elevated - urged [...] microalb c cc: renal Erectile dysfunction 860 254595 F52.21 pt requests refill Low back pain 759556412 M54.50 R SI jt better lately p [...] belowd/w pt that he will be forwarding [facility] paperwork to me likely next week - see hpi for details 9.24 - filled out [place] paperwork c pt assistance pt requested refill of prn oxycodone - last filled 6.24 11.24 - pt requested refill of prn oxycodone - last filled 9.24 Attention deficit hyperactivity disorder, predominantly inattentive type 51959442 F90.0 tolerating med, no palp or insomnia [...] - would like to try generic adderall [id number] Lyle Trent MD [facility] [address] [facility] [address] [facility] [place] [address] 08/27/2024 14:20:09 08/27/2024 15:52:57 Attention deficit hyperactivity disorder, predominantly inattentive type 48234822 F90.0 tolerating med, no palp or insomnia - but wonder if affecting bp - cont as dir for now, see below 10..23 - rec cut methylphen idate in 1/2 to see if helps lower bp at home 12. - bp better lately - wnl - resume full tab bid as prior 9.24 - pt requests increase dose a little, last filled 8..24 - so increase to 2 tabs in am, 1 tab at lunch 11.24 - pt requests change to ER formulatio n - would like to try generic adderall 12. - no tolerate adderall, so went back on methylphen idate Anxiety 66880963 F41.9 pt states family life is good, no time for counsellin g, work is good - cont bup as dir Chronic ki dney disease stage 2 127930745 N18.2 rec drink more water, recheck next lab draw 11.24 - pt seen by renal 2 months ago - results pending (cannot reach him for results), will attempt to get, see below 12.24 - renal started tarpeyo to help c microalbum inuria Hemorrhoids 23125197 K64 .9 seen by colorectal sx - rec hydrocort supp prn, f/u prn 1.24 - encouraged pt to call [facility] sx - ? why defer banding, may consider surgery . - pending see sx 03.11.24, requests refill steroid cream . - seen by colorectal sx - pending sx 1.25 12. - stable lately, pending sx 1.25 Abscess of buttock 02967 003 L02.31 from steroid injxn - has had this perhaps 8-10 times over the past 10 years - has had success c augmentin, last rx'd by AW on 07.06.24 - no SEsrec better sterile technique to help prevent thisrecomm end probiotics while on abx [id number] Lyle Trent MD Main Office [address] [facility] [address] [facility] [place], [place] [address] 09/30/2024 14:28:30 09/30/2024 15:28:55 Adult health examination [id number] Z00.00 Anxiety 14410988 F41.9 pt states family life is good, no time for counsellin g, work is good - cont bup as dir Attention deficit hyperactivity disorder, predominantly inattentive type 47086689 F90.0 tolerating med, no palp or insomnia - but wonder if affecting bp - cont as dir for now, see below 10.18.23 - rec cut methylphen idate in 12 to see if helps lower bp at [...] as dir Rheumatoid arthritis of multiple joints [id number] M06.9 stable - cont as dir, cont f/u c rheum q 6 months Hereditary hemochromatosis 89448123 E83.110 cont f/u c hem, gets phlebotomy [...] so we will continue to monitor these. 12. - pending see hem at [facility] 10.18.24 - seen by hem, resumed therapeuti c phlebotomy 6.24 - better lately, phleb down to q 6 wks, cont f/u c hem 1. - stable lately off phlebotomy , cont f/u c hem q 6 months Microalbuminuria 5242285 06 R80.9 significan tly elevated - urged pt to call renal - he called yesterday but intake person was not in - advised him to call later this morning 07.13. - pending see renal in 1-2 wks . - seen by renal, had kidney bx - 1 bx result pending, pending begin losartan as per renal 3. - stable/res olved, cont arb as dir, cont f/u c renal 11. - get microalb c cc: renal 1. - cont meds, f/u c renal q 6 months - next in 3. Pericarditis 4850604 I31 .9 stable on rheum meds, f/u c card prn Mixed hyperlipidemia 267 932676 E78.2 Ritchie - I found this online [...] will continue to monitor these. - Pat 5. - rec low carb diet to lower [...] dir Chronic ki dney disease stage 2 018517531 N18.2 rec drink more water, recheck next lab draw 11.24 - pt seen by renal 2 months ago - results pending (cannot reach him for results), will attempt to get, see below 12.24 - renal started tarpeyo to help c microalbum inuria Essential hypertension 84579375 I10 pt exceptiona lly nervous about above rmv paperwork - anxious to get his license back - no h/o htn, will recheck bp in a few weeks 10.23 - bp running high at ortho lately, has not been back in the office in several months to recheck bp - will have him rtc in 2 days for bp check 10.19.23 - initial bp sig elevated, but recheck in exam room twice is wnl ---- rec mindfulnes s, deep breathing ex to relax ac check bp in future 1.25 - bp ~ stable, cont med as dirif bp persists elevated, consider decrease adhd medication Gout 91946759 M10.9 has been on turmeric and celery seed - no flare x 3 months p took 2 courses of pred. admits to eating a lot of cheese - rec. decrease intake, provided purine restricted diet worksheet 7.22 - see above, check uric acid level in a few weeks 1.25 - believe do not have gout - rather RA Hemorrhoids 57470663 K64 .9 seen by colorectal sx - rec hydrocort supp prn, f/u prn 1.24 - encouraged pt to call diana sy sx - ? why defer banding, may consider surgery 6.24 - pending see sx 24, requests refill steroid cream 9.24 - seen by colorectal sx - pending sx .25 12.24 - stable lately, pending sx 1.25 Long-term current use of immunosuppressive drug 208757093 Z79.899 Testostero ne level below reference range 871392936 R79.89 pt requests re-test his T level - advised him to check in am, and to f/u c endo if levels are low again 5.23 - T level wnl - less frequent use of anabolic steroids d/t recent sx above 1.25 - recheck T - level very high, pt cut dose in 1 - pt does T injxn on Monday, advised pt to check T level in early a.m. on Mon. Impaired f asting glycemia 568808618 R73.01 no evidence of predm Low back pain 482087252 M54.50 R SI jt better lately p crescencio injxn, but now has L sciatica - cont f/u c pssp as dir, rec taper oxycodone as dir - pending mri, cont alt ice/heat, prn nsaids/tyl 12 - cont f/u c pssp - had [...] of prn oxycodone - last filled 6.24 11.24 - pt requested refill of prn oxycodone - last filled 9.24 1.25 - pt requested refill of prn oxycodone - last filled 11. [id number] Lyle [facility] [address] [facility] [address] [facility], [place] [address] 12/31/2024 12:58:36 12/31/2024 16:41:12 Attention deficit hyperactivity disorder, predominantly inattentive type 55366456 F90.0 tolerating med, no palp or insomnia [...] - would like to try generic adderall 12. - no tolerate adderall, so went back on methylphen idate 4. - stable on med - cont as dir Prediabetes 836878323 R7 3.03 Hemorrhoids 28979470 K64 .9 seen by colorectal sx - rec hydrocort supp prn, f/u prn 1.24 - [facility] - ? why defer banding, may consider surgery . - pending see sx 03.11.24, requests refill steroid cream . - seen by colorectal sx - pending sx .25 12. - stable lately, pending sx .17 01. - pending sx in 2 wks Mixed hyperlipidemia 267 303293 E78.2 Ritchie - I found this online [...] will continue to monitor these. - Pat 5. - rec low carb diet to lower [...] luck with your shoulder surgery!! - Pat 12.23 - recheck lipids 1.24 - card turned down referral, will see if hem/onc can get him in (both are docs)desean alejo, tolerating crestor - cont as dir, recheck lipids in a few months (pt also lowered his T dose) 3.24 - sig improvemen t on crestor and lower T dos 1.25 - recheck, cont statin as dir Testostero ne level below reference range 850940076 R79.89 pt requests re-test his T level [...] T level in early a.m. on Mon. [id number] Lyle Trent MD [facility] [address] [facility] [address] [place] [address] 06/03/2025 12:34:56 06/09/2025 16:16:49 Attention deficit hyperactivity disorder, predominantly inattentive type 60673652 F90.0 tolerating med, no palp or insomnia - but wonder if affecting bp - cont as dir for now, see below 10.18.23 - rec cut methylphen idate in 09/26 [...] adderall, so went back on methylphen idate 9.25 - stable on med, last filled 8.20.25 x 90 days, tolerating well - cont as dir Hereditary hemochromatosis 60069883 E83.110 cont f/u c hem, gets phlebotomy [...] these. 09.16 - pending see hem at [facility] 10.18 - seen by hem, resumed therapeuti c phlebotomy 6.24 - better lately, phleb down to q 6 wks, cont f/u c hem . - stable lately off phlebotomy , cont f/u c hem q 6 months . - stable, cont phlebotomy q 3 months, cont f/u Low back pain 880897159 M54.50 R SI jt better lately p crescencio injxn, but now has L sciatica - cont f/u c pssp as dir, rec taper oxycodone as dir - pending mri, cont alt ice/heat, prn nsaids/tyl 09.16 - cont f/u c pssp - had mri, ? needs surgery 10.18 - better p crescencio injxn 3.24 - pt requested refill 8.24 - pt seen by SB ~ 2 wks ago - benefited from prn m relaxer - requests add'l - see belowd/w pt that he will be forwarding fmla paperwork to me likely next week - see hpi for details 06.18 - filled out fmla paperwork c pt assistance pt requested refill of prn oxycodone - last filled 03.18 - pt requested refill of prn oxycodone - last filled 06.18. - pt requested refill of prn oxycodone - last filled 08.18 9 - discussed filling out updated fmla formpt to upload to EMR later todaywill fill out similar to that of .24 Hemorrhoids 22896119 K64 .9 seen by colorectal sx - rec hydrocort supp prn, f/u prn 1.24 - encouraged pt to call diana sy sx - ? why defer banding, may consider surgery . - pending see sx 03.11.24, requests refill steroid cream . - seen by colorectal sx - pending sx 1.25 12.24 - stable lately, pending sx 1.25 4.25 - pending sx in 2 wks 9.25 - s/p sx 4.29.25 - better, but they have returned to a smaller degree Microalbuminuria 4113510 06 R80.9 significan tly elevated - urged [...] 11.24 - get microalb c cc: renal 1.25 - cont meds, f/u c renal q 6 months - next in 3.25 Chronic ki dney disease stage 2 914375215 N18.2 rec drink more water, recheck next lab draw 11.24 - pt seen by renal 2 months ago - results pending (cannot reach him for results), will attempt to get, see below 12.24 - renal started tarpeyo to help c microalbum inuria 9.25 - stable, cont f/u c renal Health Concerns Section Related Observation LastModified by Organization Detai ls LastModified Time None Recorded Concern Status LastModified by Organization Details LastModified Time None Recorded Advance Directives Directive Y: Payers Insurance Date Sequence Insurance Name Policy Number Policy Ash Covered Member ID Ash Member ID Guarantor Name 08/22/2017 1 *SELF PAY* Se brayden Abdalla 06/17/2025 1 [employer] (O) [id number] Ritchie Abdalla [id number] Ritchie Abdalla 09/04/2019 1 *SELF PAY* Se an Lianne 06/03/2025 1 [facility] [id number] Ritchie Abdalla [id number] Ritchie Abdalla 06/03/2025 1 [facility] [place] [id number] Ritchie Abdalla [id number] Ritchie Abdalla 06/03/2025 1 MEDICAID[place] : [facility] Ritchie Abdalla [id number] Ritchie Abdalla 06/03/[address] [place] [address] [id number] Ritchie Sy Lianne [id number] Ritchiedeacon Abdalla Notes Date Note Type Note Provider Name and Address Organization Details Recorded Time 08/06/2024 text/html pt states he saw Dr Soriano 2 months ago, but has had difficulty getting his resultshas other concerns - plz see a/p Justino Jackson PA-C [address] [address], [place], [address], [facility] 08/06/2024 14:55:41 08/27/2024 text/html ADHDReported by PatientHPIFor organization, patient reportsgood organization. For appetite, patient reportsnormal appetiteandno binge eating. For mood, patient reportsstable. For sleep, patient reportsgood. For friends, patient reportswell connected with peers. For family, patient reportsno new stressors. For self esteem, patient reportshigh. For attention, patient reportsable to focus. For hyperactivity, patient reportsis not hyperactive. For impulsivity, patient reportsis not impulsive. For tasking, patient reportsable to initiate tasks,able to complete tasks,able to move on to the next task, andmulti-tasking. TH for f/u = stable on add med, but requests going up on dose a little d/t late afternoon / early evening fatigueable to sleep fine 12.24 - no tolerate adderall, back on methyl. - doing well Justino Jackson PA-C [address] [address], [place], [address], [facility] 08/27/2024 15:42:07 09/30/2024 text/html Generic HPI TemplateReported by Patient here for annual pe. Justino Jackson PA-C [address] [facility] [address], [place], [address], [facility] 09/30/2024 19:42:37 12/31/2024 text/html ADHDReported by PatientHPIFor organization, patient reportsgood organization. For appetite, patient reportsnormal appetiteandno binge eating. For mood, patient reportsstable. For sleep, patient reportsgood. For friends, patient reportswell connected with peers. For family, patient reportsno new stressors. For self esteem, patient reportshigh. For attention, patient reportsable to focus. For hyperactivity, patient reportsis not hyperactive. For impulsivity, patient reportsis not impulsive. For tasking, patient reportsable to initiate tasks,able to complete tasks,able to move on to the next task, andmulti-tasking. TH for f/u = stable on add med, but requests going up on dose a little d/t late afternoon / early evening fatigueable to sleep fine 12.24 - no tolerate adderall, back on methyl. - doing well 4.25 - stable, tolerating med well - day supply Justino Jackson PA-C [address] [facility] [address], [place], [address], [facility] 12/31/2024 15:35:55 06/03/2025 text/html ADHDReported by PatientHPIFor organization, patient reportsgood organization. For appetite, patient reportsnormal appetiteandno binge eating. For mood, patient reportsstable. For sleep, patient reportsgood. For friends, patient reportswell connected with peers. For family, patient reportsno new stressors. For self esteem, patient reportshigh. For attention, patient reportsable to focus. For hyperactivity, patient reportsis not hyperactive. For impulsivity, patient reportsis not impulsive. For tasking, patient reportsable to initiate tasks,able to complete tasks,able to move on to the next task, andmulti-tasking. TH for f/u = stable on add med, but requests going up on dose a little d/t late afternoon / early evening fatigueable to sleep fine 12.24 - no tolerate adderall, back on methyl. - doing well 9.25 - stable, tolerating med well - supply Justino Jackson PA-C [address] [facility] [address], [place], [address], [facility] 06/03/2025 16:30:44
--- OUTSIDE RECORDS SUMMARY | 2025-07-18 16:20 | XMS_ITS | Clinical Summary ---
Author Organization [facility] Address [address] [place] [address] Phone Care Team Providers Care Silk Snapper Name Role Phone Ba Zuñiga PA-C Primary Care Provider [phone]- [phone] Allergies No known active allergies Medications valACYclovir (VALTREX) 500 MG tablet Take 500 mg by mouth 1 (one) time each day 3 Active timolol (TIMOPTIC) 0.5 % ophthalmic solution Administer 1 drop into both eyes 3 Active methylphenidat e (RITALIN) 20 MG tablet Take 20 mg [...] each day in the evening 4 Active Tarpeyo 4 MG capsule delayed-releas e Take 2 capsules (8 mg) by mouth once daily 60 capsule 2 5 Active losartan (COZAAR) 50 MG tablet TAKE 1 TABLET BY MOUTH 1 TIME EACH DAY. 90 tablet 3 5 Active Blood Pressure kit 1 kit 1 (one) time each day Dx- Hypertension 1 kit 5 026 Active Blood Pressure kit 1 kit 1 (one) time each day 1 kit 5 025 Discontin ued(Reord er (does not appear on AVS)) Active Problems Problem Noted Date Diagnosed Date Proteinuria 07/08/2025 IgA nephropathy 06/19/2024 Chronic kidney disease, stage 2 (mild) 4 Elevated blood-pressure read ing without diagnosis of hypertension 08/03/2023 08/03/2023 Epidermoid cyst 08/03/2023 08/03/2023 Alcohol dependence 02/22/2022 08/03/2023 Influenza-like illness 02/09/2022 Attention-deficit hyperactiv ity disorder predominantly inattentive type 01/26/2022 08/03/2023 Hematochezia 11/30/2021 08/03/2023 Long-term current use of immunosuppressive drug 09/30/2021 08/03/2023 Premature ejaculation 07/20/2021 08/03/2023 Right side sciatica 02/23/2021 08/03/2023 Primary erectile dysfunction 09/08/202005/2023 Hereditary hemochromatosis 04/02/202008/03 Restless legs 07/12/2018 08/03/2023 Rheumatoid arthritis of multiple joints 07/11/20 18 08/03/2023 Encounters Date Type Department Care Team Description 07/08/2025 4:15 PM EDT Office Visit [facility] [address] [phone] Levi Soriano MD IgA nephropathy (Primary Dx); Persistent proteinuria 07/08/2025 Refill [facility] [address] [phone] Zoe Baltazar 07/08/2025 Refill [facility] [place] [address] [phone] Maria Luz Bear MA 07/07/2025 Orders Only [facility] [address] [facility] [address] [place] [phone] Maria Luz Bear MA 05/03/2025 Refill [facility] [address] [facility] [address] [place] [phone] Levi Soriano MD 04/21/2025 Refill [facility] [address] [facility] [address] [place] [phone] Levi Soriano MD from Last 3 Months Immunizations Immunization Administration Dates Next Due Influenza, Injectable, Madin Naa Canine Kidney, Preservative Free 08/22/2024 Influenza, MDCK, PF, Quadrivalent 08/02/2020,04/2020 Influenza, Quadrivalent, Preservative Free 09/13 Influenza, Unspecified 01/23/2021 Pfizer SARS-COV-2 10/14/2021,01/29/2021,01/09/20 Pneumococcal [...] Sign Reading Time Taken Comments Blood Pressure 162/98 07/08/2025 4:26 PM EDT Pulse 102 07/08/2025 4:26 PM EDT Temperature - - Respiratory Rate - - Oxygen Saturation 98% 07/08/2025 4:26 PM EDT Inhaled Oxygen Concentration - - Weight 89.5 kg (197 lb 6.4 oz) 07/08/2025 4:26 P M EDT Height - - Body Mass Index - - Plan of Treatment Upcoming Encounters Date Type Department Care Team (Late st Contact Info) Description 10/07/2025 4:15 PM EST Office Visit [facility] [address] [phone] Levi Soriano MD [address] [phone] Health Maintenance Due Date Last Done Comments Hepatitis B Vaccine (1 of 3 - 19+ 3-dose series) 2004 Pneumococcal Vaccine: Peds ( 0 to 5 Years) and At-Risk Patients (6 to 49 Years) (2 of 2 - PCV) 09/26/2021 09/26/2020 Influenza Vaccine (#1) 2025 , 09/13/2023, 01/23/2021, Additional history exists Procedures Procedure Name Priority Date/Time Associated Diagnosis Comments LIPID PANEL Routine 07/15/2025 10:28 AM EDT IgA nephropathy Persistent proteinuria BILIRUBIN, TOTAL AND DIRECT Routine 07/15/2025 10:28 AM EDT IgA nephropathy Persistent proteinuria ALKALINE PHOSPHATASE Routine 07/15/2025 10:28 AM EDT IgA nephropathy Persistent proteinuria ALT Routine 07/15/2025 10:28 AM EDT IgA nephropathy Persistent proteinuria AST Routine 07/15/2025 10:28 AM EDT IgA nephropathy Persistent proteinuria CBC AND DIFFERENTIAL Routine 07/15/2025 10:28 AM EDT IgA nephropathy Persistent proteinuria PROTEIN / CREATININE RATIO, URINE Routine 07/15/2025 10:28 AM EDT IgA nephropathy Persistent proteinuria URINE ALBUMIN / CREATININE RATIO Routine 07/15/2025 10:28 AM EDT IgA nephropathy Persistent proteinuria URINALYSIS WITH MICROSCOPIC Routine 07/15/2025 10:28 AM EDT IgA nephropathy Persistent proteinuria RENAL FUNCTION PANEL Routine 07/15/2025 10:28 AM EDT IgA nephropathy Persistent proteinuria MICROSCOPIC EXAMINATION - DO NOT USE Routine 07/15/2025 10:28 AM EDT from Last 3 Months Results * Microscopic Examination (07/15/2025 10:28 AM EDT) WBC, Urine 0-5 0 - 5 /hpf [facility] RBC, Urine 0-2 0 - 2 /hpf [facility] Squamous Epithelial, Urine None seen 0 - 10 /hpf [facility] Casts None seen None seen /lpf [facility] Bacteria, Urine None seen None seen/Few [facility] 07/15/2025 10:2 8 AM EDT 07/15/2025 Levi Soriano MD LAB MICROBIOLOGY - GENERAL OR DERABLES Final Result Performing Organization Address City/[facility] Co de Phone Number [facility] [address] [place] [address] * (ABNORMAL) Protein, Total, Random Urine w/Creatinine (Protein/Creat Ratio) (07/15/2025 10:28 AM EDT) Creatinine, Ur 107.4 Not Estab. mg/dL [facility] Protein, Ur 235.0 Not Estab. mg/dL [facility] Comment: Results confirmed on dilution. Urine Protein/Creati nine Ratio 2,188(H) 0 - 200 mg/g creat [facility] Urine Urine specimen obtained by clean catch procedure / Unknown 07/15/2025 10:28 AM EDT 07/15/2025 us Levi Soriano MD LAB URINE ORDERABLES Final Re sult Performing Organization Address City/State/[facility] Co de Phone Number [facility] [address] [place] [address] * (ABNORMAL) Urine Albumin / Creatinine Ratio (07/15/2025 10:28 AM EDT) Albumin, Urine 1,507.7 Not Estab. ug/mL [facility] Comment: Results confirmed on dilution. Albumin/Creatin ine Ratio 1,404(H) 0 - 29 mg/g creat [facility] Comment: Normal: 0 - 29 Moderately increased: 30 - 300 Severely increased: >300 Urine Urine specimen obtained by clean catch procedure / Unknown 07/15/2025 10:28 AM EDT 07/15/2025 us Levi Soriano MD LAB URINE ORDERABLES Final Re sult Performing Organization Address City/[facility] Co de Phone Number [facility] [address] [place] [address] * (ABNORMAL) Urinalysis with microscopic (07/15/2025 10:28 AM EDT) Pathologist [facility] Specific Kila, Urine 1.017 1.005 - 1.030 [facility] pH Urine 7.5 5.0 - 7.5 [facility] Color, Urine Yellow Yellow [facility] Appearance Urine Cloudy(A) Clear [facility] [phone] WBC Esterase Urine Negative Negative [facility] [phone] Protein, Ur 3+(A) Negative/Tra ce [facility] Glucose, Ur Negative Negative [facility] Ketones, Urine Trace(A) Negative [facility] Blood Urine Negative Negative [facility] Bilirubin Urine Negative Negative [facility] Urobilinogen Urine 0.2 0.2 - 1.0 mg/dL [facility] Nitrite, Urine Negative Negative [facility] Microscopic Examination See below: [facility] Comment:Microscopic was sabrina cated and was performed. Urine Urine specimen obtained by clean catch procedure / Unknown 07/15/2025 10:28 AM EDT 07/15/2025 us Levi Soriano MD LAB URINE ORDERABLES Final Re sult [facility] [address] [place] [address] * (ABNORMAL) CBC and differential (07/15/2025 10:28 AM EDT) WBC 6.1 3.4 - 10.8 x10E3/uL [facility] RBC 6.31(H) 4.14 - 5.80 x10E6/uL [facility] Hemoglobin 16.3 13.0 - 17.7 g/dL [facility] Hematocrit 53.3(H) 37.5 - 51.0 % [facility] MCV 85 79 - 97 fL [facility] MCH 25.8(L) 26.6 - 33.0 pg [facility] MCHC 30.6(L) 31.5 - 35.7 g/dL [facility] RDW 18.3(H) 11.6 - 15.4 % [facility] Platelets 196 150 - 450 x10E3/uL [facility] Neutrophils Relative 51 Not Estab. % [facility] Lymphocytes Relative 29 Not Estab. % [facility] Monocytes 16 Not Estab. % [facility] Eosinophils Relative 3 Not Estab. % [facility] Basophils Relative 1 Not Estab. % [facility] Neutrophils Absolute 3.2 1.4 - 7.0 x10E3/uL [facility] Lymphocytes Absolute 1.7 0.7 - 3.1 x10E3/uL [facility] Monocytes Absolute 0.9 0.1 - 0.9 x10E3/uL [facility] Eosinophils Absolute 0.2 0.0 - 0.4 x10E3/uL [facility] Basophils Absolute 0.0 0.0 - 0.2 x10E3/uL [facility] Immature Granulocytes 0 Not Estab. % [facility] Immature Grans (Absolute) 0.0 0.0 - 0.1 x10E3/uL [facility] Blood Venous blood / Unknown 07/15/2025 10:28 AM EDT 07/15/2025 us Levi Soriano MD LAB BLOOD ORDERABLES Final Re sult [facility] [address] [place] [address] * Bilirubin, total and direct (07/15/2025 10:28 AM EDT) Total Bilirubin 0.7 0.0 - 1.2 mg/dL [facility] Bilirubin, Direct 0.21 0.00 - 0.40 mg/dL [facility] Bilirubin, Indirect 0.49 0.10 - 0.80 mg/dL [facility] Blood Venous blood / Unknown 07/15/2025 10:28 AM EDT 07/15/2025 us Levi Soriano MD LAB BLOOD ORDERABLES Final Re sult [facility] [address] [place] [address] * (ABNORMAL) ALT (07/15/2025 10:28 AM EDT) ALT (SGPT) 51(H) 0 - 44 IU/L [facility] Blood Venous blood / Unknown 07/15/2025 10:28 AM EDT 07/15/2025 us Levi Soriano MD LAB BLOOD ORDERABLES Final Re sult Performing Organization Address [facility] Co de Phone Number [facility] [address] [place] [address] * (ABNORMAL) AST (07/15/2025 10:28 AM EDT) AST (SGOT) 50(H) 0 - 40 IU/L [facility] Blood Venous blood / Unknown 07/15/2025 10:28 AM EDT 07/15/2025 us Levi Soriano MD LAB BLOOD ORDERABLES Final Re sult Performing Organization Address City/[facility]/ZIP Co de Phone Number [facility] [address] [place] [address] * Alkaline phosphatase (07/15/2025 10:28 AM EDT) Alkaline Phosphatase 56 47 - 123 IU/L [facility] Blood Venous blood / Unknown 07/15/2025 10:28 AM EDT 07/15/2025 Levi Soriano MD LAB BLOOD ORDERABLES Final Re sult [facility] [address] [place] [address] * (ABNORMAL) Renal Function Panel (07/15/2025 10:28 AM EDT) Glucose 84 70 - 99 mg/dL [facility] BUN 22(H) 6 - 20 mg/dL [facility] Creatinine 1.16 0.76 - 1.27 mg/dL [facility] eGFR CKD-EPI CR 2020 82 >59 mL/min/1.7 3 [facility] BUN/Creatinine Ratio 19 9 - 20 [facility] Sodium 138 134 - 144 mmol/L [facility] Potassium 4.5 3.5 - 5.2 mmol/L [facility] Chloride 99 96 - 106 mmol/L [facility] Bicarbonate (CO2) 24 20 - 29 mmol/L [facility] Calcium 9.7 8.7 - 10.2 mg/dL [facility] Albumin 4.3 4.1 - 5.1 g/dL [facility] Phosphorus 3.1 2.8 - 4.1 mg/dL [facility] Blood Venous blood / Unknown 07/15/2025 10:28 AM EDT 07/15/2025 Levi Soriano MD LAB BLOOD ORDERABLES Final Re sult [facility] [address] [place] [address] * (ABNORMAL) Lipid panel (07/15/2025 10:28 AM EDT) Cholesterol 212(H) 100 - 199 mg/dL [facility] Triglycerides 177(H) 0 - 149 mg/dL [facility] HDL 62 >39 mg/dL [facility] VLDL Cholesterol Fer 31 5 - 40 mg/dL [facility] LDL Calculated 119(H) 0 - 99 mg/dL [facility] Blood Venous blood / Unknown 07/15/2025 10:28 AM EDT 07/15/2025 Levi Soriano MD LAB BLOOD ORDERABLES Final Re sult [facility] [address] [place] [address] from Last 3 Months Insurance [facility] Care Teams Silk Snapper Relationship Specialty Start Date End Date Ba Zuñiga PA-C [address] [facility] [address] [place], [place] PCP - General Physician Senior Firmware 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
--- OUTSIDE RECORDS SUMMARY | 2025-07-18 16:20 | XMS_ITS | Data Portability ---
Author Organization [facility] [address] Address [address] [place] [address] Assessment No assessment recorded. Plan of Treatment Reminders Order Date Submit Date Provider Last Modified By Organization Details Last Modified Time Details Appointments None recorded. Lab None recorded. Referral None recorded. Procedures None recorded. Surgeries None recorded. Imaging None recorded. Medication Orders cephalexin 500 mg capsule 2023 024 [facility] #[id number], [address] [facility] [place], [address], 18:59:56 Patient TargetsNo targets recorded. Patient Instructions Encounter Date Encounter Id Patient Instructions Last Modified By Organization Details Last Modified Time 01/05/2024 [id number] You can take ove r the counter tylenol or ibuprofen per package instructions for the pain. See printed instructions. Follow-up with your doctor if no improvement in 1 week. Seek Emergency Medical evaluation for any worsening symptoms. [email or web address] Not available 01/11/2024 14:43:03 Reason for Referral None Reported. Problems Name Problem SNOMED Code Status Onset Date Resolution Date Notes Provider Name and Address Organization Details Recorded Time Rheumatoid arthritis 84433081 Active 024 Hoa Jose Antonio null, [place] - [facility] 4 18:20:47 Anxiety 70330529 Active 024 Hoa Jose Antonio null, [place] - [facility] 4 18:20:53 Depressive disorder 89797586 Active 024 Hoa Jose Antonio null, PA [...] Not Available Vitals Date Recorded Body height Body mass index (BMI) Body weight Oxygen saturation Oxygen saturation in Arterial blood by Pulse oximetry Heart rate Body temperature Respiratory rate Systolic And Diastolic Provider Name and Address Organization Details Last Updated DateTime 4 177.8 cm 29.4 kg/m2 32681.4 4 g 96 % 96 % 86 /min 98.8 [degF] 18 /min 152/89 mm[Hg] Hoa Brady PA - [facility] 18:22:45 Social History Question Answer Notes LastModified by Capical Details LastModified Time Tobacco Smoking Status Current Some Day Smoker Hoa espinoza PA - [facility] 01/05/2024 18:21:23 What Was The Date Of Your Most Recent Tobacco Screening? 01/05/2024 Information not available 01/05/2024 Have You Recently Traveled Abroad? No Information not available 01/05/2024 Sex: Unknown Functional Status Question Answer Note LastModified by Cap[employer] Details LastModified Time Do you use any illicit or recreational drugs? No Information not available 01/05/2024 What is your level of alcohol consumption? Occasional Information not available 01/05/2024 Mental Status None recorded. Family History Relationship [...] ICD10 Code Diagnosis IMO Codes Diagnosis Note [id number] [address] [place] [address] 01/11/2018 11:19:34 01/11/2018 11:51:31 [id number] [address] [place] [address] 10/19/2019 11:25:39 10/19/2019 12:28:38 [id number] [address] [place] [address] 05/01/2020 08:34:22 05/01/2020 09:45:32 [id number] [address] [place] [address] 03/01/2020 15:23:06 03/01/2020 15:47:12 [id number] [address] [place] [address] 05/16/2018 09:53:39 05/16/2018 10:57:59 [id number] [place]YNN [place] [address] [place] [address] 01/05/2024 18:09:09 01/05/2024 19:01:45 Cellulitis of skin 296493252 L03.90 Health Concerns Section Related Observation LastModified by Organization [place] ls LastModified Time None Recorded Concern Status LastModified by Organization Details LastModified Time None Recorded Advance Directives Directive None Recorded Payers Insurance Date Sequence Insurance Name Policy Number Policy Ash Covered Member ID Ash Member ID Guarantor Name 01/11/2024 1 [place] [id number] Ritchie Abdalla [id number] Ritchie Abdalla Notes Date Note Type Note Provider Name and Address Organization Details Recorded Time 01/05/2024 text/html 38 yo male here with a tender lump in the right buttock. He states he gives himself testosterone shots and has gotten infections before. He is worried about his left leg pain he is having MINISTERIO LYNN MD [address] [place], [address], [place] - [facility] 01/11/2024 14:43:54
== END 2025-07-18 14:28 | disposition home or self-care (01) ==
LOC: HO.BBR 14:27
PROVIDERS: PCP Physician Assistant Medical; Visit Provider Internal Medicine
DX: Z13.89 Encounter for screening for other disorder (principal)